=== PATIENT | female | born 1960 | race Caucasian/White ===

== ENCOUNTER 2020-11-11 09:08 | Outpatient (REF) | payer MEDICARE, MEDICAID, SELFPAY ==
[2020-11-11 11:49] LABS: Hematocrit 33.2 % (37-47); Hemoglobin 10.5 g/dl (12.0-16.0); Mean Corpuscular HGB Conc 31.6 g/dl (31.0-35.0); Mean Corpuscular Hemoglobin 29.5 pg (27.0-33.0); Mean Corpuscular Volume 93.3 fL (80-98); Mean Platelet Volume 10.1 fL (9.4-12.3); Platelet Count 426 X10*3/uL (160-400); Red Blood Count 3.56 X10*6/uL (4.20-5.50); Red Cell Distribution Width 13.7 % (11.0-16.0); White Blood Count 7.1 X10*3/uL (4.8-10.8)
[2020-11-11 12:02] LABS: Alanine Aminotransferase 19 U/L (0-31); Albumin Level 3.9 g/dL (3.5-5.0); Alkaline Phosphatase 99 U/L (39-117); Anion Gap 13 (12-20); Aspartate Amino Transferase 20 U/L (5-31); Bilirubin Total 0.8 mg/dL (0.0-1.0); Blood Urea Nitrogen 15 mg/dL (9-16); Calcium 8.7 mg/dL (8.4-10.2); Carbon Dioxide 27 mmol/L (22-29); Chloride 104 mmol/L (96-108); Cholesterol 132 mg/dL; Estimated Glomerular Filt Rate > 60; Glucose Fasting 109 mg/dL (60-99); HDL Cholesterol 44 mg/dL; Iron 50 mcg/dL (30-160); LDL Cholesterol Calculated 75 mg/dl; Percent Iron Saturation 19 % (15-50); Potassium 4.2 mmol/L (3.3-5.1); Sodium 140 mmol/L (135-145); Total Iron Binding Capacity 263 mcg/dL (228-428); Total Protein 6.9 g/dL (6.5-8.0); Triglycerides 66 mg/dL; Unsaturated Iron Binding 213 ug/dL
[2020-11-11 12:16] LABS: Estimated Average Glucose 126 mg/dL
[2020-11-11 12:24] LABS: TSH reflex Free T4 1.65 uIU/mL (0.32-4.0)
== END 2020-11-11 09:09 | disposition home or self-care (01) ==
LOC: HO.HMGCLDS 09:08
PROVIDERS: PCP Internal Medicine; Visit Provider Internal Medicine
DX: E11.9 Type 2 diabetes mellitus without complications (principal); I10 Essential (primary) hypertension; D50.9 Iron deficiency anemia, unspecified
CPT/HCPCS: 36415; 80053; 80061; 83036; 83540; 84443; 85027

== ENCOUNTER 2021-06-16 08:44 | Outpatient (REF) | payer MEDICARE, MEDICAID, SELFPAY ==
[2021-06-16 11:54] LABS: Hematocrit 30.6 % (37.0-47.0); Hemoglobin 9.4 g/dl (12.0-16.0); Mean Corpuscular HGB Conc 30.7 g/dl (31.0-35.0); Mean Corpuscular Hemoglobin 27.2 pg (27.0-33.0); Mean Corpuscular Volume 88.4 fL (80.0-98.0); Platelet Count 495 X10*3/uL (160-400); Red Blood Count 3.46 X10*6/uL (4.20-5.50); Red Cell Distribution Width 14.5 % (11.0-16.0); White Blood Count 7.2 X10*3/uL (4.8-10.8)
[2021-06-16 12:10] LABS: Estimated Average Glucose 131 mg/dL; Hemoglobin A1c % 6.2 %
[2021-06-16 12:51] LABS: Creatinine Urine 113.41 mg/dL; Microalbum/Creatinine Ratio Ur 4.4 ug/mg cr
[2021-06-16 13:09] LABS: Alanine Aminotransferase 17 U/L (0-31); Albumin Level 3.9 g/dL (3.5-5.0); Alkaline Phosphatase 115 U/L (39-117); Anion Gap 15 (12-20); Aspartate Amino Transferase 22 U/L (5-31); Bilirubin Total 0.7 mg/dL (0.0-1.0); Blood Urea Nitrogen 16 mg/dL (9-16); Calcium 9.2 mg/dL (8.4-10.2); Carbon Dioxide 26 mmol/L (22-29); Chloride 104 mmol/L (96-108); Cholesterol 134 mg/dL; Estimated Glomerular Filt Rate > 60; Glucose Fasting 113 mg/dL (60-99); HDL Cholesterol 41 mg/dL; LDL Cholesterol Calculated 75 mg/dl; Potassium 4.6 mmol/L (3.3-5.1); Sodium 140 mmol/L (135-145); Total Protein 7.2 g/dL (6.5-8.0); Triglycerides 93 mg/dL
[2021-06-16 13:43] LABS: Folate 13.1 ng/mL (> or = 4.0); Vitamin B12 417 pg/mL (200-900)
== END 2021-06-16 08:45 | disposition home or self-care (01) ==
LOC: HO.HMGCLDS 08:44
PROVIDERS: PCP Internal Medicine; Visit Provider Internal Medicine
DX: D50.9 Iron deficiency anemia, unspecified (principal); E11.9 Type 2 diabetes mellitus without complications; E78.5 Hyperlipidemia, unspecified; I10 Essential (primary) hypertension; I48.91 Unspecified atrial fibrillation
CPT/HCPCS: 36415; 80053; 80061; 82043; 82607; 82746; 83036; 85027

== ENCOUNTER 2021-07-07 09:48 | Outpatient (REF) | payer MEDICARE, MEDICAID, SELFPAY ==
--- NOTE | ~2021-07-07 | XR_ITS ---
EXAMINATION: XR KNEE, RIGHT CLINICAL INFORMATION: Pain in the right knee COMPARISON: None TECHNIQUE: Four views of the right knee. FINDINGS: There is no fracture or subluxation. Compartmental joint spaces are maintained. There are mild to moderate tricompartmental marginal osteophytes present. Chondrocalcinosis noted at the medial and lateral compartments. Enthesophyte formation of the patella. No joint effusion. XR/XR knee RT 4V IMPRESSION: Mild tricompartmental degenerative changes. Chondrocalcinosis.
== END 2021-07-07 09:49 | disposition home or self-care (01) ==
LOC: HO.HMGCX 09:48
PROVIDERS: PCP Internal Medicine; Visit Provider Nurse Practitioner Family
DX: M25.561 Pain in right knee (principal); M11.20 Other chondrocalcinosis, unspecified site
CPT/HCPCS: 73564

== ENCOUNTER 2021-10-18 08:08 | Outpatient (REF) | payer MEDICARE, MEDICAID, SELFPAY ==
[2021-10-18 11:50] LABS: Estimated Average Glucose 123 mg/dL; Hemoglobin A1c % 5.9 %
[2021-10-18 12:09] LABS: Alanine Aminotransferase 20 U/L (0-31); Alkaline Phosphatase 111 U/L (39-117); Anion Gap 13 (12-20); Aspartate Amino Transferase 21 U/L (5-31); Bilirubin Total 0.5 mg/dL (0.0-1.0); Blood Urea Nitrogen 20 mg/dL (9-16); Calcium 9.4 mg/dL (8.4-10.2); Carbon Dioxide 26 mmol/L (22-29); Chloride 105 mmol/L (96-108); Cholesterol 128 mg/dL; Estimated Glomerular Filt Rate 59; Glucose Fasting 119 mg/dL (60-99); HDL Cholesterol 45 mg/dL; LDL Cholesterol Calculated 72 mg/dl; Potassium 4.3 mmol/L (3.3-5.1); Sodium 140 mmol/L (135-145); Total Protein 7.3 g/dL (6.5-8.0); Triglycerides 58 mg/dL
== END 2021-10-18 08:09 | disposition home or self-care (01) ==
LOC: HO.HMGCLDS 08:08
PROVIDERS: Absent Provider Internal Medicine Cardiovascular Disease; PCP Internal Medicine; Visit Provider Internal Medicine
DX: I48.91 Unspecified atrial fibrillation (principal); I10 Essential (primary) hypertension; E11.9 Type 2 diabetes mellitus without complications; E78.5 Hyperlipidemia, unspecified
CPT/HCPCS: 36415; 80053; 80061; 83036

== ENCOUNTER 2021-11-04 13:23 | Outpatient (REF) | payer MEDICARE, MEDICAID, SELFPAY ==
--- NOTE | ~2021-11-04 | XR_ITS ---
EXAMINATION: CR X-RAY WRIST RIGHT CLINICAL INFORMATION: Right wrist sprain. COMPARISON: None TECHNIQUE: 4 views of the right wrist were obtained. FINDINGS: Mild first carpal metacarpal degenerative joint changes are seen. There is no acute fracture or dislocation. The carpal bones are normally aligned. The distal radius and ulna are intact. The soft tissues are unremarkable. XR/XR wrist RT w scaphoid IMPRESSION: Mild first carpal metacarpal degenerative joint changes without acute abnormality.
== END 2021-11-04 13:24 | disposition home or self-care (01) ==
LOC: HO.HMGCX 13:23
PROVIDERS: Visit Provider Internal Medicine
DX: S63.501D Unspecified sprain of right wrist, subsequent encounter (principal)
CPT/HCPCS: 73110

== ENCOUNTER → 2021-12-07 11:53 | Outpatient (RCR) | payer MEDICARE, SELFPAY ==
--- NOTE | 2020-07-08 10:38 | MHC.PT.DC ---
[facility] [place] Office [place] Office [place] Office [address] Asmita Salazar 140 [facility] [phone] F: [phone] F: [phone] F: [phone] F: [phone] Physical Therapy Discharge Report Diagnosis: Date of Surgery: Date of Evaluation: 04/07/20 Date of Discharge: Treatments to Date: 6 Cancellations to Date: 0 No Shows to Date: 0 Discharge Status: Patient Elected to Stop Physician Discontinued Tx Discharge Summary: Agustina had been an active and motivated participant in her therapy. Unfortunately she has suffered multiple serious bouts of Afib and is unable to continue her therapy at this time. Electronically signed by: Abilio Martinez PT. Please sign and return to therapist. Thank you for your referral.
== END | disposition home or self-care (01) ==
LOC: HO.PTCHIC 05-05 10:56
PROVIDERS: PCP Internal Medicine; Visit Provider Internal Medicine
DX: M25.551 Pain in right hip (principal)
CPT/HCPCS: 97110

== ENCOUNTER 2022-01-24 13:46 | Outpatient (REF) | payer MEDICARE, MEDICAID, SELFPAY ==
[2022-01-24 16:58] LABS: Appearance Urine CLEAR; Color Urine YELLOW; Glucose Urine UA NEG (NEG); Leukocyte Esterase Urine NEG (NEG); Nitrite Urine NEG (NEG); PH 5.5 (5.0-8.0); Urine Blood NEG (NEG); Urine Ketones NEG (NEG); Urine Protein NEG (NEG-TRACE)
== END 2022-01-24 13:47 | disposition home or self-care (01) ==
LOC: HO.HMGCLDS 13:46
PROVIDERS: Visit Provider Internal Medicine
DX: R30.0 Dysuria (principal)
CPT/HCPCS: 81003

== ENCOUNTER 2022-04-18 08:59 | Outpatient (REF) | payer MEDICARE, MEDICAID, SELFPAY ==
[2022-04-18 12:18] LABS: Estimated Average Glucose 128 mg/dL; Hemoglobin A1c % 6.1 %
[2022-04-18 12:26] LABS: Alanine Aminotransferase 21 U/L (0-31); Albumin Level 4.1 g/dL (3.5-5.0); Alkaline Phosphatase 118 U/L (39-117); Anion Gap 15 (12-20); Aspartate Amino Transferase 25 U/L (5-31); Bilirubin Total 0.6 mg/dL (0.0-1.0); Blood Urea Nitrogen 18 mg/dL (9-16); Calcium 9.2 mg/dL (8.4-10.2); Carbon Dioxide 27 mmol/L (22-29); Chloride 103 mmol/L (96-108); Cholesterol 133 mg/dL; Estimated Glomerular Filt Rate > 60; Glucose Fasting 107 mg/dL (60-99); HDL Cholesterol 45 mg/dL; LDL Cholesterol Calculated 73 mg/dl; Potassium 4.5 mmol/L (3.3-5.1); Sodium 140 mmol/L (135-145); Total Protein 7.4 g/dL (6.5-8.0); Triglycerides 75 mg/dL
[2022-04-18 12:52] LABS: Creatinine Urine 56.33 mg/dL; Microalbumin Urine < 5.0 mg/L
== END 2022-04-18 09:00 | disposition home or self-care (01) ==
LOC: HO.HMGCLDS 08:59
PROVIDERS: Absent Provider Internal Medicine Cardiovascular Disease; PCP Internal Medicine; Visit Provider Internal Medicine
DX: E78.5 Hyperlipidemia, unspecified (principal); I10 Essential (primary) hypertension; I48.91 Unspecified atrial fibrillation; E11.9 Type 2 diabetes mellitus without complications
CPT/HCPCS: 36415; 80053; 80061; 82043; 83036

== ENCOUNTER 2022-04-21 12:03 | Outpatient (REF) | payer MEDICARE, MEDICAID, SELFPAY ==
[2022-04-21 14:11] LABS: Iron 26 mcg/dL (30-160); Percent Iron Saturation 7 % (15-50); Total Iron Binding Capacity 389 mcg/dL (228-428); Unsaturated Iron Binding 363 ug/dL
[2022-04-21 14:39] LABS: Vitamin B12 506 pg/mL (200-900)
== END 2022-04-21 12:04 | disposition home or self-care (01) ==
LOC: HO.HMGCLDS 12:03
PROVIDERS: PCP Internal Medicine; Visit Provider Internal Medicine
DX: D64.9 Anemia, unspecified (principal)
CPT/HCPCS: 36415; 82607; 83540

== ENCOUNTER 2022-08-11 09:01 | Outpatient (REF) | payer MEDICARE, MEDICAID, SELFPAY ==
[2022-08-11 11:27] LABS: MANUAL DIFF FLAG NO
[2022-08-11 11:48] LABS: Basophils Percent Auto 0.5 % (0-2); Eosinophils Absolute Auto 0.1 X10*3/uL (0.0-0.4); Eosinophils Percent Auto 1.8 % (0-4); Hematocrit 31.7 % (37.0-47.0); Hemoglobin 9.7 g/dl (12.0-16.0); Imm Gran Abs Auto 0.01 X10*3/uL (0.00-0.03); Imm Gran Pct Auto 0.2 % (0.0-0.4); Lymphocytes Absolute Auto 1.9 X10*3/uL (1.2-4.9); Lymphocytes Percent Auto 35.5 % (20-40); Mean Corpuscular HGB Conc 30.6 g/dl (31.0-35.0); Mean Corpuscular Hemoglobin 27.3 pg (27.0-33.0); Mean Corpuscular Volume 89.3 fL (80.0-98.0); Mean Platelet Volume 10.1 fL (9.4-12.3); Monocytes Absolute Auto 0.6 X10*3/uL (0.1-1.2); Monocytes Percent Auto 11.5 % (2-11); Neutrophils Absolute Auto 2.8 x10*3/uL (2.0-8.3); Neutrophils Percent Auto 50.5 % (45-73); Platelet Count 436 X10*3/uL (160-400); Red Blood Count 3.55 X10*6/uL (4.20-5.50); Red Cell Distribution Width 14.9 % (11.0-16.0); White Blood Count 5.5 X10*3/uL (4.8-10.8)
[2022-08-11 12:15] LABS: Alanine Aminotransferase 22 U/L (0-31); Albumin Level 3.8 g/dL (3.5-5.0); Alkaline Phosphatase 113 U/L (39-117); Anion Gap 13 (12-20); Aspartate Amino Transferase 30 U/L (5-31); Bilirubin Total 0.6 mg/dL (0.0-1.0); Blood Urea Nitrogen 19 mg/dL (9-16); Calcium 9.1 mg/dL (8.4-10.2); Carbon Dioxide 26 mmol/L (22-29); Chloride 107 mmol/L (96-108); Estimated Glomerular Filt Rate > 60; Glucose Fasting 138 mg/dL (60-99); Iron 42 mcg/dL (30-160); Percent Iron Saturation 14 % (15-50); Potassium 4.3 mmol/L (3.3-5.1); Sodium 142 mmol/L (135-145); Total Iron Binding Capacity 310 mcg/dL (228-428); Total Protein 6.9 g/dL (6.5-8.0); Unsaturated Iron Binding 268 ug/dL
[2022-08-11 12:19] LABS: TSH reflex Free T4 1.48 uIU/mL (0.32-4.0)
[2022-08-11 12:22] LABS: Thyroid Stimulating Hormone 1.39 uIU/mL (0.32-4.0)
== END 2022-08-11 09:02 | disposition home or self-care (01) ==
LOC: HO.HMGCLDS 09:01
PROVIDERS: Absent Provider Neurological Surgery; PCP Internal Medicine; Visit Provider Internal Medicine
DX: Z01.818 Encounter for other preprocedural examination (principal); D64.9 Anemia, unspecified; E11.9 Type 2 diabetes mellitus without complications; E78.5 Hyperlipidemia, unspecified; I10 Essential (primary) hypertension; I48.91 Unspecified atrial fibrillation; Z98.890 Other specified postprocedural states
CPT/HCPCS: 36415; 80053; 83540; 84443; 85025

== ENCOUNTER 2022-11-03 07:38 | Outpatient (REF) | payer MEDICARE, MEDICAID, SELFPAY ==
[2022-11-03 11:30] LABS: MANUAL DIFF FLAG NO
[2022-11-03 11:53] LABS: Basophils Percent Auto 0.3 % (0-2); Eosinophils Absolute Auto 0.1 X10*3/uL (0.0-0.4); Eosinophils Percent Auto 2.1 % (0-4); Hematocrit 26.7 % (37.0-47.0); Imm Gran Abs Auto 0.02 X10*3/uL (0.00-0.03); Imm Gran Pct Auto 0.3 % (0.0-0.4); Lymphocytes Absolute Auto 2.1 X10*3/uL (1.2-4.9); Lymphocytes Percent Auto 33.9 % (20-40); Mean Corpuscular Hemoglobin 27.2 pg (27.0-33.0); Mean Corpuscular Volume 90.8 fL (80.0-98.0); Monocytes Absolute Auto 0.7 X10*3/uL (0.1-1.2); Monocytes Percent Auto 11.6 % (2-11); Neutrophils Absolute Auto 3.2 x10*3/uL (2.0-8.3); Neutrophils Percent Auto 51.8 % (45-73); Platelet Count 466 X10*3/uL (160-400); Red Blood Count 2.94 X10*6/uL (4.20-5.50); Red Cell Distribution Width 15.1 % (11.0-16.0); White Blood Count 6.1 X10*3/uL (4.8-10.8)
[2022-11-03 12:06] LABS: Alanine Aminotransferase 19 U/L (0-31); Albumin Level 3.7 g/dL (3.5-5.0); Alkaline Phosphatase 127 U/L (39-117); Anion Gap 10 (12-20); Aspartate Amino Transferase 29 U/L (5-31); Bilirubin Total 0.6 mg/dL (0.0-1.0); Blood Urea Nitrogen 21 mg/dL (9-16); Carbon Dioxide 27 mmol/L (22-29); Chloride 107 mmol/L (96-108); Cholesterol 119 mg/dL; Estimated Glomerular Filt Rate > 60; Glucose Fasting 127 mg/dL (60-99); HDL Cholesterol 36 mg/dL; Iron 21 mcg/dL (30-160); LDL Cholesterol Calculated 68 mg/dl; Percent Iron Saturation 7 % (15-50); Potassium 4.4 mmol/L (3.3-5.1); Sodium 140 mmol/L (135-145); Total Iron Binding Capacity 316 mcg/dL (228-428); Total Protein 6.8 g/dL (6.5-8.0); Triglycerides 76 mg/dL; Unsaturated Iron Binding 295 ug/dL
[2022-11-03 12:08] LABS: Estimated Average Glucose 137 mg/dL; Hemoglobin A1c % 6.4 %
[2022-11-03 12:33] LABS: Creatinine Urine 127.69 mg/dL; Microalbum/Creatinine Ratio Ur 6.2 ug/mg cr
== END 2022-11-03 07:39 | disposition home or self-care (01) ==
LOC: HO.HMGCLDS 07:38
PROVIDERS: PCP Internal Medicine; Visit Provider Internal Medicine
DX: E11.9 Type 2 diabetes mellitus without complications (principal); E78.5 Hyperlipidemia, unspecified; I10 Essential (primary) hypertension; I48.91 Unspecified atrial fibrillation; D64.9 Anemia, unspecified
CPT/HCPCS: 36415; 80053; 80061; 82043; 83036; 83540; 85025

== ENCOUNTER 2023-01-01 13:21 | Outpatient (REF) | payer MEDICARE, MEDICAID, SELFPAY ==
[2023-01-01 16:23] LABS: MANUAL DIFF FLAG NO
[2023-01-01 16:27] LABS: Basophils Percent Auto 0.4 % (0-2); Eosinophils Absolute Auto 0.1 X10*3/uL (0.0-0.4); Eosinophils Percent Auto 2.6 % (0-4); Hematocrit 24.4 % (37.0-47.0); Imm Gran Abs Auto 0.01 X10*3/uL (0.00-0.03); Imm Gran Pct Auto 0.2 % (0.0-0.4); Lymphocytes Absolute Auto 2.1 X10*3/uL (1.2-4.9); Lymphocytes Percent Auto 38.3 % (20-40); Mean Corpuscular HGB Conc 28.3 g/dl (31.0-35.0); Mean Corpuscular Hemoglobin 24.9 pg (27.0-33.0); Mean Corpuscular Volume 88.1 fL (80.0-98.0); Mean Platelet Volume 10.5 fL (9.4-12.3); Monocytes Absolute Auto 0.7 X10*3/uL (0.1-1.2); Monocytes Percent Auto 13.7 % (2-11); Neutrophils Absolute Auto 2.4 x10*3/uL (2.0-8.3); Neutrophils Percent Auto 44.8 % (45-73); Platelet Count 505 X10*3/uL (160-400); Red Blood Count 2.77 X10*6/uL (4.20-5.50); Red Cell Distribution Width 14.6 % (11.0-16.0); White Blood Count 5.4 X10*3/uL (4.8-10.8)
[2023-01-01 16:41] LABS: Hemoglobin 6.9 g/dl (12.0-16.0)
[2023-01-01 16:43] LABS: Iron 8 mcg/dL (30-160); Percent Iron Saturation 2 % (15-50); Total Iron Binding Capacity 323 mcg/dL (228-428); Unsaturated Iron Binding 315 ug/dL
== END 2023-01-01 13:22 | disposition home or self-care (01) ==
LOC: HO.HMGCLDS 13:21
PROVIDERS: PCP Internal Medicine; Visit Provider Internal Medicine
DX: D64.9 Anemia, unspecified (principal)
CPT/HCPCS: 36415; 83540; 85025

== ENCOUNTER 2023-01-09 10:06 | Outpatient (REF) | payer MEDICARE, MEDICAID, SELFPAY ==
[2023-01-09 11:18] LABS: MANUAL DIFF FLAG NO
[2023-01-09 11:29] LABS: Basophils Percent Auto 0.6 % (0-2); Eosinophils Absolute Auto 0.1 X10*3/uL (0.0-0.4); Eosinophils Percent Auto 1.8 % (0-4); Hematocrit 28.6 % (37.0-47.0); Hemoglobin 8.1 g/dl (12.0-16.0); Imm Gran Abs Auto 0.01 X10*3/uL (0.00-0.03); Imm Gran Pct Auto 0.2 % (0.0-0.4); Lymphocytes Absolute Auto 1.9 X10*3/uL (1.2-4.9); Lymphocytes Percent Auto 36.4 % (20-40); Mean Corpuscular HGB Conc 28.3 g/dl (31.0-35.0); Mean Corpuscular Hemoglobin 24.6 pg (27.0-33.0); Mean Corpuscular Volume 86.9 fL (80.0-98.0); Monocytes Absolute Auto 0.7 X10*3/uL (0.1-1.2); Monocytes Percent Auto 13.5 % (2-11); Neutrophils Absolute Auto 2.4 x10*3/uL (2.0-8.3); Neutrophils Percent Auto 47.5 % (45-73); Platelet Count 468 X10*3/uL (160-400); Red Blood Count 3.29 X10*6/uL (4.20-5.50); Red Cell Distribution Width 14.7 % (11.0-16.0); White Blood Count 5.1 X10*3/uL (4.8-10.8)
[2023-01-09 11:42] LABS: Iron 15 mcg/dL (30-160); Percent Iron Saturation 4 % (15-50); Total Iron Binding Capacity 336 mcg/dL (228-428); Unsaturated Iron Binding 321 ug/dL
== END 2023-01-09 10:07 | disposition home or self-care (01) ==
LOC: HO.HMGCLDS 10:06
PROVIDERS: PCP Internal Medicine; Visit Provider Internal Medicine
DX: D50.9 Iron deficiency anemia, unspecified (principal)
CPT/HCPCS: 36415; 83540; 85025

== ENCOUNTER 2023-02-06 08:46 | Outpatient (REF) | payer MEDICARE, MEDICAID, SELFPAY ==
[2023-02-06 11:12] LABS: MANUAL DIFF FLAG NO
[2023-02-06 11:32] LABS: Basophils Percent Auto 0.6 % (0-2); Eosinophils Absolute Auto 0.1 X10*3/uL (0.0-0.4); Eosinophils Percent Auto 2.1 % (0-4); Hematocrit 27.7 % (37.0-47.0); Hemoglobin 8.1 g/dl (12.0-16.0); Imm Gran Abs Auto 0.02 X10*3/uL (0.00-0.03); Imm Gran Pct Auto 0.4 % (0.0-0.4); Lymphocytes Absolute Auto 1.7 X10*3/uL (1.2-4.9); Lymphocytes Percent Auto 32.5 % (20-40); Mean Corpuscular HGB Conc 29.2 g/dl (31.0-35.0); Mean Corpuscular Hemoglobin 25.4 pg (27.0-33.0); Mean Corpuscular Volume 86.8 fL (80.0-98.0); Monocytes Absolute Auto 0.7 X10*3/uL (0.1-1.2); Monocytes Percent Auto 13.9 % (2-11); Neutrophils Absolute Auto 2.7 x10*3/uL (2.0-8.3); Neutrophils Percent Auto 50.5 % (45-73); Platelet Count 452 X10*3/uL (160-400); Red Blood Count 3.19 X10*6/uL (4.20-5.50); White Blood Count 5.3 X10*3/uL (4.8-10.8)
[2023-02-06 11:43] LABS: Estimated Average Glucose 111 mg/dL; Hemoglobin A1c % 5.5 %
[2023-02-06 11:50] LABS: Alanine Aminotransferase 27 U/L (0-31); Albumin Level 3.6 g/dL (3.5-5.0); Alkaline Phosphatase 130 U/L (39-117); Anion Gap 12 (12-20); Aspartate Amino Transferase 37 U/L (5-31); Bilirubin Total 0.5 mg/dL (0.0-1.0); Blood Urea Nitrogen 11 mg/dL (9-16); Calcium 9.3 mg/dL (8.4-10.2); Carbon Dioxide 24 mmol/L (22-29); Chloride 107 mmol/L (96-108); Cholesterol 117 mg/dL; Estimated Glomerular Filt Rate > 60; Glucose Fasting 110 mg/dL (60-99); HDL Cholesterol 39 mg/dL; LDL Cholesterol Calculated 68 mg/dl; Potassium 4.2 mmol/L (3.3-5.1); Sodium 139 mmol/L (135-145); Total Protein 7.3 g/dL (6.5-8.0); Triglycerides 52 mg/dL
[2023-02-06 12:14] LABS: Creatinine Urine 59.02 mg/dL; Microalbumin Urine < 5.0 mg/L
== END 2023-02-06 08:47 | disposition home or self-care (01) ==
LOC: HO.HMGCLDS 08:46
PROVIDERS: PCP Internal Medicine; Visit Provider Internal Medicine
DX: D50.9 Iron deficiency anemia, unspecified (principal); E11.9 Type 2 diabetes mellitus without complications; I10 Essential (primary) hypertension; I48.91 Unspecified atrial fibrillation
CPT/HCPCS: 36415; 80053; 80061; 82043; 83036; 85025

== ENCOUNTER → 2023-02-20 10:14 | Outpatient (BNV) | payer MEDICARE, MEDICAID, SELFPAY | PROVIDERS: PCP Internal Medicine; Visit Provider Internal Medicine Medical Oncology | DX: D64.9 Anemia, unspecified (principal) | CPT/HCPCS: 99204; 99213 ==

== ENCOUNTER 2023-02-22 10:38 | Outpatient (AMB) | payer MEDICARE, MEDICAID, SELFPAY ==
[2023-02-22 11:02] VITALS: BP 110/70; PULSE 72; O2SAT 100; BMI 44.2
--- NOTE | 2023-02-22 11:02 | A.OFFPC_ITS ---
Vital Signs 02/22/23 11:02 Height 5 ft 6 in Weight 274 lb BMI 44.2 BP 110/70 Blood Pressure Location Lt brachial Position Sitting Pulse 72 Pulse Source Pulse Oximeter Pulse Oximetry (%) 100 Oxygen Delivery Method Room Air Intake Visit Reasons: 4m follow up Intake Note: Pt is here today for 4 months follow up visit. Allergies ciprofloxacin [From Cipro] Allergy (Unknown, Verified 02/22/23 11:04) palpations/cp codeine Allergy (Unknown, Verified 02/22/23 11:04) chest pain sulfadiazine Allergy (Unknown, Verified 02/22/23 11:04) palpatations/CP dulaglutide [From Trulicity] Allergy (Verified 02/22/23 11:04) Diarrhea apixaban [From Eliquis] Adverse Reaction (Unknown, Verified 02/22/23 11:04) memory problem Medication List - Last Reconciled 02/22/23 by Dayna Prieto MD apixaban 5 mg PO BID atorvastatin 80 mg PO DAILY benazepril 20 mg PO DAILY blood sugar diagnostic (FreeStyle Lite Strips) Test blood sugar once a day blood-glucose meter (FreeStyle Lite Meter kit) As directed cholecalciferol (vitamin D3) 25 mcg PO DAILY diltiazem HCl ER 240 mg PO DAILY ferrous sulfate (Feosol) 325 mg PO DAILY flecainide 100 mg PO BID lancets (FreeStyle Lancets) test blood sugar once a day metformin ER 750 mg PO BID methocarbamol 500 mg PO DAILY omega 0-ywa-rgo-fish oil 1,200 (144-216) mg (Fish Oil) 1,200 caps PO DAILY pantoprazole 40 mg PO DAILY vitamins A,C,G-uztu-veagha 2,148 mcg-113 mg-45 mg-17.4mg (PreserVision AREDS) 2 tabs PO BID Tobacco use date assessed: 02/22/23 Dental Screening Dental Screen Date: 02/22/23 Did you have a dental visit in the last 12 months?: Yes Did you have a dental problem in the last 6 months where you did not have access to dental care?: No Was dental information given to patient?: Patient has dentist HPI 4m follow up HPI Details Pt presents for f/u DM 2, paroxysmal Afib, hyperlipisd stable on meds. Patient follows up with Hematology for chronic iron deficiency anemia persistent despite oral iron supplement and will have iron infusion. She follows up with Cardiology for paroxysmal AFib. [facility] Medical History (Updated 02/22/23 @ 11:42 by Dayna Prieto MD) Annual physical exam Anxiety Atrial fibrillation Degenerative lumbar spinal stenosis DM type 2 (diabetes mellitus, type 2) GERD (gastroesophageal reflux disease) HTN (hypertension) Hyperlipidemia Iron deficiency anemia Macular degeneration Obesity DAVIAN on CPAP Surgical History H/O colonoscopy H/O lumbosacral spine surgery No pertinent past surgical history Family History Unknown No problems noted. Mother No problems noted. Sister No problems noted. Brother Substance use disorder Social History Housing: Apartment Alcohol intake: current Alcohol intake frequency: does not drink Patient Tobacco Use Status: Never used Tobacco e-Cigarette/Vaping Use: Never Used service: No Current occupational status: unemployed and disabled Cognitive needs: No Hearing needs: Yes Vision needs: Yes Questionnaire Thrive Questionnaire Date Thrive assessed: 11/21/22 AUDIT C Alcohol Use Questionnaire (AUDIT-C) 1. How often do you have a drink containing alcohol?: Never 3. How often do you have six or more drinks on one occasion?: Never Total Score: 0 ROXANNA-7 AMB Questionnaire ROXANNA-7 Date ROXANNA - 7 assessed: 11/21/22 Source: Developed by Drs. Candido Santana, Marilia Malcolm, Alex Garcia and colleagues, with an educational garima from [employer]. Review of Systems Const All systems reviewed & are unremarkable except as noted in HPI and below Reports no additional complaints Eyes Reports no additional complaints ENT Reports no additional complaints Card Reports no additional complaints Resp Reports no additional complaints GI Reports no additional complaints Reports no additional complaints Physical exam (Primary Care) Vital Signs: Last Vital Signs Pulse 72 02/22/23 11:02 BP 110/70 02/22/23 11:02 Pulse Ox 100 02/22/23 11:02 Oxygen Delivery Method Room Air 02/22/23 11:02 BMI result Body Mass Index 44.2 Tobacco/Smoking Status: Tobacco use Status Tobacco use date assessed 02/22/23 02/22/23 11:07 Patient Tobacco Use Status Never used Tobacco 02/22/23 11:07 e-Cigarette/Vaping Use Never Used 02/22/23 11:07 Thrive Assessment: Date of Thrive Assessment Date Thrive assessed 11/21/22 02/22/23 11:07 HENMT Head: Yes normal to inspection Face and sinus: Yes normal facial exam Eyes General: appearance normal, both eyes and all related structures Resp Effort & Inspection: normal respiratory effort Auscultation: clear to auscultation bilaterally Cardio Rhythm: regular rhythm Heart sounds: S1 normal heart sound present and S2 normal heart sound present GI Palpation (GI): Soft to palpation Percussion: Yes normal to percussion Auscultation: normal bowel sounds Assessment and Plan Assessment & Plan (1) Normochromic normocytic anemia: Code(s): D64.9 - Anemia, unspecified Plan: Continue iron supplement and follow-up with Hematology (2) Hyperlipidemia: Code(s): E78.5 - Hyperlipidemia, unspecified Plan: Continue statin (3) Atrial fibrillation: Comment: s/p ablation 04/2020 x2, f/u Dr. Bell, on diltiazem and flecainide Code(s): I48.91 - Unspecified atrial fibrillation Plan: Follow-up with Cardiology (4) DM type 2 (diabetes mellitus, type 2): Comment: Intolerant to Trulicity, diarrhea Code(s): E11.9 - Type 2 diabetes mellitus without complications Plan: A1c is 5.5 continue metformin ADA diet increase physical activity discussed with the patient return in May with fasting labs before (5) HTN (hypertension): Code(s): I10 - Essential (primary) hypertension Plan: Continue current medications Orders: Orders Comprehensive [place]. Panel Fast 4 Months D64.9 - Anemia, unspecified, E11.9 - Type 2 diabetes mellitus without complications, E78.5 - Hyperlipidemia, unspe cified, I10 - Essential (primary) hypertension, I48.91 - Unspecified atrial fibrillation Hemoglobin A1c 4 Months D64.9 - Anemia, unspecified, E11.9 - Type 2 diabetes mellitus without complications, E78.5 - Hyperlipidemia, unspecified, I10 - Essential (primary) hypertension, I48.91 - Unspecified atrial fibrillation IRON PROFILE 4 Months D64.9 - Anemia, unspecified, E11.9 - Type 2 diabetes mellitus without complications, E78.5 - Hyperlipidemia, unspecified, I10 - Essential (primary) hypertension, I48.91 - Unspecified atrial fibrillation Microalbumin, Random (w Creat) 4 Months D64.9 - Anemia, unspecified, E11.9 - Type 2 diabetes mellitus without complications, E78.5 - Hyperlipidemia, unspecified, I10 - Essential (primary) hypertension, I48.91 - Unspecified atrial fibrillation Complete Blood Count Auto Diff 4 Months D64.9 - Anemia, unspecified, E11.9 - Type 2 diabetes mellitus without complications, E78.5 - Hyperlipidemia, unspecified, I10 - Essential (primary) hypertension, I48.91 - Unspecified atrial fibrillation Medications: Changed From blood sugar diagnostic (FreeStyle Lite Strips) Test blood sugar once a day 100 ea 3RF E11.9 - Type 2 diabetes mellitus without complications To blood sugar diagnostic (FreeStyle Lite Strips) Test blood sugar 4 x a day 400 ea 3RF E11.9 - Type 2 diabetes mellitus without complications Coding Level of Care Code Est Pt Level 4 (44389) Diagnoses Normochromic normocytic anemia D64.9 Hyperlipidemia E78.5 Atrial fibrillation I48.91 DM type 2 (diabetes mellitus, type 2) E11.9 HTN (hypertension) I10
== END 2023-02-22 11:34 | disposition home or self-care (01) ==
PROVIDERS: Visit Provider Internal Medicine
DX: I10 Essential (primary) hypertension (principal); I48.91 Unspecified atrial fibrillation; E11.65 Type 2 diabetes mellitus with hyperglycemia; D64.9 Anemia, unspecified; E78.5 Hyperlipidemia, unspecified
CPT/HCPCS: 99214

== ENCOUNTER 2023-03-07 12:22 | Outpatient (REF) | payer MEDICARE, MEDICAID, SELFPAY | END 2023-03-07 12:23 | disposition home or self-care (01) | LOC: HO.MDS 12:22 | PROVIDERS: Visit Provider Internal Medicine Medical Oncology | DX: D50.8 Other iron deficiency anemias (principal) | CPT/HCPCS: 96365; J1756 ==

== ENCOUNTER 2023-03-15 09:50 | Outpatient (REF) | payer MEDICARE, MEDICAID, SELFPAY | END 2023-03-15 09:51 | disposition home or self-care (01) | LOC: HO.MDS 09:50 | PROVIDERS: Visit Provider Internal Medicine Medical Oncology | DX: D50.8 Other iron deficiency anemias (principal) | CPT/HCPCS: 96365; J1756 ==

== ENCOUNTER 2023-03-19 10:58 | Outpatient (REF) | payer MEDICARE, MEDICAID, SELFPAY | END 2023-03-19 10:59 | disposition home or self-care (01) | LOC: HO.MDS 10:58 | PROVIDERS: Visit Provider Internal Medicine Medical Oncology | DX: D50.8 Other iron deficiency anemias (principal) | CPT/HCPCS: 96365; J1756 ==

== ENCOUNTER 2023-03-26 10:28 | Outpatient (REF) | payer MEDICARE, MEDICAID, SELFPAY ==
[2023-03-26 11:06] LABS: Basophils Percent Auto 0.4 % (0-2); Eosinophils Absolute Auto 0.1 X10*3/uL (0.0-0.4); Eosinophils Percent Auto 2.4 % (0-4); Hematocrit 27.8 % (37.0-47.0); Hemoglobin 8.3 g/dl (12.0-16.0); Imm Gran Abs Auto 0.01 X10*3/uL (0.00-0.03); Imm Gran Pct Auto 0.2 % (0.0-0.4); Lymphocytes Absolute Auto 1.5 X10*3/uL (1.2-4.9); Lymphocytes Percent Auto 32.5 % (20-40); MANUAL DIFF FLAG NO; Mean Corpuscular HGB Conc 29.9 g/dl (31.0-35.0); Mean Corpuscular Hemoglobin 26.9 pg (27.0-33.0); Mean Corpuscular Volume 90.3 fL (80.0-98.0); Mean Platelet Volume 9.6 fL (9.4-12.3); Monocytes Absolute Auto 0.5 X10*3/uL (0.1-1.2); Monocytes Percent Auto 10.1 % (2-11); Neutrophils Absolute Auto 2.5 x10*3/uL (2.0-8.3); Neutrophils Percent Auto 54.4 % (45-73); Platelet Count 375 X10*3/uL (160-400); Red Blood Count 3.08 X10*6/uL (4.20-5.50); Red Cell Distribution Width 17.6 % (11.0-16.0); White Blood Count 4.7 X10*3/uL (4.8-10.8)
== END 2023-03-26 10:29 | disposition home or self-care (01) ==
LOC: HO.MDS 10:28
PROVIDERS: Visit Provider Internal Medicine Medical Oncology
DX: D50.8 Other iron deficiency anemias (principal)
CPT/HCPCS: 36415; 85025; 96365; J1756

== ENCOUNTER 2023-04-05 10:24 | Outpatient (REF) | payer MEDICARE, MEDICAID, SELFPAY | END 2023-04-05 10:25 | disposition home or self-care (01) | LOC: HO.MDS 10:24 | PROVIDERS: Visit Provider Internal Medicine Medical Oncology | DX: D50.8 Other iron deficiency anemias (principal) | CPT/HCPCS: 96365; J1756 ==

== ENCOUNTER 2023-04-11 10:39 | Outpatient (REF) | payer MEDICARE, MEDICAID, SELFPAY | END 2023-04-11 10:40 | disposition home or self-care (01) | LOC: HO.MDS 10:39 | PROVIDERS: Visit Provider Internal Medicine Medical Oncology | DX: D50.8 Other iron deficiency anemias (principal) | CPT/HCPCS: 96365; J1756 ==

== ENCOUNTER 2023-04-18 10:49 | Outpatient (REF) | payer MEDICARE, MEDICAID, SELFPAY | END 2023-04-18 10:50 | disposition home or self-care (01) | LOC: HO.MDS 10:49 | PROVIDERS: Visit Provider Internal Medicine Medical Oncology | DX: D50.8 Other iron deficiency anemias (principal) | CPT/HCPCS: 96365; J1756 ==

== ENCOUNTER 2023-04-25 10:10 | Outpatient (REF) | payer MEDICARE, MEDICAID, SELFPAY ==
[2023-04-25 10:39] LABS: MANUAL DIFF FLAG NO
[2023-04-25 10:41] LABS: Basophils Percent Auto 0.4 % (0-2); Eosinophils Absolute Auto 0.1 X10*3/uL (0.0-0.4); Eosinophils Percent Auto 1.6 % (0-4); Hematocrit 25.2 % (37.0-47.0); Hemoglobin 7.7 g/dl (12.0-16.0); Imm Gran Abs Auto 0.01 X10*3/uL (0.00-0.03); Imm Gran Pct Auto 0.2 % (0.0-0.4); Lymphocytes Absolute Auto 1.5 X10*3/uL (1.2-4.9); Lymphocytes Percent Auto 30.3 % (20-40); Mean Corpuscular HGB Conc 30.6 g/dl (31.0-35.0); Mean Corpuscular Hemoglobin 28.1 pg (27.0-33.0); Mean Platelet Volume 8.7 fL (9.4-12.3); Monocytes Absolute Auto 0.6 X10*3/uL (0.1-1.2); Monocytes Percent Auto 12.6 % (2-11); Neutrophils Absolute Auto 2.8 x10*3/uL (2.0-8.3); Neutrophils Percent Auto 54.9 % (45-73); Platelet Count 326 X10*3/uL (160-400); Red Blood Count 2.74 X10*6/uL (4.20-5.50); Red Cell Distribution Width 17.2 % (11.0-16.0); White Blood Count 5.1 X10*3/uL (4.8-10.8)
--- NOTE | 2023-04-26 11:39 | MHC.HEMONCMA ---
Patient called back Dr. Gambino who called her. I gave message with phone number to provider.
== END 2023-04-25 10:11 | disposition home or self-care (01) ==
LOC: HO.MDS 10:10
PROVIDERS: Visit Provider Internal Medicine Medical Oncology
DX: D50.8 Other iron deficiency anemias (principal)
CPT/HCPCS: 36415; 85025; 96365; J1756

== ENCOUNTER 2023-05-15 08:59 | Outpatient (REF) | payer MEDICARE, MEDICAID, SELFPAY ==
[2023-05-15 11:29] LABS: MANUAL DIFF FLAG NO
[2023-05-15 11:50] LABS: Basophils Percent Auto 0.7 % (0-2); Eosinophils Absolute Auto 0.1 X10*3/uL (0.0-0.4); Eosinophils Percent Auto 3.1 % (0-4); Hematocrit 29.2 % (37.0-47.0); Hemoglobin 8.7 g/dl (12.0-16.0); Imm Gran Abs Auto 0.01 X10*3/uL (0.00-0.03); Imm Gran Pct Auto 0.2 % (0.0-0.4); Lymphocytes Absolute Auto 1.5 X10*3/uL (1.2-4.9); Lymphocytes Percent Auto 33.8 % (20-40); Mean Corpuscular HGB Conc 29.8 g/dl (31.0-35.0); Mean Corpuscular Hemoglobin 28.2 pg (27.0-33.0); Mean Corpuscular Volume 94.5 fL (80.0-98.0); Mean Platelet Volume 10.1 fL (9.4-12.3); Monocytes Absolute Auto 0.6 X10*3/uL (0.1-1.2); Monocytes Percent Auto 12.4 % (2-11); Neutrophils Absolute Auto 2.3 x10*3/uL (2.0-8.3); Neutrophils Percent Auto 49.8 % (45-73); Platelet Count 441 X10*3/uL (160-400); Red Blood Count 3.09 X10*6/uL (4.20-5.50); Red Cell Distribution Width 16.3 % (11.0-16.0); White Blood Count 4.5 X10*3/uL (4.8-10.8)
[2023-05-15 11:57] LABS: Estimated Average Glucose 100 mg/dL; Hemoglobin A1c % 5.1 % (<6.0)
[2023-05-15 12:17] LABS: Alanine Aminotransferase 23 U/L (0-31); Albumin Level 3.9 g/dL (3.5-5.0); Alkaline Phosphatase 134 U/L (39-117); Anion Gap 14 (12-20); Aspartate Amino Transferase 34 U/L (5-31); Bilirubin Total 0.4 mg/dL (0.0-1.0); Blood Urea Nitrogen 14 mg/dL (9-16); Carbon Dioxide 26 mmol/L (22-29); Chloride 105 mmol/L (96-108); Estimated Glomerular Filt Rate > 60; Glucose Fasting 106 mg/dL (60-99); Iron 30 mcg/dL (30-160); Percent Iron Saturation 11 % (15-50); Sodium 141 mmol/L (135-145); Total Iron Binding Capacity 270 mcg/dL (228-428); Total Protein 7.4 g/dL (6.5-8.0); Unsaturated Iron Binding 240 ug/dL
[2023-05-15 12:51] LABS: Creatinine Urine 95.33 mg/dL; Microalbumin Urine < 5.0 mg/L
== END 2023-05-15 09:00 | disposition home or self-care (01) ==
LOC: HO.HMGCLDS 08:59
PROVIDERS: PCP Internal Medicine; Visit Provider Internal Medicine
DX: D64.9 Anemia, unspecified (principal); E78.5 Hyperlipidemia, unspecified; I48.91 Unspecified atrial fibrillation; E11.9 Type 2 diabetes mellitus without complications; I10 Essential (primary) hypertension
CPT/HCPCS: 36415; 80053; 82043; 82570; 83036; 83540; 85025

== ENCOUNTER 2023-05-30 10:54 | Outpatient (AMB) | payer MEDICARE, MEDICAID, SELFPAY ==
--- NOTE | 2023-05-30 11:12 | MHC.PC.OV ---
Intake Visit Reasons: SWV [id number] Allergies ciprofloxacin [From Cipro] Allergy (Unknown, Verified 02/22/23 11:04) palpations/cp codeine Allergy (Unknown, Verified 02/22/23 11:04) chest pain sulfadiazine Allergy (Unknown, Verified 02/22/23 11:04) palpatations/CP dulaglutide [From Trulicity] Allergy (Verified 02/22/23 11:04) Diarrhea apixaban [From Eliquis] Adverse Reaction (Unknown, Verified 02/22/23 11:04) memory problem Tobacco use date assessed: 02/22/23 [facility] Medical History (Updated 04/10/23 @ 11:31 by [employer]) Annual physical exam Anxiety Degenerative lumbar spinal stenosis Obesity DAVIAN on CPAP Iron deficiency anemia Macular degeneration GERD (gastroesophageal reflux disease) Atrial fibrillation Hyperlipidemia HTN (hypertension) DM type 2 (diabetes mellitus, type 2) Surgical History H/O colonoscopy H/O lumbosacral spine surgery No pertinent past surgical history Family History Unknown No problems noted. Mother No problems noted. Sister No problems noted. Brother Substance use disorder Social History Housing: Apartment Alcohol intake: current Alcohol intake frequency: does not drink Patient Tobacco Use Status: Never used Tobacco e-Cigarette/Vaping Use: Never Used service: No Current occupational status: unemployed and disabled Cognitive needs: No Hearing needs: Yes Vision needs: Yes Questionnaire Thrive Questionnaire Date Thrive assessed: 11/21/22 I am a: Patient What is your living situation today?: I have a steady place to live Within the past 12 months, did the food you bought not last and you didn't have the money to get more?: Never true Within the past 12 months, did you worry whether your food would run out before you got money to buy more?: Never true Please select the resources that you would like help with: None AUDIT C Alcohol Use Questionnaire (AUDIT-C) 1. How often do you have a drink containing alcohol?: Never Total Score: 0 ROXANNA-7 AMB Questionnaire ROXANNA-7 Date ROXANNA - 7 assessed: 11/21/22 Feeling nervous, anxious, or on edge: 0 = Not at all Not being able to stop or control worryin = Not at all Worrying too much about different things: 0 = Not at all Trouble relaxin = Not at all Being so restless that it is hard to sit still: 0 = Not at all Becoming easily annoyed or irritable: 0 = Not at all Feeling afraid as if something awful might happen: 0 = Not at all Total ROXANNA-7 score (0-4 normal; 5-9 mild; 10-14 moderate; 15-21 severe): 0 Source: Developed by Drs. Candido Santana, Marilia Malcolm, Alex Garcia and colleagues, with an educational garima from [employer]. Physical exam (Primary Care) Tobacco/Smoking Status: Tobacco use Status Tobacco use date assessed 02/22/23 02/22/23 11:07 Patient Tobacco Use Status Never used Tobacco 02/22/23 11:07 e-Cigarette/Vaping Use Never Used 02/22/23 11:07 Thrive Assessment: Date of Thrive Assessment Date Thrive assessed 11/21/22 02/22/23 11:07 Coding
[2023-05-30 11:14] VITALS: BP 120/66; PULSE 67; O2SAT 100; BMI 44.1
--- NOTE | 2023-05-30 11:22 | A.OFFPC_ITS ---
Vital Signs 05/30/23 11:14 Height 5 ft 6 in Weight 273 lb BMI 44.1 BP 120/66 Blood Pressure Location Lt brachial Position Sitting Pulse 67 Pulse Source Pulse Oximeter Pulse Oximetry (%) 100 Oxygen Delivery Method Room Air Intake Visit Reasons: Annual pe Intake Note: Pt is here today for PE. Allergies ciprofloxacin [From Cipro] Allergy (Unknown, Verified 05/30/23 11:17) palpations/cp codeine Allergy (Unknown, Verified 05/30/23 11:17) chest pain sulfadiazine Allergy (Unknown, Verified 05/30/23 11:17) palpatations/CP dulaglutide [From Trulicity] Allergy (Verified 05/30/23 11:17) Diarrhea apixaban [From Eliquis] Adverse Reaction (Unknown, Verified 05/30/23 11:17) memory problem Medication List - Last Reconciled 05/30/23 by Dayna Prieto MD apixaban 5 mg PO BID atorvastatin 80 mg PO DAILY benazepril 20 mg PO DAILY blood sugar diagnostic (FreeStyle Lite Strips) Test blood sugar 4 x a day blood-glucose meter (FreeStyle Lite Meter kit) As directed cholecalciferol (vitamin D3) 25 mcg PO DAILY dapagliflozin propanediol (Farxiga) 5 mg PO DAILY diltiazem HCl ER 240 mg PO DAILY ferrous sulfate (Feosol) 325 mg PO DAILY flecainide 100 mg PO BID lancets (FreeStyle Lancets) test blood sugar once a day metformin ER 750 mg PO BID methocarbamol 500 mg PO DAILY omega 6-ulj-vxa-fish oil 1,200 (144-216) mg (Fish Oil) 1,200 caps PO DAILY pantoprazole 40 mg PO DAILY [vitamin b12 500 mcg daily] vitamins A,C,W-ovun-hjyxpz 2,148 mcg-113 mg-45 mg-17.4mg (PreserVision AREDS) 2 tabs PO BID Tobacco use date assessed: 05/30/23 HPI Annual pe HPI Details Patient presents for physical [facility] Medical History (Updated 05/30/23 @ 12:22 by Dayna Prieto MD) Annual physical exam Anxiety Degenerative lumbar spinal stenosis Obesity DAVIAN on CPAP Iron deficiency anemia Macular degeneration GERD (gastroesophageal reflux disease) Atrial fibrillation Hyperlipidemia HTN (hypertension) DM type 2 (diabetes mellitus, type 2) Surgical History (Updated 05/30/23 @ 12:13 by Dayna Prieto MD) H/O colonoscopy H/O lumbosacral spine surgery No pertinent past surgical history Family History Unknown No problems noted. Mother No problems noted. Sister No problems noted. Brother Substance use disorder Social History Housing: Apartment Alcohol intake: current Alcohol intake frequency: does not drink Patient Tobacco Use Status: Never used Tobacco e-Cigarette/Vaping Use: Never Used service: No Current occupational status: unemployed and disabled Cognitive needs: No Hearing needs: Yes Vision needs: Yes Questionnaire Thrive Questionnaire Date Thrive assessed: 11/21/22 I am a: Patient What is your living situation today?: I have a steady place to live Within the past 12 months, did the food you bought not last and you didn't have the money to get more?: Never true Within the past 12 months, did you worry whether your food would run out before you got money to buy more?: Never true Please select the resources that you would like help with: None AUDIT C Alcohol Use Questionnaire (AUDIT-C) 1. How often do you have a drink containing alcohol?: Never Total Score: 0 ROXANNA-7 AMB Questionnaire ROXANNA-7 Date ROXANNA - 7 assessed: 11/21/22 Feeling nervous, anxious, or on edge: 0 = Not at all Not being able to stop or control worryin = Not at all Worrying too much about different things: 0 = Not at all Trouble relaxin = Not at all Being so restless that it is hard to sit still: 0 = Not at all Becoming easily annoyed or irritable: 0 = Not at all Feeling afraid as if something awful might happen: 0 = Not at all Total ROXANNA-7 score (0-4 normal; 5-9 mild; 10-14 moderate; 15-21 severe): 0 Source: Developed by Drs. Candido Santana, Marilia Malcolm, Alex Garcia and colleagues, with an educational garima from [employer] Review of Systems Const All systems reviewed & are unremarkable except as noted in HPI and below Reports no additional complaints Eyes Reports no additional complaints ENT Reports no additional complaints Card Reports no additional complaints Resp Reports no additional complaints GI Reports no additional complaints Reports no additional complaints Physical exam (Primary Care) Vital Signs: Last Vital Signs Pulse 67 05/30/23 11:14 BP 120/66 05/30/23 11:14 Pulse Ox 100 05/30/23 11:14 Oxygen Delivery Method Room Air 05/30/23 11:14 BMI result Body Mass Index 44.1 Tobacco/Smoking Status: Tobacco use Status Tobacco use date assessed 05/30/23 05/30/23 11:23 Patient Tobacco Use Status Never used Tobacco 05/30/23 11:23 e-Cigarette/Vaping Use Never Used 05/30/23 11:23 Thrive Assessment: Date of Thrive Assessment Date Thrive assessed 11/21/22 05/30/23 11:23 Const General: no acute distress HENMT Head: Yes normal to inspection Ears: hearing grossly normal bilaterally Mouth: Normal oral and palatal mucosa present Throat: Yes posterior oropharynx normal Eyes General: appearance normal, both eyes and all related structures Neck Neck: Yes no lymphadenopathy and Yes supple Resp Effort & Inspection: normal respiratory effort Auscultation: clear to auscultation bilaterally Cardio Rhythm: regular rhythm Heart sounds: S1 normal heart sound present and S2 normal heart sound present GI Inspection: Yes normal to inspection Palpation (GI): Soft to palpation Percussion: Yes normal to percussion Auscultation: normal bowel sounds Extrem Other: Diabetic foot exam:skin is intact monofilament and vibration sensation intact bilaterally General: Yes no clubbing, cyanosis or edema Assessment and Plan Assessment & Plan (1) GERD (gastroesophageal reflux disease): Comment: EGD 05/21 angiodysplastic lesion, xd, gastritis Code(s): K21.9 - Gastro-esophageal reflux disease without esophagitis Plan: Continue PPI (2) H/O colonoscopy: Comment: polyps q 3 years, Dr. Camejo 05/21 4 polyps 2-4 mm, recheck 5 yrs Code(s): Z98.890 - Other specified postprocedural states (3) Atrial fibrillation: Comment: s/p ablation 04/2020 x2, f/u Dr. 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 She will continue to monitor blood glucose regularly including 2 hours after the largest meal. Adding short-acting insulin to cover for the largest meal discussed with the patient if the glucose remain elevated (6) Annual physical exam: Code(s): Z00.00 - Encounter for general adult medical examination without abnormal findings Plan: Well-balanced diet regular exercise weight loss discussed with the patient. 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 Panel Fast 3 Months D50.9 - Iron deficiency anemia, unspecified, D64.9 - Anemia, unspecified, E11.9 - Type 2 diabetes mellitus without complications, E78.5 - Hyperlipidemia, unspecified, I10 - Essential (primary) hypertension Hemoglobin A1c 3 Months D50.9 - Iron deficiency anemia, unspecified, D64.9 - Anemia, unspecified, E11.9 - Type 2 diabetes mellitus without complications, E78.5 - Hyperlipidemia, unspecified, I10 - Essential (primary) hypertension Complete Blood Count Auto Diff 3 Months D50.9 - Iron deficiency anemia, unspecified, D64.9 - Anemia, unspecified, E11.9 - Type 2 diabetes mellitus without complications, E78.5 - Hyperlipidemia, unspecified, I10 - Essential (primary) hypertension Lipid Panel 3 Months D50.9 - Iron deficiency anemia, unspecified, D64.9 - Anemia, unspecified, E11.9 - Type 2 diabetes mellitus without complications, E78.5 - Hyperlipidemia, unspecified, I10 - Essential (primary) hypertension Microalbumin, Random (w Creat) 3 Months D50.9 - Iron deficiency anemia, unspecified, D64.9 - Anemia, unspecified, E11.9 - Type 2 diabetes mellitus without complications, E78.5 - Hyperlipidemia, unspecified, I10 - Essential (primary) hypertension IRON PROFILE 3 Months D50.9 - Iron deficiency anemia, unspecified, D64.9 - Anemia, unspecified, E11.9 - Type 2 diabetes mellitus without complications, E78.5 - Hyperlipidemia, unspecified, I10 - Essential (primary) hypertension Medications: New dapagliflozin propanediol (Farxiga) 5 mg PO DAILY 90 tabs 1RF Coding Level of Care Code Est Pt Prev Care 40-64y(54686) Diagnoses GERD (gastroesophageal reflux disease) K21.9 H/O colonoscopy Z98.890 Atrial fibrillation I48.91 Hyperlipidemia E78.5 DM type 2 (diabetes mellitus, type 2) E11.9 Annual physical exam Z00.00 Iron deficiency anemia D50.9
== END 2023-05-30 12:19 | disposition home or self-care (01) ==
PROVIDERS: Visit Provider Internal Medicine
DX: Z00.00 Encounter for general adult medical examination without abnormal findings (principal); I48.91 Unspecified atrial fibrillation; E11.9 Type 2 diabetes mellitus without complications; K21.9 Gastro-esophageal reflux disease without esophagitis; Z98.890 Other specified postprocedural states; E78.5 Hyperlipidemia, unspecified; D50.9 Iron deficiency anemia, unspecified
CPT/HCPCS: 99396

== ENCOUNTER 2023-08-09 10:00 | Outpatient (RCR) | payer MEDICARE, MEDICAID, SELFPAY ==
--- NOTE | 2023-07-19 14:33 | MHC.PT.EP ---
[facility] [place] Office [place] Office [place] Office [address] Asmita Salazar [address] [phone] F: [phone] F: [phone] F: [phone] F: [phone] Physical Therapy Plan of Care Date of Evaluation: 07/19/23 Date of Surgery: Diagnosis: This is a 62 yo female presenting to skilled PT with a script for R shoulder pain. Assessment: This is a 62 yo female presenting to skilled PT with a script for R shoulder pain. Patient reports that she was putting up her tree when she tripped over a bag and fell onto her R shoulder (6 wks ago). She called [facility] who took x-rays (nothing broken). She waited a month and called her PCP as pain continued. She reports that her shoulder is getting a little better. Pain is now at the bicep muscle and anterior shoulder. Pain is gripping, sharp and achy. Originally she had some popping in her shoulder but this has resolved. Pain is at rest and with movement. She has to modify her ADLs, cooking and cleaning. Pain increases with lifting, reaching, writing and sleeping on the R side. Denies neck pain. She follows up with PCP Aug 30. Assessment reveals pain that ranges from up to a 6/10 at the worst. Patient demos decreased R shoulder and cervical ROM, strength of B shoulder's, TTP at GHJ joint line, UT and impaired posture with forward head and rounded shoulders. Based on functional limitations, impaired QOL and pain tolerance patient is a good candidate for skilled PT 2x/wk for 4wks. 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 Manual therapy to restore motion and function. Therapeutic exercise to improve strength and flexibility. Neuromuscular re-education for posture and balance. Therapeutic activities to return to functional activities of daily living. Electronically signed by: Anna Marie Shrestha PT Please sign and return to therapist. Thank you for your referral.
--- NOTE | 2023-08-16 14:18 | MHC.PT.DC ---
[facility] [place] Office [place] Office [place] Office [address] Asmita Salazar 140 [facility] [phone] F: [phone] F: [phone] F: [phone] F: [phone] Physical Therapy Discharge Report Diagnosis: This is a 62 yo female presenting to skilled PT with a script for R shoulder pain. Date of Surgery: Date of Evaluation: 07/19/23 Date of Discharge: 08/16/23 Treatments to Date: 5 Cancellations to Date: 1 No Shows to Date: 0 Discharge Status: Achieved Goals Improved Function Independent with HEP Discharge Summary: Patient with improved pain, ROM, strength and functional tolerance. She did not have any pain at her last session. She has a sufficient HEP to continue on her own and which she is I with. DC to HEP. Electronically signed by: Anna Marie Shrestha PT Please sign and return to therapist. Thank you for your referral.
== END 2023-08-16 14:19 | disposition home or self-care (01) ==
LOC: HO.PTCHIC 10:00
PROVIDERS: PCP Internal Medicine; Visit Provider Internal Medicine
DX: M25.511 Pain in right shoulder (principal)
CPT/HCPCS: 97110; 97140; 97162

== ENCOUNTER 2023-08-24 08:18 | Outpatient (REF) | payer MEDICARE, MEDICAID, SELFPAY ==
[2023-08-24 11:42] LABS: MANUAL DIFF FLAG NO
[2023-08-24 12:06] LABS: Basophils Percent Auto 0.6 % (0-2); Eosinophils Absolute Auto 0.1 X10*3/uL (0.0-0.4); Eosinophils Percent Auto 2.1 % (0-4); Hematocrit 34.7 % (37.0-47.0); Hemoglobin 10.9 g/dl (12.0-16.0); Imm Gran Abs Auto 0.01 X10*3/uL (0.00-0.03); Imm Gran Pct Auto 0.2 % (0.0-0.4); Lymphocytes Absolute Auto 1.6 X10*3/uL (1.2-4.9); Lymphocytes Percent Auto 29.8 % (20-40); Mean Corpuscular HGB Conc 31.4 g/dl (31.0-35.0); Mean Corpuscular Hemoglobin 27.9 pg (27.0-33.0); Mean Corpuscular Volume 88.7 fL (80.0-98.0); Mean Platelet Volume 10.3 fL (9.4-12.3); Monocytes Absolute Auto 0.7 X10*3/uL (0.1-1.2); Monocytes Percent Auto 12.4 % (2-11); Neutrophils Absolute Auto 2.9 x10*3/uL (2.0-8.3); Neutrophils Percent Auto 54.9 % (45-73); Platelet Count 431 X10*3/uL (160-400); Red Blood Count 3.91 X10*6/uL (4.20-5.50); Red Cell Distribution Width 15.8 % (11.0-16.0); White Blood Count 5.2 X10*3/uL (4.8-10.8)
[2023-08-24 12:13] LABS: Alanine Aminotransferase 22 U/L (0-31); Alkaline Phosphatase 140 U/L (39-117); Anion Gap 15 (12-20); Aspartate Amino Transferase 31 U/L (5-31); Bilirubin Total 0.6 mg/dL (0.0-1.0); Blood Urea Nitrogen 18 mg/dL (9-16); Calcium 9.5 mg/dL (8.4-10.2); Carbon Dioxide 25 mmol/L (22-29); Chloride 105 mmol/L (96-108); Cholesterol 133 mg/dL (<200); Estimated Glomerular Filt Rate 56; Glucose Fasting 122 mg/dL (60-99); HDL Cholesterol 44 mg/dL (>40); Iron 37 mcg/dL (30-160); LDL Cholesterol Calculated 75 mg/dL (<100); Percent Iron Saturation 12 % (15-50); Potassium 4.1 mmol/L (3.3-5.1); Sodium 141 mmol/L (135-145); Total Iron Binding Capacity 311 mcg/dL (228-428); Total Protein 8.1 g/dL (6.5-8.0); Triglycerides 70 mg/dL (<150); Unsaturated Iron Binding 274 ug/dL
[2023-08-24 12:17] LABS: Estimated Average Glucose 126 mg/dL
[2023-08-24 12:40] LABS: Microalbum/Creatinine Ratio Ur 4.7 ug/mg cr (<30)
== END 2023-08-24 08:19 | disposition home or self-care (01) ==
LOC: HO.HMGCLDS 08:18
PROVIDERS: PCP Internal Medicine; Visit Provider Internal Medicine
DX: D64.9 Anemia, unspecified (principal); E78.5 Hyperlipidemia, unspecified; D50.9 Iron deficiency anemia, unspecified; I10 Essential (primary) hypertension; E11.9 Type 2 diabetes mellitus without complications
CPT/HCPCS: 36415; 80053; 80061; 82043; 82570; 83036; 83540; 85025

== ENCOUNTER 2023-08-30 09:36 | Outpatient (AMB) | payer MEDICARE, MEDICAID, SELFPAY ==
[2023-08-30 09:56] VITALS: BP 118/64; PULSE 76; O2SAT 96; BMI 42.4
--- NOTE | 2023-08-30 09:56 | MHC.PC.OV ---
Vital Signs 08/30/23 09:56 Height 5 ft 6 in Weight 263 lb BMI 42.4 BP 118/64 Blood Pressure Location Lt brachial Position Sitting Pulse 76 Pulse Source Pulse Oximeter Pulse Oximetry (%) 96 Oxygen Delivery Method Room Air Intake Visit Reasons: 3 month follow up Intake Note: Pt is here today for 3 months follow up visit. Pt states that she has been feeling tired sore throat and L ear pain. Allergies ciprofloxacin [From Cipro] Allergy (Unknown, Verified 08/30/23 09:56) palpations/cp codeine Allergy (Unknown, Verified 08/30/23 09:56) chest pain sulfadiazine Allergy (Unknown, Verified 08/30/23 09:56) palpatations/CP dulaglutide [From Trulicity] Allergy (Verified 08/30/23 09:56) Diarrhea apixaban [From Eliquis] Adverse Reaction (Unknown, Verified 08/30/23 09:56) memory problem Medication List - Last Reconciled 08/30/23 by Dayna Prieto MD apixaban 5 mg PO BID atorvastatin 80 mg PO DAILY benazepril 20 mg PO DAILY blood sugar diagnostic (FreeStyle Lite Strips) Test blood sugar 4 x a day blood-glucose meter (FreeStyle Lite Meter kit) As directed cholecalciferol (vitamin D3) 25 mcg PO DAILY dapagliflozin propanediol (Farxiga) 5 mg PO DAILY diltiazem HCl ER 240 mg PO DAILY doxycycline hyclate 100 mg PO BID ferrous sulfate (Feosol) 325 mg PO DAILY flecainide 100 mg PO BID lancets (FreeStyle Lancets) test blood sugar once a day meloxicam 15 mg PO DAILY metformin ER 750 mg PO BID methocarbamol 500 mg PO DAILY omega 8-mas-wzr-fish oil 1,200 (144-216) mg (Fish Oil) 1,200 caps PO DAILY pantoprazole 40 mg PO DAILY [vitamin b12 500 mcg PO DAILY] vitamins A,C,J-tiye-keoqkn 2,148 mcg-113 mg-45 mg-17.4mg (PreserVision AREDS) 2 tabs PO BID Tobacco use date assessed: 08/30/23 Dental Screening Dental Screen Date: 08/30/23 Did you have a dental visit in the last 12 months?: Yes Did you have a dental problem in the last 6 months where you did not have access to dental care?: No Was dental information given to patient?: Patient has dentist HPI 3 month follow up HPI Details Patient presents for the follow-up of type 2 diabetes hypertension hyperlipidemia chronic iron deficiency anemia history of AFib controlled on diltiazem and flecainide and follow-up with Cardiology. Patient complains of sinus congestion , right maxillary sinus pain, postnasal drip sore throat general fatigue for 2 weeks. She denies cough fever chills [facility] Medical History (Updated 08/30/23 @ 11:01 by Dayna Prieto MD) Annual physical exam Anxiety Degenerative lumbar spinal stenosis Obesity DAVIAN on CPAP Iron deficiency anemia Macular degeneration GERD (gastroesophageal reflux disease) Atrial fibrillation Hyperlipidemia HTN (hypertension) DM type 2 (diabetes mellitus, type 2) Surgical History (Updated 05/30/23 @ 12:13 by Dayna Prieto MD) H/O colonoscopy H/O lumbosacral spine surgery No pertinent past surgical history Family History Unknown No problems noted. Mother No problems noted. Sister No problems noted. Brother Substance use disorder Social History Housing: Apartment Alcohol intake: current Alcohol intake frequency: does not drink Patient Tobacco Use Status: Never used Tobacco e-Cigarette/Vaping Use: Never Used service: No Current occupational status: unemployed and disabled Cognitive needs: No Hearing needs: Yes Vision needs: Yes Questionnaire Thrive Questionnaire Date Thrive assessed: 11/21/22 I am a: Patient What is your living situation today?: I have a steady place to live Within the past 12 months, did the food you bought not last and you didn't have the money to get more?: Never true Within the past 12 months, did you worry whether your food would run out before you got money to buy more?: Never true Please select the resources that you would like help with: None THRIVE Score: 0 AUDIT C Alcohol Use Questionnaire (AUDIT-C) 1. How often do you have a drink containing alcohol?: Never 3. How often do you have six or more drinks on one occasion?: Never Total Score: 0 ROXANNA-7 AMB Questionnaire ROXANNA-7 Date ROXANNA - 7 assessed: 11/21/22 Feeling nervous, anxious, or on edge: 1 = Several days Not being able to stop or control worryin = Several days Worrying too much about different things: 0 = Not at all Trouble relaxin = Not at all Being so restless that it is hard to sit still: 0 = Not at all Becoming easily annoyed or irritable: 0 = Not at all Feeling afraid as if something awful might happen: 0 = Not at all Total ROXANNA-7 score (0-4 normal; 5-9 mild; 10-14 moderate; 15-21 severe): 2 Source: Developed by Drs. Candido Santana, Marilia Malcolm, Alex Garcia and colleagues, with an educational garima from [employer]. Review of Systems Const All systems reviewed & are unremarkable except as noted in HPI and below Reports no additional complaints Eyes Reports no additional complaints ENT Reports no additional complaints Card Reports no additional complaints Resp Reports no additional complaints GI Reports no additional complaints Physical exam (Primary Care) Vital Signs: Last Vital Signs Pulse 76 08/30/23 09:56 BP 118/64 08/30/23 09:56 Pulse Ox 96 08/30/23 09:56 Oxygen Delivery Method Room Air 08/30/23 09:56 BMI result Body Mass Index 42.4 Tobacco/Smoking Status: Tobacco use Status Tobacco use date assessed 08/30/23 08/30/23 09:57 Patient Tobacco Use Status Never used Tobacco 08/30/23 09:57 e-Cigarette/Vaping Use Never Used 08/30/23 09:57 Thrive Assessment: Date of Thrive Assessment Date Thrive assessed 11/21/22 08/30/23 09:57 Const General: no acute distress HENMT Head: Yes normal to inspection Ears: TM's normal bilaterally Face and sinus: Yes sinus tenderness (Right maxillary) Throat: Yes posterior oropharynx abnormal (Erythema) Neck Neck: Yes no lymphadenopathy and Yes supple Resp Effort & Inspection: normal respiratory effort Auscultation: clear to auscultation bilaterally Cardio Rhythm: regular rhythm Heart sounds: S1 normal heart sound present and S2 normal heart sound present GI Inspection: Yes normal to inspection Palpation (GI): Soft to palpation Percussion: Yes normal to percussion Auscultation: normal bowel sounds Assessment and Plan Assessment & Plan (1) Atrial fibrillation: Comment: s/p ablation 04/2020 x2, f/u Dr. Bell, on diltiazem and flecainide Code(s): I48.91 - Unspecified atrial fibrillation Plan: Continue current medications and follow-up with Cardiology Dr. Gardner for possible Watchman procedure (2) HTN (hypertension): Code(s): I10 - Essential (primary) hypertension Plan: Continue current medications (3) DM type 2 (diabetes mellitus, type 2): Comment: Intolerant to Trulicity, diarrhea, diabetic retinopathy Code(s): E11.9 - Type 2 diabetes mellitus without complications Plan: A1c is 6.0, ADA diet regular physical activity weight loss discussed with the patient continue current medications and follow-up in 4 months with a fasting labs before (4) Hyperlipidemia: Code(s): E78.5 - Hyperlipidemia, unspecified Plan: Continue statin (5) Sinusitis: Code(s): J32.9 - Chronic sinusitis, unspecified Plan: Doxycycline for 7 days and supportive care Orders: Orders Comprehensive Early Branch. Panel Fast 4 Months E11.9 - Type 2 diabetes mellitus without complications, E78.5 - Hyperlipidemia, unspecified, I10 - Essential (primary) hypertension, I48.91 - Unspecified atrial fibrillation Microalbumin, Random (w Creat) 4 Months E11.9 - Type 2 diabetes mellitus without complications, E78.5 - Hyperlipidemia, unspecified, I10 - Essential (primary) hypertension, I48.91 - Unspecified atrial fibrillation IRON PROFILE 4 Months E11.9 - Type 2 diabetes mellitus without complications, E78.5 - Hyperlipidemia, unspecified, I10 - Essential (primary) hypertension, I48.91 - Unspecified atrial fibrillation Vitamin B12 and Folate 4 Months E11.9 - Type 2 diabetes mellitus without complications, E78.5 - Hyperlipidemia, unspecified, I10 - Essential (primary) hypertension, I48.91 - Unspecified atrial fibrillation Complete Blood Count Auto Diff 4 Months E11.9 - Type 2 diabetes mellitus without complications, E78.5 - Hyperlipidemia, unspecified, I10 - Essential (primary) hypertension, I48.91 - Unspecified atrial fibrillation Hemoglobin A1c 4 Months E11.9 - Type 2 diabetes mellitus without complications, E78.5 - Hyperlipidemia, unspecified, I10 - Essential (primary) hypertension, I48.91 - Unspecified atrial fibrillation Lipid Panel 4 Months E11.9 - Type 2 diabetes mellitus without complications, E78.5 - Hyperlipidemia, unspecified, I10 - Essential (primary) hypertension, I48.91 - Unspecified atrial fibrillation Medications: New doxycycline hyclate 100 mg PO BID 14 tabs 0RF Coding Level of Care Code Est Pt Level 4 (25733) Diagnoses Atrial fibrillation I48.91 HTN (hypertension) I10 DM type 2 (diabetes mellitus, type 2) E11.9 Hyperlipidemia E78.5 Sinusitis J32.9
== END 2023-08-30 11:02 | disposition home or self-care (01) ==
PROVIDERS: PCP Internal Medicine; Visit Provider Internal Medicine
DX: I48.91 Unspecified atrial fibrillation (principal); E11.69 Type 2 diabetes mellitus with other specified complication; I10 Essential (primary) hypertension; E78.5 Hyperlipidemia, unspecified; J32.9 Chronic sinusitis, unspecified
CPT/HCPCS: 99214

== ENCOUNTER 2023-10-19 12:42 | Outpatient (AMB) | payer MEDICARE, MEDICAID, SELFPAY ==
--- NOTE | 2023-10-19 12:43 | MHC.PC.OV ---
Vital Signs 10/19/23 12:44 Height 5 ft 6 in Weight 265 lb BMI 42.8 BP 118/66 Blood Pressure Location Rt brachial Position Sitting Pulse 70 Pulse Source Pulse Oximeter Pulse Oximetry (%) 99 Oxygen Delivery Method Room Air Intake Visit Reasons: Lump LT arm/RT ankle Intake Note: Pt is here today for a sick visit. Pt c/o lump on L arm under her skin after having IV put in many times. Pt also c/o R ankle strange sensation. Allergies ciprofloxacin [From Cipro] Allergy (Unknown, Verified 10/19/23 12:48) palpations/cp codeine Allergy (Unknown, Verified 10/19/23 12:48) chest pain sulfadiazine Allergy (Unknown, Verified 10/19/23 12:48) palpatations/CP dulaglutide [From Trulicity] Allergy (Verified 10/19/23 12:48) Diarrhea apixaban [From Eliquis] Adverse Reaction (Unknown, Verified 10/19/23 12:48) memory problem Tobacco use date assessed: 10/19/23 HPI Lump LT arm/RT ankle HPI Details Patient presents complaining of left cubital fossa swelling started after she had IV in emergency room a few days ago. The swelling has been getting smaller and less painful. she complains of the bruising on the right lower extremities since she had a Watchman procedure. The bruising has been improving. She has been taking Eliquis for anticoagulation for AFib. Hypertension hyperlipidemia and type 2 diabetes are controlled on current medications. [facility] Medical History (Updated 10/19/23 @ 14:08 by Dayna Prieto MD) Annual physical exam Anxiety Degenerative lumbar spinal stenosis Obesity DAVIAN on CPAP Iron deficiency anemia Macular degeneration GERD (gastroesophageal reflux disease) Atrial fibrillation Hyperlipidemia HTN (hypertension) DM type 2 (diabetes mellitus, type 2) Surgical History H/O colonoscopy H/O lumbosacral spine surgery No pertinent past surgical history Family History Unknown No problems noted. Mother No problems noted. Sister No problems noted. Brother Substance use disorder Social History Housing: Apartment Alcohol intake: current Alcohol intake frequency: does not drink Patient Tobacco Use Status: Never used Tobacco e-Cigarette/Vaping Use: Never Used service: No Current occupational status: unemployed and disabled Cognitive needs: No Hearing needs: Yes Vision needs: Yes Questionnaire PHQ-9 Over the last 2 weeks, how often have you been bothered by any of the following problems? 1. Little interest or pleasure in doing things: not at all 2. Feeling down, depressed, or hopeless: several days 3. Trouble falling or staying asleep, or sleeping too much: several days 4. Feeling tired or having little energy: several days 5. Poor appetite or overeating: not at all 6. Feeling bad about yourself - or that you are a failure or have let yourself or your family down: several days 7. Trouble concentrating on things, such as reading the newspaper or watching television: not at all 8. Moving or speaking so slowly that other people could have noticed. Or the opposite - being so fidgety or restless that you have been moving around a lot more than usual: not at all 9. Thoughts that you would be better off or of hurting yourself in some way: not at all Total score: 4 Depression Screening Interpretation: Negative Depression Screening Done: Yes Source: Developed by Drs. Candido Santana, Marilia Malcolm, Alex Garcia and colleagues, with an educational garima from [employer]. Thrive Questionnaire Date Thrive assessed: 10/19/23 I am a: Patient What is your living situation today?: I have a steady place to live Within the past 12 months, did the food you bought not last and you didn't have the money to get more?: Never true Within the past 12 months, did you worry whether your food would run out before you got money to buy more?: Never true Do you have trouble paying for medicines?: No Do you have trouble getting transportation to medical appointments?: No Do you have trouble paying your heating and electricity bill?: No Do you have trouble taking care of your child, family member or friend?: No Do you have trouble with day-to-day activities such as bathing, preparing meals, shopping, managing finances, etc.?: No Are you currently unemployed and looking for a job?: No Are you interested in more education?: No Please select the resources that you would like help with: None THRIVE Score: 0 ROXANNA-7 AMB Questionnaire ROXANNA-7 Date ROXANNA - 7 assessed: 10/19/23 Feeling nervous, anxious, or on edge: 0 = Not at all Not being able to stop or control worryin = Not at all Worrying too much about different things: 0 = Not at all Trouble relaxin = Not at all Being so restless that it is hard to sit still: 0 = Not at all Becoming easily annoyed or irritable: 0 = Not at all Feeling afraid as if something awful might happen: 0 = Not at all Total ROXANNA-7 score (0-4 normal; 5-9 mild; 10-14 moderate; 15-21 severe): 0 Source: Developed by Drs. Candido Santana, Marilia Malcolm, Alex Garcia and colleagues, with an educational garima from [employer]. Review of Systems Const All systems reviewed & are unremarkable except as noted in HPI and below Reports no additional complaints Eyes Reports no additional complaints ENT Reports no additional complaints Card Reports no additional complaints Resp Reports no additional complaints GI Reports no additional complaints Reports no additional complaints Physical exam (Primary Care) Vital Signs: Last Vital Signs Pulse 70 10/19/23 12:44 BP 118/66 10/19/23 12:44 Pulse Ox 99 10/19/23 12:44 Oxygen Delivery Method Room Air 10/19/23 12:44 BMI result Body Mass Index 42.8 Tobacco/Smoking Status: Tobacco use Status Tobacco use date assessed 10/19/23 10/19/23 12:50 Patient Tobacco Use Status Never used Tobacco 10/19/23 12:50 e-Cigarette/Vaping Use Never Used 10/19/23 12:50 PHQ-9: PHQ-9 Score PHQ-9: Total score 4 10/19/23 12:50 Depression Screening Interpretation: Negative Thrive Assessment: Date of Thrive Assessment Date Thrive assessed 10/19/23 10/19/23 12:50 Const General: no acute distress Neck Neck: Yes no lymphadenopathy and Yes supple Resp Effort & Inspection: normal respiratory effort Auscultation: clear to auscultation bilaterally Cardio Rhythm: regular rhythm Heart sounds: S1 normal heart sound present and S2 normal heart sound present Skin Other: Multiple superficial bruises on the right lower extremity, left cubital fossa IV site without erythema, tenderness or warmth Assessment and Plan Assessment & Plan (1) Atrial fibrillation: Comment: s/p ablation 04/2020 x2, f/u Dr. Bell, on diltiazem and flecainide, s/p Watchman procedure 10/20 Code(s): I48.91 - Unspecified atrial fibrillation Plan: Patient will stay on Eliquis for 3 more months and will follow-up with refrigeration installer. (2) HTN (hypertension): Code(s): I10 - Essential (primary) hypertension Plan: Continue current medications (3) DM type 2 (diabetes mellitus, type 2): Comment: Intolerant to Trulicity, diarrhea, diabetic retinopathy Code(s): E11.9 - Type 2 diabetes mellitus without complications Plan: Continue current medications (4) Superficial bruising of lower leg: Code(s): S80.10XA - Contusion of unspecified lower leg, initial encounter Plan: Patient reassured Coding Level of Care Code Est Pt Level 4 (72972) Diagnoses Atrial fibrillation I48.91 HTN (hypertension) I10 DM type 2 (diabetes mellitus, type 2) E11.9 Superficial bruising of lower leg S80.10XA
[2023-10-19 12:44] VITALS: BP 118/66; PULSE 70; O2SAT 99; BMI 42.8
== END 2023-10-19 13:56 | disposition home or self-care (01) ==
LOC: HO.HMGC 12:42
PROVIDERS: PCP Internal Medicine; Visit Provider Internal Medicine
DX: I48.91 Unspecified atrial fibrillation (principal); I10 Essential (primary) hypertension; E11.9 Type 2 diabetes mellitus without complications; S80.10XA Contusion of unspecified lower leg, initial encounter
CPT/HCPCS: 99214

== ENCOUNTER 2023-12-17 13:36 | Outpatient (AMB) | payer MEDICARE, MEDICAID, SELFPAY ==
--- NOTE | 2023-12-17 13:47 | MHC.PC.OV ---
Vital Signs 12/17/23 14:00 Height 5 ft 6 in Weight 264 lb BMI 42.6 BP 104/68 Blood Pressure Location Lt brachial Position Sitting Pulse 80 Pulse Source Pulse Oximeter Pulse Oximetry (%) 95 Oxygen Delivery Method Room Air Intake Visit Reasons: RT Knee issue Intake Note: Pt is here today for a sick visit. Pt c/o R knee pain. Pt states that Sunday when she was getting up she heared it pop. Allergies ciprofloxacin [From Cipro] Allergy (Unknown, Verified 12/17/23 14:04) palpations/cp codeine Allergy (Unknown, Verified 12/17/23 14:04) chest pain sulfadiazine Allergy (Unknown, Verified 12/17/23 14:04) palpatations/CP dulaglutide [From Trulicity] Allergy (Verified 12/17/23 14:04) Diarrhea apixaban [From Eliquis] Adverse Reaction (Unknown, Verified 12/17/23 14:04) memory problem Medication List - Last Reconciled 12/17/23 by Dayna Prieto MD amoxicillin 500 mg PO DAILY PRN apixaban 5 mg PO BID atorvastatin 80 mg PO DAILY blood sugar diagnostic (FreeStyle Lite Strips) Test blood sugar 4 x a day blood-glucose meter (FreeStyle Lite Meter kit) As directed cholecalciferol (vitamin D3) 25 mcg PO DAILY dapagliflozin propanediol (Farxiga) 5 mg PO DAILY diltiazem HCl ER 240 mg PO DAILY ferrous sulfate (Feosol) 325 mg PO DAILY flecainide 100 mg PO BID lancets (FreeStyle Lancets) test blood sugar once a day meloxicam 15 mg PO DAILY metformin ER 750 mg PO BID methocarbamol 500 mg PO DAILY omega 6-jeq-moc-fish oil 1,200 (144-216) mg (Fish Oil) 1,200 caps PO DAILY pantoprazole 40 mg PO DAILY [vitamin b12 500 mcg PO DAILY] vitamins A,C,Z-kkcy-rsynjj 2,148 mcg-113 mg-45 mg-17.4mg (PreserVision AREDS) 2 tabs PO BID Tobacco use date assessed: 12/17/23 Dental Screening Dental Screen Date: 08/30/23 HPI RT Knee issue HPI Details Pt developed acute R knee anterior pain after getting up suddenly 3 days ago. Pt is able to bear weight but the pain is worse when bending her right knee. She denies any joint swelling. [facility] Medical History Annual physical exam Anxiety Degenerative lumbar spinal stenosis Obesity DAVIAN on CPAP Iron deficiency anemia Macular degeneration GERD (gastroesophageal reflux disease) Atrial fibrillation Hyperlipidemia HTN (hypertension) DM type 2 (diabetes mellitus, type 2) Surgical History H/O colonoscopy H/O lumbosacral spine surgery No pertinent past surgical history Family History Unknown No problems noted. Mother No problems noted. Sister No problems noted. Brother Substance use disorder Social History Housing: Apartment Alcohol intake: current Alcohol intake frequency: does not drink Patient Tobacco Use Status: Never used Tobacco e-Cigarette/Vaping Use: Never Used service: No Current occupational status: unemployed and disabled Cognitive needs: No Hearing needs: Yes Vision needs: Yes Questionnaire Thrive Questionnaire Date Thrive assessed: 10/19/23 ROXANNA-7 AMB Questionnaire ROXANNA-7 Date ROXANNA - 7 assessed: 10/19/23 Source: Developed by DrsPritesh Santana, Marilia Malcolm, Alex Garcia and colleagues, with an educational garima from [employer]. Review of Systems Const All systems reviewed & are unremarkable except as noted in HPI and below Card Reports no additional complaints Resp Reports no additional complaints GI Reports no additional complaints Physical exam (Primary Care) Vital Signs: Last Vital Signs Pulse 80 12/17/23 14:00 BP 104/68 12/17/23 14:00 Pulse Ox 95 12/17/23 14:00 Oxygen Delivery Method Room Air 12/17/23 14:00 BMI result Body Mass Index 42.6 Tobacco/Smoking Status: Tobacco use Status Tobacco use date assessed 12/17/23 12/17/23 14:05 Patient Tobacco Use Status Never used Tobacco 12/17/23 13:48 e-Cigarette/Vaping Use Never Used 12/17/23 13:48 Thrive Assessment: Date of Thrive Assessment Date Thrive assessed 10/19/23 12/17/23 13:48 Const General: no acute distress HENMT Head: Yes normal to inspection Neck Neck: Yes supple Resp Effort & Inspection: normal respiratory effort Auscultation: clear to auscultation bilaterally Cardio Rhythm: regular rhythm Heart sounds: S1 normal heart sound present and S2 normal heart sound present Extrem Other: There is a slightly decreased range of motion right knee there is no soft tissue swelling erythema warmth there is a reproducible tenderness under patella Assessment and Plan Assessment & Plan (1) Knee pain, right: Code(s): M25.561 - Pain in right knee Plan: Check x-ray, supportive care discussed with the patient. PT was recommended by patient declined. she will start home exercise (2) DM type 2 (diabetes mellitus, type 2): Comment: Intolerant to Trulicity, diarrhea, diabetic retinopathy Code(s): E11.9 - Type 2 diabetes mellitus without complications Plan: Continue current medication. Check A1c today Orders: Orders XR knee RT 2V Today M25.561 - Pain in right knee Hemoglobin A1c Today E11.9 - Type 2 diabetes mellitus without complications Comprehensive Met. Panel Today E11.9 - Type 2 diabetes mellitus without complications Coding Level of Care Code Est Pt Level 3 (26156) Diagnoses Knee pain, right M25.561 DM type 2 (diabetes mellitus, type 2) E11.9
[2023-12-17 14:00] VITALS: BP 104/68; PULSE 80; O2SAT 95; BMI 42.6
== END 2023-12-17 15:12 | disposition home or self-care (01) ==
PROVIDERS: PCP Internal Medicine; Visit Provider Internal Medicine
DX: M25.561 Pain in right knee (principal); E11.9 Type 2 diabetes mellitus without complications
CPT/HCPCS: 99213

== ENCOUNTER 2023-12-18 11:18 | Outpatient (REF) | payer MEDICARE, MEDICAID, SELFPAY ==
--- NOTE | ~2023-12-18 | XR_ITS ---
EXAMINATION: XR KNEE, RIGHT CLINICAL INFORMATION: Right knee pain. COMPARISON: 07/07/2021. TECHNIQUE: AP and lateral views of the right knee. FINDINGS: Bones are diffusely demineralized. Moderate suprapatellar effusion. Atherosclerotic calcifications. Degenerative changes with small posterior osteophytes and narrowing in the patellofemoral compartment. Redemonstration of periosteal reaction along the posterior shaft of the proximal tibia on the lateral view. Chondrocalcinosis in the medial and lateral compartments with small marginal osteophytes. Small calcification lateral to the lateral femoral condyle probably present on the prior exam. XR/XR knee RT 2V IMPRESSION: 1. Moderate suprapatellar effusion. 2. Chondrocalcinosis. 3. Degenerative changes. 4. Redemonstration of periosteal reaction along the posterior shaft of the proximal tibia on the lateral view. 5. Bones are diffusely demineralized. Additional imaging with CT scan or MRI should be considered for better visualization as these modalities are much more sensitive for detection of fracture or other underlying pathology.
[2023-12-18 13:43] LABS: Estimated Average Glucose 120 mg/dL; Hemoglobin A1c % 5.8 % (<6.0)
[2023-12-18 13:52] LABS: Alanine Aminotransferase 19 U/L (0-31); Albumin Level 3.8 g/dL (3.5-5.0); Alkaline Phosphatase 122 U/L (39-117); Anion Gap 14 (12-20); Aspartate Amino Transferase 28 U/L (5-31); Bilirubin Total 0.6 mg/dL (0.0-1.0); Blood Urea Nitrogen 16 mg/dL (9-16); Calcium 9.4 mg/dL (8.4-10.2); Carbon Dioxide 24 mmol/L (22-29); Chloride 108 mmol/L (96-108); Estimated Glomerular Filt Rate > 60; Glucose Random 128 mg/dL (60-115); Sodium 142 mmol/L (135-145); Total Protein 7.3 g/dL (6.5-8.0)
== END 2023-12-18 11:19 | disposition home or self-care (01) ==
LOC: HO.HMGCX 11:18
PROVIDERS: PCP Internal Medicine; Visit Provider Internal Medicine
DX: E11.9 Type 2 diabetes mellitus without complications (principal); M25.561 Pain in right knee
CPT/HCPCS: 36415; 73560; 80053; 83036

== ENCOUNTER 2024-01-28 13:58 | Outpatient (REF) | payer MEDICARE, MEDICAID, SELFPAY ==
[2024-01-28 16:10] LABS: MANUAL DIFF FLAG NO
[2024-01-28 16:17] LABS: Basophils Percent Auto 0.3 % (0-2); Eosinophils Absolute Auto 0.1 X10*3/uL (0.0-0.4); Eosinophils Percent Auto 1.3 % (0-4); Hemoglobin 9.9 g/dl (12.0-16.0); Imm Gran Abs Auto 0.01 X10*3/uL (0.00-0.03); Imm Gran Pct Auto 0.2 % (0.0-0.4); Mean Corpuscular HGB Conc 30.9 g/dl (31.0-35.0); Mean Corpuscular Hemoglobin 27.7 pg (27.0-33.0); Mean Corpuscular Volume 89.6 fL (80.0-98.0); Mean Platelet Volume 9.6 fL (9.4-12.3); Monocytes Absolute Auto 0.8 X10*3/uL (0.1-1.2); Monocytes Percent Auto 11.9 % (2-11); Neutrophils Absolute Auto 3.4 x10*3/uL (2.0-8.3); Neutrophils Percent Auto 54.3 % (45-73); Platelet Count 401 X10*3/uL (160-400); Red Blood Count 3.57 X10*6/uL (4.20-5.50); Red Cell Distribution Width 15.6 % (11.0-16.0); White Blood Count 6.3 X10*3/uL (4.8-10.8)
== END 2024-01-28 13:59 | disposition home or self-care (01) ==
LOC: HO.HMGCLDS 13:58
PROVIDERS: PCP Internal Medicine; Visit Provider Internal Medicine Medical Oncology
DX: D50.9 Iron deficiency anemia, unspecified (principal)
CPT/HCPCS: 36415; 85025

== ENCOUNTER 2024-02-08 12:11 | Outpatient (AMB) | payer MEDICARE, MEDICAID, SELFPAY ==
--- NOTE | 2024-02-08 13:14 | A.OFFPC_ITS ---
Vital Signs 02/08/24 13:16 Height 5 ft 6 in Weight 262 lb BMI 42.3 BP 120/70 Blood Pressure Location Rt brachial Position Sitting Pulse 64 Pulse Source Pulse Oximeter Pulse Oximetry (%) 98 Oxygen Delivery Method Room Air Intake Visit Reasons: Hospital follow up Intake Note: Pt is here today for Hospital follow up visit. Allergies ciprofloxacin [From Cipro] Allergy (Unknown, Verified 02/08/24 13:17) palpations/cp codeine Allergy (Unknown, Verified 02/08/24 13:17) chest pain sulfadiazine Allergy (Unknown, Verified 02/08/24 13:17) palpatations/CP dulaglutide [From Trulicity] Allergy (Verified 02/08/24 13:17) Diarrhea apixaban [From Eliquis] Adverse Reaction (Unknown, Verified 02/08/24 13:17) memory problem Medication List - Last Reconciled 02/08/24 by Dayna Prieto MD amoxicillin 500 mg PO DAILY PRN apixaban 5 mg PO BID atorvastatin 80 mg PO DAILY blood sugar diagnostic (FreeStyle Lite Strips) Test blood sugar 4 x a day blood-glucose meter (FreeStyle Lite Meter kit) As directed cholecalciferol (vitamin D3) 25 mcg PO DAILY dapagliflozin propanediol (Farxiga) 5 mg PO DAILY diltiazem HCl ER 240 mg PO DAILY ferrous sulfate (Feosol) 325 mg PO DAILY flecainide 100 mg PO BID gabapentin 100 mg PO TID lancets (FreeStyle Lancets) test blood sugar once a day meloxicam 15 mg PO DAILY metformin ER 750 mg PO BID methocarbamol 500 mg PO DAILY omega 1-gbo-app-fish oil 1,200 (144-216) mg (Fish Oil) 1,200 caps PO DAILY pantoprazole 40 mg PO DAILY [vitamin b12 500 mcg PO DAILY] vitamins A,C,Q-iifo-yglexw 2,148 mcg-113 mg-45 mg-17.4mg (PreserVision AREDS) 2 tabs PO BID Tobacco use date assessed: 02/08/24 Dental Screening Dental Screen Date: 08/30/23 HPI Hospital follow up HPI Details Pt presents for f/u ER visit for worsening R knee pain. XR c/w mild DJD and patient had had cortisone inj. She started PT. 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 Hyperlipidemia type 2 diabetes hypertension are controlled on current medications. [facility] Medical History Annual physical exam Anxiety Degenerative lumbar spinal stenosis Obesity DAVIAN on CPAP Iron deficiency anemia Macular degeneration GERD (gastroesophageal reflux disease) Atrial fibrillation Hyperlipidemia HTN (hypertension) DM type 2 (diabetes mellitus, type 2) Surgical History H/O colonoscopy H/O lumbosacral spine surgery No pertinent past surgical history Family History Unknown No problems noted. Mother No problems noted. Sister No problems noted. Brother Substance use disorder Social History Housing: Apartment Alcohol intake: current Alcohol intake frequency: does not drink Patient Tobacco Use Status: Never used Tobacco e-Cigarette/Vaping Use: Never Used service: No Current occupational status: unemployed and disabled Cognitive needs: No Hearing needs: Yes Vision needs: Yes Questionnaire Thrive Questionnaire Date Thrive assessed: 10/19/23 ROXANNA-7 AMB Questionnaire ROXANNA-7 Date ROXANNA - 7 assessed: 10/19/23 Source: Developed by Drs. Candido Santana, Marilia Malcolm, Alex Garcia and colleagues, with an educational garima from [employer]. Review of Systems Const All systems reviewed & are unremarkable except as noted in HPI and below ENT Reports no additional complaints Card Reports no additional complaints Resp Reports no additional complaints GI Reports no additional complaints Physical exam (Primary Care) Vital Signs: Last Vital Signs Pulse 64 02/08/24 13:16 BP 120/70 02/08/24 13:16 Pulse Ox 98 02/08/24 13:16 Oxygen Delivery Method Room Air 02/08/24 13:16 BMI result Body Mass Index 42.3 Tobacco/Smoking Status: Tobacco use Status Tobacco use date assessed 02/08/24 02/08/24 13:18 Patient Tobacco Use Status Never used Tobacco 02/08/24 13:14 e-Cigarette/Vaping Use Never Used 02/08/24 13:14 Thrive Assessment: Date of Thrive Assessment Date Thrive assessed 10/19/23 02/08/24 13:14 Const General: no acute distress HENMT Head: Yes normal to inspection Face and sinus: Yes normal facial exam Neck Neck: Yes supple Resp Effort & Inspection: normal respiratory effort Auscultation: clear to auscultation bilaterally Cardio Rhythm: regular rhythm Heart sounds: S1 normal heart sound present and S2 normal heart sound present GI Inspection: Yes normal to inspection Palpation (GI): Soft to palpation Percussion: Yes normal to percussion Extrem Other: There is a slightly decreased range of motion right knee no soft tissue swelling erythema or warmth General: Yes no clubbing, cyanosis or edema Assessment and Plan Assessment & Plan (1) Knee pain, right: Code(s): M25.561 - Pain in right knee Plan: Continue physical therapy (2) Atrial fibrillation: Comment: s/p ablation 04/2020 x2, f/u Dr. 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 technician getting iron/blood infusion Code(s): D50.9 - Iron deficiency anemia, unspecified Plan: Follow-up with Hematology (4) HTN (hypertension): Code(s): I10 - Essential (primary) hypertension Plan: Continue iron supplement (5) DM type 2 (diabetes mellitus, type 2): Comment: Intolerant to Trulicity, diarrhea, diabetic retinopathy Code(s): E11.9 - Type 2 diabetes mellitus without complications Plan: ADA diet increase physical activity weight loss discussed with the patient continue current medication return in May with a fasting labs before Coding Level of Care Code Est Pt Level 4 (05930) Diagnoses Knee pain, right M25.561 Atrial fibrillation I48.91 Iron deficiency anemia D50.9 HTN (hypertension) I10 DM type 2 (diabetes mellitus, type 2) E11.9
[2024-02-08 13:16] VITALS: BP 120/70; PULSE 64; O2SAT 98; BMI 42.3
== END 2024-02-08 14:07 | disposition home or self-care (01) ==
PROVIDERS: PCP Internal Medicine; Visit Provider Internal Medicine
DX: M25.561 Pain in right knee (principal); I48.91 Unspecified atrial fibrillation; E11.9 Type 2 diabetes mellitus without complications; D50.9 Iron deficiency anemia, unspecified; I10 Essential (primary) hypertension
CPT/HCPCS: 99214

== ENCOUNTER 2024-04-01 13:00 | Outpatient (RCR) | payer MEDICARE, MEDICAID, SELFPAY ==
[2024-01-23 13:13] VITALS: BP 135/62; PULSE 65; O2SAT 98
--- NOTE | 2024-01-28 10:13 | MHC.PT.EP ---
[facility] [place] Office [place] Office [place] Office [address] Asmita Salazar [address] [phone] F: [phone] F: [phone] F: [phone] F: [phone] Physical Therapy Plan of Care Date of Evaluation: 01/23/24 Date of Surgery: Diagnosis: R knee pain Assessment: Pt is a 63yo female with subacute knee pain, who is below baseline for functional mobility as a result. Pt's major goals include ability to water her plants and be able to go to appointments with help. PT exam reveals multiple impairments including pain/edema, reduced stability of R knee, abnormal gait mechanics, and generalized core/hip weakness. Skilled PT indicated to address these impairments and improve her functional mobility to baseline, as well as fall prevention. Pt in agreement with POC and is motivated to participate. Frequency and Duration: The patient will be seen 2x/week, x 6 weeks Short Term Goals: 1. In 3 weeks, patient will be able to complete phase 1 HEP daily with > 75% compliance. 2. In 3 weeks, patient will improve HS strength 1/2 grade to improve gait mechanics and stability of R LE. 3. In 3 weeks, patient will be able to complete sit<>stand without UE support from elevated mat table. Alf Goals: 1. In 6 weeks, patient will be able to complete 1/4 squat without UE support. 2. In 6 weeks, patient will complete TUG in <20 seconds indicating reduced risk for falls. 3. In 6 weeks, patient will be able to ambulate on level surfaces 35 feet with SPC. Treatment Plan: Modalities to reduce pain, spasms and effusion. Manual therapy to restore motion and function. Therapeutic exercise to improve strength and flexibility. Neuromuscular re-education for posture and balance. Therapeutic activities to return to functional activities of daily living. Electronically signed by: Myrna Lam PT, DPT Please sign and return to therapist. Thank you for your referral.
--- NOTE | 2024-04-01 13:34 | MHC.PT.EP ---
[facility] [place] Office [place] Office [place] Office [address] Asmita Salazar [address] [phone] F: [phone] F: [phone] F: [phone] F: [phone] Physical Therapy Plan of Care Date of Evaluation: 01/23/24 Date of Surgery: Diagnosis: R knee pain Assessment: Pt is a 63yo female with subacute knee pain, who is below baseline for functional mobility as a result. Pt's major goals include ability to water her plants and be able to go to appointments with help. PT exam reveals multiple impairments including pain/edema, reduced stability of R knee, abnormal gait mechanics, and generalized core/hip weakness. Skilled PT indicated to address these impairments and improve her functional mobility to baseline, as well as fall prevention. Pt in agreement with POC and is motivated to participate. Frequency and Duration: The patient will be seen 2x/week, x 6 weeks Short Term Goals: 1. In 3 weeks, patient will be able to complete phase 1 HEP daily with > 75% compliance. 2. In 3 weeks, patient will improve HS strength 1/2 grade to improve gait mechanics and stability of R LE. 3. In 3 weeks, patient will be able to complete sit<>stand without UE support from elevated mat table. Residential Goals: 1. In 6 weeks, patient will be able to complete 1/4 squat without UE support. 2. In 6 weeks, patient will complete TUG in <20 seconds indicating reduced risk for falls. 3. In 6 weeks, patient will be able to ambulate on level surfaces 35 feet with SPC. Treatment Plan: Modalities to reduce pain, spasms and effusion. Manual therapy to restore motion and function. Therapeutic exercise to improve strength and flexibility. Neuromuscular re-education for posture and balance. Therapeutic activities to return to functional activities of daily living. Electronically signed by: Myrna Lam PT, DPT Please sign and return to therapist. Thank you for your referral.
== END 2024-04-01 13:49 | disposition home or self-care (01) ==
LOC: HO.PTCHIC 13:00
PROVIDERS: PCP Internal Medicine; Visit Provider Nurse Practitioner Family
DX: M25.561 Pain in right knee (principal)
CPT/HCPCS: 97110; 97116; 97140; 97162

== ENCOUNTER 2024-06-02 09:10 | Outpatient (REF) | payer MEDICARE, MEDICAID, SELFPAY ==
[2024-06-02 13:56] LABS: Estimated Average Glucose 126 mg/dL; Hemoglobin A1C 112.1471 umol/L; Total Hemoglobin (HGBA1C) 2672.4934 umol/L
[2024-06-02 14:14] LABS: Cholesterol 146 mg/dL (<200); HDL Cholesterol 48 mg/dL (>40); Iron 158 mcg/dL (30-160); LDL Cholesterol Calculated 81 mg/dL (<100); Percent Iron Saturation 45 % (15-50); Total Iron Binding Capacity 351 mcg/dL (228-428); Triglycerides 89 mg/dL (<150); Unsaturated Iron Binding 193 ug/dL
[2024-06-02 14:38] LABS: Folate 10.7 ng/mL (> or = 4.0); Vitamin B12 983 pg/mL (200-900)
[2024-06-02 15:37] LABS: Microalbumin Urine < 5.0 mg/L
== END 2024-06-02 09:11 | disposition home or self-care (01) ==
LOC: HO.HMGCLDS 09:10
PROVIDERS: PCP Internal Medicine; Visit Provider Internal Medicine
DX: I48.91 Unspecified atrial fibrillation (principal); I10 Essential (primary) hypertension; E11.9 Type 2 diabetes mellitus without complications; E78.5 Hyperlipidemia, unspecified
CPT/HCPCS: 36415; 80061; 82043; 82570; 82607; 82746; 83036; 83540

== ENCOUNTER 2024-06-17 11:03 | Outpatient (AMB) | payer MEDICARE, MEDICAID, SELFPAY ==
--- NOTE | 2024-06-17 11:32 | A.OFFPC_ITS ---
Vital Signs 06/17/24 11:33 Height 5 ft 6 in Weight 278 lb BMI 44.9 BP 116/66 Blood Pressure Location Rt brachial Position Sitting Pulse 71 Pulse Source Pulse Oximeter Pulse Oximetry (%) 97 Oxygen Delivery Method Room Air Intake Visit Reasons: Annual PE Intake Note: pt is here for annual exam Teller Head Required: No Accompanied by: Self / Same As Patient Allergies ciprofloxacin [From Cipro] Allergy (Unknown, Verified 06/17/24 12:27) palpations/cp codeine Allergy (Unknown, Verified 06/17/24 12:27) chest pain sulfadiazine Allergy (Unknown, Verified 06/17/24 12:27) palpatations/CP dulaglutide [From Trulicity] Allergy (Verified 06/17/24 12:27) Diarrhea apixaban [From Eliquis] Adverse Reaction (Unknown, Verified 06/17/24 12:27) memory problem Medication List - Last Reconciled 06/17/24 by Dayna Prieto MD amoxicillin 500 mg PO DAILY PRN atorvastatin 80 mg PO DAILY blood sugar diagnostic (FreeStyle Lite Strips) Test blood sugar 4 x a day blood-glucose meter (FreeStyle Lite Meter kit) As directed cholecalciferol (vitamin D3) 25 mcg PO DAILY dapagliflozin propanediol (Farxiga) 5 mg PO DAILY diltiazem HCl ER 240 mg PO DAILY ferrous sulfate (Feosol) 325 mg PO DAILY flecainide 100 mg PO BID gabapentin 100 mg PO TID lancets (FreeStyle Lancets) test blood sugar once a day meloxicam 15 mg PO DAILY metformin ER 750 mg PO BID methocarbamol 500 mg PO DAILY omega 5-lyn-djh-fish oil 1,200 (144-216) mg (Fish Oil) 1,200 caps PO DAILY Ozempic (semaglutide) 0.25 mg (0.368 mL) subcut QWEEK NS pantoprazole 40 mg PO DAILY [vitamin b12 500 mcg PO DAILY] vitamins A,C,Q-imhc-vtvynw 2,148 mcg-113 mg-45 mg-17.4mg (PreserVision AREDS) 2 tabs PO BID Tobacco use date assessed: 06/17/24 Dental Screening Dental Screen Date: 08/30/23 HPI Annual PE HPI Details Pt presents for PE. She has been decreasing caloric intake increasing physical activity trying to lose weight for 6 months PFSH Medical History Annual physical exam Anxiety Degenerative lumbar spinal stenosis Obesity DAVIAN on CPAP Iron deficiency anemia Macular degeneration GERD (gastroesophageal reflux disease) Atrial fibrillation Hyperlipidemia HTN (hypertension) DM type 2 (diabetes mellitus, type 2) Surgical History H/O colonoscopy H/O lumbosacral spine surgery No pertinent past surgical history Family History Unknown No problems noted. Mother No problems noted. Sister No problems noted. Brother Substance use disorder Social History Housing: Apartment Alcohol intake: current Alcohol intake frequency: does not drink Patient Tobacco Use Status: Never used Tobacco e-Cigarette/Vaping Use: Never Used service: No Current occupational status: unemployed and disabled Cognitive needs: No Hearing needs: Yes Vision needs: Yes Questionnaire PHQ-9 Over the last 2 weeks, how often have you been bothered by any of the following problems? 1. Little interest or pleasure in doing things: not at all 2. Feeling down, depressed, or hopeless: several days 3. Trouble falling or staying asleep, or sleeping too much: not at all 4. Feeling tired or having little energy: not at all 5. Poor appetite or overeating: not at all 6. Feeling bad about yourself - or that you are a failure or have let yourself or your family down: several days 7. Trouble concentrating on things, such as reading the newspaper or watching television: not at all 8. Moving or speaking so slowly that other people could have noticed. Or the opposite - being so fidgety or restless that you have been moving around a lot more than usual: not at all 9. Thoughts that you would be better off or of hurting yourself in some way: not at all Total score: 2 Depression Screening Interpretation: Negative Depression Screening Done: Yes 89786 - PHQ-9 Billing: Yes Source: Developed by Drs. Candido Santana, Marilia Malcolm, Alex Garcia and colleagues, with an educational garima from [employer]. Thrive Questionnaire Date Thrive assessed: 10/19/23 I am a: Patient What is your living situation today?: I have a steady place to live Within the past 12 months, did the food you bought not last and you didn't have the money to get more?: Never true Within the past 12 months, did you worry whether your food would run out before you got money to buy more?: Never true Do you have trouble paying for medicines?: No Do you have trouble getting transportation to medical appointments?: No Do you have trouble paying your heating and electricity bill?: No Do you have trouble taking care of your child, family member or friend?: No Do you have trouble with day-to-day activities such as bathing, preparing meals, shopping, managing finances, etc.?: Yes Are you currently unemployed and looking for a job?: No Are you interested in more education?: No Please select the resources that you would like help with: None Currently or been in a relationship where the following occur: Controlled Emotionally THRIVE Score: 1 AUDIT C Alcohol Use Questionnaire (AUDIT-C) 1. How often do you have a drink containing alcohol?: Never Total Score: 0 ROXANNA-7 AMB Questionnaire ROXANNA-7 Date ROXANNA - 7 assessed: 06/17/24 Feeling nervous, anxious, or on edge: 0 = Not at all Not being able to stop or control worryin = Not at all Worrying too much about different things: 0 = Not at all Trouble relaxin = Not at all Being so restless that it is hard to sit still: 0 = Not at all Becoming easily annoyed or irritable: 0 = Not at all Feeling afraid as if something awful might happen: 0 = Not at all Total ROXANNA-7 score (0-4 normal; 5-9 mild; 10-14 moderate; 15-21 severe): 0 Source: Developed by Drs. Candido Santana, Marilia Malcolm, Alex Garcia and colleagues, with an educational garima from [employer]. ROXANNA-7 Assessment Billing ROXANNA-7 Assessment Tool: ROXANNA-7 Assessment 76115 Review of Systems Const All systems reviewed & are unremarkable except as noted in HPI and below Eyes Reports no additional complaints ENT Reports no additional complaints Card Reports no additional complaints Resp Reports no additional complaints GI Reports no additional complaints Reports no additional complaints Musc Reports no additional complaints Physical exam (Primary Care) Vital Signs: Last Vital Signs Pulse 71 06/17/24 11:33 BP 116/66 06/17/24 11:33 Pulse Ox 97 06/17/24 11:33 Oxygen Delivery Method Room Air 06/17/24 11:33 BMI result Body Mass Index 44.9 Tobacco/Smoking Status: Tobacco use Status Tobacco use date assessed 06/17/24 06/17/24 12:29 Patient Tobacco Use Status Never used Tobacco 06/17/24 11:33 e-Cigarette/Vaping Use Never Used 06/17/24 11:33 PHQ-9: PHQ-9 Score PHQ-9: Total score 2 06/17/24 12:38 Depression Screening Interpretation: Negative Thrive Assessment: Date of Thrive Assessment Date Thrive assessed 10/19/23 06/17/24 11:33 Currently or been in a relationship where the following occur: Controlled Emotionally Const General: no acute distress HENMT Head: Yes normal to inspection Mouth: Normal oral and palatal mucosa present Throat: Yes posterior oropharynx normal Eyes General: appearance normal, both eyes and all related structures Neck Neck: Yes no lymphadenopathy and Yes supple Resp Effort & Inspection: normal respiratory effort Auscultation: clear to auscultation bilaterally Cardio Rhythm: regular rhythm Heart sounds: S1 normal heart sound present and S2 normal heart sound present GI Inspection: Yes normal to inspection Palpation (GI): Soft to palpation Percussion: Yes normal to percussion Auscultation: normal bowel sounds Coding Level of Care Code Est Pt Prev Care 40-64y(18633) Diagnoses H/O colonoscopy Z98.890 Anxiety F41.9 Hyperlipidemia E78.5 Iron deficiency anemia D50.9 Atrial fibrillation I48.91 HTN (hypertension) I10 DM type 2 (diabetes mellitus, type 2) E11.9 Additional Codes ROXANNA-7 Assessment Billing - ROXANNA-7 Assessment Tool: ROXANNA-7 Assessment 55224 ([id number]) PHQ-9 - 46839 - PHQ-9 Billing: Yes ([id number]) Assessment & Plan Assessment & Plan (1) H/O colonoscopy: Comment: polyps q 3 years, Dr. 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 Bell, on diltiazem and flecainide, s/p Watchman procedure 10/20 Code(s): I48.91 - Unspecified atrial fibrillation Category: Medical Plan: Follow-up with cardiology (6) HTN (hypertension): Code(s): I10 - Essential (primary) hypertension Category: Medical Plan: Continue current medications (7) DM type 2 (diabetes mellitus, type 2): Comment: Intolerant to Trulicity, diarrhea, diabetic retinopathy Code(s): E11.9 - Type 2 diabetes mellitus without complications Category: Medical Plan: A1c is 6.0, ADA diet increase exercise weight loss discussed with the patient. Ozempic 0.25 will be added to metformin follow-up in 3 months with a fasting labs before Orders: Orders Comprehensive [place]. Panel Fast 3 Months D50.9 - Iron deficiency anemia, unspecified, E11.9 - Type 2 diabetes mellitus without complications, E78.5 - Hyperlipidemia, unspecified, I10 - Essential (primary) hypertension, I48.91 - Unspecified atrial fibrillation Lipid Panel 3 Months D50.9 - Iron deficiency anemia, unspecified, E11.9 - Type 2 diabetes mellitus without complications, E78.5 - Hyperlipidemia, unspecified, I10 - Essential (primary) hypertension, I48.91 - Unspecified atrial fibrillation Microalbumin, Random (w Creat) 3 Months D50.9 - Iron deficiency anemia, unspecified, E11.9 - Type 2 diabetes mellitus without complications, E78.5 - Hyperlipidemia, unspecified, I10 - Essential (primary) hypertension, I48.91 - Unspecified atrial fibrillation Hemoglobin A1c 3 Months D50.9 - Iron deficiency anemia, unspecified, E11.9 - Type 2 diabetes mellitus without complications, E78.5 - Hyperlipidemia, unspecified, I10 - Essential (primary) hypertension, I48.91 - Unspecified atrial fibrillation Complete Blood Count Auto Diff 3 Months D50.9 - Iron deficiency anemia, unspecified, E11.9 - Type 2 diabetes mellitus without complications, E78.5 - Hyp erlipidemia, unspecified, I10 - Essential (primary) hypertension, I48.91 - Unspecified atrial fibrillation Medications: New Ozempic (semaglutide) 0.25 mg (0.368 mL) subcut QWEEK 3 mL 3RF NS
[2024-06-17 11:33] VITALS: BP 116/66; PULSE 71; O2SAT 97; BMI 44.9
== END 2024-06-17 12:51 | disposition home or self-care (01) ==
PROVIDERS: PCP Internal Medicine; Visit Provider Internal Medicine
DX: Z00.00 Encounter for general adult medical examination without abnormal findings (principal); I48.91 Unspecified atrial fibrillation; E11.69 Type 2 diabetes mellitus with other specified complication; E78.5 Hyperlipidemia, unspecified; Z98.890 Other specified postprocedural states; F41.9 Anxiety disorder, unspecified; D50.9 Iron deficiency anemia, unspecified; I10 Essential (primary) hypertension

== ENCOUNTER → 2024-06-17 11:03 | Outpatient (BNVA) | payer MEDICARE, MEDICAID, SELFPAY | PROVIDERS: PCP Internal Medicine; Visit Provider Internal Medicine | DX: Z00.00 Encounter for general adult medical examination without abnormal findings (principal); F41.9 Anxiety disorder, unspecified; E78.5 Hyperlipidemia, unspecified; D50.9 Iron deficiency anemia, unspecified; I48.91 Unspecified atrial fibrillation; I10 Essential (primary) hypertension; E11.9 Type 2 diabetes mellitus without complications; Z98.890 Other specified postprocedural states | CPT/HCPCS: 96127; 99396 ==

== ENCOUNTER 2024-09-19 08:35 | Outpatient (REF) | payer MEDICARE, MEDICAID, SELFPAY ==
--- OUTSIDE RECORDS SUMMARY | 2024-09-19 08:49 | XMS_ITS | Encounter Summary ---
Author Organization [facility] Address [address] [place] [address] Care Team Providers Care Optical Lab Technician Name Role Phone Bao Gann DO Primary Care Provider Encounter Details Date Type Department Care Team (Late st Contact Info) Description 12/23/2014 Scanned Document [facility] [address], [address] [place], [place] [id number] Jorje Campbell MD [address] [place] [address] Social History Tobacco Use Types Packs/Day Years Used Date Smoking Tobacco: Never Alcohol Use Standard Drinks/Week Comments Yes 0 (1 standard drink = 0.6 oz pur e alcohol) Comments Unknown Sex and Gender Information Value Date Recorded Sex Assigned at Not on file Legal Sex Female 9:11 AM EST Gender Identity Not on file Sexual Orientation Not on file documented as of this encounter Plan of Treatment Not on file documented as of this encounter Visit Diagnoses Not on filedocumented in this encounter Care Teams Optical Lab Technician Relationship Specialty Start Date End Date Bao Gann DO [address] [facility] [address] [place] [id number] PCP - General Internal Medicine 10/09/18 documented as of this encounter
--- OUTSIDE RECORDS SUMMARY | 2024-09-19 08:50 | XMS_ITS | Encounter Summary ---
Author Organization [facility] Address [address] [place] [address] Care Team Providers Care Health Benefits Specialist Name Role Phone Dayna Prieto MD Primary Care Provider [phone] Reason for Visit * Reason Comments Follow-up Encounter Details Date Type Department Care Team (Late st Contact Info) Description 09/02/2024 1:10 PM EST Office Visit [facility] - [address] [place] [address] Shira Frazier NP [address] [place] [address] Hypertension, unspecified type (Primary Dx) Social History Tobacco Use Types Packs/Day Years Used Date Smoking Tobacco: Never Smokeless Tobacco: Never Alcohol Use Standard Drinks/Week Comments No 0 (1 standard drink = 0.6 oz pur e alcohol) Comments Unknown Sex and Gender Information Value Date Recorded Sex Assigned at Not on file Legal Sex Female 1:03 AM EST Gender Identity Not on file Sexual Orientation Not on file documented as of this encounter Last Filed Vital Signs Vital Sign Reading Time Taken Comments Blood Pressure 170/80 09/02/2024 12:59 PM EST Pulse 67 09/02/2024 12:59 PM EST Temperature - - Respiratory Rate - - Oxygen Saturation 97% 09/02/2024 12:59 PM EST Inhaled Oxygen Concentration - - Weight 119 kg (261 lb 12.8 oz) 09/02/2024 12:59 PM EST Height 167.6 cm (5' 6 ) 09/02/2024 12:59 PM EST Body Mass Index 42.26 09/02/2024 12:59 PM EST documented in this encounter Progress Notes * Shira Garfield Karin, ESTIMATOR PROJECT MANAGER - 09/02/2024 1:10 PM EST [employer]IMARY [employer]: Husam Solis MD PCP: Dayna Prieto MD Agustina Patel is a 64 y.o. old female History of Present Illness #1 Stage 3B/D Persistent AF - 05/31/20 - Cryoablation of pulmonary veins and RF ablation of typical atrial flutter. Returning to the ER June 03 and rapidly conducted atrial fibrillation, underwent successful elective cardioversion. At 3 month fu - ILR without AF - pt reticent to discontinue antiarrhythmic, decreased Flecainide to50 mg bid. Flecainide discontinued 12/14/2020. Recurrence of AF 02/2021, resumed Flecainide at 100 mgbid as well as OAC. 2 days post Watchman - ER presentation AF, extra dose of Flecainide ineffective, successful cardioversion - no recurrence. GI bleed, TRAN November 2023, watchman is well-seated no REZA device leak nor thrombus. EF 60 to 65%, aorta dilated at 4.4 cm, no hemodynamically significant valvular disease, no change in aortic size as compared to 2022. Ultimately undergoing watchman implantation November 2023. Plavix until 6 month emil. Continue lifelong aspirin. ILR explanted #2 DAVIAN - complaint with CPAP - repeat studies and new device 2020 #3 Obesity #4 HTN #5 Type 2 DM #6 TAA #7 Diabetic retinopathy Continues to use her walker - discouraged long year with musculoskeletal issues. Scheduled for knee surgery (not replacement) in October of 2024 . Notes that since April perception of elevated HR, 70's and 80s - not reminiscent of AF - contributes to stress and chronic pain. Since last OV episode of Covid, several friends who have been ill. Tolerating Ozempic gassy stomach at times - but overall well tolerated. Has lost 50 pounds on home scale. Is hopeful that updated A1c will have been positively impacted. [id number] score 3 for diabetes, gender modifier and hypertension. NC interval stable at 216 ms. Results ACTIVE MEDICATIONS: Outpatient Medications Marked as Taking for the 09/02/24 encounter (Office Visit) with Shira Frazier NP Medication Sig Dispense Refill aspirin 81 mg EC tablet Take 1 Tablet by mouth daily. atorvastatin (LIPITOR) 80 mg tablet Take 1 tablet by mouth daily. blood sugar diagnostic (SemiLevTOUCH ULTRA TEST MISC) 1 Strip by In Vitro route as needed. cholecalciferol (VITAMIN D-3) 25 mcg (1,000 unit) tablet Take 1 tablet by mouth daily. cyanocobalamin, vitamin B-12, (VITAMIN B-12 ORAL) Take by mouth. dapagliflozin propanediol (Farxiga) 5 mg tablet Take 1 Tablet by mouth daily. dilTIAZem XR (DILT-XR) 240 mg 24 hr capsule TAKE 1 CAPSULE BY MOUTH DAILY 90 capsule 1 ferrous sulfate 325 mg (65 mg elemental iron) tablet Take 1 tablet by mouth daily. flecainide (TAMBOCOR) 100 mg tablet TAKE 1 TABLET BY MOUTH TWICE DAILY 60 tablet 6 loratadine (CLARITIN) 10 mg tablet Take 10 mg by mouth. metFORMIN XR (GLUCOPHAGE-XR) 750 mg 24 hr tablet Take 1 tablet by mouth 2 Times Daily. methocarbamoL (ROBAXIN) 500 mg tablet Take 1 Tablet by mouth 2 times daily as needed. mv-min/FA/vit K/lutein/zeaxant (PRESERVISION AREDS 2 PLUS MV ORAL) Take 1 Capsule by mouth daily. omega-3 acid ethyl esters (LOVAZA) 1 gram capsule Take 1 capsule by mouth daily. semaglutide (Ozempic) 0.25 mg or 0.5 mg(2 mg/1.5 mL) injection pen Inject 0.25 mg under the skin every 7 (seven) days. ALLERGIES: Allergies Allergen Reactions Ciprofloxacin-Hydrocortisone Reaction not listed Codeine Reaction not listed Dulaglutide Incontinence during sleep Sulfa (Sulfonamide Antibiotics) Other reaction(s): Not available Sulfadiazine Reaction not listed FAMILY HISTORY: Family History Problem Relation Name Age of Onset Other cancer Mother Kidney cancer Diabetes Mother Stroke Mother Lung cancer Brother Breast cancer Neg Hx Colon cancer Neg Hx SOCIAL HISTORY: Social History Tobacco Use Smoking status: Never Smokeless tobacco: Never Substance Use Topics Alcohol use: No PHYSICAL EXAM: Blood pressure (!) 170/80, pulse 67, height 1.676 m (66 ), weight 119 kg (261 lb 12.8 oz), SpO2 97%. Body mass index is 42.26 kg/m??. Physical Exam Encounter Date: 09/02/24 ECG 12 lead Result Value Ventricular Rate ECG 71 Atrial Rate 71 P-R Interval 216 QRS Duration 108 Q-T Interval 448 QTc 486 P Wave Rosston 72 R Rosston 22 T Rosston 50 ECG Interpretation Sinus rhythm with sinus arrhythmia with 1st degree A-V block Low voltage QRS Borderline ECG When compared with ECG of 17-DEC-2023 20:52, No significant change was found *Note: Due to a large number of results and/or encounters for the requested time period, some results have not been displayed. A complete set of results can be found in Results Review. TESTING: No results found for: NA , K , CL , CO2 , GLUCOSE , BUN , CREATININE , CALCIUM , PROT , ALBUMIN , BILITOT , AST , ALT , URICACID , PHOS , MG , ALKPHOS , CKTOTAL , EGFR , No results found for: WBC , HGB , HCT , MCV , PLT , No results found for: CHOL No results found for: HDL No results found for: LDLCALC No results found for: TRIG No results found for: CHOLHDL , No results found for: TSH , No results found for: DIGOXIN , Noresults found for: GLUCOSE , CALCIUM , NA , K , CO2 , CL , BUN , CREATININE , No results found for: CKTOTAL , CKMB , CKMBINDEX , TROPONINI , HSTROPI , and No results found for: CRP PAST MEDICAL HISTORY: Patient Active Problem List Diagnosis Date Noted Acute lateral meniscus tear of right knee 08/08/2024 Arthritis of right knee 08/08/2024 Spinal stenosis of lumbar region with neurogenic claudication 08/10/2022 Thoracic aortic aneurysm without rupture ([facility]) 09/05/2019 Allergic rhinitis 08/19/2019 Atrial fibrillation ([facility]) 08/19/2019 Colon polyps 08/19/2019 Diabetes mellitus type 2, uncomplicated ([facility]) 08/19/2019 GERD (gastroesophageal reflux disease) 08/19/2019 Hyperlipidemia 08/19/2019 Hypertension 08/19/2019 Iron deficiency anemia 08/19/2019 Macular degeneration 08/19/2019 DAVIAN (obstructive sleep apnea) 08/19/2019 Vitamin D deficiency 08/19/2019 Morbid obesity with BMI of 45.0-49.9, adult ([facility]) 08/19/2019 As per AHA guidelines and previously established plan of care by Dr. Husam Solis MD we discussedthe following today: ASSESSMENT/PLAN: Assessment & Plan TAA - Stable over last several studies, plan for updated echo November 2025 Stage 3B paroxysmal AF - history as described above. - s/p Watchman - continue life long ASA 81 mg - NO perception of recurrence on current medication regime - pleased with QOL from a cardiac perspective. - Commended with commitment to weight loss and compliance with CPAP Scheduled for knee surgery - no contraindication to planned procedure - it will be one year post Watchman in September - for surgery in October hold baby ASA if necessary from a surgical standpoint. Recommend that she continue Flecainide and Diltiazem uninterrupted. Understand small risk of recurrence of AF - would be medically managed by anesthesia. No need for additional pre-procedural testing. Problem List Items Addressed This Visit Hypertension - Primary Relevant Orders ECG 12 lead (Completed) Thank you for allowing us to participate in the care of this patient. Today's documentation was made using voice recognition software.This note may contain grammatical errors secondary to this software. Cosigned by Husam Solis MD at 09/03/2024 10:19 AM EST documented in this encounter Plan of Treatment Upcoming Encounters Date Type Department Care Team (Latest Contact Info) Description 11/17/2024 9:45 AM EDT Office Visit Obstetrics & Gynecology - [address] [phone] Kellen Cardenas CNM [address] [place] [address] 11/18/2024 10:00 AM EDT Hospital Encounter [facility] [address] [place] [phone] Emil Lara MD [address] [address] 11/18/2024 10:00 AM EDT - 11/18/2024 11:30 AM EDT Surgery [facility] Main OR [address] [place] [phone] Emil Lara MD 175 [facility] [address] [place] [address] RIGHT TOTAL KNEE ARTHROSCOPY [63651 (CPT??) +1 more] 12/03/2024 11:30 AM EDT Office Visit Orthopedic Surgery [facility] [address] [facility] [address] [place] [phone] Emil Lara MD 175 [facility] [address] [place] [address] 03/03/2025 12:40 PM EDT Office Visit [facility] [address] [facility] [address] [place] [phone] Shira Frazier NP 300 [facility] [address] [place] [phone] 07/28/2025 11:30 AM EST Office Visit Pulmonolgy [facility] 175 [facility] [address] [place] [phone] Brittany Malik MD 175 [facility] [address] [place] [address] Scheduled Procedures Name Priority Associated Diagnoses Date/Ti me ARTHROSCOPY KNEE Acute lateral meniscus tear of right knee, subsequent encounter Arthritis of right knee 11/18/2024 10:00 AM EDT documented as of this encounter Procedures Procedure Name Priority Date/Time Associated Diagnosis Comments ECG 12-LEAD Routine 09/02/2024 1:44 PM EST Hypertension, unspecified type documented in this encounter Results * ECG 12 lead (09/02/2024 1:44 PM EST) Ventricular Rate ECG 71 BPM GEMUSE Atrial Rate 71 BPM GEMUSE P-R Interval 216 ms GEMUSE QRS Duration 108 ms GEMUSE Q-T Interval 448 ms GEMUSE QTc 486 ms GEMUSE P Wave Rosston 72 degrees GEMUSE R Rosston 22 degrees GEMUSE T Rosston 50 degrees GEMUSE ECG Interpretation Sinus rhythm with sinus arrhythmia with 1st degree A-V block Low voltage QRS Borderline ECG When compared with ECG of 17-DEC-2023 20:52, No significant change was found Confirmed by Jaylin SOLIS JOHN ([id number]) on 09/16/2024 7:29:39 AM GEMUSE 09/02/2024 1:14 PM EST 09/16/2024 7:29 AM EST Shira Frazier NP ECG ORDERABLES Edited Resul t - Final GEMUSE documented in this encounter Visit Diagnoses Diagnosis Acute lateral meniscus tear of right knee Arthritis of right knee Hypertension, unspecified type- Primary Acute lateral meniscus tear of right knee, subsequent encounter Arthritis of right knee documented in this encounter Care Teams Health Benefits Specialist Relationship Specialty Start Date End Date Dayna Prieto MD [address] [place] [address] PCP - General Internal Medicine 07/14/19 documented as of this encounter
--- OUTSIDE RECORDS SUMMARY | 2024-09-19 08:50 | XMS_ITS | Data Portability ---
Author Organization [place] - [facility] Address [address] [place] [id number] Care Team Providers Care Unit Controller Name Role Phone MARY ARCEOANNA Primary Care Provider [phone] Assessment Encounter Date Assessment Date Assessment LastModified by Organization Details LastModified Time 02/21/2022 02/21/2022 Overview/History :PT IS A 61 YO FEMALE. 1 WEEK AGO [place] AND NOTED REDENESS TO THE FOOT. WENT TO THE PCP AND PLACED ON DOXY. THINKS THEY ARE GETTING BETTER. NO FEVER OR CHILLS. NO NAUSEA OR VOMITING. EATING AND DRINKING OKAY. MOVING BOWEL AND BLADDER. GLUCOSE UNDER CONTROL. NO PROBLEMS WITH DOXYCYCLINE. Exam: BENIGN OUTSIDE OF THE SKIN BILATERAL DORSAL FEET TWO SMALL OPEN AREAS OF THE SKIN, WELL HEALING, FULL ROM NV INTACT. NO SIGNS OF INFECTION. Vital Signs:VSS DDx considered, but not limited to: CELLULITIS, SECOND DEGREE BURN, WOUND CARE Work up/Results: NONE Plan/Discussion: CONTINUE CURRENT TX. KEEP CLEAN AND DRY. FOLLOW UP WITH PCP. RTC PRN. ALL QUESTIONS ANSWERED. Proper Personal Protective Equipment (PPE), including gloves, eye protection and masks were donned and doffed appropriately and all equipment cleaned using approved technique with germicidal disposable wipes prior to and after care of this patient according to [facility]'s infection prevention protocols. All the patient's medications were reviewed and updated in the patient record during today's visit. No changes were made to the patient's medication regimen today. [email or web address] Not available 02/21/2022 11:47:19 06/13/2023 06/13/2023 Time On Scene with Patient: 00:26:19 Brief Overview: 62 y/o female c/o pain in her right knee and shoulder after a fall at home on 06/08. she denies any cp, sob, weakness, numbness, edema. states she tripped, denies head injury or LOC. ROM is normal. she reports bruising on knee and intermittent sharp pains in her shoulder when lifting. Vital Signs: BP 120/64, HR 63, RR 20, T 98.1, O2 99% RA Exam: 62 y/o female well appearing alert NAD sitting on her bed. lungs: CTAB no wheezes rales or rhonchi. heart: RRR no murmur rubs or gallops. no peripheral edema. no calf tenderness or edema. ecchymosis noted right infrapatellar region, + tenderness patella. ROM is normal. right shoulder: normal appearance, ROM normal, tenderness on palpation AC joint. strength is normal and equal bilaterally. sensation to light touch is normal bilaterally. DDx considered, with rationale: Shoulder/ knee fracture: considered but no deformity on exam and rom is normal. DVT: considered but no unilateral edema, no tachycardia or calf tenderness. compartment syndrome: considered but no pain out of proportion, numbness, pallor. Results/ work up: Xray right knee and right shoulder pending. Proper Personal Protective Equipment (PPE), including gloves, eye protection and masks were donned and doffed appropriately and all equipment cleaned using approved technique with germicidal disposable wipes prior to and after care of this patient according to [facility]'s infection prevention protocols. [email or web address] Not available 06/13/2023 10:13:18 07/04/2023 07/04/2023 Time On Scene with Patient: 00:13:48 Brief Overview: 62 y/o female c/o right shoulder pain the past month, s/p fall at home and shoulder injury. xray was negative for fracture/ dislocation, but did show joint space narrowing. pain is worse at night or with lifting. pain is dull/ achy. no edema, erythema, ecchymosis, weakness, numbness. her rom is normal. she has been taking tylenol prn. she has not yet followed up with pcp as directed at last visit. Vital Signs: BP 122/64, HR 62, RR 18, T 96.9, O2 98% RA Exam: 62 y/o female well appearing, alert NAD sitting on her bed. lungs: CTAB no wheezes rales or rhonchi. heart: RRR no murmur rubs or gallops. no peripheral edema. shoulder: right, normal appearance, no edema. ROM is normal. strength is normal and equal bilaterally. + tenderness on palpation of the deltoid. skin: warm and dry no rashes or lesions. gait and stance is normal. DDx considered, with rationale: DVT: considered but no unilateral edema, no tachycardia. Shoulder fracture: considered but xray from 06/13 was negative for fracture/ dislocation. Rotator cuff tear: considered, but rom is normal, strength is normal. Results/ work up: n/a Proper Personal Protective Equipment (PPE), including gloves, eye protection and masks were donned and doffed appropriately and all equipment cleaned using approved technique with germicidal disposable wipes prior to and after care of this patient according to [facility]'s infection prevention protocols. [email or web address] Not available 07/04/2023 11:34:00 Plan of Treatment Reminders Order Date Submit Date Provider Last Modified By Organization Details Last Modified Time Details Appointments None recorded. Lab None recorded. Referral None recorded. Procedures None recorded. Surgeries None recorded. Imaging XR, knee, 3 view - right knee pain after fall [address] Corporate Office ([facility]), [address] [place] [address], [address], 3 02:59:39 XR, shoulder, 2 or more view - right shoulder pain after fall [address]22 [address]), [address] [place], [address], 3 02:59:34 Medication Orders None recorded. Patient TargetsNo targets recorded. Patient Instructions Encounter Date Encounter Id Patient Instructions Last Modified By Organization Details Last Modified Time 02/21/2022 [id number] Thank you for yo ur visit with [facility] today. We cannot always find the exact cause of your symptoms during your initial visit. Please follow up with your primary care provider or specialist within 12-24 hours within 24-48 hours within 2-3 days to be rechecked or seek medical attention if your symptoms do not go away or get worse. If you develop any new or worsening symptoms and need after hours care, please go to nearest ER and/or call 911. If you have additional concerns or develop a change in your condition between 8am-10pm, please call [facility] at [phone] to help navigate your care. [email or web address] Not available 02/21/2022 11:48:18 06/13/2023 [id number] Thank you for yo ur visit with [facility] today. We cannot always find the exact cause of your symptoms during your initial visit. Please follow up with your primary care provider or specialist within 12-24 hours within 24-48 hours within 2-3 days to be rechecked or seek medical attention if your symptoms do not go away or get worse. If you develop any new or worsening symptoms and need after hours care, please go to nearest ER and/or call 911. If you have additional concerns or develop a change in your condition between 8am-10pm, please call [facility] at [phone] to help navigate your care. [email or web address] Not available 06/13/2023 10:17:03 07/04/2023 [id number] Thank you for yo ur visit with [facility] today. We cannot always find the exact cause of your symptoms during your initial visit. Please follow up with your primary care provider or specialist within 12-24 hours within 24-48 hours within 2-3 days to be rechecked or seek medical attention if your symptoms do not go away or get worse. If you develop any new or worsening symptoms and need after hours care, please go to nearest ER and/or call 911. If you have additional concerns or develop a change in your condition between 8am-10pm, please call [facility] at [phone] to help navigate your care. Thank you for your visit with [facility] today. You do not appear to have a fracture or dislocation that requires immediate surgical intervention. However, small breaks or ligament tears may not be obvious on initial examination. Given this concern, we may have placed you in a temporary splint. If an xray is indicated, we will help direct you to the best option to obtain your imaging study. We have also given you follow up directions. Please follow up with your primary care physician or specialist as directed. If you develop any new or worsening symptoms and need after hours care, please go to nearest ER and/or call 911. If you have additional concerns or develop a change in your condition between 8am-10pm, please call [facility] at [phone] to help navigate your care. Not available 07/04/2023 11:36:21 Reason for Referral None Reported. Results Created Date Observation Date Name Description Value Unit Range Abnormal Flag Note LastModifiedBy Organization Detail LastModifiedTime 06/13/20 23 06/13/2023 knee exam 3V AP lat obliq ue KNEE EXAM 3V , RIGHT FINDIN GS: No acute fractu re or disloc ation. The osseou s struct ures appear intact . Modest joint space narrow ing. Soft tissue s are unrema rkable . CONCLU POLO: No acute osseou s findin gs. Recomm end a repeat multi- view imagin g in 1 week or sooner if clinic sylvia lynn ally if sympto ms contin ue to persis t or progre ss. ELECTR ONICAL LY SIGNED BY LOUIE BREWSTER M.D. 2022 12:50: 10 PM EST. [email or web address] [employer]avatar [facility] [address] [place] [address], [place], [address], 07/02/2023 19:49:12 06/13/20 23 06/13/2023 shoul roxy compl ete, min 2V SHOULD ER COMPLE TE MIN 2V, RIGHT FINDIN GS: No acute fractu re or disloc ation. The osseou s struct ures appear intact . Modest joint space narrow ing. Soft tissue s are unrema rkable . CONCLU POLO: No acute osseou s findin gs. Recomm end a repeat multi- view imagin g in 1 week or sooner if clinic sylvia ward if sympto ms contin ue to persis t or progre ss. ELECTR ONICAL LY SIGNED BY LOUIE BREWSTER M.D. 2022 12:50: 10 PM EST. KNEE EXAM 3V , RIGHT Result s: No acute fractu re or disloc ation. The osseou s struct ures appear intact . Modest joint space narrow ing. Soft tissue s are unrema rkable . Conclu polo: No acute osseou s findin gs. Recomm end a repeat multi- view imagin g in 1 week or sooner if clinic ally warran akash especi ally if sympto ms contin ue to persis t or progre ss. Electr onical ly signed by LOUIE BREWSTER M.D. 2022 12:50: 10 PM EST. SHOULD ER COMPLE TE MIN 2V, RIGHT Result s: No acute fractu re or disloc ation. The osseou s struct ures appear intact . Modest joint space narrow ing. Soft tissue s are unrema rkable . Conclu polo: No acute osseou s findin gs. Recomm end a repeat multi- view imagin g in 1 week or sooner if clinic ally warrrenetta akash especi ally if sympto ms contin ue to persis t or progre ss. Electr onical ly signed by LOUIE BREWSTER M.D. 2022 12:50: 10 PM EST. [email or web address] byyd [address] [facility] [address], [place], [address], 06/13/2023 13:15:10 Result Notes None recorded. Procedures Surgical History Date Name Laterality Status Provider Name and Address Organization Details Recorded Time Unlisted procedure spine completed VONDA Noriega [address], [place], [address], [place] [facility] 02/21/2022 11:36:24 Cholecystectomy completed VONDA Noriega [address] [place], [address], [place] [facility] 02/21/2022 11:36:32 tonsilectomy/adenoi ds completed VONDA Noriega [address], [place], [address], [place] [facility] 02/21/2022 11:36:41 Imaging Results Imaging Date Name Status LastModified by [facility] Details LastModified Time 06/13/2023 knee exam 3V AP lat oblique completed [email or web address] byyd [address] [facility], [place], [address], 07/02/2023 19:49:12 06/13/2023 shoulder complete, min 2V completed [email or web address] [employer] [facility] [address] [facility] [address], [place], [address], 06/13/2023 13:15:10 Procedure Notes None recorded. Medical Equipment None Reported. Allergies Allergen ID Allergen Name Allergen Category Reaction Reaction Severity Criticality Documentation Date Start Date Code Code System Note Provider Name and Address Organization Details Recorded Time 238131 Substance with sulfonami de structure and antibacte rial mechanism of action (substanc e) medicatio n Not available Not available Not available 02/21/2022 93036 8003 SNOMED VONDA Noriega [address], [place], [address], [place] [facility] 2 11:32:35 098288 codeine medicatio n Not available Not available Not available 02/21/2022 2670 RxNorm VONDA Noriega [address], [place], [address], [place] [facility] 2 11:32:52 [id number] Cipro medicatio n Not available Not available Not available 02/21/2022 75025 3 RxNorm VONDA Noriega [address] [place], [address], [place] [facility] 2 11:33:02 [id number] Trulicity medicatio n Not available Not available Not available 06/13/2023 41285 96 RxNorm VONDA Cotton [address] [place], [address], [place] [facility] 3 09:41:32 Medications Name Sig Start Date Stop Date Status Note LastModified by Organization Details LastModified Time methocarbam ol 500 mg tablet TAKE 1 TABLET BY MOUTH TWICE DAILY NEEDED FOR SPASM active Not Available Not Available No t Available atorvastati n 80 mg tablet TAKE 1 TABLET BY MOUTH DAILY active Not Available Not Available No t Available doxycycline hyclate 100 mg capsule TAKE 1 CAPSULE BY MOUTH TWICE DAILY FOR 10 DAYS 06/13 completed Not Available Not Available Not Available cefpodoxime 200 mg tablet TAKE 1 TABLET BY MOUTH TWICE DAILY 02/21 completed Not Available Not Available Not Available azithromyci n 250 mg tablet 02/21 completed Not Available Not Available Not Available FreeStyle Lancets 28 gauge USE DIRECTED EVERY DAY active Not Available Not Available No t Available amoxicillin 875 mg tablet 02/21 completed Not Available Not Available Not Available pantoprazol e 40 mg tablet,jaylen yed release TAKE 1 TABLET BY MOUTH DAILY active Not Available Not Available No t Available flecainide 100 mg tablet TAKE 1 TABLET BY MOUTH TWICE DAILY active Not Available Not Available No t Available benazepril 20 mg tablet TAKE 1 TABLET BY MOUTH DAILY active Not Available Not Available No t Available metformin ER 750 mg tablet,exte nded release 24 hr TAKE 1 TABLET BY MOUTH TWICE DAILY active Not Available Not Available No t Available nitrofurant oin monohydrate /macrocryst als 100 mg capsule 02/21 completed Not Available Not Available Not Available DILT-XR 240 mg capsule, extended release TAKE 1 CAPSULE BY MOUTH EVERY DAY active Not Available Not Available No t Available PreserVisio n AREDS 4,296 mcg-226 mg-90 mg capsule Take by oral route. active Not Available Not Available No t Available Fish Oil active Not Available Not Avai lable Not Available iron active Not Available Not Availa ble Not Available Vitamin D3 active Not Available Not Av ailable Not Available FreeStyle Lite Meter kit USE DIRECTED active Not Available Not Available No t Available FreeStyle Lite Strips TEST BLOOD SUGAR FOUR TIMES DAILY active Not Available Not Available No t Available GaviLyte-G 236 gram-22.74 gram-6.74 gram-5.86 gram oral solution active Not Available Not Available Not Available Eliquis 5 mg tablet TAKE 1 TABLET BY MOUTH TWICE DAILY active Not Available Not Available No t Available Farxiga 5 mg tablet TAKE 1 TABLET BY MOUTH DAILY active Not Available Not Available No t Available Trulicity 0.75 mg/0.5 mL subcutaneou s pen injector ADMINISTE R 0.75 MG UNDER THE SKIN EVERY WEEK 06/13 completed Not Available Not Available Not Available BinaxNOW COVID-19 Ag Self Test kit TEST DIRECTED TODAY 06/13 completed Not Available Not Available Not Available Vitals Date Recorded Oxygen saturation Oxygen saturation in Arterial blood by Pulse oximetry Body temperature Respiratory rate Heart rate Systolic blood pressure Diastolic blood pressure Provider Name and Address Organization Details Last Updated DateTime 3 99 % 99 % 98.1 [degF] 20 /min 63 /min 120 mm[Hg] 64 mm[Hg] Not Available [facility] 3 09:45:31 Date Recorded Respiratory rate Body temperature Oxygen saturation Oxygen saturation in Arterial blood by Pulse oximetry Heart rate Systolic blood pressure Diastolic blood pressure Provider Name and Address Organization Details Last Updated DateTime 3 18 /min 96.9 [degF] 98 % 98 % 62 /min 122 mm[Hg] 64 mm[Hg] Not Available [facility] 3 11:07:00 Date Recorded Respiratory rate Oxygen saturation Oxygen saturation in Arterial blood by Pulse oximetry Heart rate Body temperature Systolic blood pressure Diastolic blood pressure Provider Name and Address Organization Details Last Updated DateTime 2 16 /min 98 % 98 % 66 /min 98.7 [degF] 116 mm[Hg] 68 mm[Hg] Not Available [facility] 2 11:36:23 Social History Question Answer Notes LastModified by Organizat ion Details LastModified Time Tobacco Smoking Status Never Smoker VONDA Noriega [address], [place], [address], [place] [facility] 02/21/2022 11:36:02 Do You Have An Advance Directive? No Information not available 02/21/2022 What Is Your Level Of Alcohol Consumption? None [email or web address] Information not available 02/21/2022 What Is Your Code Status? Full Code Information not available 02/21/2022 Has The Patient Seen Their PCP In The Past 6 Months? Yes [email or web address] Information not available 07/04/2023 Do You Use Any Illicit Or Recreational Drugs? No [email or web address] Information not available 02/21/2022 Has Tobacco Cessation Counseling Been Provided? No Information not available 02/21/2022 Do You Or Have You Ever Used Any Other Forms Of Tobacco Or Nicotine? No [email or web address] Information not available 02/21/2022 Sex: Unknown Functional Status None recorded. Mental Status None recorded. Family History Relationship Description Onset Age of this Age Resolved Age Notes LastModified by Organization Details LastModified Time Mother Diabetes mellitus [email or web address] Not available 02/21 11:35:39 Medical History Condition Response Coronary Artery Disease N COPD N Depression N Hypothyroidism N A-fib Y Cancer N Stroke N High Cholesterol Y Rheumatoid Arthritis N Kidney Disease N Parkinson's Disease N Diabetes Y CHF N Dementia N Asthma N Pulmonary Embolism N Hypertension Y Osteoporosis N Gynecological HistoryNo gynecological history recorded. Obstetrics History GPAL:G 0 P 0 0 0 0 Past Encounters Encounter ID Performer Location Encounter Start Date Encounter Closed Date Diagnosis/Indication Diagnosis SNOMED-CT Code Diagnosis ICD10 Code Diagnosis Note [id number] VONDA Noriega [facility] [address] [place] [address] 02/21/2022 11:31:20 02/22/2022 11:37:21 Burn of foot 10607518 T25.229A [id number] VONDA Cotton [facility] [address] [place] [address] 06/13/2023 09:40:04 06/15/2023 02:59:34 Contusion of right knee [id number] S80.01XA Status of condition: {{Acute* E xacerbatio n/Acute on chronic Ch ronic Stab le Worseni ng/Progres polo Uncon trolled Cr itical: Warrants escalation to ED. Undete rmined: Unclear staging of condition. Needs further evaluation and management by PCP and/or Specialist }}. Testing/Re sults: xray right knee pending. Discussion :rest and elevate the leg.apply ice/ cool compress to affected area prn but not directly on the skin.tiffanie nue otc tylenol take as directed on the package for pain. Plan & Management :follow up with pcp in 3-5 days or sooner prn.go to the ER with worsening symptoms cp, sob, weakness, numbness, increased pain, edema, skin color or temp change. Pain of ri ght shoulder joint [id number] 6619853 M25.511 Status of condition: {{Acute* E xacerbatio n/Acute on chronic Ch ronic Stab le Worseni ng/Progres polo Uncon trolled Cr itical: Warrants escalation to ED. Undete rmined: Unclear staging of condition. Needs further evaluation and management by PCP and/or Specialist }}. Testing/Re sults: xray right shoulder is pending. Discussion :rest and no heavy lifting.xr ay pending.co ntinue otc tylenol take as directed on the package for pain.recom mend cool compress.o k to continue using icy/hot or bengay as directed on the package. Plan & Management :follow up with pcp in 3-5 days or sooner prn.go to the ER with worsening symptoms cp, sob, weakness, numbness, dizziness, edema, skin color or temp changes. Essential hypertension [id number] I10 Status of condition: {{Acute Ex acerbation /Acute on chronic Ch ronic* Sta ble Worsen ing/Progre ssion Unco ntrolled C ritical: Warrants escalation to ED. Undete rmined: Unclear staging of condition. Needs further evaluation and management by PCP and/or Specialist }}. Testing/Re sults: BP 120/64 on scene. Discussion : BP controlled on current regimen. she is asymptomat ic. Plan & Management :follow up with pcp as scheduled and cardiology tomorrow as scheduled. go to the ER with worsening symptoms cp, sob, weakness, dizziness, HAs, edema, weight gain, vision changes. [id number] VONDA Cotton [facility] [address] [place] [address] 07/04/2023 11:03:11 07/05/2023 14:30:08 Pain of right shoulder joint [id number] 3056843 M25.511 Status of condition: {{Acute* E xacerbatio n/Acute on chronic Ch ronic Stab le Worseni ng/Progres polo Uncon trolled Cr itical: Warrants escalation to ED. Undete rmined: Unclear staging of condition. Needs further evaluation and management by PCP and/or Specialist }}. Testing/Re sults: xray from 06/13 was negative for fracture/ dislocatio n but did show joint space narrowing. Discussion :rest and no heavy liftingcon tinue otc tylenol take as directed on the package for pain.recom mend cold compress/ or continue heating pad whichever feels better. Plan & Management :follow up with pcp in 3-5 days or sooner prn. recommend discussing with pcp possible referral to ortho for evaluation / possible MRI if they feel that is warranted. pt reports she also is followed by physiatry [facility] she might also call them for evaluation if she is unable to see her pcp.go to the ER with worsening symptoms cp, sob, weakness, numbness, dizziness, edema, skin color or temp changes. Health Concerns Section Related Observation LastModified by Organization Detai ls LastModified Time None Recorded Concern Status LastModified by Organization Details LastModified Time None Recorded Advance Directives Directive N: Payers Encounter Date Sequence Insurance Name Policy Number Policy Barrett Covered Member ID Barrett Member ID Guarantor Name 02/21/2022 1 [place] [employer] Agustina Amanda [id number] Agustina Amanda 02/21/2022 2 [place] Agustina Amanda [id number] Agustina Amanda 06/13/2023 1 [place] [employer] Agustina Amanda [id number] Agustina Amanda 06/13/2023 2 [place] Agustina Amanda [id number] Agustina Amanda 07/04/2023 1 [place] [employer] Agustina Amanda [id number] Agustina Amanda 07/04/2023 2 [place] Agustina Amanda [id number] Agustina Amanda Notes Date Note Type Note Provider Name and Address Organization Details Recorded Time 02/21/2022 text/html PT IS A 61 YO FEMALE. 1 W[place] AND NOTED REDENESS TO THE FOOT. WENT TO THE PCP AND PLACED ON DOXY. THINKS THEY ARE GETTING BETTER. NO FEVER OR CHILLS. NO NAUSEA OR VOMITING. EATING AND DRINKING OKAY. MOVING BOWEL AND BLADDER. GLUCOSE UNDER CONTROL. NO PROBLEMS WITH DOXYCYCLINE. VONDA Noriega, [place], [address], [place] [facility] 02/21/2022 11:48:35 06/13/2023 text/html 62 y/o female known to DH new to provider with hx of A fib, DM, HTN, hyperlipidemia, GERD. pt reports on 06/08 she fell in her apartment, she tripped on a bag she left in the mack while she was carrying out a box of [employer]. she landed on her right knee and braced herself with her right arm catching the side of the bed. she c/o pain and bruising in right knee. she also reports right shoulder pain. ROM is okay. she gets occasional sharp shooting pains in her right shoulder worse when lifting, and knee is tender to touch. no head injury or LOC. no cp, sob, weakness, dizziness, numbness, edema. she has been taking tylenol for pain and using a otc muscle rub on her shoulder. she is on eliquis so she cannot take NSAIDs. she reports hx of arthritis in her right shoulder. VONDA Cotton [address], [place], [address], [place] [facility] 06/13/2023 10:18:03 07/04/2023 text/html 62 y/o female known to and provider with hx of A fib, DM, HTN, hyperlipidemia, GERD. pt is being seen today for follow up from visit 1 month ago when she tripped at home and fell injuring her right shoulder. her xray from 06/03 showed no fracture or dislocation, joint space narrowing noted. she reports pain has improved some but tends to bother her still more at night, when lifting certain things. no edema, numbness, bruising, weakness. her rom is normal. she denies any cp, sob, fever. pt has not followed up with pcp since last visit as she states this is a busy time of year. pain is located in the anterior right shoulder. she has been using heating pad and taking tylenol prn. VONDA Cotton [address], [place], [address], [place] [facility] 07/04/2023 11:36:40 OBGyn Episode No OBEpisode recorded.
--- OUTSIDE RECORDS SUMMARY | 2024-09-19 08:50 | XMS_ITS | Encounter Summary ---
Author Organization [facility] Address [address] [place] [address] Care Team Providers Care Pathology Specialist Name Role Phone Bao Gann DO Primary Care Provider Encounter Details Date Type Department Care Team (Late st Contact Info) Description 11/08/2014 Scanned Document NE PM [facility] Cardiac Services [address] [facility] [address] [place] [address] External, Provider Social History Tobacco Use Types Packs/Day Years Used Date Smoking Tobacco: Never Assessed Comments Unknown Sex and Gender Information Value Date Recorded Sex Assigned at Not on file Legal Sex Female 9:11 AM EST Gender Identity Not on file Sexual Orientation Not on file documented as of this encounter Plan of Treatment Not on file documented as of this encounter Visit Diagnoses Not on filedocumented in this encounter Care Teams Pathology Specialist Relationship Specialty Start Date End Date Bao Gann DO [address] [facility] [address] [place] [phone] PCP - General Internal Medicine 10/09/18 documented as of this encounter
--- OUTSIDE RECORDS SUMMARY | 2024-09-19 08:50 | XMS_ITS | Encounter Summary ---
Author Organization [facility] Address [address] [place] [address] Care Team Providers Care Filling Hand Name Role Phone Bao Gann DO Primary Care Provider Encounter Details Date Type Department Care Team (Late st Contact Info) Description 11/09/2014 Scanned Document NE PM [facility] Cardiac Services 112 [facility] [address] [place] [address] External, Provider Social History Tobacco Use Types [...] on filedocumented in this encounter Care Teams Filling Hand Relationship Specialty Start Date End Date Bao Gann DO [address] [facility] [place] [address] [place] [phone] PCP - General Internal Medicine 10/09/18 documented as of this encounter
--- OUTSIDE RECORDS SUMMARY | 2024-09-19 08:50 | XMS_ITS | Encounter Summary ---
Author Organization [facility] Address [address] [place] [address] Care Team Providers Care Business Process Architect Name Role Phone Bao Gann DO Primary Care Provider Encounter Details Date Type Department Care Team (Late st Contact Info) Description 07/16/2014 Abstract [facility] 112 [facility] [address] [place] [phone] Provider, historical . Social History Tobacco Use Types Packs/Day Years Used Date Smoking Tobacco: Never Assessed Comments Unknown Sex and Gender Information Value Date Recorded Sex Assigned at Not on file Legal Sex Female 9:11 AM EST Gender Identity Not on file Sexual Orientation Not on file documented as of this encounter Last Filed Vital Signs Vital Sign Reading Time Taken Comments Blood Pressure 143/74 04/03/2014 11:43 AM EDT Pulse - - Temperature - - Respiratory Rate - - Oxygen Saturation - - Inhaled Oxygen Concentration - - Weight 126.1 kg (278 lb) 04/03/2014 11:43 AM EDT Height 176.5 cm (5' 9.5 ) 04/03/2014 11:43 AM ED T Body Mass Index 40.46 04/03/2014 11:43 AM EDT documented in this encounter Plan of Treatment Not on file documented as of this encounter Procedures Procedure Name Priority Date/Time Associated Diagnosis Comments COLONOSCOPY Routine 02/25/2014 documented in this encounter Results * HM COLONOSCOPY (02/25/2014) Colonoscopy Primed Conversion (Col) us Historical Provider HEALTH MAINTENANCE Final Res ult documented in this encounter Visit Diagnoses Not on filedocumented in this encounter Care Teams Business Process Architect Relationship Specialty Start Date End Date Bao Gann DO [address] [facility] [address] [place] [phone] PCP - General Internal Medicine 10/09/18 documented as of this encounter
--- OUTSIDE RECORDS SUMMARY | 2024-09-19 08:50 | XMS_ITS | Encounter Summary ---
Author Organization [facility] Address [address] [place] [address] Care Team Providers Care Utility Locate Technician Name Role Phone Bao Gann DO Primary Care Provider Encounter Details Date Type Department Care Team (Late st Contact Info) Description 05/08/2016 Scanned Document [facility] [address] [place], [place] [phone] Jorje Campbell MD [address] [place] [address] Social History Tobacco Use Types [...] on filedocumented in this encounter Care Teams Utility Locate Technician Relationship Specialty Start Date End Date Bao Gann DO [address] [facility] [address] [place] [phone] PCP - General Internal Medicine 10/09/18 documented as of this encounter
--- OUTSIDE RECORDS SUMMARY | 2024-09-19 08:50 | XMS_ITS | Encounter Summary ---
Author Organization [facility] Address [address] [place] [address] Care Team Providers Care Outside Sales Inspector Name Role Phone DerejeshandraartisBao Primary Care Provider Encounter Details Date Type Department Care Team (Late st Contact Info) Description 05/19/2016 Scanned Document [facility] Gastroenterology [facility] [address] [facility] [address] [place] [address] Provider, Historical . Social History Tobacco Use Types Packs/Day [...] Procedure Name Priority Date/Time Associated Diagnosis Comments GI SCAN Routine 02/25/2014 GI SCAN Routine 12/15/2013 documented in this encounter Results * GI Scan (02/25/2014) Historical Provider GI PROCEDURE ORDERABLES Beatriz l Result * GI Scan (12/15/2013) Historical Provider GI PROCEDURE ORDERABLES Beatriz l Result documented in this encounter Visit Diagnoses Not on filedocumented in this encounter Care Teams Outside Sales Inspector Relationship Specialty Start Date End Date Bao Gann DO [address] [facility] [address] [place] [phone] PCP - General Internal Medicine 10/09/18 documented as of this encounter
--- OUTSIDE RECORDS SUMMARY | 2024-09-19 08:50 | XMS_ITS | Encounter Summary ---
Author Organization [facility] [employer] [facility] Address [address] [place] [address] Care Team Providers Care Heavy Mobile Equipment Repairer Name Role Phone Bao Gann Primary Care Provider Encounter Details Date Type Department Care Team (Latest Contact Info) Description 04/06/2014 Transcribed Orders [facility] Draw Station [address] [facility] 2nd Floor [place], [place] [phone] Harman Burrows MD Unspecified essential hypertension (Primary Dx); Hyperchylomicronemia ; Anemia, unspecified; Acute thyroiditis; Type II or unspecified type diabetes mellitus without mention of complication, not stated as uncontrolled Social History Tobacco Use Types Packs/Day Years Used Date Smoking Tobacco: Never Assessed Comments Unknown Sex and Gender Information Value Date Recorded Sex Assigned at Not on file Legal Sex Female 9:11 AM EST Gender Identity Not on file Sexual Orientation Not on file documented as of this encounter Plan of Treatment Not on file documented as of this encounter Results * TSH (BH L YH) (04/06/2014 10:29 AM EDT) TSH 1.120 0.465 - 4.680 mIU/L [facility] Blood specimen (specimen) 04/06/2014 10:29 AM EDT us Harman Burrows MD LAB BLOOD ORDERABLES Final Resul t [facility] [address] [place] [address] * T4, free (04/06/2014 10:29 AM EDT) Free T4 1.08 0.70 - 2.19 ng/dL [facility] Blood specimen (specimen) 04/06/2014 10:29 AM EDT us Harman Burrows MD LAB BLOOD ORDERABLES Final Resul t Performing Organization Address [facility] Co de Phone Number [facility] [address] [place] [address] * (ABNORMAL) Hemoglobin A1c (04/06/2014 10:29 AM EDT) [facility] Hemoglobin A1c 7.0(H) 4.4 - 6.4 % [facility] Comment: Therapeutic Goal: ?Less Than 7% Re-Evaluation Therapy: ?? Greater Than 8% Blood specimen (specimen) 04/06/2014 10:29 AM EDT us Harman Burrows MD LAB BLOOD ORDERABLES Final Resul t Performing Organization Address [facility] de Phone Number [facility] [address] [place] [address] * Lipid panel (04/06/2014 10:29 AM EDT) [facility] Cholesterol 132 0 - 199 mg/dL [facility] Triglycerides 88 0 - 150 mg/dL [facility] HDL 46 >=41 mg/dL [facility] LDL Cholesterol 69 0 - 99 BRID [facility] CHD Risk 3 <=4 [facility] Blood specimen (specimen) 04/06/2014 10:29 AM EDT us Harman Burrows MD LAB BLOOD ORDERABLES Edited Resu lt - Final Performing Organization Address [facility] Co de Phone Number [facility] [address] [place] [address] * (ABNORMAL) Comprehensive metabolic panel (04/06/2014 10:29 AM EDT) Glucose 109(H) 70 - 100 mg/dL [facility] BUN 13 7 - 17 mg/dL [facility] Creatinine 0.75 0.52 - 1.04 mg/dL [facility] Sodium 143 137 - 145 mmol/L [facility] Potassium 4.4 3.5 - 5.1 mmol/L [facility] Chloride 106 98 - 107 mmol/L [facility] CO2 26 22 - 30 mmol/L [facility] Anion Gap 10 7 - 16 mmol/L [facility] Calcium 9.2 8.4 - 10.2 mg/dL [facility] Total Protein 7.2 6.3 - 8.2 g/dL [facility] Albumin 4.0 3.5 - 5.0 g/dL [facility] Globulin 3.2 2.0 - 3.5 g/dL [facility] A/G Ratio 1.2 1.1 - 2.2 [facility] Aspartate Aminotransferase (AST) 28 14 - 36 u/l [facility] Alkaline Phosphatase 73 38 - 126 u/l [facility] Total Bilirubin 0.9 0.2 - 1.3 mg/dL [facility] Alanine Aminotransferase (ALT) 32 9 - 52 u/l [facility] eGFR >60 [facility] Comment: Interpretation Stage 1 ?? 90 ml/min or greater ? Healthy kidneys or kidney damage with normal or high eGFR Stage 2 ?? 60-89 ml/min ? Kidney damage and mild decrease in eGFR Stage 3 ?? 30-59 ml/min ? Moderate decrease in eGFR Stage 4 ?? 15-29 ml/min ? Severe decrease in eGFR Stage 5 ?<15 ml/min ?Kidney failure The GFR is calculated to include the patient's race and gender as entered in Patient Demographics. Blood specimen (specimen) 04/06/2014 10:29 AM EDT us Harman Burrows MD LAB BLOOD ORDERABLES Edited Resu lt - Final [facility] [address] [place] [address] documented in this encounter Visit Diagnoses Diagnosis Unspecified essential hypertension- Primary Hyperchylomicronemia Anemia, unspecified Acute thyroiditis Type II or unspecified type diabetes mellitus without mention of complication, not stated as uncontrolled documented in this encounter Care Teams Heavy Mobile Equipment Repairer Relationship Specialty Start Date End Date Bao Gann DO [address] [facility] [address] [place] [phone] PCP - General Internal Medicine 10/09/18 documented as of this encounter
--- OUTSIDE RECORDS SUMMARY | 2024-09-19 08:50 | XMS_ITS | Encounter Summary ---
Author Organization [facility] Address [address] [place] [address] Care Team Providers Care Die Turner Name Role Phone DerejedilcialisaBao Primary Care Provider Encounter Details Date Type Department Care Team (Latest Contact Info) Description 02/22/2015 Transcribed Orders [facility] Draw Station [address] [facility] 2nd Floor [place], [place] [phone] Harman Burrows MD Unspecified essential hypertension (Primary Dx); Hyperchylomicronemia ; Avulsion of eye; Type I (juvenile type) diabetes mellitus without mention of complication, not [...] documented as of this encounter Results * (ABNORMAL) Hemoglobin A1c (02/22/2015 10:44 AM EDT) Hemoglobin A1c 7.0(H) 4.4 - 6.4 % [facility] Comment: Therapeutic Goal: ?Less Than 7% Re-Evaluation Therapy: ?? Greater Than 8% Blood specimen (specimen) 02/22/2015 10:44 AM EDT Harman Burrows MD LAB BLOOD ORDERABLES Final Resul t Performing Organization Address [facility]/ZIP Co de Phone Number [facility] [address] [place] [address] * Lipid panel (02/22/2015 10:44 AM EDT) Cholesterol 137 0 - 199 mg/dL [facility] Triglycerides 105 0 - 150 mg/dL [facility] HDL 45 >=41 mg/dL [facility] LDL Cholesterol 71 0 - 99 BRID [facility] CHD Risk 3 <=4 [facility] Blood specimen (specimen) 02/22/2015 10:44 AM EDT Harman Burrows MD LAB BLOOD ORDERABLES Edited Resu lt - Final Performing Organization Address [facility] Co de Phone Number LAB[facility]AT[facility] [address] [place] [address] * (ABNORMAL) Comprehensive metabolic panel (02/22/2015 10:44 AM EDT) Glucose 152(H) 70 - 100 mg/dL [facility] BUN 12 7 - 17 mg/dL [facility] Creatinine 0.69 0.52 - 1.04 mg/dL [facility] Sodium 140 137 - 145 mmol/L [facility] Potassium 4.0 3.5 - 5.1 mmol/L [facility] Chloride 104 98 - 107 mmol/L [facility] CO2 28 22 - 30 mmol/L [facility] Anion Gap 7 7 - 16 mmol/L [facility] Calcium 9.2 8.4 - 10.2 mg/dL [facility] Total Protein 6.7 6.3 - 8.2 g/dL [facility] Albumin 3.7 3.5 - 5.0 g/dL [facility] Globulin 3.0 2.0 - 3.5 g/dL [facility] A/G Ratio 1.2 1.1 - 2.2 [facility] Aspartate Aminotransferase (AST) 28 14 - 36 u/l [facility] Alkaline Phosphatase 74 38 - 126 u/l [facility] Total Bilirubin 0.9 0.2 - 1.3 mg/dL [facility] Alanine Aminotransferase (ALT) 31 9 - 52 u/l [facility] eGFR >60 [facility] Comment: Interpretation Stage 1 ?? 90 [...] entered in Patient Demographics. Blood specimen (specimen) 02/22/2015 10:44 AM EDT us Harman Burrows MD LAB BLOOD ORDERABLES Edited Resu lt - Final [facility] [address] [place], [place] [address] documented in this encounter Visit Diagnoses Diagnosis Unspecified essential hypertension- Primary Hyperchylomicronemia Avulsion of eye Type I (juvenile type) diabetes mellitus without mention of complication, not stated as uncontrolled documented in this encounter Care Teams Die Turner Relationship Specialty Start Date End Date Bao Gann DO [address] [facility] [address] [place] [phone] PCP - General Internal Medicine 10/09/18 documented as of this encounter
--- OUTSIDE RECORDS SUMMARY | 2024-09-19 08:50 | XMS_ITS | Encounter Summary ---
Author Organization [facility] Address [address] [place] [address] Care Team Providers Care Fondant Cooker Name Role Phone Bao Gann DO Primary Care Provider Encounter Details Date Type Department Care Team (Late st Contact Info) Description 06/09/2016 Scanned Document NE PM [facility] 112 [facility] [address] [place], [place] [address] Curt Miller MD 112 [facility] [address] [place] [address] Social History Tobacco Use Types Packs/Day Years [...] on filedocumented in this encounter Care Teams Fondant Cooker Relationship Specialty Start Date End Date Bao Gann DO [address] [place] [phone] PCP - General Internal Medicine 10/09/18 documented as of this encounter
--- OUTSIDE RECORDS SUMMARY | 2024-09-19 08:50 | XMS_ITS | Encounter Summary ---
Author Organization [facility] Address [address] [place] [address] Care Team Providers Care Ship'S Officer Name Role Phone Bao Gann DO Primary Care Provider Encounter Details Date Type Department Care Team (Late st Contact Info) Description 11/09/2014 Scanned Document [facility] Card[facility] 112 [facility] [address] [place] [address] Minesh Diaz MD 112 [facility] [address] [place] [address] Social History Tobacco Use Types [...] on filedocumented in this encounter Care Teams Ship'S Officer Relationship Specialty Start Date End Date Bao Gann DO [address] [facility] [address] [place] [phone] PCP - General Internal Medicine 10/09/18 documented as of this encounter
--- OUTSIDE RECORDS SUMMARY | 2024-09-19 08:50 | XMS_ITS | Encounter Summary ---
Author Organization [facility] Address [address] [place] [address] Care Team Providers Care Second Ride Fare Collector Name Role Phone Bao Gann DO Primary Care Provider Encounter Details Date Type Department Care Team (Late st Contact Info) Description 06/16/2015 Scanned Document [facility] [address] [place], [place] [address] Jorje Campbell MD [address] [place] [address] Social History Tobacco Use Types [...] on filedocumented in this encounter Care Teams Second Ride Fare Collector Relationship Specialty Start Date End Date Bao Gann DO [facility] [address] [place] [phone] PCP - General Internal Medicine 10/09/18 documented as of this encounter
--- OUTSIDE RECORDS SUMMARY | 2024-09-19 08:50 | XMS_ITS | Encounter Summary ---
Author Organization [facility] [employer] [facility] Address [address] [place] [address] Care Team Providers Care Customer Operations Associate Name Role Phone Bao Gann Primary Care Provider Encounter Details Date Type Department Care Team (Latest Contact Info) Description 10/20/2013 Transcribed Orders [facility] Draw Station [address] [facility] 2nd Floor [place] [phone] Harman Burrows MD Unspecified essential hypertension (Primary Dx); Hyperchylomicronemia ; Alcoholic liver damage, unspecified (HC Code); Acute thyroiditis Social History Tobacco Use Types Packs/Day Years [...] encounter Results * TSH (BH L YH) (10/20/2013 10:49 AM EDT) TSH 1.600 0.465 - 4.680 mIU/L [facility] Blood specimen (specimen) 10/20/2013 10:49 AM EDT us Harman Burrows MD LAB BLOOD ORDERABLES Final Resul t [facility] [address] [place] [address] * T4, free (10/20/2013 10:49 AM EDT) Free T4 1.11 0.70 - 2.19 ng/dL [facility] Blood specimen (specimen) 10/20/2013 10:49 AM EDT us Harman Burrows MD LAB BLOOD ORDERABLES Final Resul t Performing Organization Address [facility]/ZIP Co de Phone Number [facility] [address] [place] [address] * (ABNORMAL) Hemoglobin A1c (10/20/2013 10:49 AM EDT) Pathologist [facility] Hemoglobin A1c 6.6(H) 4.4 - 6.4 % [facility] Comment: Therapeutic Goal: ?Less Than 7% Re-Evaluation Therapy: ?? Greater Than 8% Blood specimen (specimen) 10/20/2013 10:49 AM EDT us Harman Burrows MD LAB BLOOD ORDERABLES Final Resul t Performing Organization Address [facility] Co de Phone Number [facility] [address] [place] [address] * Lipid panel (10/20/2013 10:49 AM EDT) Cholesterol 165 0 - 199 mg/dL [facility] Triglycerides 72 0 - 150 mg/dL [facility] HDL 59 >=41 mg/dL [facility] LDL Cholesterol 92 0 - 99 BRID [facility] CHD Risk 3 <=4 [facility] Blood specimen (specimen) 10/20/2013 10:49 AM EDT us Harman Burrows MD LAB BLOOD ORDERABLES Edited Resu lt - Final Performing Organization Address [facility]/ZIP Co de Phone Number [facility] [address] [place] [address] * (ABNORMAL) Comprehensive metabolic panel (10/20/2013 10:49 AM EDT) Glucose 118(H) 70 - 100 mg/dL [facility] BUN 20(H) 7 - 17 mg/dL [facility] Creatinine 0.79 0.52 - 1.04 mg/dL [facility] Sodium 140 137 - 145 mmol/L [facility] Potassium 4.6 3.5 - 5.1 mmol/L [facility] Chloride 103 98 - 107 mmol/L [facility] CO2 28 22 - 30 mmol/L [facility] Anion Gap 10 7 - 16 mmol/L [facility] Calcium 9.8 8.4 - 10.2 mg/dL [facility] Total Protein 7.3 6.3 - 8.2 g/dL [facility] Albumin 4.2 3.5 - 5.0 g/dL [facility] Globulin 3.1 2.0 - 3.5 g/dL [facility] A/G Ratio 1.3 1.1 - 2.2 ratio [facility] Aspartate Aminotransferase (AST) 36 14 - 36 u/l [facility] Alkaline Phosphatase 85 38 - 126 u/l [facility] Total Bilirubin 0.9 0.2 - 1.3 mg/dL [facility] Alanine Aminotransferase (ALT) 43 9 - 52 u/l [facility] eGFR >60 [facility] Comment: Interpretation Stage 1 ?? 90 ml/min or greater ? Healthy kidneys or kidney damage ?with normal or high eGFR Stage 2 ?? 60-89 ml/min ? Kidney damage and mild decrease ?in eGFR Stage 3 ?? 30-59 ml/min ? Moderate decrease in eGFR Stage 4 ?? 15-29 ml/min ? Severe decrease in eGFR Stage 5 ?<15 ml/min ?Kidney failure Blood specimen (specimen) 10/20/2013 10:49 AM EDT us Harman Burrows MD LAB BLOOD ORDERABLES Edited Resu lt - Final [facility] [address] [place] [address] documented in this encounter Visit Diagnoses Diagnosis Unspecified essential hypertension- Primary Hyperchylomicronemia Alcoholic liver damage, unspecified Acute thyroiditis documented in this encounter Care Teams Customer Operations Associate Relationship Specialty Start Date End Date Bao Gann DO [address] [place] [phone] PCP - General Internal Medicine 10/09/18 documented as of this encounter
--- OUTSIDE RECORDS SUMMARY | 2024-09-19 08:50 | XMS_ITS | Encounter Summary ---
Author Organization [facility] and [facility] Address [address] [place] [address] Care Team Providers Care Spring Forger Name Role Phone Bao Gann Primary Care Provider Encounter Details Date Type Department Care Team (Latest Contact Info) Description 10/12/2014 Transcribed Orders [facility] [address] [facility] 2nd Floor [place], [place] [id number] Harman Burrows MD Unspecified essential hypertension (Primary Dx); Hyperchylomicronemia ; Alcoholic liver damage, unspecified (HC Code); Type I (juvenile type) diabetes mellitus without mention of complication, not stated as uncontrolled; Urinary tract infection, site not specified Social History Tobacco Use Types Packs/Day Years [...] this encounter Results * (ABNORMAL) Hemoglobin A1c (10/12/2014 9:38 AM EDT) Hemoglobin A1c 6.7(H) 4.4 - 6.4 % [facility] Comment: Therapeutic Goal: ?Less Than 7% Re-Evaluation Therapy: ?? Greater Than 8% Blood specimen (specimen) 10/12/2014 9:38 AM EDT Harman Burrows MD LAB BLOOD ORDERABLES Final Resul t Performing Organization Address City/[facility]/ZIP Co de Phone Number [facility] [address] [place] [address] * Lipid panel (10/12/2014 9:38 AM EDT) Cholesterol 143 0 - 199 mg/dL [facility] Triglycerides 86 0 - 150 mg/dL [facility] HDL 60 >=41 mg/dL [facility] LDL Cholesterol 66 0 - 99 [facility] CHD Risk 2 <=4 [facility] Blood specimen (specimen) 10/12/2014 9:38 AM EDT Harman Burrows MD LAB BLOOD ORDERABLES Edited Resu lt - Final Performing Organization Address [facility] Co de Phone Number [facility] [address] [place] [address] * (ABNORMAL) Comprehensive metabolic panel (10/12/2014 9:38 AM EDT) Glucose 122(H) 70 - 100 mg/dL [facility] BUN 14 7 - 17 mg/dL [facility] Creatinine 0.80 0.52 - 1.04 mg/dL [facility] Sodium 140 137 - 145 mmol/L [facility] Potassium 4.2 3.5 - 5.1 mmol/L [facility] Chloride 102 98 - 107 mmol/L [facility] CO2 27 22 - 30 mmol/L [facility] Anion Gap 10 7 - 16 mmol/L [facility] Calcium 9.2 8.4 - 10.2 mg/dL [facility] Total Protein 6.9 6.3 - 8.2 g/dL [facility] Albumin 3.9 3.5 - 5.0 g/dL [facility] Globulin 3.0 2.0 - 3.5 g/dL [facility] A/G Ratio 1.3 1.1 - 2.2 ratio [facility] Aspartate Aminotransferase (AST) 31 14 - 36 u/l [facility] Alkaline Phosphatase 86 38 - 126 u/l [facility] Total Bilirubin 1.0 0.2 - 1.3 mg/dL [facility] Alanine Aminotransferase (ALT) 37 9 - 52 u/l [facility] eGFR >60 [facility] Comment: Interpretation Stage 1 ?? 90 [...] entered in Patient Demographics. Blood specimen (specimen) 10/12/2014 9:38 AM EDT us Harman Burrows MD LAB BLOOD ORDERABLES Edited Resu lt - Final [facility] [address] [place] [address] * (ABNORMAL) Urinalysis (BH GH L Q) (10/12/2014 9:30 AM EDT) Color, UA YELLOW YELLOW [facility] Specific [place], UA 1.002(L) 1.003 - 1.033 [facility] Leukocyte Esterase, UA NEGATIVE NEGATIVE [facility] Nitrite, UA NEGATIVE NEGATIVE [facility] pH, UA 6.5 5.0 - 8.0 [facility] Protein, UA NEGATIVE NEGATIVE mg/dL [facility] Glucose, UA NEGATIVE NEGATIVE mg/dL [facility] Ketones, UA NEGATIVE NEGATIVE mg/dL [facility] Urobilinogen, UA 0.2 0.2 - 2.0 EU/dL [facility] Bilirubin, UA NEGATIVE [facility] Comment:Positive urine bilir ubin results unable to be confirmed by I[employer] 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 Blood, UA NEGATIVE NEGATIVE [facility] Urine specimen (specimen) 10/12/2014 9:30 AM EDT Harman Burrows MD URINE ORDERABLES Final Result Performing Organization Address [facility]/ZIP Co de Phone Number [facility] [address] [place] [address] * Microalbumin, random urine (w/creatinine) (BH Q) (10/12/2014 9:30 AM EDT) Microalbumin, Urine <0.00 mg/dL [facility] Creatinine, Urine, Random 12.3 mg/dL [facility] Microalb Creat Ratio <0.0 0.0 - 29.9 mcg/mg [facility] Comment: The ADA recommends the following guidelines: Normal ??<30 mcg/mg Microalbuminuria 30 - 299 mcg/mg Clinical albuminuria > 300 mcg/mg At least two of three specimens collected within a 3-6 month period should be abnormal before considering a patient to be within a diagnostic category. Urine specimen (specimen) 10/12/2014 9:30 AM EDT Harman Burrows MD URINE ORDERABLES Edited Result - Final Performing Organization Address City/[facility]/ZIP Co de Phone Number [facility] [address] [place] [address] documented in this encounter Visit Diagnoses Diagnosis Unspecified essential hypertension- Primary Hyperchylomicronemia Alcoholic liver damage, unspecified Type I (juvenile type) diabetes mellitus without mention of complication, not stated as uncontrolled Urinary tract infection, site not specified documented in this encounter Care Teams Spring Forger Relationship Specialty Start Date End Date Bao Gann DO [address] [facility] [address] [place] [address] PCP - General Internal Medicine 10/09/18 documented as of this encounter
--- OUTSIDE RECORDS SUMMARY | 2024-09-19 08:50 | XMS_ITS | Encounter Summary ---
Author Organization [facility] Address [address] [place] [address] Care Team Providers Care Garde Manager Name Role Phone Bao Gann DO Primary Care Provider [phone] Encounter Details Date Type Department Care Team (Late st Contact Info) Description 11/10/2014 Scanned Document [place] PM [facility] Cardiac Services [address] [facility] [address] [place] [address] External, Provider Social History Tobacco Use Types [...] on filedocumented in this encounter Care Teams Garde Manager Relationship Specialty Start Date End Date Bao Gann DO [address] [facility] [address] [place] [phone] PCP - General Internal Medicine 10/09/18 documented as of this encounter
--- OUTSIDE RECORDS SUMMARY | 2024-09-19 08:50 | XMS_ITS | Encounter Summary ---
Author Organization [facility] Address [address] [place] [address] Care Team Providers Care Paper Final Inspector Name Role Phone Bao Gann DO Primary Care Provider [phone] Encounter Details Date Type Department Care Team (Late st Contact Info) Description 04/03/2014 Scanned Document [facility] Gastroenterology [facility] [address] [facility] [address] [place] [address] James Christina MD [address] [place] [address] Social History Tobacco Use Types Packs/Day Years [...] on filedocumented in this encounter Care Teams Paper Final Inspector Relationship Specialty Start Date End Date Bao Gann DO [address] [facility] [address] [place] [address] PCP - General Internal Medicine 10/09/18 documented as of this encounter
--- OUTSIDE RECORDS SUMMARY | 2024-09-19 08:50 | XMS_ITS | Encounter Summary ---
Author Organization [facility] Address [address] [place] [address] Care Team Providers Care Station Usher Name Role Phone Bao Gann DO Primary Care Provider Encounter Details Date Type Department Care Team (Late st Contact Info) Description 03/10/2015 Scanned Document [facility] Sleep [facility] [address], [address] [place], [place] [address] Jorje Campbell MD [address] [place] [address] Social History Tobacco Use Types [...] on filedocumented in this encounter Care Teams Station Usher Relationship Specialty Start Date End Date Bao Gann DO [address] [facility] [address] [place] [phone] PCP - General Internal Medicine 10/09/18 documented as of this encounter
--- OUTSIDE RECORDS SUMMARY | 2024-09-19 08:50 | XMS_ITS | Encounter Summary ---
Author Organization [facility] Address [address] [place] [address] Care Team Providers Care Superintendent Circus Name Role Phone Sanjuanita Bao BROWN Primary Care Provider Encounter Details Date Type Department Care Team (Late st Contact Info) Description 11/13/2014 Scanned Document [place] PM [facility] Cardiac Services [address] [place] [address] [address] [place] [address] External, Provider Social History Tobacco Use Types [...] Procedure Name Priority Date/Time Associated Diagnosis Comments LAB SCAN Routine 11/10/2014 CARDIAC EKG RESULT SCAN Routine 11/09/2014 CARDIAC ECHO RESULT SCAN Routine 11/09/2014 XRAY RESULT SCAN Routine 11/08/2014 documented in this encounter Results * Lab Scan (11/10/2014) Blood specimen (specimen) us Provider External LAB BLOOD ORDERABLES Final Res ult [facility] [place], [place], [facility] * Cardiac Echo Result Scan (11/09/2014) us Provider External CV CARDIAC REPORT (CVR) Final Result Performing Organization Address [facility] Co de Phone Number [facility] * Cardiac EKG Result Scan (11/09/2014) us Provider External CV CARDIAC REPORT (CVR) Final Result Performing Organization Address [facility] Co de Phone Number [facility] * Xray Result Scan (11/08/2014) us Provider External IMG SCAN REPORTS Final Result Performing Organization Address [facility] de Phone Number [facility] documented in this encounter Visit Diagnoses Not on filedocumented in this encounter Care Teams Superintendent Circus Relationship Specialty Start Date End Date Bao Gann DO [address] [facility] [address] [place] [address] PCP - General Internal Medicine 10/09/18 documented as of this encounter
--- OUTSIDE RECORDS SUMMARY | 2024-09-19 08:51 | XMS_ITS | Encounter Summary ---
Author Organization [facility] [employer] [facility] and [facility] Address [address] [place] [address] Care Team Providers Care Aircraft Mechanic Electrical And Radio Name Role Phone DerejedilcialisaBao Primary Care Provider Encounter Details Date Type Department Care Team (Latest Contact Info) Description 10/08/2015 Transcribed Orders [facility] Draw Station [address] [facility] 2nd Floor [place], [place] [phone] Harman Burrows MD Essential hypertension, malignant (Primary Dx); Hypotension, unspecified; Pure hypercholesterolemia ; Mixed hyperlipidemia; Type I (juvenile type) diabetes mellitus without [...] this encounter Results * (ABNORMAL) Hemoglobin A1c (10/08/2015 10:30 AM EST) Hemoglobin A1c 7.3(H) 4.4 - 6.4 % [facility] Comment: Therapeutic Goal: ?Less Than 7% Re-Evaluation Therapy: ?? Greater Than 8% Blood specimen (specimen) 10/08/2015 10:30 AM EST Harman Burrows MD LAB BLOOD ORDERABLES Final Resul t Performing Organization Address [facility]/ZIP Co de Phone Number [facility] [address] [place] [address] * Lipid panel (10/08/2015 10:30 AM EST) Cholesterol 166 0 - 199 mg/dL [facility] Triglycerides 88 0 - 150 mg/dL [facility] HDL 59 >=41 mg/dL [facility] LDL Cholesterol 90 0 - 99 BRID [facility] CHD Risk 3 <=4 [facility] Blood specimen (specimen) 10/08/2015 10:30 AM EST Harman Burrows MD LAB BLOOD ORDERABLES Edited Resu lt - Final Performing Organization Address [facility] Co de Phone Number [facility] [address] [place] [address] * (ABNORMAL) Comprehensive metabolic panel (10/08/2015 10:30 AM EST) Glucose 131(H) 70 - 100 mg/dL [facility] BUN 16 7 - 17 mg/dL [facility] Creatinine 0.70 0.52 - 1.04 mg/dL [facility] Sodium 141 137 - 145 mmol/L [facility] Potassium 4.2 3.5 - 5.1 mmol/L [facility] Chloride 102 98 - 107 mmol/L [facility] CO2 26 22 - 30 mmol/L [facility] Anion Gap 13 7 - 16 mmol/L [facility] Calcium 9.2 8.4 - 10.2 mg/dL [facility] Total Protein 7.2 6.3 - 8.2 g/dL [facility] Albumin 4.0 3.5 - 5.0 g/dL [facility] Globulin 3.1 2.0 - 3.5 g/dL [facility] A/G Ratio 1.3 1.1 - 2.2 ratio [facility] Aspartate Aminotransferase (AST) 43(H) 14 - 36 u/l [facility] Alkaline Phosphatase 91 38 - 126 u/l [facility] Total Bilirubin 1.1 0.2 - 1.3 mg/dL [facility] Alanine Aminotransferase (ALT) 29 9 - 52 u/l [facility] eGFR >60 [facility] Comment: Interpretation Stage 1 ?? [...] entered in Patient Demographics. Blood specimen (specimen) 10/08/2015 10:30 AM EST us Harman Burrows MD LAB BLOOD ORDERABLES Edited Resu lt - Final [facility] [address] [place] [address] documented in this encounter Visit Diagnoses Diagnosis Essential hypertension, malignant- Primary Hypotension, unspecified Pure hypercholesterolemia Mixed hyperlipidemia Type I (juvenile type) diabetes mellitus without mention of complication, not stated as uncontrolled documented in this encounter Care Teams Aircraft Mechanic Electrical And Radio Relationship Specialty Start Date End Date Bao Gann DO [address] [place] [address] [facility] [address] [place] [phone] PCP - General Internal Medicine 10/09/18 documented as of this encounter
--- OUTSIDE RECORDS SUMMARY | 2024-09-19 08:51 | XMS_ITS | Encounter Summary ---
Author Organization [facility] Address [address] [place] [address] Care Team Providers Care Dealer Relationship Manager Name Role Phone Bao Gann DO Primary Care Provider [phone] Encounter Details Date Type Department Care Team (Late st Contact Info) Description 08/05/2015 Scanned Document [facility] [address] [place], [place] [address] Jorje Campbell MD [address] [place] [address] Social History Tobacco Use Types [...] on filedocumented in this encounter Care Teams Dealer Relationship Manager Relationship Specialty Start Date End Date Bao Gann DO [address] [facility] [address] [place] [address] PCP - General Internal Medicine 10/09/18 documented as of this encounter
--- OUTSIDE RECORDS SUMMARY | 2024-09-19 08:51 | XMS_ITS | Encounter Summary ---
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); Type II or unspecified type diabetes mellitus without mention of complication, not stated as uncontrolled; Hypotension, unspecified; Aortic valve disorders; 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) Social History Tobacco Use Types Packs/Day Years [...] encounter Results * TSH (BH L YH) (06/07/2015 12:05 PM EST) TSH 1.610 0.465 - 4.680 mIU/L [facility] Blood specimen (specimen) 06/07/2015 12:05 PM EST Harman Burrows MD LAB BLOOD ORDERABLES Final Resul t Performing Organization Address [facility] Number [facility] [address] [place] [address] * T4, free (06/07/2015 12:05 PM EST) Free T4 1.14 0.70 - 2.19 ng/dL [facility] Blood specimen (specimen) 06/07/2015 12:05 PM EST Harman Burrows MD LAB BLOOD ORDERABLES Final Resul t Performing Organization Address [facility] [address] [place] [address] * Iron and TIBC (BH GH L YH) (06/07/2015 12:05 PM EST) Iron 81 37 - 170 mcg/dL [facility] TIBC 272 250 - 450 [facility] Iron Saturation 30 13 - 45 % [facility] Blood specimen (specimen) 06/07/2015 12:05 PM EST Result [facility] Harman Burrows MD LAB BLOOD ORDERABLES Edited Resu lt - Final Performing Organization Address [facility] [address] [place] [address] * (ABNORMAL) Hemoglobin A1c (06/07/2015 12:05 PM EST) Hemoglobin A1c 7.0(H) 4.4 - 6.4 % [facility] Comment: Therapeutic Goal: ?Less Than 7% Re-Evaluation Therapy: ?? Greater Than 8% Blood specimen (specimen) 06/07/2015 12:05 PM EST Harman Burrows MD LAB BLOOD ORDERABLES Final Resul t Performing Organization Address [facility] Number [facility] [address] [place] [address] * Lipid panel (06/07/2015 12:05 PM EST) Cholesterol 164 0 - 199 mg/dL [facility] Triglycerides 98 0 - 150 mg/dL [facility] HDL 48 >=41 mg/dL [facility] LDL Cholesterol 97 0 - 99 BRID [facility] CHD Risk 3 <=4 [facility] Blood specimen (specimen) 06/07/2015 12:05 PM EST us Harman Burrows MD LAB BLOOD ORDERABLES Edited Resu lt - Final [facility] [address] [place] [address] * (ABNORMAL) Comprehensive metabolic panel (06/07/2015 12:05 PM EST) Glucose 131(H) 70 - 100 mg/dL [facility] BUN 14 7 - 17 mg/dL [facility] Creatinine 0.69 0.52 - 1.04 mg/dL [facility] Sodium 141 137 - 145 mmol/L [facility] Potassium 4.5 3.5 - 5.1 mmol/L [facility] Chloride 105 98 - 107 mmol/L [facility] CO2 25 22 - 30 mmol/L [facility] Anion Gap 12 7 - 16 mmol/L [facility] Calcium 9.7 8.4 - 10.2 mg/dL [facility] Total Protein 7.7 6.3 - 8.2 g/dL [facility] Albumin 4.0 3.5 - 5.0 g/dL [facility] Globulin 3.6(H) 2.0 - 3.5 g/dL [facility] A/G Ratio 1.1 1.1 - 2.2 ratio [facility] Aspartate Aminotransferase (AST) 40(H) 14 - 36 u/l [facility] Alkaline Phosphatase 95 38 - 126 u/l [facility] Total Bilirubin 1.3 0.2 - 1.3 mg/dL [facility] Alanine Aminotransferase (ALT) 39 9 - 52 u/l [facility] eGFR >60 [facility] Comment: Interpretation Stage 1 [...] entered in Patient Demographics. 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
--- OUTSIDE RECORDS SUMMARY | 2024-09-19 08:51 | XMS_ITS | Clinical Summary ---
Author Organization [facility] Address [address] [place] [address] Care Team Providers Care Environmental Health And Safety Manager Name Role Phone Dayna Prieto MD Primary Care Provider [phone] Allergies Active Allergy Reactions Criticality Noted Date Comments Ciprofloxacin 09/19/2023 Codeine 09/19/2023 Sulfa Antibiotics 09/19/2023 Dulaglutide 09/19/2023 Medications Medication Sig Dispensed Refills Start Date End Date Status Multiple Vitamins-Minerals (PRESERVISION AREDS 2 PO) Take by mouth 2 (two) times a day. 0 Active metFORMIN (GLUCOPHAGE) tablet 500 mg Take 1.5 tablets (750 mg total) by mouth 2 (two) times a day with meals. 0 Active [place]-3 Fatty Acids (FISH OIL PO) Take by mouth daily. 0 Active ferrous sulfate 325 (65 FE) MG tablet Take 1 tablet (325 mg total) by mouth 2 (two) times a day. 0 Active flecainide (TAMBOCOR) 100 MG tablet Take 1 tablet (100 mg total) by mouth 2 (two) times a day. 0 Active VITAMIN D PO Take by mouth daily. 0 Active pantoprazole (PROTONIX) 40 MG tablet Take 1 tablet (40 mg total) by mouth every morning on an empty stomach. 0 Active dilTIAZem HCl ER 240 MG TB24 Take by mouth daily. 0 Active benazepril (LOTENSIN) 20 MG tablet Take 1 tablet (20 mg total) by mouth daily. 0 Active atorvastatin (LIPITOR) tablet 80 mg Take 1 tablet (80 mg total) by mouth daily. 0 Active apixaban (ELIQUIS) 5 MG TABS tablet Take 1 tablet (5 mg total) by mouth every 12 (twelve) hours. 0 Active Loratadine (CLARITIN PO) Take by mouth daily. 0 Active methocarbamol (ROBAXIN) 500 MG tablet Take 1 tablet (500 mg total) by mouth 2 (two) times a day as needed. 0 Active Ascorbic Acid (Vitamin C) 500 MG CAPS Take by mouth daily. 0 Active vitamin B-12 (CYANOCOBALAMIN) 500 MCG tablet Take 1 tablet (500 mcg total) by mouth daily. 0 Active dapagliflozin propanediol (Farxiga) 5 MG tablet Take by mouth daily. 0 Active aspirin EC 81 MG tablet Take 1 tablet (81 mg total) by mouth daily. 0 Active Active Problems Problem Noted Date Diagnosed Date A-fib 10/11/2023 Social History Tobacco Use Types Packs/Day Years Used Date Smoking Tobacco: Never Smokeless Tobacco: Never Tobacco Cessation:Counseling Given: Not Answered Alcohol Use Standard Drinks/Week Comments Not Currently 0 (1 standard drink = 0.6 oz pur e alcohol) Sex and Gender Information Value Date Recorded Sex Assigned at Female 10/05/2023 9:19 AM EST Gender Identity Not on file Sexual Orientation Not on file Job Start Date Occupation Industry Not on file Not on file Not on file Last Filed Vital Signs Vital Sign Reading Time Taken Comments Blood Pressure 112/48 10/12/2023 12:11 PM EDT Pulse 60 10/12/2023 12:11 PM EDT Temperature 36.6 ??C (97.9 ??F) 10/12/2023 1 2:11 PM EDT Respiratory Rate 18 10/12/2023 12:1 1 PM EDT Oxygen Saturation 98% 10/12/2023 12: 11 PM EDT Inhaled Oxygen Concentration - - Weight 118.9 kg (262 lb 3.2 oz) 10/11/2023 7:30 AM EDT Height 167.6 cm (5' 6 ) 10/11/2023 7:30 AM EDT Body Mass Index 42.32 10/11/2023 7:30 AM EDT Plan of Treatment Health Maintenance Due Date Last Done Comments Hepatitis C Screening 1962 Depression Screening 1974 BMI Counseling 1980 Preventative Health Evaluation 1980 DTap / Tdap / Td (1 - Tdap) 1981 Cervical Cancer Screening (Pap Smear) 1983 Colon Cancer Screening (Colonoscopy) 2007 Breast Cancer Screening (Mammogram) 2012 Shingrix-Zoster Vaccine (2 of 2) 09/02/2020 07/08/2020 RSV Adult > 60+ Yrs or (1 - Risk 60-74 years 1-dose series) 2022 COVID-19 Vaccine ( season) 2024 10/31/2021, 05/24/2021, 10/19/2020, Additional history exists Influenza Vaccine (#1) 2024 , 03/18/2020, 07/10/2019 Pneumococcal Vaccine Aged Out 07/10/2019 No long er eligible based on patient's age to complete this topic Hepatitis B Vaccines Aged Out No long er eligible based on patient's age to complete this topic RSV Ped < 20 months Aged Out No longe r eligible based on patient's age to complete this topic Medical Devices Implanted Type Area Curtain Supervisor Device Identifier Shelf Expiration Date Model / Serial / Lot Device Clsur Watchman Flx Fabiola 24mm Bsci-Prnt [id number] - [id number] Implanted:Qty: 1 on 10/11/2023 by Husam [place]is [place] [facility] [place] [facility] Right: Faina Augustine Temperature Management 04/23/2026 [id number] / [id number] / Advance Directives For more information, please contact: [phone] Latest Code Status on File Code Status Date Activated Date Inactivated Comments Full Code 10/11/2023 12:31 PM 10/12/2023 8:47 PM This code status was ascertained in the following way: discussion with patient . Care Teams Environmental Health And Safety Manager Relationship Specialty Start Date End Date Dayna Prieto MD [address] [place] [address] PCP - General Wood Stainer 10/05/23
--- OUTSIDE RECORDS SUMMARY | 2024-09-19 08:51 | XMS_ITS | Encounter Summary ---
Author Organization [facility] Address [address] [place] [address] Care Team Providers Care Aquarium Tank Attendant Name Role Phone Bao Gann DO Primary Care Provider Encounter Details Date Type Department Care Team (Late st Contact Info) Description 11/05/2015 Scanned Document [facility] [address] [place], [place] [address] Jorje Campbell MD [address] [place] [address] Social History Tobacco Use Types [...] on filedocumented in this encounter Care Teams Aquarium Tank Attendant Relationship Specialty Start Date End Date Bao Gann DO [address] [facility] [address] [place] [id number] PCP - General Internal Medicine 10/09/18 documented as of this encounter
--- OUTSIDE RECORDS SUMMARY | 2024-09-19 08:53 | XMS_ITS ---
Author Organization [facility] Address [address] [facility] [place] [address] Care Team Providers Care Manager Sterile Processing Name Role Phone Dayna Prieto MD Primary Care Provider UnavailMeron Mcdonald Unavailable [phone] Desmond Nava Unavailable [phone] Allergies Allergen (clinical drug ingredient) Drug/Non Drug Allergy documented on EMR Reaction Allergy Type Onset Date Status sulfamethoxazole / trimethoprim Bactrim Unknown Drug Allergy Active ciprofloxacin Cipro Unknown Drug Allergy Act katie Adhesive Unknown Allergy Active codeine Codeine Unknown Drug Allergy Active REASON FOR VISIT pcp-11/2023, At Risk Footcare, Skin problem Medications Medication SIG (Take, Route, Frequency, Duration) Notes Start Date End Date Status Iron 28 MG 1 tablet Orally Thre e times a Week for 30 day(s) 03/21/2024 Active Fish Oil 360 MG 1 capsule Orally Thr ee times a day for 30 day(s) 03/21/2024 Active metFORMIN HCl ER 750 MG Oral for 90 Days Active PreserVision AREDS 2 03/21/2024 Active Methocarbamol 500 MG Oral for 30 Days Active Atorvastatin Calcium 80 MG TAKE 1 TABLET BY MOUTH DAILY Oral for 90 Days Active Dilt-XR 240 MG TAKE 1 CAPSULE BY MO UTH DAILY Oral for 90 Days Active Pantoprazole Sodium 40 MG TAKE 1 TABLET BY MOUTH DAILY Oral for 90 Days Active Vitamin D3 2433168 UNIT/GM as directed 03/21/2024 Active Flecainide Acetate 100 MG Oral for 30 Days Active Vitamin C 03/21/2024 Active Gabapentin 100 MG Oral for 30 Days Active Plavix 03/21/2024 Active Farxiga 5 MG TAKE 1 TABLET BY FADI TH DAILY Oral for 90 Days Active Allergy 03/21/2024 Active Aspirin 81 MG CHEW AND SWALLOW ONE TABLET EVERY DAY Oral for 30 Days Active Social History Tobacco Use: Social History Observation Description Date Details (start date - stop date) Never Smoker NA - NA Tobacco Use/Smoking Question Answer Notes Are you a: nonsmoker Additional Findings: Tobacco Non-User Current no n-smoker Alcohol Screen Question Answer Notes Did you have a drink containing alcohol in the p ast year? No Points 0 Interpretation Negative Tobacco use other than smoking: Question Answer Notes Are you an other tobacco user? No Problems Problem Type SNOMED Code ICD Code Onset Dates Problem Status W/U Status Risk Notes Problem Polyneuropathy due to type 2 diabetes mellitus (824517928) Type 2 diabetes mellitus with diabetic polyneuropathy (E11.42) Active confirmed Vital Signs Height 5 ft 6 in in 04/28/2024 Weight 262 lbs 04/28/2024 BMI 42.28 kg/m2 04/28/2024 Blood pressure systolic 118 mm Hg 04/28/20 24 Blood pressure diastolic 59 mm Hg 024 Procedures Procedure Date Ordered Date Performed Result Body Sit e 31524-RUPZ SKIN LESIONS, 2 TO 4 04/28/2024 N/A [id number] DYSTROPHIC NAILS ANY # 04/28/2024 N/A Encounters Encounter Location Date Provider Diagnosis [facility] [address] [place] [address] 04/28/2024 Desmond Nava Type 2 diabetes mellitus with diabetic polyneuropathy E11.42 ; Ingrowing nail L60.0 and Skin disease L98.9 Assessments Encounter Date Diagnosis (ICD Code) Assessment Notes Treatment Notes Treatment Clinical Notes Section Notes 04/28/2024 Type 2 diabetes mellitus with diabetic polyneuropathy (ICD-10 - E11.42) 04/28/2024 Ingrowing nail (ICD-10 - L60.0) 04/28/2024 Skin disease (ICD-10 - L98.9) Plan Of Treatment Pending Test Test Name Order Date 76351-GKAU SKIN LESIONS, 2 TO 4 04/28/20 24 [id number] DYSTROPHIC NAILS ANY # Next Appt Details Follow Up: 1 Year, Reason: Provider Name:Meron fritz, 04/29/2025 11:00:00 AM, [address] [place], [address], Procedure Notes * Category Sub-Category Detail Notes Keratoma Treatment Parring or Cutting o f Benign Hyperkeratotic Lesion(s) (-56) 2-4 Lesions - The Benign hyperkeratotic lesions, as described above were pared, and/or cut utilizing a sterile 15 blade, tissue nippers, and/or dremel - 37258 Nail Reduction Nail Reduction (-27) Trimming o f dystrophic nails performed to reduce/remove overall nail length and girth, by manual and electrical means with use of a nail nipper and/or dremel, to more viable healthy nail plate or bed tissue, any number - G0127 Progress Notes * Agustina RUANODOB:1960 ( 63 yo F)Acc No.[id number]:04/28/2024 Progress Notes Patient:?AmandaBhumi dayna Provider:?Desmond Nava DPM :1960???Age:63 Y???Sex:Female D ate:04/28/2024 Address:[address] [place] [address], [facility] [address], [facility] Pcp:Dayna Prieto MD Subjective: * Chief Complaints: * ???Pcp-t Risk Footca reSkin problem * HPI: ???At Risk footcare:?Pt States Last PCP Visit:?Date?12/27/2023 ???Skin problems:?Nature:?tender, swelling.?Location:?Right, 1st.?Duration:?a few months.?Course:?improved.? * ROS:?General/Constitutional:?Nausea?denies.?Vomiting?denies.?Hunger Thirst?denies.?Loss appetite?denies.?Chills?denies.?Fatigue?denies.?Fever?denies.?Night Sweats?denies.?Unexplained weight loss?denies.?Unexplained weight gain?denies.?HEENTM:?Dentures?denies.?Dizziness?denies.?Glasses/contacts?admits.?Retinopathy?ad mits.?Blurred/double vision?denies.?TMJ?denies.?Discharge/drainage?denies.?Implants?denies.?Sore throat?denies.?Dental implants?denies.?Hard of hearing ?admits.?Difficulty chewing/swallowing/speaking?denies.?Nose bleeds?denies.?Sore mouth?denies.?Respiratory:?On Oxygen?denies.?Pneumonia/pleurisy?denies.?Bronchitis?denies.?Emphysema?denies.?C oughing?denies.?Cough blood?denies.?Shortness of breath?denies.?Wheezing?denies.?Cardiovascular:?Pacemaker?denies.?MVP?denies.?WPW?denies.?CHF?denies.?Heart attack?denies.?Septal defect?admits.?Rapid beat?admits.?Chest pain ?denies.?Atrial Fib.?admits.?Murmur/Palpitations?denies.?Gastrointestinal:?Hemorrhoids?denies.?Stomach/Abdominal pain?denies.?Dark blood stool?denies.?Irritable bowel ?denies.?Constipation?denies.?Diarrhea?denies.?Hematology:?Swelling?denies.?Clots?denies.?Varicose Veins?denies.?Bruising?denies.?Bleeding problem?denies.?Genitourinary:?Blood urine?denies.?Frequent/Painfu/urination/bladder control?denies.?Kidney stones?denies.?Infection (UTI)?denies.?Nephropathy?denies.?sex trans dis (STD)?denies.?Prostate?denies.?Musculoskeletal:?Hammertoes?denies.?Bunions?denies.?Back Pain?admits.?Muscle Cramps/ Resting?denies.?Muscle cramps / walking?admits.?Generalized aches and pains?admits.?Weakness?denies.?Integ.:?[place]?admits.?Scars?admits.?Corns/calluses?denies.?Ingrown nails?admits.?Painful nails?denies.?Open Sores?denies.?Rashes?denies.?Neurologic:?Difficulty sleeping?denies.?Brain disorder?denies.?Numbness?denies.?Balance trouble?denies.?Confusion?denies.?Fainting/blackouts?denies.?Tingling?denies.?Tr emors?denies.? * Medical History:? * Surgical History:?back surge ry Gall bladder removal spinal stenosis surgery watchmen * Hospitalization/Major Diagno stic Procedure:?[facility] 12/29/2023 * Family History:?Mother: dece ased, stroke, foot problems.?Father: .?Siblings: cancer.? Niece - Cancer. * Social History:?Tobacco Use:?Tobacco Use/Smoking?Are you a:?nonsmoker ?Additional Findings: Tobacco Non-User?Current non-smoker ?Tobacco use other than smoking?Are you an other tobacco user??No ???Drugs/Alcohol:?Drugs?Have you used drugs other than those for medical reasons in the past 12 months??No ?Alcohol Screen?Did you have a drink containing alcohol in the past year??No ?Points?0 ?Interpretation?Negative ???Miscellaneous:?Caffeine: yes, 1= cup after that decafe. ?no Children. ?Exercise: yes, Collecting stuff and helping others. ?Marital status: . ?Occupation: Retired. * Medications:?TakingAspirin 8 1 MG Tablet Chewable CHEW AND SWALLOW ONE TABLET EVERY DAY Oral Vitamin C Gabapentin 100 MG Capsule Oral Plavix Farxiga 5 MG Tablet TAKE 1 TABLET BY MOUTH DAILY Oral Allergy Atorvastatin Calcium 80 MG Tablet TAKE 1 TABLET BY MOUTH DAILY Oral Dilt-XR 240 MG Capsule Extended Release 24 Hour TAKE 1 CAPSULE BY MOUTH DAILY Oral Pantoprazole Sodium 40 MG Tablet Delayed Release TAKE 1 TABLET BY MOUTH DAILY Oral Vitamin D3 1956042 UNIT/GM Liquid as directed Flecainide Acetate 100 MG Tablet Oral Iron 28 MG Tablet 1 tablet Orally Three times a WeekFish Oil 360 MG Capsule 1 capsule Orally Three times a daymetFORMIN HCl ER 750 MG Tablet Extended Release 24 Hour Oral PreserVision AREDS 2 Methocarbamol 500 MG Tablet Oral Medication List reviewed and reconciled with the patientTaking Aspirin 81 MG Tablet Chewable CHEW AND SWALLOW ONE TABLET EVERY DAY Oral Taking Vitamin C Taking Gabapentin 100 MG Capsule Oral Taking Plavix Taking Farxiga 5 MG Tablet TAKE 1 TABLET BY MOUTH DAILY Oral Taking Allergy Taking Atorvastatin Calcium 80 MG Tablet TAKE 1 TABLET BY MOUTH DAILY Oral Taking Dilt-XR 240 MG Capsule Extended Release 24 Hour TAKE 1 CAPSULE BY MOUTH DAILY Oral Taking Pantoprazole Sodium 40 MG Tablet Delayed Release TAKE 1 TABLET BY MOUTH DAILY Oral Taking Vitamin D3 2609978 UNIT/GM Liquid as directed Taking Flecainide Acetate 100 MG Tablet Oral Taking Iron 28 MG Tablet 1 tablet Orally Three times a WeekTaking Fish Oil 360 MG Capsule 1 capsule Orally Three times a dayTaking metFORMIN HCl ER 750 MG Tablet Extended Release 24 Hour Oral Taking PreserVision AREDS 2 Taking Methocarbamol 500 MG Tablet Oral Medication List reviewed and reconciled with the patient * Allergies:?CiproBactrimCodei neAdhesiveyes[Allergies Verified] Objective: * Vitals:?Ht: 5 ft 6 in, Wt:26 2, BMI:42.28, Shoe size: 11.5, BP:118/59 mm Hg, BS: 159, Ht-cm: 167.64 cm, Wt-k.84 kg. * ???Past Orders: ???Lab:HEMOGLOBIN A1C (GLYCO HEMOGLOBIN) (Order Date - 12/29/2023) (Collection Date - 12/29/2023) ? Value Reference Range ?TOTAL HEMOGLOBIN (HGBA1C) 5.9 * Examination: ???Ophthalmology Referral: ?DIABETES EYE EXAM?Neurological: ?SENSORY:? Neurological exam demonstrates, reduced vibration sensation, at Forefoot, B/L, 5.07 monofilament test performed at plantar aspects of 5 varied sites per foot shows sensation, reduced, B/L.?Vascular: ?DP PULSES(B):? /4, B/L.?PT PULSES(B):? 08/02, B/L.?CAPILLARY FILL TIME:?3 secs. per digit. B/L.?TROPHIC CONDITION-TEXTURE/ELASTICITY/TURGOR/HAIR GROWTH(B):?normal, B/L.?TEMPERTURE GRADIENT(C):?normal, B/L.?PIGMENTATION:? normal, B/L.?EDEMA(C):? /, B/L, Foot, Ankle(s), Leg(s).?TELANGECTASIA:?absent, B/L.?Nails: ?NAILS are:?Elongated, overgrown, dystrophic, 1-5 B/L with mild ingrown lateral t5.?Dermatologic: ?SKIN FINDINGS:? Skin exam reveals Keratotic lesion(s) located at, Medial plantar, TA, T5, IPJ.?General Examination: ?GENERAL APPEARANCE:?pleasant, alert, well nourished, well developed, well hydrated, with good attention to hygene/body habitus, and in no acute distress.?ORIENTED:?person,place, and time.?FOOT EXAM:?Orthopedic: ?MUSCLE STRENGTH:?5/5 all groups in a symmetrical fashion , B/L.?FOOT MORPHOLOGY:? Pes Planus structure, RIGHT.? Assessment: * Assessment: 1.?Type 2 diabetes mellitus with diabetic polyneuropathy - E11.42?2.?Ingrowing nail - L60.0?3.?Skin disease - L98.9 (Primary)? Plan: * Treatment: * Procedures:?Keratoma Treatment:?Parring or Cutting of Benign Hyperkeratotic Lesion(s)?(-56) 2-4 Lesions - The Benign hyperkeratotic lesions, as described above were pared, and/or cut utilizing a sterile 15 blade, tissue nippers, and/or dremel - 61596.?Nail Reduction:?Nail Reduction?(-27) Trimming of dystrophic nails performed to reduce/remove overall nail length and girth, by manual and electrical means with use of a nail nipper and/or dremel, to more viable healthy nail plate or bed tissue, any number - G0127.? * Procedure Codes:?16729 TRIM SKIN LESIONS, 2 TO 4, Modifiers: XS G0127 TRIMMING DYSTROPHIC NAILS ANY #, Modifiers: XS * Preventive Medicine:? ??Counseling:?Discussion:?-03: Office or other outpatient visit for the evaluation and management of a new patient, which required a medically appropriate history and/or examination and LOW level of DECISION MAKING for: 1 STABLE ACUTE UNCOMPLICATED PROBLEM, 2 OR MORE MINOR PROBLEMS, OR 1 STABLE CHRONIC PROBLEM, THAT POSE(S) A LOW RISK FOR MORBIDITY/MORTALITY. The visit on the day of the encounter encompassed interpreting the data and educating the patient as to the nature of their condition, treatment options available according to their individual PMH, meds, allergies, and overall health/living conditions, as well as any potential risks or complications that may occur from a failure to adhere to, and participate in, the recommended course of therapy. The discussion included a complete verbal, and/or written explanation of the examination results, any x-rays taken, the proposed diagnosis, and outline of the treatment plan. A schedule for future care needs was also explained. The patient verbalized an understanding of the instructions at this time and agreed to be an active participant in their treatment. If the patient should think of any questions or concerns after the visit, I have encouraged the patient to call the office.?Shoe Gear Counseling:?The patient and I reviewed the types of shoes they should be wearing. My recommendation included obtaining a well-fitted shoe with a good supportive, non-foldable nor twistable sole, plenty of toe/room for the forefoot, and proper arch support. Based on todays examination, I recommended the patient look for new shoes, by having their feet professionally measured. We discussed that generally the best time of the day for a shoe fitting is the afternoon. Different shoes types and brands to best match the patients occupation and vocation were discussed. Specific brand selection will be up to the patient, their individual foot condition/deformities, and fit. The patient and I reviewed the standard new shoe break in period by wearing them for a few hours a day while checking for redness or sores as wear time is increased. The patient verbally confirmed to understanding the information discussed--referred for supportive running shoes for flatfoot support--list given to pt today.? * Follow Up:?1 Year * Images: * Sign off status: Completed true * Provider:?Desmond Nava DPM Date:? 024 Generated for Damion ortiz/Clarissa/Aniya on:?09/19/2024 08:52 AM EST History and Physical Notes * HPI (History of Present Illness) Category Sub-Category Detail Notes Category Not es Skin problems Nature: tender, swelling Location: Right, 1st Duration: a few months Course: improved At Risk footcare Pt States Last PCP Visit: Date: 4 Examination Category Sub-Category Detail Notes Category Not es Neurological SENSORY: Neurological exa m demonstrates, reduced vibration sensation, at Forefoot, B/L, 5.07 monofilament test performed at plantar aspects of 5 varied sites per foot shows sensation, reduced, B/L Dermatologic SKIN FINDINGS: Skin exam reveal s Keratotic lesion(s) located at, Medial plantar, TA, T5, IPJ Orthopedic FOOT MORPHOLOGY: Pes Planus structure, RI GHT MUSCLE STRENGTH: 5/5 all groups in a symmetrical fashion , B/L General Examination GENERAL APPEARANCE: pleasant , alert, well nourished, well developed, well hydrated, with good attention to hygene/body habitus, and in no acute distress FOOT EXAM: Lower Extremity Neurological Exa m performed:: Yes Visual exam of foot performed:: Yes Date: 04/28/2024 Sensory testing performed:: sensations d iminished Pedal pulse taking performed:: 2+ ORIENTED: person,place, and ti me Ophthalmology Referral DIABETES EYE EXAM Diabetic Reti nopathy Screening:: Yes 2023 Findings of Diabetic Eye Exam:: no retin opathy Vascular DP PULSES (B): 1/4, B/L PT PULSES (B): 1/4, B/L CAPILLARY FILL TIME: 3 secs. per digit. B/L TEMPERTURE GRADIENT (C): normal, B/L TROPHIC CONDITION-TEXTURE/EL ASTICITY/TURGOR/HAIR GROWTH (B): normal, B/L EDEMA (C): 1/4, B/L, Foot, Ankl e(s), Leg(s) TELANGECTASIA: absent, B/L PIGMENTATION: normal, B/L Nails NAILS are: Elongated, overg rown, dystrophic, 1-5 B/L with mild ingrown lateral t5
--- OUTSIDE RECORDS SUMMARY | 2024-09-19 08:53 | XMS_ITS | Encounter Summary ---
Author Organization [facility] Address [address] [place] [address] Care Team Providers Care Executive Administrative Asst Name Role Phone Bao Gann DO Primary Care Provider Encounter Details Date Type Department Care Team (Late st Contact Info) Description 10/08/2018 Scanned Document [facility] [address] [place], [place] [address] Jorje Campbell MD [address] [place] [address] Social History Tobacco Use Types [...] on filedocumented in this encounter Care Teams Executive Administrative Asst Relationship Specialty Start Date End Date Bao Gann DO [address] [place] [address] PCP - General Internal Medicine 10/09/18 documented as of this encounter
--- OUTSIDE RECORDS SUMMARY | 2024-09-19 08:53 | XMS_ITS | Clinical Summary ---
Author Organization [facility] Address [address] [place] [address] Care Team Providers Care Print Controller Name Role Phone Unavailable Primary Care Provider Unavailabl e Social History Tobacco Use Types Packs/Day Years Used Date Smoking Tobacco: Never Assessed Sex and Gender Information Value Date Recorded Sex Assigned at Not on file Gender Identity Not on file Sexual Orientation Not on file Last Filed Vital Signs Vital Sign Reading Time Taken Comments Blood Pressure 138/77 04/17/2019 11:00 AM EDT Pulse 65 04/17/2019 11:01 AM EDT Temperature 37.3 ??C (99.2 ??F) 12/28/2018 12:15 PM E DT Respiratory Rate - - Oxygen Saturation - - Inhaled Oxygen Concentration - - Weight 132 kg (291 lb 10.7 oz) 04/17/2019 11:00 AM EDT Height 169 cm (5' 6.54 ) 04/17/2019 10:59 AM EDT Body Mass Index 46.32 04/17/2019 10:59 AM EDT Plan of Treatment Health Maintenance Due Date Last Done Comments Hepatitis C Virus Screening 1960 HIV Screening 1975 DTaP/Tdap/Td Vaccines (1 - Tdap) 1981 Pneumococcal Vaccines 50+ (1 of 1 - PCV) 2012 Zoster (Shingles) Vaccine (1 of 2) 2012 COVID-19 Vaccine ( - 2023-2 5 season) 2024 RSV Vaccine 60 years and old er and Patients (1 - 1-dose 75+ series) 2037 Hepatitis B Vaccines Aged Out No long er eligible based on patient's age to complete this topic Pneumococcal Vaccine: Pediat gordy (0-5 Years) and At-Risk Patients (6 to 49 Years) Aged Out No longer eligible b ased on patient's age to complete this topic
--- OUTSIDE RECORDS SUMMARY | 2024-09-19 08:53 | XMS_ITS ---
Author Organization [facility] Address [address] [place] [address] Care Team Providers Care Nursing Consultant Name Role Phone Dayna Prieto MD Primary Care Provider Meron Peterson Unavailable [phone] Desmond Nava [phone] REASON FOR VISIT REGIONAL GUIDE [facility]WK Entered Encounters Encounter Location Date Provider Diagnosis [address] [address] 03/21/2024 Desmond Nava Plan Of Treatment Next Appt Details Provider Name:Meron fritz, 04/29/2025 11:00:00 AM, [address] [place], [address], Progress Notes * Agustina RUANODOB:1960 ( 63 yo F)Acc No.[id number]:03/21/2024 Patient:?Agustina Ruano :1960???Age:63 Y???Sex:Female Address:[address] [place] [address], [address], [place], [address] * true * Date:? Generated for Printi ng/Faxing/eTransmitting on:?09/19/2024 08:53 AM EST
--- OUTSIDE RECORDS SUMMARY | 2024-09-19 08:53 | XMS_ITS | Patient Health Record ---
[facility] Address [address] [facility] [place] [address] Care Team Providers Care Wire Frame Lamp Shade Maker Name Role Phone Dayna Prieto MD Primary Care Provider Unavaila Meron Vaz Unavailable [phone] Desmond Nava Unavailable [phone] Allergies Allergen (clinical drug ingredient) Drug/Non Drug Allergy documented on EMR Reaction Allergy Type Onset Date Status sulfamethoxazole / trimethoprim Bactrim Unknown Drug Allergy Active ciprofloxacin Cipro Unknown Drug Allergy Act katie Adhesive Unknown Allergy Active codeine Codeine Unknown Drug Allergy Active Results Component Value Reference Range Notes HEMOGLOBIN A1C (GLYCOHEMOGLO BIN) Reviewed date:04/28/2024 10:05:04 AM Interpretation: Performing Lab: Notes/Report: TOTAL HEMOGLOBIN (HGBA1C) 5.9 Reason For Referral No Information Medications Medication SIG (Take, Route, Frequency, Duration) Notes Start Date End Date Status Aspirin 81 MG CHEW AND SWALLOW ONE TABLET EVERY DAY Oral for 30 Days Active Iron 28 MG 1 tablet Orally Thre e times a Week for 30 day(s) 03/21/2024 Active Vitamin C 03/21/2024 Active Fish Oil 360 MG 1 capsule Orally Thr ee times a day for 30 day(s) 03/21/2024 Active Gabapentin 100 MG Oral for 30 Days Active metFORMIN HCl ER 750 MG Oral for 90 Days Active Plavix 03/21/2024 Active PreserVision AREDS 2 03/21/2024 Active Farxiga 5 MG TAKE 1 TABLET BY FADI TH DAILY Oral for 90 Days Active Methocarbamol 500 MG Oral for 30 Days Active Allergy 03/21/2024 Active Atorvastatin Calcium 80 MG TAKE 1 TABLET BY MOUTH DAILY Oral for 90 Days Active Dilt-XR 240 MG TAKE 1 CAPSULE BY MO [facility] DAILY Oral for 90 Days Active Pantoprazole Sodium 40 MG TAKE 1 TABLET BY MOUTH DAILY Oral for 90 Days Active Vitamin D3 9706363 UNIT/GM as directed 03/21/2024 Active Flecainide Acetate 100 MG Oral for 30 Days Active Social History [...] Polyneuropathy due to type 2 diabetes mellitus (826315674) Type 2 diabetes mellitus with diabetic polyneuropathy (E11.42) Active confirmed Vital Signs Blood pressure diastolic 59 mm Hg 04/28/2024 Height 5 ft 6 in in 04/28/2024 Blood pressure systolic 118 mm Hg 04/28/2024 Weight 262 lbs 04/28/2024 BMI 42.28 kg/m2 04/28/2024 Procedures Procedure Date Ordered Date Performed Result Body Sit e 05910-NUXN SKIN LESIONS, 2 TO 4 04/28/2024 N/A [id number] DYSTROPHIC NAILS ANY # 04/28/2024 N/A Encounters Encounter Location Date Provider Diagnosis [facility] [address] 04/28/2024 Desmond Nava Type 2 diabetes mellitus with diabetic polyneuropathy E11.42 ; Ingrowing nail L60.0 and Skin disease L98.[facility] [address] 03/21/2024 Desmond Nava Assessments Encounter Date Diagnosis (ICD Code) Assessment Notes Treatment Notes Treatment Clinical Notes Section Notes 04/28/2024 Type 2 diabetes mellitus with diabetic polyneuropathy (ICD-10 - E11.42) 04/28/2024 Ingrowing nail (ICD-10 - L60.0) 04/28/2024 Skin disease (ICD-10 - L98.9) Plan Of Treatment Pending Test Test Name Order Date [id number] SKIN LESIONS, 2 TO 4 04/28/20 24 [id number] DYSTROPHIC NAILS ANY # Next Appt Details Provider Name:Meron fritz, 04/29/2025 11:00:00 AM, [address] [place], [address], Insurance Providers Payer Name Payer Address Payer Phone Subscriber Number Group Number Insured Name Patient Relationship to Insured Coverage Start Date Coverage End Date Medicare [employer] [address] [place] [address] [id number] Agustina Patel Self - patient is the insured Medical (General) History Medical History History ICD Code Anxiety Arthritis Back,Hip,and Knee pain covid-19 Diabetic Gall bladder problems Headaches/Migraines Hypertension Macular degeneration Reflux ( GERD) sinusitis Measles Mumps Chicken pox A fib Tachycardia Surgical History Surgery Date(Month/Year) back surgery Gall bladder removal spinal stenosis surgery watchmen Hospitalization History Reason Date(Month/Year) [facility] knee 12/29/2023
--- OUTSIDE RECORDS SUMMARY | 2024-09-19 08:53 | XMS_ITS ---
Author Name [facility] Organization Unknown Results Test Name/Text Value Interpretation Date Range Source GLUCOSE BLDC GLUCOMTR [facility] 218mg/dL Above high normal [id number] 70 - 199 [facility] GLUCOSE BLDC GLUCOMTR [facility] 225mg/dL Above high normal [id number] 70 - 199 [facility] GLUCOSE BLDC GLUCOMTR [facility] 129mg/dL Normal [id number] 70 - 199 [facility] ABO+RH GP BLD Normal [id number] [facility] BLOOD BANK CMNT PATIENT-IMP Normal [id number] [facility] ABO+RH GP BLD Normal [id number] [facility] BLD GP AB SCN SERPL QL Normal [id number] [facility] BLOOD BANK NT PATIENT-IMP Normal [id number] [facility] GLUCOSE BLDC GLUCOMTR [facility] 114mg/dL Normal [id number] 70 - 199 [facility] History of Medication Use Medication Directions Dispensed Refills Start Date End Date Stat apixaban (ELIQUIS) tablet 5 mg 5 mg, Oral, Every 12 hours scheduled (2 times per day), First dose on Sun10/11/23 at 2100 10/12/2023 active Loratadine (CLARITIN PO) Take by mouth daily. active atorvastatin (LIPITOR) tablet 80 mg 80 mg, Oral, Daily, First dose on Sun10/12/23 at 0900Pregnancy Risk Factor Category: X 10/12/2023 active flecainide (TAMBOCOR) tablet 100 mg 100 mg, Oral, 2 times daily, First dose on Sun10/11/23 at 1800 10/11/2023 active pantoprazole (PROTONIX) 40 MG EC tablet 40 mg 40 mg, Oral, Every Morning on an empty stomach (Daily), First dose on Sun10/12/23 at 0600Please select an indication: GI Bleed 10/12/2023 active Problems Problem Status Onset Date Problem Type Date of Resoluti on Source A-fib active 2023-10-11 ProblemAct [facility] N
--- OUTSIDE RECORDS SUMMARY | 2024-09-19 08:53 | XMS_ITS | Clinical Summary ---
Author Organization 175 [facility] Address 175 [place] [address] Phone Care Team Providers Care Community Engagement Leader Name Role Phone Magdiel Arceo MD Primary Care Provider [phone] Allergies Active Allergy Reactions Criticality Noted Date Comments Ciprofloxacin-Hydrocortisone 020 Reaction not listed Codeine 08/08/2019 Reaction not listed Dulaglutide 04/03/2023 Incontinence during sleep Sulfa (Sulfonamide Antibiotics) 06/14/2023 Other reaction(s): Not available Sulfadiazine 08/08/2019 Reaction not listed Medications aspirin 81 mg EC tablet Take 1 Tablet by mouth daily. 4 Active atorvastatin (LIPITOR) 80 mg tablet Take 1 tablet by mouth daily. Active cholecalciferol (VITAMIN D-3) 25 mcg (1,000 unit) tablet Take 1 tablet by mouth daily. Active cyanocobalamin, vitamin B-12, (VITAMIN B-12 ORAL) Take by mouth. Active dapagliflozin propanediol (Farxiga) 5 mg tablet Take 1 Tablet by mouth daily. 3 Active ferrous sulfate 325 mg (65 mg elemental iron) tablet Take 1 tablet by mouth daily. Active blood sugar diagnostic (ONETOUCH ULTRA TEST MISC) 1 Strip by In Vitro route as needed. Active loratadine (CLARITIN) 10 mg tablet Take 10 mg by mouth. Active metFORMIN XR (GLUCOPHAGE-XR) 750 mg 24 hr tablet Take 1 tablet by mouth 2 Times Daily. Active methocarbamoL (ROBAXIN) 500 mg tablet Take 1 Tablet by mouth 2 times daily as needed. 3 Active omega-3 acid ethyl esters (LOVAZA) 1 gram capsule Take 1 capsule by mouth daily. Active mv-min/FA/vit K/lutein/zeaxan t (PRESERVISION AREDS 2 PLUS MV ORAL) Take 1 Capsule by mouth daily. Active semaglutide (Ozempic) 0.25 mg or 0.5 mg(2 mg/1.5 mL) injection pen Inject 0.25 mg under the skin every 7 (seven) days. Active flecainide (TAMBOCOR) 100 mg tablet TAKE 1 TABLET BY MOUTH TWICE DAILY 60 tablet 6 4 Active dilTIAZem XR (DILT-XR) 240 mg 24 hr capsule TAKE 1 CAPSULE BY MOUTH DAILY 90 capsule 1 5 Active dilTIAZem XR (DILACOR XR) 240 mg 24 hr capsule Take 1 Capsule by mouth daily. 4 025 Discontinued Active Problems Problem Noted Date Diagnosed Date Acute lateral meniscus tear of right knee 2024 Arthritis of right knee 08/08/2024 Spinal stenosis of lumbar re gion with neurogenic claudication 08/10/2022 Overview (06/02/2024): Last Assessment & Plan: Ms. Ruano is here for her second postop visit since an L3-4 decompression on 09/14/2022. She is doing quite well and is pleased with her progress. She now uses a cane only when out of the house though she still keeps the walker at her bedside for when first getting up. She had an area of right lower back pain that is also improving. She has no pain, numbness or tingling in her legs and denies weakness. On exam, her incision is well-healed, she has a very mild tenderness over the right facets at approximately L3-4 but states this is significantly better. There is no significant tenderness at the SI joints. Seated SLR is negative, strength 5/5, sensation to light touch intact, gait is steady. Ms. Ruano has no restrictions on her activity and I encouraged her to continue increasing her walking and other activities. She is welcome to follow-up with us in the future if there are new concerns. Thoracic aortic aneurysm without rupture 020 Overview (06/02/2024): Last Assessment & Plan: Enlarged thoracic aorta by echocardiogram. Repeat echocardiogram in September or October. I suggest that she get a CT angiogram after that if her aortic size is greater than 5.0 cm given I will then refer to a surgeon to be followed more closely. Continue excellent blood pressure control with benazepril and diltiazem. Allergic rhinitis 08/19/2019 Atrial fibrillation 08/19/2019 Overview (06/02/2024): First diagnosed in 2015 with increased burden agreed to anticoagulation and pulmonary vein isolation with creation of tricuspid isthmus line on 05/31/2020. Flecainide discontinued day of procedure, phoned June 03 with recurrence, 300 mg of Flecainide failed to convert - presenting to ED successfully cardioverted, resumed flecainide 100 mg bid. Continued CCB. Last Assessment & Plan: Paroxysmal atrial fibrillation status post radiofrequency ablation and currently on flecainide and diltiazem. Minimal A-fib burden. Implantable loop recorder in place with minimal battery longevity remaining. I suggest that she think about having that removed after she recovers from her back surgery. She is okay to continue to proceed with back surgery without additional work-up. I would have her take her flecainide and diltiazem the morning of the procedure with a small sip of water. She can hold her Eliquis for a few days prior to the procedure and restart when safe to do so from a surgical standpoint. She is maintaining sinus rhythm so should be at relatively low risk for CVA. Colon polyps 08/19/2019 Overview (06/02/2024): CN q 3 yrs (2019 overdue) Diabetes mellitus type 2, uncomplicated 08/19/19 20 GERD (gastroesophageal reflux disease) 0 Hyperlipidemia 08/19/2019 Hypertension 08/19/2019 Overview (06/02/2024): Last Assessment & Plan: Well managed at this visit - continue low sodium diet, exercise and weight loss. No changes to medication regime Iron deficiency anemia 08/19/2019 Macular degeneration 08/19/2019 DAVIAN (obstructive sleep apnea) 08/19/2019 Overview (06/02/2024): moderate AHI 16 [facility] Polysomnogram 6.25.2015; BMI 44; REM 13%; AHI 16, REM AHI 70, Central apneas 0; Obstructive apneas 46; Mixed apneas 0; hypopneas 38; average oxygen saturation 93% (lowest 72%); PLMI 2. Vitamin D deficiency 08/19/2019 Morbid obesity with BMI of 45.0-49.9, adult 07/31 Encounters Date Type Department Care Team Description 09/02/2024 1:10 PM EST Office Visit [facility] - [facility] [address] [facility] 154 [place] [phone] Shira Frazier NP Hypertension, unspecified type (Primary Dx) 08/08/2024 11:30 AM EST Consult Orthopedic Surgery - [place] [address] [phone] Emil Lara MD Acute lateral meniscus tear of right knee, subsequent encounter (Primary Dx); Arthritis of right knee 07/22/[address] [phone] Janet Hanson [place] DME request (Order for revision of pressure change sent to [facility]. Fax confirmation received.//) 07/18/2024 11:30 AM EST [facility] 200 [place] [phone] Brittany Malik MD DAVIAN on CPAP (Primary Dx) 07/01/2024 11:30 AM EST Office Visit Orthopedic Surgery [facility] [address] [phone] Peri Combs MD Tear of lateral meniscus of right knee, unspecified tear type, unspecified whether old or current tear, subsequent encounter (Primary Dx); Patellofemoral arthritis of right knee from Last 3 Months Immunizations Name Administration Dates Next Due Influenza trivalent, 0.5mL, preservative free (Fluarix; FluLaval; Fluzone) ages 6mo and older (Afluria) 3 years and older 03/22/2021,03/18/2020,07/10/2019 [place] SARS-CoV-2 COVID-19, mRNA, LNP-S, preservative free 10/31/2021,05/24/2021,10/19/2020,09/28 Pneumococcal polysaccharide 23 valent (Pneumovax 23) 2yo and older 07/10/2019 Zoster recombinant (Shingrix ) 19yo and older 07/08/2020 Surgical History Surgery Date Site/Laterality Comments BACK SURGERY 1992 PROCEDURE: HISTORICAL BACK SURGERY; COMMENT: L4-5 decompression, Dr. Davis TONSILLECTOMY PROCEDURE: HISTORICAL TONSILLECTOMY CHOLECYSTECTOMY PROCEDURE: HISTORICAL CHOLECYSTECTOMY OTHER SURGICAL HISTORY PROCEDURE: [facility] HYSTEROSCOPY ENDOMETRIAL ABLATION OTHER SURGICAL HISTORY PROCEDURE: [facility] ANES CARDIAC ELECTROPHYSIOL STDY W/RF ABLATION OTHER SURGICAL HISTORY 09/14/2022 PROCEDURE: VA GARNER FACETECTOMY & FORAMOTOMY 1 VRT SGM LUMBAR; COMMENT: L3-4 decompression, Dr. Pendleton COLONOSCOPY PROCEDURE: HISTORICAL COLONOSCOPY Medical History Medical History Date Comments Hyperlipidemia 08/19/2019 DX:Hyperlipidemi a Vitamin D deficiency 08/19/2019 DX:Vitamin D deficiency GERD (gastroesophageal reflux disease) 0 DX:GERD (gastroesophageal reflux disease) Hypertension 08/19/2019 DX:Hypertension Colon polyps 08/19/2019 DX:Colon polyps; COMMENT: CN q 3 yrs (2019 overdue) DAVIAN on CPAP 08/19/2019 DX:DAVIAN on CPAP Iron deficiency anemia 08/19/2019 DX:Iron d eficiency anemia Allergic rhinitis 08/19/2019 DX:Allergic rh initis Diabetes mellitus type 2, uncomplicated (CMS/HCC) 08/19/2019 DX:Diabetes mellitus type 2, uncomplicated (HCC) Macular degeneration 08/19/2019 DX:Macular degeneration Morbid obesity with BMI of 4 5.0-49.9, adult (CMS/HCC) 08/19/2019 DX:Morbid obesity with BMI o f 45.0-49.9, adult (HCC) Atrial fibrillation (CMS/HCC) 08/19/2019 DX :Atrial fibrillation (HCC); COMMENT: 2016, 1 episode, refuses anticoagulation, has implanted loop monitor since 2016 Anemia DX:Anemia Family History Medical History Relation Name Comments Lung cancer Brother Diabetes Mother Other cancer Mother Kidney cancer Stroke Mother Breast cancer Neg Hx Colon cancer Neg Hx Relation Name Status Comments Brother Mother Social History Tobacco Use Types Packs/Day Years Used Date Smoking Tobacco: Never Smokeless Tobacco: Never Tobacco Cessation:Counseling Given: Not Answered Alcohol Use Standard Drinks/Week Comments No 0 (1 standard drink = 0.6 oz pur e alcohol) Comments Unknown Sex and Gender Information Value Date Recorded Sex Assigned at Not on file Legal Sex Female 1:03 AM EST Gender Identity Not on file Sexual Orientation Not on file Obstetrics History Last Filed Vital Signs Vital Sign Reading Time Taken Comments Blood Pressure 170/80 09/02/2024 12:59 PM EST Pulse 67 09/02/2024 12:59 PM EST Temperature 36.8 ??C (98.2 ??F) 07/18/2024 11:[address] Respiratory Rate 20 07/18/2024 11:07 AM EST Oxygen Saturation 97% 09/02/2024 12:59 PM EST Inhaled Oxygen Concentration - - Weight 119 kg (261 lb 12.8 oz) 09/02/2024 12:59 PM EST Height 167.6 cm (5' 6 ) 09/02/2024 12:59 PM EST Body Mass Index 42.26 09/02/2024 12:59 PM EST Plan of Treatment Upcoming Encounters Date Type Department Care Team (Latest Contact Info) Description 11/17/2024 9:45 AM EDT Office Visit Obstetrics & Gynecology - [address] [phone] Kellen Cardenas CNM 175 [place] [phone] 11/18/2024 10:00 AM EDT Hospital Encounter [facility] Main OR [address] [place] [phone] Emil Lara MD [address] [address] 11/18/2024 10:00 AM EDT - 11/18/2024 11:30 AM EDT Surgery [facility] Main OR [address] [place] [phone] Emil Lara MD 175 [facility] 160 [place] [address] RIGHT TOTAL KNEE ARTHROSCOPY [30311 (CPT??) +1 more] 12/03/2024 11:30 AM EDT Office Visit Orthopedic Surgery - [place] 160 175 [facility] 160 [place] [phone] Emil Lara MD 175 [facility] 160 [place] [address] 03/03/2025 12:40 PM EDT Office Visit [facility] - [facility] 154 300 [facility] 154 [place] [phone] Shira Frazier NP 300 [facility] 154 [place] [phone] 07/28/2025 11:30 AM EST Office Visit Pulmonolgy - [place] 175 [facility] 200 [place] [phone] Brittany Malik MD 175 [facility] 200 [place] [address] Scheduled Procedures Name Priority Associated Diagnoses Date/Ti me ARTHROSCOPY KNEE Acute lateral meniscus tear of right knee, subsequent encounter Arthritis of right knee 11/18/2024 10:00 AM EDT Health Maintenance Due Date Last Done Comments Diabetes: Annual Foot Exam 1972 Diabetes: Annual Retina Eye Exam 1972 DTaP,Tdap,and Td Vaccines (1 - Tdap) 1981 Pneumococcal Vaccine: 50+ Years (2 of 2 - PCV) 07/10/2020 07/10/2019 Pneumococcal Vaccine: Pediatrics (0 to 5 Years) and At-Risk Patients (6 to 64 Years) (2 of 2 - PCV) 07/10/2020 07/10/2019 Zoster Vaccines (2 of 2) 09/02/2020 07/08/2020 Cholesterol Screening (Lipid Panel) 07/08/2022 12/01/2016 Depression Screening 07/08/2022 HIV Screening 07/08/2022 Hepatitis C Screening 07/08/2022 Medicare Annual Wellness Visit 07/08/2022 Social Influencers of Health Screening 07/08/2022 Diabetes: Annual Urine Albumin-Creatinine Ratio (uACR) 07/15/2022 07/25/2019 Diabetes: Blood Sugar Control Test (HGBA1C) 07/15/2022 12/01/2016 Diabetes: Annual GFR (Glomerular Filtration Rate) 11/25/2024 11/26/2023, 11/26/2023 Hypertension/CHF/CAD Annual BMP Blood Test 11/25/2024 11/26/2023, 11/26/2023 Cervical Cancer Screening: HPV 06/09/2025 06/09/2020 Breast Cancer Screening 01/21/2026 01/22/20 24, 12/08/2022, 08/04/2021, Additional history exists Colorectal Cancer Screening: Colonoscopy 05/23/2028 05/23/2023 RSV Immunization Patients 60+ Years Old Completed 06/15/2023 COVID-19 Vaccine Completed 05/19/2024, 01/2023, 05/25/2022, Additional history exists Influenza Vaccine Completed 05/19/2024, , 04/27/2022, Additional history exists HIB Vaccines Aged Out No longer eligi ble based on patient's age to complete this topic HPV Vaccines Aged Out No longer eligi ble based on patient's age to complete this topic Hepatitis A Vaccines Aged Out No long er eligible based on patient's age to complete this topic Hepatitis B Vaccines Aged Out No long er eligible based on patient's age to complete this topic IPV Vaccines Aged Out No longer eligi ble based on patient's age to complete this topic MMR Vaccines Aged Out No longer eligi ble based on patient's age to complete this topic Meningococcal ACWY Vaccine Aged Out N o longer eligible based on patient's age to complete this topic Meningococcal B Vacine Aged Out No lo nger eligible based on patient's age to complete this topic RSV Immunization Patients Under 20 months Aged Out No longer eligible based on patient's age to complete this topic Varicella Vaccines Aged Out No longer eligible based on patient's age to complete this topic Medical Devices Implanted Type Area Business Resiliency Manager Device Identifier Shelf Expiration Date Model / Serial / Lot Device Clsadam Watchannabella Flx Fabiola 24mm Bsci-Prnt [id number] - [id number] Implanted:Qty: 1 on 10/11/2023 by Husam Solis MD Right: [employer] JONO 04/23/2026 [id number] / [id number] / Procedures Procedure Name Priority Date/Time Associated Diagnosis Comments ECG 12-LEAD Routine 09/02/2024 1:44 PM EST Hypertension, unspecified type XR KNEE 3 VIEWS RIGHT Routine 08/08/2024 11:33 AM EST Pain RAFI SCREENING DIGITAL Routine 01/22/2024 10:47 AM EDT Encounter for screening mammogram for malignant neoplasm of breast ANNUAL BMP BLOOD TEST Routine 11/26/2023 COLONOSCOPY Routine 05/23/2023 HPV Routine 06/09/2020 URINE ALBUMIN CREATININE RATIO Routine 07/25/2019 from Last 3 Months or Most Recently Relevant to Health Maintenance Results * ECG 12 lead (09/02/2024 1:44 PM EST) Ventricular Rate ECG 71 BPM GEMUSE Atrial Rate 71 BPM GEMUSE P-R Interval 216 ms GEMUSE QRS Duration 108 ms GEMUSE Q-T Interval 448 ms GEMUSE QTc 486 ms GEMUSE P Wave [place] 72 degrees GEMUSE R [place] 22 degrees GEMUSE T [place] 50 degrees GEMUSE ECG Interpretation Sinus rhythm with sinus arrhythmia with 1st degree A-V block Low voltage QRS Borderline ECG When compared with ECG of 17-DEC-2023 20:52, No significant change was found Confirmed by Jaylin SOLIS JOHN ([id number]) on 09/16/2024 7:29:39 AM GEMUSE 09/02/2024 1:14 PM EST 09/16/2024 7:29 AM EST us Shira Frazier NP ECG ORDERABLES Edited Resul t - Final GEMUSE * XR Knee 3 Views Right (08/08/2024 11:33 AM EST) Anatomical Region Laterality Modality Lower Extremities, Knee Right Computed Radiography Narrative 08/08/2024 11:58 AM EST Bilateral PA weightbearing views of the knees taken August 08, 2024. ?? Lateral view of the right knee. ??[place] view of the right knee. ??It is of early tricompartmental arthrosis. ??No significant deformity. ??Overall good preservation of articular cartilage. ??Chondrocalcinosis us Emil Lara MD IMG XR PROCEDURES Final Result * RAFI SCREENING DIGITAL (01/22/2024 10:47 AM EDT) Anatomical Region Laterality Modality Mammography 01/22/2024 9:53 AM EDT Narrative 01/22/2024 10:[address] [facility] Diagnostic Imaging Department [address] [place] [address] Patient: ??AGUSTINA RUANO ?/Age/Sex: 1960 - 63 - F Unit#: ??[id number] ? Location/Status: ??SPDIMAM/REG CLI ? Mnemonic/Ordering Site: ??DIGSC/SPMAM Ordering Physician: ??MAGDIEL ARCEO MD Rafi Screening Digital - 01/22/24 - 1018 Report Status:Signed HISTORY: The patient is a 63-year-old female presenting for routine screening mammography. FINDINGS: ??Full-field digital mammography of the breasts bilaterally consisting of tomosynthesis in MLO and CC projection is performed in the [employer]se 2000-D unit. ??Computer aided detection utilizing the Cargoh.comD system was utilized. The breasts are seen to be largely fatty-replaced (the breasts are almost entirely fatty, category A density as calculated with Vannevar Technologypara software), without significant change as it to prior studies most recently 12/08/2022 and most remotely 08/02/2016. ??Multiple bilateral punctate calcifications, most if not all of which are dermal, are again seen. ??There is no suspicious cluster of microcalcifications, mass, or area of architectural distortion. There is no skin thickening or nipple retraction. IMPRESSION: No mammographic evidence of malignancy. A negative mammogram in the presence of a clinically suspicious palpable abnormality does not preclude the possibility of malignancy or alter the indications for biopsy. BIRADS Code Class 2: ??Benign Finding PQRI CPT II 3342F Code 68693, 93705 PQRI 225 CPT II 7025F Dictating Physician: ??ZOË CAIN MD Electronically Signed by: ??ZOË CAIN MD Dic Date/Time: ??01/22/24 1042 Sign date/Time: ??01/22/24 1047 Procedure Note Zoë Cain MD - 05/14/2024 [facility] Diagnostic Imaging Department [address] [place] [id number] Patient: AGUSTINA RUANO /Age/Sex: 1960 - 63 - F Unit#: [id number] Location/Status: [facility]/REG CLI Mnemonic/Ordering Site: [facility] Ordering Physician: MAGDIEL ARCEO MD Rafi Screening Digital - 01/22/24 - 1018 Report Status:Signed HISTORY: The patient is a 63-year-old female presenting for routinescreening mammography. FINDINGS: Full-field digital mammography of the breasts bilaterallyconsisting of tomosynthesis in MLO and CC projection is performed in the [employer] 2000-D unit. Computer aided detection utilizing the iCAD system wasutilized. The breasts are seen to be largely fatty-replaced (the breasts arealmost entirely fatty, category A density as calculated with iReveal Volparasoftware), without significant change as it to prior studies most recently 3and most remotely 08/02/2016. Multiple bilateral punctate calcifications, mostif not all of which are dermal, are again seen. There is no suspicious clusterof microcalcifications, mass, or area of architectural distortion. There isno skin thickening or nipple retraction. IMPRESSION: No mammographic evidence of malignancy. A negative mammogram in the presence of a clinically suspicious palpable abnormality does not preclude the possibility of malignancy or alter the indications for biopsy. BIRADS Code Class 2: Benign Finding PQRI CPT II 3342F Code 21003, 95696 PQRI 225 CPT II 7025F Dictating Physician: ZOË CAIN MD Electronically Signed by: ZOË CAIN MD Dic Date/Time: 01/22/24 1042 Sign date/Time: 01/22/24 1047 us Magdiel Arceo MD IMG BI PROCEDURES Final Result * Annual BMP Blood Test (11/26/2023) Annual BMP Blood Test Abstracted Historical Provider HEALTH MAINTENANCE Final Result * Colonoscopy (05/23/2023) Health system Colonoscopy No interpretation , Abstracted Anatomical Region Laterality Modality Other [facility] Provider HEALTH MAINTENANCE Final Result * Cervical Cancer Screening: HPV (06/09/2020) Health system Cervical Cancer Screening: HPV Negative, Abstracted [facility] Provider HEALTH MAINTENANCE Final Result * Urine Albumin Creatinine Ratio (07/25/2019) Pathologist [facility] Urine Albumin Creatinine Ratio Abstracted [facility] Provider HEALTH MAINTENANCE Final Result from Last 3 Months or Most Recently Relevant to Health Maintenance Insurance DR SHI [address] [place] [id number] MEDICARE MEDICAID - [place] Advance Directives Documents on File Type Date Recorded Patient Sports Medicine [place] Expl anation Health Care Decision (hx) 05/23/2020 AD WATTS DIRECTIVE Health Care Decision (hx) 05/23/2020 AD WATTS DIRECTIVE Health Care Decision (hx) 05/23/2020 AD WATTS DIRECTIVE Health Care Decision (hx) 05/23/2020 AD WATTS DIRECTIVE Health Care Decision (hx) 05/23/2020 AD WATTS DIRECTIVE Health Care Decision (hx) 05/23/2020 AD WATTS DIRECTIVE Health Care Decision (hx) 05/23/2020 AD WATTS DIRECTIVE Health Care Decision (hx) 05/23/2020 AD WATTS DIRECTIVE Health Care Decision (hx) 05/23/2020 AD WATTS DIRECTIVE Health Care Decision (hx) 09/26/2019 AD WATTS DIRECTIVE Health Care Decision (hx) 09/26/2019 AD WATTS DIRECTIVE Health Care Decision (hx) 09/26/2019 AD WATTS DIRECTIVE Health Care Decision (hx) 09/26/2019 AD WATTS DIRECTIVE Health Care Decision (hx) 09/26/2019 AD WATTS DIRECTIVE Care Teams Community Engagement Leader Relationship Specialty Start Date End Date Magdiel Arceo MD [address] [place] [phone] PCP - General Internal Medicine 07/14/19
--- OUTSIDE RECORDS SUMMARY | 2024-09-19 08:54 | XMS_ITS | Clinical Summary ---
Author Organization [facility] Address [address] [place] [address] Care Team Providers Care Furniture Restorer Name Role Phone Bao Gann DO Primary Care Provider Allergies Active Allergy Reactions Criticality Noted Date Comments Ciprofloxacin 11/16/2014 Chest pain Codeine 11/16/2014 Sulfa (Sulfonamide Antibiotics) 10/29 Chest pain Medications baclofen, bulk, 100 % Powd Active sumatriptan (IMITREX) 100 MG tablet Active atorvastatin (LIPITOR) 40 MG tablet Take 80 mg by mouth daily. Active FREESTYLE LITE STRIPS Strp 0 05/24/2015 Active fluticasone (FLONASE) 50 mcg/actuation nasal spray 0 04/19/2015 Active pantoprazole (PROTONIX) 40 MG tablet Take 40 mg by mouth daily. 0 05/23/2015 Active loratadine (CLARITIN) 10 mg tablet Take 10 mg by mouth daily. Active pseudoephedrine- dextromethorphan -guaifenesin (ROBITUSSIN-PE) 30-10-100 mg/5 mL solution Take 10 mLs by mouth 4 (four) times daily as needed for Cough. Active ferrous sulfate 324 mg (65 mg iron) TbEC Take 324 mg by mouth 3 (three) times daily with meals. Active metFORMIN (GLUCOPHAGE-XR) 750 MG 24 hr tablet Take 750 mg by mouth daily with dinner. Active aspirin 81 MG EC tablet Take 81 mg by mouth daily. Active fish oil-omega-3 fatty acids 1,000 mg capsule Take 1,200 mg by mouth daily.. Active triamterene-hydr oCHLOROthiazide (DYAZIDE) 37.5-25 mg per capsule 0 10/27/2018 Active benazepril (LOTENSIN) 10 MG tablet Take 1 tablet (10 mg total) by mouth daily 90 tablet 2 11/19/2018 Active Active Problems Problem Noted Date Diagnosed Date Pre-operative cardiovascular examination 015 Sleep apnea 01/19/2015 Snoring 11/25/2014 History of colonic polyps 11/24/2014 Overview (04/30/2017): This Dx was updated with the IMO Load 04/29/2017 DANIEL (iron deficiency anemia) 11/24/2014 Diverticulosis of colon without diverticulitis 0 11/24/2014 Gastritis, chronic 11/24/2014 Atrial fibrillation (HC Code) (HC CODE) 11/17/19 Atrial flutter (HC Code) (HC CODE) 11/16/2014 HTN (hypertension) 11/16/2014 Morbid obesity 11/16/2014 Hyperlipidemia 11/16/2014 Family History Medical History Relation Name Comments Lung cancer Brother 2 Kidney cancer Mother Relation Name Status Comments Brother 1 Brother 2 Father Mother Alive Sister Alive Social History Tobacco Use Types Packs/Day Years Used Date Smoking Tobacco: Never Smokeless Tobacco: Never Alcohol Use Standard Drinks/Week Comments Yes 0 (1 standard drink = 0.6 oz pur e alcohol) Comments No Sex and Gender Information Value Date Recorded Sex Assigned at Not on file Legal Sex Female 9:11 AM EST Gender Identity Not on file Sexual Orientation Not on file Last Filed Vital Signs Vital Sign Reading Time Taken Comments Blood Pressure 128/64 11/01/2018 8:53 AM EDT Pulse 61 11/01/2018 8:53 AM EDT Temperature - - Respiratory Rate 16 10/19/2017 10:30 AM EDT Oxygen Saturation 98% 10/09/2018 11:15 AM EDT Inhaled Oxygen Concentration - - Weight 132.5 kg (292 lb) 11/01/2018 8:53 AM EDT Height 167.6 cm (5' 6 ) 11/01/2018 8:53 AM EDT Body Mass Index 47.13 11/01/2018 8:53 AM EDT Plan of Treatment Health Maintenance Due Date Last Done Comments HIV screening 1975 Hepatitis C screening 1980 Tetanus adult (Td q 10,TDAP once) 1982 Cervical cancer screening 1983 Breast cancer screening 2002 Shingles vaccine (Shingrix) (1 of 2 - Shingrix (RZV) 2 Dose Standard Series) 2012 Diabetes screening 12/02/2019 12/01/2016, 0 12/01/2016, 06/27/2016, Additional history exists Lipid disorder screening 12/01/2021 017, 06/27/2016, 01/14/2016, Additional history exists Colon cancer screening, Colonoscopy 02/26/2024 02/25/2014 Influenza vaccine 02/28/2024 Covid-19 vaccine series ( - 2023- season) 2024 RSV Discussion (1 - 1-dose 75+ series) 2037 Meningococcal Vaccine Aged Out No renée dylon eligible based on patient's age to complete this topic Pneumococcal Vaccine (2 - 49 years) Aged Out No longer eligible based on patient's age to complete this topic Procedures Procedure Name Priority Date/Time Associated Diagnosis Comments HEMOGLOBIN A1C Routine 12/01/2016 10:23 AM EDT Essential hypertension, malignant Hypotension, unspecified Aortic valve disorders Pure hypercholesterolemia Diabetes mellitus (HC Code) Other abnormal glucose Nonspecific elevation of levels of transaminase or lactic acid dehydrogenase (LDH) Mixed hyperlipidemia Other and unspecified hyperlipidemia LIPID PANEL Routine 12/01/2016 10:23 AM EDT Essential hypertension, malignant Hypotension, unspecified Aortic valve disorders Pure hypercholesterolemia Diabetes mellitus (HC Code) Other abnormal glucose Nonspecific elevation of levels of transaminase or lactic acid dehydrogenase (LDH) Mixed hyperlipidemia Other and unspecified hyperlipidemia HM COLONOSCOPY Routine 02/25/2014 from Last 3 Months or Most Recently Relevant to Health Maintenance Results * (ABNORMAL) Hemoglobin A1c (12/01/2016 10:23 AM EDT) Hemoglobin A1c 6.9(H) 4.4 - 6.4 % 12/01/2016 1:17 PM EDT [facility] Blood specimen (specimen) Venipuncture / Unknown 12/01/2016 10:23 AM EDT 12/01/2016 10:23 AM EDT Harman Burrows MD LAB BLOOD ORDERABLES Final Resul t Performing Organization Address [facility]/ZIP Co de Phone Number [facility] [address] [place] [address] * Lipid panel (12/01/2016 10:23 AM EDT) Cholesterol 148 0 - 199 mg/dL 12/01/2016 12:29 PM EDT [facility] HDL 54 >=41 mg/dL 12/01/2016 12:29 PM EDT [facility] Triglycerides 66 0 - 150 mg/dL 12/01/2016 12:29 PM T [facility] Chol/HDL Ratio 2.7 12/01/2016 12:29 PM EDT [facility] LDL Calculated 81 0 - 100 mg/dL 12/01/2016 12:29 PM EDT [facility] Blood specimen (specimen) Venipuncture / Unknown 12/01/2016 10:23 AM EDT 12/01/2016 10:23 AM EDT Harman Burrows MD LAB BLOOD ORDERABLES Final Resul t Performing Organization Address [facility] Co de Phone Number [facility] [address] [place] [address] * COLONOSCOPY (02/25/2014) Colonoscopy Primed Conversion (Col) Historical Provider HEALTH MAINTENANCE Final Res ult from Last 3 Months or Most Recently Relevant to Health Maintenance Insurance MEDICARE MEDIC[place] Care Teams Furniture Restorer Relationship Specialty Start Date End Date Bao Gann DO [address] [facility] [address] [place] [address] PCP - General Internal Medicine 10/09/18
[2024-09-19 10:00] LABS: MANUAL DIFF FLAG NO
[2024-09-19 10:01] LABS: Basophils Percent Auto 0.4 % (0-2); Eosinophils Absolute Auto 0.1 X10*3/uL (0.0-0.4); Eosinophils Percent Auto 1.5 % (0-4); Hematocrit 35.4 % (37.0-47.0); Hemoglobin 11.3 g/dl (12.0-16.0); Imm Gran Abs Auto 0.02 X10*3/uL (0.00-0.03); Imm Gran Pct Auto 0.4 % (0.0-0.4); Lymphocytes Absolute Auto 1.2 X10*3/uL (1.2-4.9); Lymphocytes Percent Auto 21.6 % (20-40); Mean Corpuscular HGB Conc 31.9 g/dl (31.0-35.0); Mean Corpuscular Hemoglobin 28.5 pg (27.0-33.0); Mean Corpuscular Volume 89.2 fL (80.0-98.0); Mean Platelet Volume 10.1 fL (9.4-12.3); Monocytes Absolute Auto 0.6 X10*3/uL (0.1-1.2); Monocytes Percent Auto 11.8 % (2-11); Neutrophils Absolute Auto 3.5 x10*3/uL (2.0-8.3); Neutrophils Percent Auto 64.3 % (45-73); Platelet Count 312 X10*3/uL (160-400); Red Blood Count 3.97 X10*6/uL (4.20-5.50); Red Cell Distribution Width 15.9 % (11.0-16.0); White Blood Count 5.4 X10*3/uL (4.8-10.8)
[2024-09-19 10:09] LABS: Estimated Average Glucose 114 mg/dL; Hemoglobin A1C 112.9797 umol/L; Hemoglobin A1c % 5.6 % (<6.0); Total Hemoglobin (HGBA1C) 3029.1274 umol/L
[2024-09-19 10:17] LABS: Alanine Aminotransferase 32 U/L (0-31); Albumin Level 3.9 g/dL (3.5-5.0); Alkaline Phosphatase 183 U/L (39-117); Anion Gap 14 (12-20); Aspartate Amino Transferase 59 U/L (5-31); Bilirubin Total 0.7 mg/dL (0.0-1.0); Blood Urea Nitrogen 12 mg/dL (9-16); Calcium 9.5 mg/dL (8.4-10.2); Carbon Dioxide 25 mmol/L (22-29); Chloride 106 mmol/L (96-108); Cholesterol 120 mg/dL (<200); Estimated Glomerular Filt Rate > 60; Glucose Fasting 109 mg/dL (60-99); HDL Cholesterol 38 mg/dL (>40); LDL Cholesterol Calculated 65 mg/dL (<100); Potassium 3.7 mmol/L (3.3-5.1); Sodium 141 mmol/L (135-145); Total Protein 8.3 g/dL (6.5-8.0); Triglycerides 86 mg/dL (<150)
[2024-09-19 11:22] LABS: Creatinine Urine 135.49 mg/dL; Microalbum/Creatinine Ratio Ur 5.1 ug/mg cr (<30)
== END 2024-09-19 08:36 | disposition home or self-care (01) ==
LOC: HO.HMGCLDS 08:35
PROVIDERS: PCP Internal Medicine; Visit Provider Internal Medicine
DX: I10 Essential (primary) hypertension (principal); E11.9 Type 2 diabetes mellitus without complications; I48.91 Unspecified atrial fibrillation; E78.5 Hyperlipidemia, unspecified; D50.9 Iron deficiency anemia, unspecified
CPT/HCPCS: 36415; 80053; 80061; 82043; 82570; 83036; 85025

== ENCOUNTER 2024-10-07 11:49 | Outpatient (REF) | payer MEDICARE, MEDICAID, SELFPAY ==
--- NOTE | ~2024-10-07 | US_ITS ---
EXAMINATION: US ABDOMEN LIMITED HISTORY: R79.89 - Other specified abnormal findings of blood chemistry TECHNIQUE: Real-time grayscale ultrasound imaging of the right upper quadrant was performed and images were reviewed. COMPARISON: There are no prior studies for comparison. FINDINGS: Liver: The right lobe of the liver measures 16.2 cm in size. The left lobe of the liver measures 13.3 cm in size. The liver demonstrates coarsened echotexture and nodular contour, suggestive of cirrhosis. No focal mass or intrahepatic biliary ductal dilatation is identified. There is normal hepatopedal flow in the portal vein. Gallbladder and biliary tree: The gallbladder is surgically absent. The common bile duct is normal in caliber measuring 5 mm. Right Kidney: The right kidney measures 12.3 cm in length. The right kidney is unremarkable, without evidence of masses, hydronephrosis, or calculi. Pancreas: The pancreatic head, neck, and body are unremarkable. The pancreatic tail is obscured by bowel gas. Abdominal aorta and inferior vena cava: The visualized portions of the abdominal aorta and inferior vena cava are normal in caliber. There is no free fluid in the right upper quadrant. US/US abdomen limited IMPRESSION: Hepatomegaly and findings suggestive of cirrhosis. Electronically signed by: Candido Cabrera MD 10/07/2024 12:33 PM EDT
--- OUTSIDE RECORDS SUMMARY | 2024-10-07 14:36 | XMS_ITS | Encounter Summary ---
Author Organization [facility] Address [address] [place] [address] Care Team Providers Care Surgical Training Specialist Name Role Phone Bao Gann DO Primary Care Provider Encounter Details Date Type Department Care Team (Late st Contact Info) Description 06/09/2016 Scanned Document NE [facility] [address] [facility] [address] [place], [place] [address] Curt Miller MD [address] [facility] [address] [place] [address] Social History Tobacco Use Types [...] on filedocumented in this encounter Care Teams Surgical Training Specialist Relationship Specialty Start Date End Date Bao aGnn DO [address] [place] [address] PCP - General Internal Medicine 10/09/18 documented as of this encounter
--- OUTSIDE RECORDS SUMMARY | 2024-10-07 14:36 | XMS_ITS | Encounter Summary ---
Author Organization [facility] Address [address] [place] [address] Care Team Providers Care Leader Assembler Name Role Phone Bao Gann DO Primary Care Provider Encounter Details Date Type Department Care Team (Late st Contact Info) Description 11/05/2015 Scanned Document [facility] [address] [place], [place] [address] Jorje Campbell MD [address] [place] [address] Social History Tobacco Use Types [...] on filedocumented in this encounter Care Teams Leader Assembler Relationship Specialty Start Date End Date Bao Gann DO [address] [facility] [address] [place] [address] PCP - General Internal Medicine 10/09/18 documented as of this encounter
--- OUTSIDE RECORDS SUMMARY | 2024-10-07 14:36 | XMS_ITS | Data Portability ---
Author Organization [place] [facility] Address [address] [place] [address] Care Team Providers Care Oil Operator Name Role Phone MAGDIEL ARCEO Primary Care Provider [phone] Assessment Encounter Date Assessment Date Assessment LastModified [...] after care of this patient according to [facility]'s infection prevention protocols. All the patient's medications were reviewed and updated in the patient record during today's visit. No changes were made to the patient's medication regimen today. [email or web address] Not available 02/21/2022 11:47:19 06/13/2023 06/13/2023 Time [...] after care of this patient according to [facility] protocols. [email or web address] Not available 06/13/2023 10:13:18 07/04/2023 07/04/2023 Time [...] after care of this patient according to [facility]'s infection prevention protocols. Not available 07/04/2023 11:34:00 Plan of Treatment Reminders Order Date Submit Date Provider Last Modified By Organization Details Last Modified Time Details Appointments None recorded. Lab None recorded. Referral None recorded. Procedures None recorded. Surgeries None recorded. Imaging XR, knee, 3 view - right knee pain after fall [address] Corporate Office ([facility] [address] [place] [address], [address], 3 02:59:39 XR, shoulder, 2 or more view - right shoulder pain after fall 2022 [address] [address] [place], [address], 3 02:59:34 Medication Orders None recorded. Patient TargetsNo targets recorded. Patient Instructions Encounter Date Encounter Id Patient Instructions Last Modified By Organization Details Last Modified Time 02/21/2022 [id number] Thank you for yo ur visit with [facility] today. We cannot always find the exact [...] condition between 8am-10pm, please call [facility] at [phone] to help navigate your care. [email or web address] Not available 02/21/2022 11:48:18 06/13/2023 [id number] Thank you for yo ur visit with [...] condition between 8am-10pm, please call [facility] at [phone] to help navigate your care. [email or web address] Not available 06/13/2023 10:17:03 07/04/2023 [id number] Thank you for yo ur visit with [facility] today. We cannot always find the exact [...] condition between 8am-10pm, please call [facility] at [phone] to help navigate your care. Thank you [...] condition between 8am-10pm, please call [facility] at [phone] to help navigate your care. [email or web address] Not available 07/04/2023 11:36:21 Reason for Referral [...] BREWSTER M.D. 2022 12:50: 10 PM EST. [email or web address] [employer] [facility] [address] [place] [address] 4, [place], [address], 07/02/2023 19:49:12 06/13/20 23 06/13/2023 shoul roxy [...] BREWSTER M.D. 2022 12:50: 10 PM EST. [email or web address] [employer] [address] [facility] [address], [place], [address], 06/13/2023 13:15:10 Result Notes None recorded. Procedures Surgical History Date Name Laterality Status Provider Name and Address Organization Details Recorded Time Unlisted procedure spine completed VONDA Noriega [address], [place], [address], [place] [facility] 02/21/2022 11:36:24 Cholecystectomy completed VONDA Noriega [address] [place], [address], [place] [facility] 02/21/2022 11:36:32 tonsilectomy/adenoi ds completed VONDA Noriega [address], [place], [address], [place] [facility] 02/21/2022 11:36:41 Imaging Results Imaging Date Name Status LastModified by Organiz [facility] Details LastModified Time 06/13/2023 knee exam 3V AP lat oblique completed [email or web address] [facility] [address] [employer] [facility] [address], [place], [address], 07/02/2023 19:49:12 06/13/2023 shoulder complete, min 2V completed [email or web address] [employer] [facility] [address] [facility] [address], [place], [address], 06/13/2023 13:15:10 Procedure Notes None recorded. Medical Equipment None Reported. Allergies Allergen ID Allergen Name Allergen Category Reaction Reaction Severity Criticality Documentation Date Start Date Code Code System Note Provider Name and Address Organization Details Recorded Time 359518 Substance with sulfonami de structure and antibacte rial mechanism of action (substanc e) medicatio n Not available Not available Not available 02/21/2022 79066 8003 SNOMED VONDA Noriega [address], [place], [address], [place] [facility] 2 11:32:35 118024 codeine medicatio n Not available Not available Not available 02/21/2022 2670 RxNorm VONDA Noriega [address], [place], [address], [place] [facility] 2 11:32:52 404242 Cipro medicatio n Not available Not available Not available 02/21/2022 94282 3 RxNorm VONDA Noriega [address] [place], [address], [place] [facility] 2 11:33:02 417337 Trulicity medicatio n Not available Not available Not available 06/13/2023 13134 96 RxNorm VONDA Cotton [address] [place], [address], [place] [facility] [...] /min 120 mm[Hg] 64 mm[Hg] Not Available [facility] 3 09:45:31 Date Recorded Respiratory rate Body temperature Oxygen saturation Oxygen saturation in Arterial blood by Pulse oximetry Heart rate Systolic blood pressure Diastolic blood pressure Provider Name and Address Organization Details Last Updated DateTime 3 18 /min 96.9 [degF] 98 % 98 % 62 /min 122 mm[Hg] 64 mm[Hg] Not Available [facility] 3 11:07:00 Date Recorded Respiratory rate Oxygen saturation Oxygen saturation in Arterial blood by Pulse oximetry Heart rate Body temperature Systolic blood pressure Diastolic blood pressure Provider Name and Address Organization Details Last Updated DateTime 2 16 /min 98 % 98 % 66 /min 98.7 [degF] 116 mm[Hg] 68 mm[Hg] Not Available [facility] 2 11:36:23 Social History Question Answer Notes LastModified by Organizat ion Details LastModified Time Tobacco Smoking Status Never Smoker VONDA Noriega [address], [place], [address], [place] [facility] 02/21/2022 11:36:02 Do You Have An Advance Directive? No [email or web address] Information not available 02/21/2022 What Is Your Level Of Alcohol Consumption? None [email or web address] Information not available 02/21/2022 What Is Your Code Status? Full Code [email or web address] Information not available 02/21/2022 Has The Patient Seen Their PCP In The Past 6 Months? Yes [email or web address] Information not available 07/04/2023 Do You Use Any Illicit Or Recreational Drugs? No [email or web address] Information not available 02/21/2022 Has Tobacco Cessation Counseling Been Provided? No [email or web address] Information not available 02/21/2022 Do You Or Have You Ever Used Any Other Forms Of Tobacco Or Nicotine? No [email or web address] Information not available 02/21/2022 Sex: Unknown Functional Status None recorded. Mental Status None recorded. Family History Relationship Description Onset Age of this Age Resolved Age Notes LastModified by Organization Details LastModified Time Mother Diabetes mellitus [email or web address] Not available 02/21 11:35:39 Medical History Condition Response Diabetes Y Coronary Artery Disease N CHF N Parkinson's Disease N Cancer N Dementia N Stroke N Hypothyroidism N Depression N COPD N Asthma N High Cholesterol Y Rheumatoid Arthritis N Pulmonary Embolism N Hypertension Y A-fib Y Osteoporosis N Kidney Disease N Gynecological HistoryNo gynecological history recorded. Obstetrics History GPAL:G 0 P 0 0 0 0 Past Encounters Encounter ID Performer Location Encounter Start Date Encounter Closed Date Diagnosis/Indication Diagnosis SNOMED-CT Code Diagnosis ICD10 Code Diagnosis Note [id number] VONDA Noriega [facility] [address] [facility] [place] [address] 02/21/2022 11:31:20 02/22/2022 11:37:21 Burn of foot 75903374 T25.229A [id number] VONDA Cotton [facility] [address] [facility] [place] [address] 06/13/2023 09:40:04 06/15/2023 02:59:34 Contusion of right knee 6417822515 4102879 S80.01XA Status of condition: {{Acute* E xacerbatio [...] change. Pain of ri ght shoulder joint 9165392009 4660211 M25.511 Status of condition: {{Acute* E xacerbatio [...] skin color or temp changes. Essential hypertension 04440659 I10 Status of condition: {{Acute Ex acerbation [...] dizziness, HAs, edema, weight gain, vision changes. [id number] VONDA Cotton [facility] [address] [place] [address] 07/04/2023 11:03:11 07/05/2023 14:30:08 Pain of right shoulder joint 9448200690 1870303 M25.511 Status of condition: {{Acute* E xacerbatio [...] [place] [employer] Agustina Amanda [id number] Agustina Amanda 02/21/2022 2 [place] Agustina Amanda [id number] Agustina Amanda 06/13/2023 1 [place] Agustina Amanda [id number] Agustina Amanda 06/13/2023 2 [place] Agustina Amanda [id number] Agustina Amanda 07/04/2023 1 [place] Agustina Amanda [id number] Agustina Amanda 07/04/2023 2 [place] Agustina Amanda [id number] Agustina Amanda Notes Date Note Type Note [...] CONTROL. NO PROBLEMS WITH DOXYCYCLINE. VONDA Noriega, [place], [address], [place] [facility] 02/21/2022 11:48:35 06/13/2023 text/html 62 y/o female known to DH new to provider with hx of A fib, DM, HTN, hyperlipidemia, GERD. pt reports on 06/08 she fell in her apartment, she tripped on a bag she left in the mack while she was carrying out a box of [employer]). she landed on her right knee and [...] right shoulder. VONDA Cotton [address], [place], [address], [place] [facility] 06/13/2023 10:18:03 07/04/2023 text/html 62 y/o female [...] tylenol prn. VONDA Cotton [address], [place], [address], [place] [facility] 07/04/2023 11:36:40 OBGyn Episode No OBEpisode recorded.
--- OUTSIDE RECORDS SUMMARY | 2024-10-07 14:36 | XMS_ITS | Encounter Summary ---
Author Organization [facility] [employer] [facility] Address [address] [place] [address] Care Team Providers Care Carpentry Specialist Name Role Phone Bao Gann Primary Care Provider Encounter Details Date Type Department Care Team (Latest Contact Info) Description 10/20/2013 Transcribed Orders [facility] [address] [facility] 2[address] Floor [place] [id number] Harman Burrows MD Unspecified essential hypertension (Primary [...] EDT) TSH 1.600 0.465 - 4.680 mIU/L [facility] Blood specimen (specimen) 10/20/2013 10:49 AM EDT us Harman Burrows MD LAB BLOOD ORDERABLES Final Resul t [facility] [address] [place] [address] * T4, free (10/20/2013 10:49 AM EDT) Free T4 1.11 0.70 - 2.19 ng/dL [facility] Blood specimen (specimen) 10/20/2013 10:49 AM EDT us Harman Burrows MD LAB BLOOD ORDERABLES Final Resul t Performing Organization Address [facility]/ZIP Co de Phone Number [facility] [address] [place] [address] * (ABNORMAL) Hemoglobin A1c (10/20/2013 10:49 AM EDT) Pathologist [facility] Hemoglobin A1c 6.6(H) 4.4 - 6.4 % [facility] Comment: Therapeutic Goal: ?Less Than 7% Re-Evaluation Therapy: ?? Greater Than 8% Blood specimen (specimen) 10/20/2013 10:49 AM EDT us Harman Burrows MD LAB BLOOD ORDERABLES Final Resul t Performing Organization Address [facility] Co de Phone Number [facility] [address] [place] [address] * Lipid panel (10/20/2013 10:49 AM EDT) Cholesterol 165 0 - 199 mg/dL [facility] Triglycerides 72 0 - 150 mg/dL [facility] HDL 59 >=41 mg/dL [facility] LDL Cholesterol 92 0 - 99 BRID [facility] CHD Risk 3 <=4 [facility] Blood specimen (specimen) 10/20/2013 10:49 AM EDT us Harman Burrows MD LAB BLOOD ORDERABLES Edited Resu lt - Final Performing Organization Address [facility]/ZIP Co de Phone Number [facility] [address] [place] [address] * (ABNORMAL) Comprehensive metabolic panel (10/20/2013 10:49 AM EDT) Glucose 118(H) 70 - 100 mg/dL [facility] BUN 20(H) 7 - 17 mg/dL [facility] Creatinine 0.79 0.52 - 1.04 mg/dL [facility] Sodium 140 137 - 145 mmol/L [facility] Potassium 4.6 3.5 - 5.1 mmol/L [facility] Chloride 103 98 - 107 mmol/L [facility] CO2 28 22 - 30 mmol/L [facility] Anion Gap 10 7 - 16 mmol/L [facility] Calcium 9.8 8.4 - 10.2 mg/dL [facility] Total Protein 7.3 6.3 - 8.2 g/dL [facility] Albumin 4.2 3.5 - 5.0 g/dL [facility] Globulin 3.1 2.0 - 3.5 g/dL [facility] A/G Ratio 1.3 1.1 - 2.2 ratio [facility] Aspartate Aminotransferase (AST) 36 14 - 36 u/l [facility] Alkaline Phosphatase 85 38 - 126 u/l [facility] Total Bilirubin 0.9 0.2 - 1.3 mg/dL [facility] Alanine Aminotransferase (ALT) 43 9 - 52 u/l [facility] eGFR >60 [facility] Comment: Interpretation Stage 1 ?? 90 [...] BLOOD ORDERABLES Edited Resu lt - Final [facility] [address] [place] [address] documented in this encounter Visit Diagnoses Diagnosis Unspecified essential hypertension- Primary Hyperchylomicronemia Alcoholic liver damage, unspecified Acute thyroiditis documented in this encounter Care Teams Carpentry Specialist Relationship Specialty Start Date End Date Bao Gann DO [address] [facility] [address] [place] [address] PCP - General Internal Medicine 10/09/18 documented as of this encounter
--- OUTSIDE RECORDS SUMMARY | 2024-10-07 14:36 | XMS_ITS | Encounter Summary ---
Author Organization [facility] and [facility] Address [address] [place] [address] Care Team Providers Care Grain Scooper Name Role Phone DerejedilcialisaBao Primary Care Provider Encounter Details Date Type Department Care Team (Latest Contact Info) Description 02/22/2015 Transcribed Orders [facility] [address] [facility] 2[address] Floor [place], [place] [id number] Harman Burrows MD Unspecified essential hypertension (Primary [...] Hemoglobin A1c 7.0(H) 4.4 - 6.4 % [facility] Comment: Therapeutic Goal: ?Less Than 7% Re-Evaluation Therapy: ?? Greater Than 8% Blood specimen (specimen) 02/22/2015 10:44 AM EDT Harman Burrows MD LAB BLOOD ORDERABLES Final Resul t Performing Organization Address City/[facility]/ZIP Co de Phone Number [facility] [address] [place] [address] * Lipid panel (02/22/2015 10:44 AM EDT) Cholesterol 137 0 - 199 mg/dL [facility] Triglycerides 105 0 - 150 mg/dL [facility] HDL 45 >=41 mg/dL [facility] LDL Cholesterol 71 0 - 99 BRID [facility] CHD Risk 3 <=4 [facility] Blood specimen (specimen) 02/22/2015 10:44 AM EDT Harman Burrows MD LAB BLOOD ORDERABLES Edited Resu lt - Final Performing Organization Address [facility] Co de Phone Number [facility] [address] [place] [address] * (ABNORMAL) Comprehensive metabolic panel (02/22/2015 10:44 AM EDT) Glucose 152(H) 70 - 100 mg/dL [facility] BUN 12 7 - 17 mg/dL [facility] Creatinine 0.69 0.52 - 1.04 mg/dL [facility] Sodium 140 137 - 145 mmol/L [facility] Potassium 4.0 3.5 - 5.1 mmol/L [facility] Chloride 104 98 - 107 mmol/L [facility] CO2 28 22 - 30 mmol/L [facility] Anion Gap 7 7 - 16 mmol/L [facility] Calcium 9.2 8.4 - 10.2 mg/dL [facility] Total Protein 6.7 6.3 - 8.2 g/dL [facility] Albumin 3.7 3.5 - 5.0 g/dL [facility] Globulin 3.0 2.0 - 3.5 g/dL [facility] A/G Ratio 1.2 1.1 - 2.2 [facility] Aspartate Aminotransferase (AST) 28 14 - 36 u/l [facility] Alkaline Phosphatase 74 38 - 126 u/l [facility] Total Bilirubin 0.9 0.2 - 1.3 mg/dL [facility] Alanine Aminotransferase (ALT) 31 9 - 52 u/l [facility] [...] lt - Final [facility] [address] [place], [place] [address] documented in this encounter Visit Diagnoses Diagnosis Unspecified essential hypertension- Primary Hyperchylomicronemia Avulsion of eye Type I (juvenile type) diabetes mellitus without mention of complication, not stated as uncontrolled documented in this encounter Care Teams Grain Scooper Relationship Specialty Start Date End Date Bao Gann DO [address] [facility] [address] [place] [phone] PCP - General Internal Medicine 10/09/18 documented as of this encounter
--- OUTSIDE RECORDS SUMMARY | 2024-10-07 14:36 | XMS_ITS | Encounter Summary ---
Author Organization [facility] Address [address] [place] [address] Care Team Providers Care Lastex Thread Winder Name Role Phone Bao Gann DO Primary Care Provider Encounter Details Date Type Department Care Team (Late st Contact Info) Description 07/16/2014 Abstract [facility] [address] [place], [place] [id number] Provider, historical . Social History Tobacco Use [...] on filedocumented in this encounter Care Teams Lastex Thread Winder Relationship Specialty Start Date End Date Bao Gann DO [address] [facility] [address] [place] [phone] PCP - General Internal Medicine 10/09/18 documented as of this encounter
--- OUTSIDE RECORDS SUMMARY | 2024-10-07 14:36 | XMS_ITS | Encounter Summary ---
Author Organization [facility] Address [address] [place] [address] Care Team Providers Care Safety Professional Name Role Phone Bao Gann DO Primary Care Provider Encounter Details Date Type Department Care Team (Late st Contact Info) Description 12/23/2014 Scanned Document [facility] [address], [address] [place], [place] [address] Jorje Campbell MD [address] [place] [address] Social History Tobacco Use Types [...] on filedocumented in this encounter Care Teams Safety Professional Relationship Specialty Start Date End Date Bao Gann DO [address] [facility] [address] [place] [address] PCP - General Internal Medicine 10/09/18 documented as of this encounter
--- OUTSIDE RECORDS SUMMARY | 2024-10-07 14:36 | XMS_ITS | Encounter Summary ---
Author Organization [facility] [employer] and [facility] Address [address] [place] [address] Care Team Providers Care Surgical Resident Name Role Phone Bao Gann Primary Care Provider [phone] Encounter Details Date Type Department Care Team (Latest Contact Info) Description 10/12/2014 Transcribed Orders [facility] Draw Station [address] [facility] 2nd Floor [place], [place] [phone] Harman Burrows MD Unspecified essential hypertension (Primary [...] Hemoglobin A1c 6.7(H) 4.4 - 6.4 % [facility] Comment: Therapeutic Goal: ?Less Than 7% Re-Evaluation Therapy: ?? Greater Than 8% Blood specimen (specimen) 10/12/2014 9:38 AM EDT Harman Burrows MD LAB BLOOD ORDERABLES Final Resul t Performing Organization Address City/[facility]/ZIP Co de Phone Number [facility] [address] [place] [address] * Lipid panel (10/12/2014 9:38 AM EDT) Cholesterol 143 0 - 199 mg/dL [facility] Triglycerides 86 0 - 150 mg/dL [facility] HDL 60 >=41 mg/dL [facility] LDL Cholesterol 66 0 - 99 BRID [facility] CHD Risk 2 <=4 [facility] Blood specimen (specimen) 10/12/2014 9:38 AM EDT Harman Burrows MD LAB BLOOD ORDERABLES Edited Resu lt - Final Performing Organization Address [facility] Co de Phone Number [facility] [address] [place] [address] * (ABNORMAL) Comprehensive metabolic panel (10/12/2014 9:38 AM EDT) Glucose 122(H) 70 - 100 mg/dL [facility] BUN 14 7 - 17 mg/dL [facility] Creatinine 0.80 0.52 - 1.04 mg/dL [facility] Sodium 140 137 - 145 mmol/L [facility] Potassium 4.2 3.5 - 5.1 mmol/L [facility] Chloride 102 98 - 107 mmol/L [facility] CO2 27 22 - 30 mmol/L [facility] Anion Gap 10 7 - 16 mmol/L [facility] Calcium 9.2 8.4 - 10.2 mg/dL [facility] Total Protein 6.9 6.3 - 8.2 g/dL [facility] Albumin 3.9 3.5 - 5.0 g/dL [facility] Globulin 3.0 2.0 - 3.5 g/dL [facility] A/G Ratio 1.3 1.1 - 2.2 ratio [facility] Aspartate Aminotransferase (AST) 31 14 - 36 u/l [facility] Alkaline Phosphatase 86 38 - 126 u/l [facility] Total Bilirubin 1.0 0.2 - 1.3 mg/dL [facility] Alanine Aminotransferase (ALT) 37 9 - 52 u/l [facility] eGFR >60 [facility] Comment: Interpretation Stage 1 ?? [...] BLOOD ORDERABLES Edited Resu lt - Final [facility] [address] [place] [address] * (ABNORMAL) Urinalysis (BH GH L Q) (10/12/2014 9:30 AM EDT) Color, UA YELLOW YELLOW [facility] Specific Glen, UA 1.002(L) 1.003 - 1.033 [facility] Leukocyte Esterase, UA NEGATIVE NEGATIVE [facility] Nitrite, UA NEGATIVE NEGATIVE [facility] pH, UA 6.5 5.0 - 8.0 [facility] Protein, UA NEGATIVE NEGATIVE mg/dL [facility] Glucose, UA NEGATIVE NEGATIVE mg/dL [facility] Ketones, UA NEGATIVE NEGATIVE mg/dL [facility] Urobilinogen, UA 0.2 0.2 - 2.0 EU/dL [facility] Bilirubin, UA NEGATIVE [facility] Comment:Positive urine bilir ubin results unable to be confirmed by Ict[employer] due to machine stacker backorder. Blood, UA NEGATIVE NEGATIVE [facility] Urine specimen (specimen) 10/12/2014 9:30 AM EDT Harman Burrows MD URINE ORDERABLES Final Result Performing Organization Address [facility]/ZIP Co de Phone Number [facility] [address] [place] [address] * Microalbumin, random urine (w/creatinine) (BH Q) (10/12/2014 9:30 AM EDT) Microalbumin, Urine <0.00 mg/dL [facility] Creatinine, Urine, Random 12.3 mg/dL [facility] Microalb Creat Ratio <0.0 0.0 - 29.9 mcg/mg [facility] Comment: The ADA recommends the [...] Edited Result - Final Performing Organization Address City/[facility]/ZIP Co de Phone Number [facility] [address] [place] [address] documented in this encounter Visit Diagnoses Diagnosis 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 [address] [place] [address] PCP - General Internal Medicine 10/09/18 documented as of this encounter
--- OUTSIDE RECORDS SUMMARY | 2024-10-07 14:36 | XMS_ITS | Encounter Summary ---
Author Organization [facility] Address [address] [place] [address] Care Team Providers Care Budget Clerk Name Role Phone Bao Gann DO Primary Care Provider Encounter Details Date Type Department Care Team (Late st Contact Info) Description 11/08/2014 Scanned Document NE PM [facility] Services [address] [facility] [address] [place] [address] External, Provider Social History Tobacco Use Types [...] on filedocumented in this encounter Care Teams Budget Clerk Relationship Specialty Start Date End Date Bao Gann DO [address] [facility] [address] [place] [phone] PCP - General Internal Medicine 10/09/18 documented as of this encounter
--- OUTSIDE RECORDS SUMMARY | 2024-10-07 14:36 | XMS_ITS | Encounter Summary ---
Author Organization [facility] Address [address] [place] [address] Care Team Providers Care Cloth Printer Name Role Phone Bao Gann DO Primary Care Provider Encounter Details Date Type Department Care Team (Late st Contact Info) Description 10/08/2018 Scanned Document [facility] [address] [place], [place] [address] Jorje Campbell MD [address] [place] [address] Social History Tobacco Use Types [...] on filedocumented in this encounter Care Teams Cloth Printer Relationship Specialty Start Date End Date Bao Gann DO [address] [facility] [address] [place] [phone] PCP - General Internal Medicine 10/09/18 documented as of this encounter
--- OUTSIDE RECORDS SUMMARY | 2024-10-07 14:36 | XMS_ITS | Encounter Summary ---
Author Organization [facility] Address [address] [place] [address] Care Team Providers Care Shipping Packer Name Role Phone Bao Gann DO Primary Care Provider Encounter Details Date Type Department Care Team (Late st Contact Info) Description 11/10/2014 Scanned Document NE PM [facility] [address] [facility] [address] [place] [address] External, Provider Social History Tobacco Use Types [...] on filedocumented in this encounter Care Teams Shipping Packer Relationship Specialty Start Date End Date Bao Gann DO [address] [facility] [address] [place] [phone] PCP - General Internal Medicine 10/09/18 documented as of this encounter
--- OUTSIDE RECORDS SUMMARY | 2024-10-07 14:36 | XMS_ITS | Encounter Summary ---
Author Organization [facility] [employer] and [facility] Address [address] [place] [address] Care Team Providers Care Bowling Ball Patcher Name Role Phone Bao Gann Primary Care Provider [phone] Encounter Details Date Type Department Care Team (Latest Contact Info) Description 06/07/2015 Transcribed Orders [facility] Draw Station [address] [facility] 2nd Floor [place], [place] [phone] Harman Burrows MD Pure hypercholesterolemia (Primary Dx); [...] EST) TSH 1.610 0.465 - 4.680 mIU/L [facility] Blood specimen (specimen) 06/07/2015 12:05 PM EST Harman Burrows MD LAB BLOOD ORDERABLES Final Resul t Performing Organization Address [facility] Number [facility] [address] [place] [address] * T4, free (06/07/2015 12:05 PM EST) Free T4 1.14 0.70 - 2.19 ng/dL [facility] Blood specimen (specimen) 06/07/2015 12:05 PM EST Harman Burrows MD LAB BLOOD ORDERABLES Final Resul t Performing Organization Address [facility] [address] [place] [address] * Iron and TIBC (BH GH L YH) (06/07/2015 12:05 PM EST) Iron 81 37 - 170 mcg/dL [facility] TIBC 272 250 - 450 [facility] Iron Saturation 30 13 - 45 % [facility] Blood specimen (specimen) 06/07/2015 12:05 PM EST Result [facility] Harman Burrows MD LAB BLOOD ORDERABLES Edited Resu lt - Final Performing Organization Address [facility] [address] [place] [address] * (ABNORMAL) Hemoglobin A1c (06/07/2015 12:05 PM EST) Hemoglobin A1c 7.0(H) 4.4 - 6.4 % [facility] Comment: Therapeutic Goal: ?Less Than 7% Re-Evaluation Therapy: ?? Greater Than 8% Blood specimen (specimen) 06/07/2015 12:05 PM EST Harman Burrows MD LAB BLOOD ORDERABLES Final Resul t Performing Organization Address [facility] Number [facility] [address] [place] [address] * Lipid panel (06/07/2015 12:05 PM EST) Cholesterol 164 0 - 199 mg/dL [facility] Triglycerides 98 0 - 150 mg/dL [facility] HDL 48 >=41 mg/dL [facility] LDL Cholesterol 97 0 - 99 [facility] CHD Risk 3 <=4 [facility] Blood specimen (specimen) 06/07/2015 12:05 PM EST us Harman Burrows MD LAB BLOOD ORDERABLES Edited Resu lt - Final [facility] [address] [place] [address] * (ABNORMAL) Comprehensive metabolic panel (06/07/2015 12:05 PM EST) Glucose 131(H) 70 - 100 mg/dL [facility] BUN 14 7 - 17 mg/dL [facility] Creatinine 0.69 0.52 - 1.04 mg/dL [facility] Sodium 141 137 - 145 mmol/L [facility] Potassium 4.5 3.5 - 5.1 mmol/L [facility] Chloride 105 98 - 107 mmol/L [facility] CO2 25 22 - 30 mmol/L [facility] Anion Gap 12 7 - 16 mmol/L [facility] Calcium 9.7 8.4 - 10.2 mg/dL [facility] Total Protein 7.7 6.3 - 8.2 g/dL [facility] Albumin 4.0 3.5 - 5.0 g/dL [facility] Globulin 3.6(H) 2.0 - 3.5 g/dL [facility] A/G Ratio 1.1 1.1 - 2.2 ratio [facility] Aspartate Aminotransferase (AST) 40(H) 14 - 36 u/l [facility] Alkaline Phosphatase 95 38 - 126 u/l [facility] Total Bilirubin 1.3 0.2 - 1.3 mg/dL [facility] Alanine Aminotransferase (ALT) 39 9 - 52 u/l [facility] [...] - Final [facility] [address] [place] [address] documented in this encounter Visit Diagnoses Diagnosis [...] (pouch) documented in this encounter Care Teams Bowling Ball Patcher Relationship Specialty Start Date End Date Bao Gann DO [address] [facility] [address] [place] [phone] PCP - General Internal Medicine 10/09/18 documented as of this encounter
--- OUTSIDE RECORDS SUMMARY | 2024-10-07 14:36 | XMS_ITS | Encounter Summary ---
Author Organization [facility] Address [address] [place] [address] Care Team Providers Care Geospatial Applications Developer Name Role Phone SanjuanitaBao Primary Care Provider Encounter Details Date Type Department Care Team (Late st Contact Info) Description 11/13/2014 Scanned Document NE PM [facility] Cardiac Services [address] [place] [address] [address] [place] [address] External, Provider Social History Tobacco Use Types [...] External LAB BLOOD ORDERABLES Final Res ult [facility] [place], [place], [facility] * Cardiac Echo Result Scan (11/09/2014) us Provider External CV CARDIAC REPORT (CVR) Final Result Performing Organization Address [facility] Co de Phone Number [facility] * Cardiac EKG Result Scan (11/09/2014) us Provider External CV CARDIAC REPORT (CVR) Final Result Performing Organization Address [facility] Co de Phone Number [facility] * Xray Result Scan (11/08/2014) us Provider External IMG SCAN REPORTS Final Result Performing Organization Address [facility] de Phone Number [facility] documented in this encounter Visit Diagnoses Not on filedocumented in this encounter Care Teams Geospatial Applications Developer Relationship Specialty Start Date End Date Bao Gann DO [address] [place] [facility] [address] [place] [address] PCP - General Internal Medicine 10/09/18 documented as of this encounter
--- OUTSIDE RECORDS SUMMARY | 2024-10-07 14:36 | XMS_ITS | Encounter Summary ---
Author Organization [facility] and [facility] Address [address] [place] [address] Care Team Providers Care Looseleaf Binder Coverer Name Role Phone Bao Gann Primary Care Provider Encounter Details Date Type Department Care Team (Latest Contact Info) Description 04/06/2014 Transcribed Orders [facility] Draw Station [address] [facility] 2nd Floor [place], [place] [id number] Harman Burrows MD Unspecified essential hypertension (Primary [...] EDT) TSH 1.120 0.465 - 4.680 mIU/L [facility] Blood specimen (specimen) 04/06/2014 10:29 AM EDT us Harman Burrows MD LAB BLOOD ORDERABLES Final Resul t [facility] [address] [place] [address] * T4, free (04/06/2014 10:29 AM EDT) Free T4 1.08 0.70 - 2.19 ng/dL [facility] Blood specimen (specimen) 04/06/2014 10:29 AM EDT us Harman Burrows MD LAB BLOOD ORDERABLES Final Resul t Performing Organization Address [facility] Co de Phone Number [facility] [address] [place] [address] * (ABNORMAL) Hemoglobin A1c (04/06/2014 10:29 AM EDT) [facility] Hemoglobin A1c 7.0(H) 4.4 - 6.4 % [facility] Comment: Therapeutic Goal: ?Less Than 7% Re-Evaluation Therapy: ?? Greater Than 8% Blood specimen (specimen) 04/06/2014 10:29 AM EDT us Harman Burrows MD LAB BLOOD ORDERABLES Final Resul t Performing Organization Address [facility] de Phone Number [facility] [address] [place] [address] * Lipid panel (04/06/2014 10:29 AM EDT) [facility] Cholesterol 132 0 - 199 mg/dL [facility] Triglycerides 88 0 - 150 mg/dL [facility] HDL 46 >=41 mg/dL [facility] LDL Cholesterol 69 0 - 99 [facility] CHD Risk 3 <=4 [facility] Blood specimen (specimen) 04/06/2014 10:29 AM EDT us Harman Burrows MD LAB BLOOD ORDERABLES Edited Resu lt - Final Performing Organization Address [facility] Co de Phone Number [facility] [address] [place] [address] * (ABNORMAL) Comprehensive metabolic panel (04/06/2014 10:29 AM EDT) Glucose 109(H) 70 - 100 mg/dL [facility] BUN 13 7 - 17 mg/dL [facility] Creatinine 0.75 0.52 - 1.04 mg/dL [facility] Sodium 143 137 - 145 mmol/L [facility] Potassium 4.4 3.5 - 5.1 mmol/L [facility] Chloride 106 98 - 107 mmol/L [facility] CO2 26 22 - 30 mmol/L [facility] Anion Gap 10 7 - 16 mmol/L [facility] Calcium 9.2 8.4 - 10.2 mg/dL [facility] Total Protein 7.2 6.3 - 8.2 g/dL [facility] Albumin 4.0 3.5 - 5.0 g/dL [facility] Globulin 3.2 2.0 - 3.5 g/dL [facility] A/G Ratio 1.2 1.1 - 2.2 [facility] Aspartate Aminotransferase (AST) 28 14 - 36 u/l [facility] Alkaline Phosphatase 73 38 - 126 u/l [facility] Total Bilirubin 0.9 0.2 - 1.3 mg/dL [facility] Alanine Aminotransferase (ALT) 32 9 - 52 u/l [facility] eGFR >60 [facility] Comment: Interpretation Stage 1 ?? [...] BLOOD ORDERABLES Edited Resu lt - Final [facility] [address] [place] [address] documented in this encounter Visit Diagnoses Diagnosis Unspecified essential hypertension- Primary Hyperchylomicronemia Anemia, unspecified Acute thyroiditis Type II or unspecified type diabetes mellitus without mention of complication, not stated as uncontrolled documented in this encounter Care Teams Looseleaf Binder Coverer Relationship Specialty Start Date End Date Bao Gann DO [address] [facility] [address] [place] [address] PCP - General Internal Medicine 10/09/18 documented as of this encounter
--- OUTSIDE RECORDS SUMMARY | 2024-10-07 14:36 | XMS_ITS | Encounter Summary ---
Author Organization [facility] Address [address] [place] [address] Care Team Providers Care Home Service Director Name Role Phone Bao Gann DO Primary Care Provider [phone] Encounter Details Date Type Department Care Team (Late st Contact Info) Description 06/16/2015 Scanned Document [facility] [address] [place], [place] [address] Jorje Campbell MD [address] [place] [address] Social History Tobacco Use Types [...] on filedocumented in this encounter Care Teams Home Service Director Relationship Specialty Start Date End Date Bao Gann DO [address] [facility] [address] [place] [phone] PCP - General Internal Medicine 10/09/18 documented as of this encounter
--- OUTSIDE RECORDS SUMMARY | 2024-10-07 14:36 | XMS_ITS ---
Author Organization [facility] Address [address] [facility] [place] [address] Care Team Providers Care Ski Patrol Officer Name Role Phone Dayna Prieto MD Primary Care Provider UnavailMeron Mcdonald Unavailable [phone] Desmond Nava Unavailable [phone] Allergies Allergen (clinical drug ingredient) Drug/Non Drug [...] Oral for 90 Days Active Vitamin D3 9054860 UNIT/GM as directed 03/21/2024 Active Flecainide Acetate [...] Polyneuropathy due to type 2 diabetes mellitus (397540264) Type 2 diabetes mellitus with diabetic polyneuropathy (E11.42) Active confirmed Vital Signs Height 5 ft 6 in in 04/28/2024 Weight 262 lbs 04/28/2024 BMI 42.28 kg/m2 04/28/2024 Blood pressure systolic 118 mm Hg 04/28/20 24 Blood pressure diastolic 59 mm Hg 024 Procedures Procedure Date Ordered Date Performed Result Body Sit e 92886-UFUJ SKIN LESIONS, 2 TO 4 04/28/2024 N/A F2258-SZLETNAB DYSTROPHIC NAILS ANY # 04/28/2024 N/A Encounters Encounter Location Date Provider Diagnosis [facility] [place] [address] [place] [address] 04/28/2024 Desmond Nava Type 2 diabetes mellitus [...] Treatment Pending Test Test Name Order Date 79213-HHEF SKIN LESIONS, 2 TO 4 04/28/20 24 F8658-IBTFHWMH DYSTROPHIC NAILS ANY # Next Appt Details Follow Up: 1 Year, Reason: Provider Name:Meron fritz, 04/29/2025 11:00:00 AM, [address] [place], [address], Procedure Notes * Category Sub-Category Detail Notes Keratoma Treatment Parring or Cutting o f Benign Hyperkeratotic Lesion(s) (-56) 2-4 Lesions - The Benign hyperkeratotic lesions, as described above were pared, and/or cut utilizing a sterile 15 blade, tissue nippers, and/or dremel - 81992 Nail Reduction Nail Reduction (-27) Trimming o f dystrophic nails performed to reduce/remove overall nail length and girth, by manual and electrical means with use of a nail nipper and/or dremel, to more viable healthy nail plate or bed tissue, any number - G0127 Progress Notes * Agustina RUANODOB:1960 ( 63 yo F)Acc No.[id number]:04/28/2024 Progress Notes Patient:?AmandaBuhmi dayna Provider:?Desmond Nava DPM :1960???Age:63 Y???Sex:Female D ate:04/28/2024 Address:[address] [place] [address], 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 Neurological exam demonstrates, reduced vibration sensation, at Forefoot, B/L, 5.07 monofilament test performed at plantar aspects of 5 varied sites per foot shows sensation, reduced, B/L.?Vascular: ?DP PULSES(B):? 08/02, B/L.?PT PULSES(B):? 08/02, B/L.?CAPILLARY FILL TIME:?3 secs. per digit. B/L.?TROPHIC CONDITION-TEXTURE/ELASTICITY/TURGOR/HAIR GROWTH(B):?normal, B/L.?TEMPERTURE GRADIENT(C):?normal, B/L.?PIGMENTATION:? normal, B/L.?EDEMA(C):? 08/02, B/L, Foot, Ankle(s), Leg(s).?TELANGECTASIA:?absent, B/L.?Nails: ?NAILS are:?Elongated, overgrown, dystrophic, 1-5 B/L with mild ingrown lateral t5.?Dermatologic: ?SKIN FINDINGS:? Skin exam reveals Keratotic lesion(s) located at, Medial plantar, TA, T5, IPJ.?General Examination: ?GENERAL APPEARANCE:?pleasant, alert, well nourished, well developed, well hydrated, with good attention to hygene/body habitus, and in no acute distress.?ORIENTED:?person,place, and time.?FOOT EXAM:?Lower Extremity Neurological Exam performed:?Yes ?Visual exam of foot performed:?Yes ?Date?04/28/2024 ?Sensory testing performed:?sensations diminished ?Pedal pulse taking performed:?2+?Orthopedic: ?MUSCLE STRENGTH:?5/5 all groups in a symmetrical [...] 15 blade, tissue nippers, and/or dremel - 60859.?Nail Reduction:?Nail Reduction?(-27) Trimming of dystrophic nails performed to reduce/remove overall nail length and girth, by manual and electrical means with use of a nail nipper and/or dremel, to more viable healthy nail plate or bed tissue, any number - G0127.? * Procedure Codes:?13704 TRIM SKIN LESIONS, 2 TO 4, Modifiers: [...] DPM Date:? 024 Generated for Damion ortiz/Clarissa/Aniya on:?10/07/2024 02:36 PM EDT History and Physical Notes * HPI (History [...]
--- OUTSIDE RECORDS SUMMARY | 2024-10-07 14:36 | XMS_ITS | Encounter Summary ---
Author Organization [facility] Address [address] [place] [address] Care Team Providers Care Firewall Security Engineer Name Role Phone Bao Gann DO Primary Care Provider Encounter Details Date Type Department Care Team (Late st Contact Info) Description 03/10/2015 Scanned Document [facility] [address], [address] [place], [place] [address] Jorje Campbell MD [address] [place] [address] Social History Tobacco Use Types [...] on filedocumented in this encounter Care Teams Firewall Security Engineer Relationship Specialty Start Date End Date Bao Gann DO [address] [facility] [address] [place] [phone] PCP - General Internal Medicine 10/09/18 documented as of this encounter
--- OUTSIDE RECORDS SUMMARY | 2024-10-07 14:36 | XMS_ITS | Clinical Summary ---
Author Organization [address] [facility] Address [address] [place] [address] Phone Care Team Providers Care Pipe Assembly Worker Name Role Phone Magdiel Arceo MD Primary Care Provider [phone] Allergies Active Allergy Reactions Criticality Noted Date Comments Ciprofloxacin-Hydrocortisone 020 Reaction not listed Codeine 08/08/2019 Reaction not listed Dulaglutide 04/03/2023 Incontinence during sleep Sulfa (Sulfonamide Antibiotics) 06/14/2023 Other reaction(s): Not available Sulfadiazine 08/08/2019 Reaction not listed Medications aspirin 81 mg EC tablet Take 1 Tablet by mouth daily. 01/02/2024 Active atorvastatin (LIPITOR) 80 mg tablet Take 1 tablet by mouth daily. Active cholecalciferol (VITAMIN D-3) 25 mcg (1,000 unit) tablet Take 1 tablet by mouth daily. Active cyanocobalamin, vitamin B-12, (VITAMIN B-12 ORAL) Take by mouth. Active dapagliflozin propanediol (Farxiga) 5 mg tablet Take 1 Tablet by mouth daily. 05/31/2023 Active ferrous sulfate 325 mg (65 mg [...] by mouth 2 times daily as needed. 06/12/2023 Active omega-3 acid ethyl esters (LOVAZA) 1 gram capsule Take 1 capsule by mouth daily. Active mv-min/FA/vit K/lutein/zeaxant (PRESERVISION AREDS 2 PLUS MV ORAL) Take 1 Capsule by mouth daily. Active semaglutide (Ozempic) 0.25 mg or 0.5 mg(2 mg/1.5 mL) injection pen Inject 0.25 mg under the skin every 7 (seven) days. Active flecainide (TAMBOCOR) 100 mg tablet TAKE 1 TABLET BY MOUTH TWICE DAILY 60 tablet 6 07/04/2024 Active dilTIAZem XR (DILT-XR) 240 mg 24 hr capsule TAKE 1 CAPSULE BY MOUTH DAILY 90 capsule 1 08/22/2024 Active Active Problems Problem Noted Date Diagnosed Date Acute lateral meniscus tear of right knee 2024 Arthritis of right knee 08/08/2024 Spinal stenosis of lumbar re gion with neurogenic claudication 08/10/2022 Overview (06/02/2024): Last Assessment & Plan: Ms. Patel is here for her second postop visit [...] light touch intact, gait is steady. Ms. Patel has no restrictions on her activity and [...] apnea) 08/19/2019 Overview (06/02/2024): moderate AHI 16 [facility] Polysomnogram 6.25.2015; BMI 44; REM 13%; AHI 16, REM AHI 70, Central apneas 0; Obstructive apneas 46; Mixed apneas 0; hypopneas 38; average oxygen saturation 93% (lowest 72%); PLMI 2. Vitamin D deficiency 08/19/2019 Morbid obesity with BMI of 45.0-49.9, adult 07/31 Encounters Date Type Department Care Team Description 09/02/2024 1:10 PM EST Office Visit [facility] [address] [facility] [address] [place] [phone] Shira Frazier NP Hypertension, unspecified type (Primary Dx) 08/08/2024 11:30 AM EST Consult Orthopedic Surgery - [place] [address] [facility] [address] [place] [phone] Emil Lara MD Acute lateral meniscus tear of right knee, subsequent encounter (Primary Dx); Arthritis of right knee 07/[facility]20[facility] [address] [place] [phone] Janet Hanson [place] DME request (Order for revision of pressure change sent to [facility]. Fax confirmation received.//) 07/18/2024 11:30 AM EST [facility] [address] [place] [phone] Brittany Malik MD DAIVAN on CPAP (Primary Dx) from Last 3 Months Immunizations Name Administration Dates Next Due Influenza trivalent, 0.5mL, preservative free (Fluarix; FluLaval; Fluzone) ages 6mo and older (Afluria) 3 years and older 03/22/2021,03/18/2020,07/10/2019 FusionAds SARS-CoV-2 COVID-19, mRNA, LNP-S, preservative free 10/31/2021,05/24/2021,10/19/2020,09/28 Pneumococcal polysaccharide 23 valent (Pneumovax 23) 2yo and older 07/10/2019 Zoster recombinant (Shingrix ) 19yo and older 07/08/2020 Surgical History Surgery Date Site/Laterality Comments BACK SURGERY 1992 PROCEDURE: HISTORICAL BACK SURGERY; COMMENT: L4-5 decompression, Dr. Davis TONSILLECTOMY PROCEDURE: HISTORICAL TONSILLECTOMY CHOLECYSTECTOMY PROCEDURE: HISTORICAL CHOLECYSTECTOMY OTHER SURGICAL HISTORY PROCEDURE: [place] HYSTEROSCOPY ENDOMETRIAL ABLATION OTHER SURGICAL HISTORY PROCEDURE: [place] ANES CARDIAC ELECTROPHYSIOL STDY W/RF ABLATION OTHER SURGICAL HISTORY 09/14/2022 PROCEDURE: [place] GARNER FACETECTOMY & FORAMOTOMY 1 VRT SGM LUMBAR; COMMENT: L3-[address] P[address] COLONOSCOPY PROCEDURE: HISTORICAL COLONOSCOPY Medical History [...] (CMS/HCC) 08/19/2019 DX:Diabetes mellitus type 2, uncomplicated ([facility]) Macular degeneration 08/19/2019 DX:Macular degeneration Morbid obesity [...] EDT Office Visit Obstetrics & Gynecology - [address] [phone] Kellen Cardenas CNM [address] [place] [phone] 11/18/2024 10:00 AM EDT Hospital Encounter [facility] [place] [address] [place] [phone] Emil Lara MD [address] [address] 11/18/2024 10:00 AM EDT - 11/18/2024 11:[address] [facility] OR [address] [place] [phone] Emil Lara MD [address] [address] RIGHT TOTAL KNEE ARTHROSCOPY [18963 (CPT??) +1 more] 12/03/2024 9:00 AM EDT Office Visit Orthopedic Surgery [facility] [address] [phone] Emil Lara MD 175 [facility] [address] [place] [address] 03/03/2025 12:40 PM EDT Office Visit [facility] [address] [facility] [address] [place] [phone] Shira Frazier NP 300 [facility] [address] [place] [phone] 07/28/2025 11:30 AM EST Office Visit Pulmonolgy - [place] 175 [facility] [address] [place] [phone] Brittany Malik MD 175 [facility] [address] [place] [address] Scheduled Procedures Name Priority Associated Diagnoses Date/Ti [...] this topic Medical Devices Implanted Type Area Interior Block Wirer Device Identifier Shelf Expiration Date Model / Serial / Lot Device Clsur Watchman Flx Fabiola 24mm Bsci-Prnt [id number] - [id number] Implanted:Qty: 1 on 10/11/2023 by Husam Solis MD Right: [employer] 04/23/2026 [id number] / [id number] / Procedures Procedure Name Priority Date/Time Associated Diagnosis Comments ECG 12-LEAD Routine 09/02/2024 1:44 PM EST Hypertension, unspecified type XR KNEE 3 VIEWS RIGHT Routine 08/08/2024 11:33 AM EST Pain [facility] SCREENING DIGITAL Routine 01/22/2024 10:47 AM EDT [...] GEMUSE QTc 486 ms GEMUSE P Wave [place] 72 degrees GEMUSE R [place] 22 degrees GEMUSE T [place] 50 degrees GEMUSE ECG Interpretation Sinus rhythm [...] ?? Lateral view of the right knee. ??[place] view of the right knee. ??It is of early tricompartmental arthrosis. ??No significant deformity. ??Overall good preservation of articular cartilage. ??Chondrocalcinosis us Emil Lara MD IMG XR PROCEDURES Final Result * [facility] SCREENING DIGITAL (01/22/2024 10:47 AM EDT) Anatomical Region Laterality Modality Mammography 01/22/2024 9:53 AM EDT Narrative 01/22/2024 10:47 AM EDT [facility] Diagnostic Imaging Department [address] [place], [place] [phone] Patient: ??BINDU,AGUSTINA M ?/Age/Sex: 1960 - 63 - F Unit#: ??[id number] ? Location/Status: ??SPDIMAM/REG CLI ? Mnemonic/Ordering Site: ??DIGSC/SPMAM Ordering Physician: ??MAGDIEL ARCEO MD [facility] Screening Digital - 01/22/24 - 1018 Report Status:Signed HISTORY: The patient is a 63-year-old female presenting for routine screening mammography. FINDINGS: ??Full-field digital mammography of the breasts bilaterally consisting of tomosynthesis in MLO and CC projection is performed in the GE Senographe 2000-D unit. ??Computer aided detection utilizing the iCAD system was utilized. The breasts are seen to be largely fatty-replaced (the breasts are almost entirely fatty, category A density as calculated with [employer] software), without significant change as it to [...] ??Benign Finding PQRI CPT II 3342F Code 23139, 34756 PQRI 225 CPT II 7025F Dictating Physician: ??ZOË CAIN MD Electronically Signed by: ??ZOË CAIN MD Dic Date/Time: ??01/22/24 1042 Sign date/Time: ??01/22/24 1047 Procedure Note Zoë Cain MD - 05/14/2024 [facility] Diagnostic Imaging Department [address] [place] [address] Patient: BINDUAGUSTINA Day Steven AtkinsB./Age/Sex: 1960 - 63 - F Unit#: [id number] Location/Status: [facility] CLI Mnemonic/Ordering Site: [facility] Ordering Physician: MAGDIEL ARCEO MD [facility] Screening Digital - 01/22/24 - 1018 Report Status:Signed HISTORY: The patient is a 63-year-old female presenting for routinescreening mammography. FINDINGS: Full-field digital mammography of the breasts bilaterallyconsisting of tomosynthesis in MLO and CC projection is performed in the [employer] 2000-D unit. Computer aided detection utilizing the [...] Benign Finding PQRI CPT II 3342F Code 97484, 52518 PQRI 225 CPT II 7025F Dictating Physician: ZOË CAIN MD Electronically Signed by: ZOË CAIN MD Dic Date/Time: 01/22/24 1042 Sign date/Time: 01/22/24 1047 Magdiel Arceo MD IMG BI PROCEDURES Final Result * Annual BMP Blood Test (11/26/2023) Pathologist [facility] Annual BMP Blood Test Abstracted [facility] Provider HEALTH MAINTENANCE Final Result * Colonoscopy (05/23/2023) [facility] Colonoscopy No interpretation , Abstracted Anatomical Region Laterality Modality Other [facility] Provider HEALTH MAINTENANCE Final Result * Cervical Cancer Screening: HPV (06/09/2020) 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
--- OUTSIDE RECORDS SUMMARY | 2024-10-07 14:36 | XMS_ITS | Clinical Summary ---
Author Organization [facility] Address [address] [place] [address] Care Team Providers Care Staff Nuclear Medicine Technologist Name Role Phone Dayna Prieto MD Primary Care Provider [phone] Allergies Active Allergy Reactions Criticality Noted Date [...] times a day with meals. 0 Active [place]-3 Fatty Acids (FISH OIL PO) Take by [...] this topic Medical Devices Implanted Type Area Microbiology Supervisor Device Identifier Shelf Expiration Date Model / Serial / Lot Device Clsur Watchman Flx Fabiola 24mm Bsci-Prnt [id number] - [id number] Implanted:Qty: 1 on 10/11/2023 by Husam Solis MD at [facility] Right: [employer] 04/23/2026 [id number] / [id number] / Advance Directives For more information, please contact: [phone] Latest Code Status on File Code Status Date Activated Date Inactivated Comments Full Code 10/11/2023 12:31 PM 10/12/2023 8:47 PM This code status was ascertained in the following way: discussion with patient . Care Teams Staff Nuclear Medicine Technologist Relationship Specialty Start Date End Date Dayna Prieto MD [address] [place] [address] PCP - General Hat Forming Machine Operator 10/05/23
--- OUTSIDE RECORDS SUMMARY | 2024-10-07 14:36 | XMS_ITS | Patient Health Record ---
[facility] Address [address] [facility] [place] [address] Care Team Providers Care Metal Box Maker Name Role Phone Dayna Prieto MD Primary Care Provider Unavaila Meron Vaz Unavailable [phone] Desmond Nava Unavailable [phone] Allergies Allergen (clinical drug ingredient) Drug/Non Drug [...] 240 MG TAKE 1 CAPSULE BY [facility] DAILY Oral for 90 Days Active Pantoprazole Sodium 40 MG TAKE 1 TABLET BY MOUTH DAILY Oral for 90 Days Active Vitamin D3 0267691 UNIT/GM as directed 03/21/2024 Active Flecainide Acetate [...] Polyneuropathy due to type 2 diabetes mellitus (464370614) Type 2 diabetes mellitus with diabetic polyneuropathy (E11.42) Active confirmed Vital Signs Blood pressure diastolic 59 mm Hg 04/28/2024 Height 5 ft 6 in in 04/28/2024 Blood pressure systolic 118 mm Hg 04/28/2024 Weight 262 lbs 04/28/2024 BMI 42.28 kg/m2 04/28/2024 Procedures Procedure Date Ordered Date Performed Result Body Sit e 05560-[id number] SKIN LESIONS, 2 TO 4 04/28/2024 N/A [id number] DYSTROPHIC NAILS ANY # 04/28/2024 N/A Encounters Encounter Location Date Provider Diagnosis [facility] [address] 04/28/2024 Desmond Nava Type 2 diabetes mellitus with diabetic polyneuropathy E11.42 ; Ingrowing nail L60.0 and Skin disease L98.[facility] [address] 03/21/2024 Desmond Nava Assessments Encounter Date Diagnosis (ICD Code) Assessment Notes Treatment Notes Treatment Clinical Notes Section Notes 04/28/2024 Type 2 diabetes mellitus with diabetic polyneuropathy (ICD-10 - E11.42) 04/28/2024 Ingrowing nail (ICD-10 - L60.0) 04/28/2024 Skin disease (ICD-10 - L98.9) Plan Of Treatment Pending Test Test Name Order Date [id number] SKIN LESIONS, 2 TO 4 04/28/20 24 [id number] DYSTROPHIC NAILS ANY # Next Appt Details Provider Name:Meron fritz, 04/29/2025 11:00:00 AM, [address] [place], [address], Insurance Providers Payer Name Payer Address Payer Phone Subscriber Number Group Number Insured Name Patient Relationship to Insured Coverage Start Date Coverage End Date Medicare National Govt Svcs [employer] [address] [place] [address] [id number] Agustina Patel Self - patient is the insured Medical (General) History Medical History History ICD Code Anxiety Arthritis Back,Hip,and Knee pain covid-19 Diabetic Gall bladder problems Headaches/Migraines Hypertension Macular degeneration Reflux ( GERD) sinusitis Measles Mumps Chicken pox A fib Tachycardia Surgical History Surgery Date(Month/Year) back surgery Gall bladder removal spinal stenosis surgery watchmen Hospitalization History Reason Date(Month/Year) [facility] 12/29/2023
--- OUTSIDE RECORDS SUMMARY | 2024-10-07 14:36 | XMS_ITS | Encounter Summary ---
Author Organization [facility] Address [address] [place] [address] Phone Care Team Providers Care Lining Baster Name Role Phone Bao Gann DO Primary Care Provider Encounter Details Date Type Department Care Team (Late st Contact Info) Description 04/24/2014 Scanned Document [facility] [place] [address] [place] [address] External, Provider Social History Tobacco Use Types [...] Procedure Name Priority Date/Time Associated Diagnosis Comments CARDIAC ECHO RESULT SCAN Routine 04/14/2014 11:18 AM EDT documented in this encounter Visit Diagnoses Not on filedocumented in this encounter Care Teams Lining Baster Relationship Specialty Start Date End Date Bao Gann DO [facility] [facility] [address] [place] [address] PCP - General Internal Medicine 10/09/18 documented as of this encounter
--- OUTSIDE RECORDS SUMMARY | 2024-10-07 14:36 | XMS_ITS | Encounter Summary ---
Author Organization [facility] Address [address] [place] [address] Care Team Providers Care Harbor Police Lieutenant Name Role Phone DerejeshandraartisBao Primary Care Provider Encounter Details Date Type Department Care Team (Late st Contact Info) Description 05/19/2016 Scanned Document [facility] Gastroenterology [facility] [address] [facility] [address] [place] [address] Provider, Historical . Social History Tobacco Use [...] on filedocumented in this encounter Care Teams Harbor Police Lieutenant Relationship Specialty Start Date End Date Bao Gann DO [address] [facility] [address] [place] [phone] PCP - General Internal Medicine 10/09/18 documented as of this encounter
--- OUTSIDE RECORDS SUMMARY | 2024-10-07 14:36 | XMS_ITS | Clinical Summary ---
Author Organization [facility] Address [address] [place] [address] Care Team Providers Care Information Receptionist Name Role Phone Unavailable Primary Care Provider [...]
--- OUTSIDE RECORDS SUMMARY | 2024-10-07 14:36 | XMS_ITS | Encounter Summary ---
Author Organization [facility] Address [address] [place] [address] Care Team Providers Care Longitudinal Float Operator Name Role Phone Bao Gann DO Primary Care Provider [phone] Encounter Details Date Type Department Care Team (Late st Contact Info) Description 11/09/2014 Scanned Document [facility] [address] [facility] [address] [place] [address] Minesh Diaz MD [address] [facility] [address] [place] [address] Social History Tobacco Use Types [...] on filedocumented in this encounter Care Teams Longitudinal Float Operator Relationship Specialty Start Date End Date Bao Gann DO [address] [facility] [address] [place] [address] PCP - General Internal Medicine 10/09/18 documented as of this encounter
--- OUTSIDE RECORDS SUMMARY | 2024-10-07 14:36 | XMS_ITS ---
Author Organization [facility] Address [address] [place] [address] Care Team Providers Care Physical Optics Teacher Name Role Phone Dayna Prieto MD Primary Care Provider Meron Peterson Unavailable [phone] Desmond Nava [phone] REASON FOR VISIT UX INFORMATION ARCHITECT PPWK Entered Encounters Encounter Location Date Provider Diagnosis [facility] [address] [place] [address] 03/21/2024 Desmond Nava Plan Of Treatment Next Appt Details Provider Name:Meron fritz, 04/29/2025 11:00:00 AM, [address] [place], [address], Progress Notes * Agustina RUANODOB:1960 ( 63 yo F)Acc No.[id number]:03/21/2024 Patient:?Agustina Ruano :1960???Age:63 Y???Sex:Female Address:[address] [place] [address], [address], [place], [address] * true * Date:? Generated for Printi ng/Faxing/eTransmitting on:?10/07/2024 02:36 PM EDT
--- OUTSIDE RECORDS SUMMARY | 2024-10-07 14:36 | XMS_ITS | Encounter Summary ---
Author Organization [facility] Address [address] [place] [address] Care Team Providers Care Candy Counter Clerk Name Role Phone Bao Gann DO Primary Care Provider Encounter Details Date Type Department Care Team (Late st Contact Info) Description 05/08/2016 Scanned Document [facility] [address] [place], [place] [address] Jorje Campbell MD [address] [place] [address] Social History Tobacco Use Types [...] on filedocumented in this encounter Care Teams Candy Counter Clerk Relationship Specialty Start Date End Date Bao Gann DO [address] [facility] [address] [place] [address] PCP - General Internal Medicine 10/09/18 documented as of this encounter
--- OUTSIDE RECORDS SUMMARY | 2024-10-07 14:36 | XMS_ITS | Encounter Summary ---
Author Organization [facility] [employer] and [facility] Address [address] [place] [address] Care Team Providers Care Crystal Inspector Name Role Phone DerejeshandraartisBao Primary Care Provider Encounter Details Date Type Department Care Team (Latest Contact Info) Description 01/14/2016 Transcribed Orders [facility] [facility] [address] [place], [place] [id number] Harman Burrows MD Hypotension, unspecified (Primary Dx); Aortic valve disorders; Essential hypertension, malignant; Pure hypercholesterolemia ; Mixed hyperlipidemia; Other and unspecified hyperlipidemia; Type II or unspecified type diabetes mellitus [...] this encounter Results * (ABNORMAL) Hemoglobin A1c (01/14/2016 10:57 AM EDT) Hemoglobin A1c 7.1(H) 4.4 - 6.4 % [facility] Comment: Therapeutic Goal: ?Less Than 7% Re-Evaluation Therapy: ?? Greater Than 8% Blood specimen (specimen) 01/14/2016 10:57 AM EDT Harman Burrows MD LAB BLOOD ORDERABLES Final Resul t Performing Organization Address [facility]/ZIP Co de Phone Number [facility] [address] [place] [address] * Lipid panel (01/14/2016 10:57 AM EDT) Cholesterol 147 0 - 199 mg/dL [facility] Triglycerides 75 0 - 150 mg/dL [facility] HDL 51 >=41 mg/dL [facility] LDL Cholesterol 81 0 - 99 [facility] CHD Risk 3 <=4 [facility] Blood specimen (specimen) 01/14/2016 10:57 AM EDT Harman Burrows MD LAB BLOOD ORDERABLES Edited Resu lt - Final Performing Organization Address [facility] Co de Phone Number [facility] [address] [place] [address] * (ABNORMAL) Comprehensive metabolic panel (01/14/2016 10:57 AM EDT) Glucose 137(H) 70 - 100 mg/dL [facility] BUN 19(H) 7 - 17 mg/dL [facility] Creatinine 0.75 0.52 - 1.04 mg/dL [facility] Sodium 143 137 - 145 mmol/L [facility] Potassium 4.3 3.5 - 5.1 mmol/L [facility] Chloride 102 98 - 107 mmol/L [facility] CO2 28 22 - 30 mmol/L [facility] Anion Gap 14 7 - 16 mmol/L [facility] Calcium 8.8 8.4 - 10.2 mg/dL [facility] Total Protein 7.3 6.3 - 8.2 g/dL [facility] Albumin 3.7 3.5 - 5.0 g/dL [facility] Globulin 3.6(H) 2.0 - 3.5 g/dL [facility] A/G Ratio 1.0(L) 1.1 - 2.2 [facility] Aspartate Aminotransferase (AST) 55(H) 14 - 36 u/l [facility] Alkaline Phosphatase 106 38 - 126 u/l [facility] Total Bilirubin 1.3 0.2 - 1.3 mg/dL [facility] Alanine Aminotransferase (ALT) 48 9 - 52 u/l [facility] eGFR >60 [facility] Comment: Interpretation Stage 1 ?? [...] entered in Patient Demographics. Blood specimen (specimen) 01/14/2016 10:57 AM EDT us Harman Burrows MD LAB BLOOD ORDERABLES Edited Resu lt - Final [facility] [address] [place] [address] documented in this encounter Visit Diagnoses Diagnosis Hypotension, unspecified- Primary Aortic valve disorders Essential hypertension, malignant Pure hypercholesterolemia Mixed hyperlipidemia Other and unspecified hyperlipidemia Type II or unspecified type diabetes mellitus without mention of complication, not stated as uncontrolled documented in this encounter Care Teams Crystal Inspector Relationship Specialty Start Date End Date Bao Gann DO [address] [facility] [address] [place] [phone] PCP - General Internal Medicine 10/09/18 documented as of this encounter
--- OUTSIDE RECORDS SUMMARY | 2024-10-07 14:36 | XMS_ITS | Encounter Summary ---
Author Organization [facility] [employer] and [facility] Address [address] [place] [address] Care Team Providers Care Plywood Matcher Name Role Phone DerejedilcialisaBao Primary Care Provider Encounter Details Date Type Department Care Team (Latest Contact Info) Description 10/08/2015 Transcribed Orders [facility] [address] [facility] [address] [place], [place] [phone] Harman Burrows MD Essential hypertension, malignant (Primary [...] Hemoglobin A1c 7.3(H) 4.4 - 6.4 % [facility] Comment: Therapeutic Goal: ?Less Than 7% Re-Evaluation Therapy: ?? Greater Than 8% Blood specimen (specimen) 10/08/2015 10:30 AM EST Harman Burrows MD LAB BLOOD ORDERABLES Final Resul t Performing Organization Address [facility]/ZIP Co de Phone Number [facility] [address] [place] [address] * Lipid panel (10/08/2015 10:30 AM EST) Cholesterol 166 0 - 199 mg/dL [facility] Triglycerides 88 0 - 150 mg/dL [facility] HDL 59 >=41 mg/dL [facility] LDL Cholesterol 90 0 - 99 [facility] CHD Risk 3 <=4 [facility] Blood specimen (specimen) 10/08/2015 10:30 AM EST Harman Burrows MD LAB BLOOD ORDERABLES Edited Resu lt - Final Performing Organization Address [facility] Co de Phone Number [facility] [address] [place] [address] * (ABNORMAL) Comprehensive metabolic panel (10/08/2015 10:30 AM EST) Glucose 131(H) 70 - 100 mg/dL [facility] BUN 16 7 - 17 mg/dL [facility] Creatinine 0.70 0.52 - 1.04 mg/dL [facility] Sodium 141 137 - 145 mmol/L [facility] Potassium 4.2 3.5 - 5.1 mmol/L [facility] Chloride 102 98 - 107 mmol/L [facility] CO2 26 22 - 30 mmol/L [facility] Anion Gap 13 7 - 16 mmol/L [facility] Calcium 9.2 8.4 - 10.2 mg/dL [facility] Total Protein 7.2 6.3 - 8.2 g/dL [facility] Albumin 4.0 3.5 - 5.0 g/dL [facility] Globulin 3.1 2.0 - 3.5 g/dL [facility] A/G Ratio 1.3 1.1 - 2.2 ratio [facility] Aspartate Aminotransferase (AST) 43(H) 14 - 36 u/l [facility] Alkaline Phosphatase 91 38 - 126 u/l [facility] Total Bilirubin 1.1 0.2 - 1.3 mg/dL [facility] Alanine Aminotransferase (ALT) 29 9 - 52 u/l [facility] eGFR >60 [facility] Comment: Interpretation Stage 1 ?? [...] BLOOD ORDERABLES Edited Resu lt - Final [facility] [address] [place] [address] documented in this encounter Visit Diagnoses Diagnosis Essential hypertension, malignant- Primary Hypotension, unspecified Pure hypercholesterolemia Mixed hyperlipidemia Type I (juvenile type) diabetes mellitus without mention of complication, not stated as uncontrolled documented in this encounter Care Teams Plywood Matcher Relationship Specialty Start Date End Date Bao Gann DO [address] [place] [facility] [address] [place] [address] PCP - General Internal Medicine 10/09/18 documented as of this encounter
--- OUTSIDE RECORDS SUMMARY | 2024-10-07 14:36 | XMS_ITS | Encounter Summary ---
Author Organization [facility] Address [address] [place] [address] Care Team Providers Care Operations Systems Specialist Name Role Phone Bao Gann DO Primary Care Provider Encounter Details Date Type Department Care Team (Late st Contact Info) Description 08/05/2015 Scanned Document [facility] [address] [place], [place] [address] Jorje Campbell MD [address] [place] [address] Social History Tobacco Use Types [...] on filedocumented in this encounter Care Teams Operations Systems Specialist Relationship Specialty Start Date End Date Bao Gann DO [address] [facility] [address] [place] [address] PCP - General Internal Medicine 10/09/18 documented as of this encounter
--- OUTSIDE RECORDS SUMMARY | 2024-10-07 14:36 | XMS_ITS | Encounter Summary ---
Author Organization [facility] Address [address] [place] [address] Care Team Providers Care Clinic Business Manager Name Role Phone Bao Gann DO Primary Care Provider Encounter Details Date Type Department Care Team (Late st Contact Info) Description 11/09/2014 Scanned Document [facility] [address] [facility] [address] [place] [address] External, Provider Social History Tobacco Use Types [...] on filedocumented in this encounter Care Teams Clinic Business Manager Relationship Specialty Start Date End Date Bao Gann DO [address] [facility] [address] [place] [address] PCP - General Internal Medicine 10/09/18 documented as of this encounter
--- OUTSIDE RECORDS SUMMARY | 2024-10-07 14:36 | XMS_ITS | Encounter Summary ---
Author Organization [facility] Address [address] [place] [address] Care Team Providers Care Director Of Hotel Name Role Phone Bao Gann DO Primary Care Provider Encounter Details Date Type Department Care Team (Late st Contact Info) Description 04/03/2014 Scanned Document [facility] Gastroenterology [facility] [address] [facility] [address] [place] [address] James Christina MD [address] [facility] [address] [place] [address] Social History Tobacco Use Types [...] on filedocumented in this encounter Care Teams Director Of Hotel Relationship Specialty Start Date End Date Bao Gann DO [address] [facility] [address] [place] [address] PCP - General Internal Medicine 10/09/18 documented as of this encounter
--- OUTSIDE RECORDS SUMMARY | 2024-10-07 14:37 | XMS_ITS | Clinical Summary ---
Author Organization [address] [facility] Address [address] [place] [address] Care Team Providers Care Master Police Detective Name Role Phone Bao Gann DO Primary [...] 02/25/2014 Influenza vaccine 02/28/2024 Covid-19 vaccine series (1 - 2023- season) 2024 Pneumococcal Vaccine (50+ years) (1 of 1 - PCV) 2027 RSV Discussion (1 - 1-dose 75+ series) [...] (LDH) Mixed hyperlipidemia Other and unspecified hyperlipidemia COLONOSCOPY Routine 02/25/2014 from Last 3 Months or Most Recently Relevant to Health Maintenance Results * (ABNORMAL) Hemoglobin A1c (12/01/2016 10:23 AM EDT) Hemoglobin A1c 6.9(H) 4.4 - 6.4 % 12/01/2016 1:17 PM EDT [facility] Blood specimen (specimen) Venipuncture / Unknown 12/01/2016 10:23 AM EDT 12/01/2016 10:23 AM EDT Harman Burrows MD LAB BLOOD ORDERABLES Final Resul t Performing Organization Address [facility] Co de Phone Number [facility] [address] [place] [address] * Lipid panel (12/01/2016 10:23 AM EDT) Cholesterol 148 0 - 199 mg/dL 12/01/2016 12:29 PM EDT [facility] HDL 54 >=41 mg/dL 12/01/2016 12:29 PM T [facility] Triglycerides 66 0 - 150 mg/dL 12/01/2016 12:29 PM T [facility] Chol/HDL Ratio 2.7 12/01/2016 12:29 PM T [facility] LDL Calculated 81 0 - 100 mg/dL 12/01/2016 12:29 PM T [facility] Blood specimen (specimen) Venipuncture / Unknown 12/01/2016 10:23 AM EDT 12/01/2016 10:23 AM EDT Harman Burrows MD LAB BLOOD ORDERABLES Final Resul t Performing Organization Address [facility] Co de Phone Number [facility] [address] [place] [address] * HM COLONOSCOPY (02/25/2014) Colonoscopy Primed Conversion (Col) Historical Provider HEALTH MAINTENANCE Final Res ult from Last 3 Months or Most Recently Relevant to Health Maintenance Insurance MEDICARE Member Subscriber Plan / Payer (Ef fective 1994-Present) Name:Agustina Patel Member ID:[id number] Relation to Subscriber:Self Name:Agustina Patel Subscriber ID:[id number] Payer ID:[id number] Group ID:Not on file Type:Not on file Address: [address] MEDICARE [place]ID [place] MED[place] Member Subscriber Plan / Payer (Ef fective 1994-Present) Name:Agustina Patel Member ID:[id number] Relation to Subscriber:Self Name:Agustina Ptael Subscriber ID:[id number] Payer ID:[id number] Group ID:Not on file Type:Not on file Address: [address] MEDICARE MED[place]ID [place] MEDICARE Care Teams Master Police Detective Relationship Specialty Start Date End Date Bao Gann DO [address] [facility] [address] [place] [address] PCP - General Internal Medicine 10/09/18
== END 2024-10-07 11:50 | disposition home or self-care (01) ==
LOC: HO.HMGCX 11:49
PROVIDERS: PCP Internal Medicine; Visit Provider Internal Medicine
DX: R79.89 Other specified abnormal findings of blood chemistry (principal)
CPT/HCPCS: 76705

== ENCOUNTER → 2024-10-07 11:53 | Outpatient (BNV) | payer MEDICARE, MEDICAID, SELFPAY | PROVIDERS: PCP Internal Medicine; Visit Provider Radiology Diagnostic Radiology | DX: R16.0 Hepatomegaly, not elsewhere classified (principal) | CPT/HCPCS: 76705 ==

== ENCOUNTER 2024-10-29 10:01 | Outpatient (AMB) | payer MEDICARE, MEDICAID, SELFPAY ==
[2024-10-29 10:11] VITALS: BP 124/76; PULSE 84; RESP 18; TEMP 36.9; O2SAT 97; BMI 39.9
--- NOTE | 2024-10-29 10:11 | MHC.PC.OV ---
Vital Signs 10/29/24 10:11 Height 5 ft 6 in Weight 247 lb BMI 39.9 BP 124/76 Blood Pressure Location Lt brachial Position Sitting Respiration 18 Pulse 84 Pulse Source Pulse Oximeter Temp 98.4 F Temp Source Oral Pulse Oximetry (%) 97 Oxygen Delivery Method Room Air Intake Visit Reasons: Pre op R knee surgery with Dr. Lara 11/11/24 Intake Note: Pt is here today for a pre op visit. Pt is having R knee surgery with Dr. Lraa on 11/18/24. Allergies ciprofloxacin [From Cipro] Allergy (Unknown, Verified 10/29/24 10:18) palpations/cp codeine Allergy (Unknown, Verified 10/29/24 10:18) chest pain sulfadiazine Allergy (Unknown, Verified 10/29/24 10:18) palpatations/CP dulaglutide [From Trulicity] Allergy (Verified 10/29/24 10:18) Diarrhea apixaban [From Eliquis] Adverse Reaction (Unknown, Verified 10/29/24 10:18) memory problem Medication List - Last Reconciled 10/29/24 by Dayna Prieto MD amoxicillin 500 mg PO DAILY PRN blood sugar diagnostic (FreeStyle Lite Strips) Test blood sugar 4 x a day blood-glucose meter (FreeStyle Lite Meter kit) As directed cholecalciferol (vitamin D3) 25 mcg PO DAILY dapagliflozin propanediol (Farxiga) 5 mg PO DAILY diltiazem HCl ER 240 mg PO DAILY ferrous sulfate (Feosol) 325 mg PO DAILY flecainide 100 mg PO BID gabapentin 100 mg PO TID lancets (FreeStyle Lancets) test blood sugar once a day meloxicam 15 mg PO DAILY metformin ER 750 mg PO BID methocarbamol 500 mg PO DAILY omega 8-rae-eks-fish oil 1,200 (144-216) mg (Fish Oil) 1,200 caps PO DAILY Ozempic (semaglutide) 0.5 mg (0.736 mL) subcut QWEEK NS pantoprazole 40 mg PO DAILY pravastatin 40 mg PO DAILY [vitamin b12 500 mcg PO DAILY] vitamins A,C,W-uswj-lxrrca 2,148 mcg-113 mg-45 mg-17.4mg (PreserVision AREDS) 2 tabs PO BID Tobacco use date assessed: 10/29/24 Dental Screening Dental Screen Date: 10/29/24 Did you have a dental visit in the last 12 months?: Yes Did you have a dental problem in the last 6 months where you did not have access to dental care?: No Was dental information given to patient?: Patient has dentist HPI Pre op R knee surgery with Dr. Lara 11/11/24 HPI Details Pt presents for preop for R knee surgery. DM 2, paroxysmal Afib rhythm controlled on flecainide , status post watchman's procedure, chronic iron deficiency anemia, followed by Hematology with periodic iron infusions, hyperlipid, liver cirrhosis due to steatohepatitis established with [facility], morbid obesity losing weight on Ozempic, 43 lbs since May. [facility] Medical History Annual physical exam Anxiety Degenerative lumbar spinal stenosis Obesity DAVIAN on CPAP Iron deficiency anemia Macular degeneration GERD (gastroesophageal reflux disease) Atrial fibrillation Hyperlipidemia HTN (hypertension) DM type 2 (diabetes mellitus, type 2) Surgical History H/O colonoscopy H/O lumbosacral spine surgery No pertinent past surgical history Family History Unknown No problems noted. Mother No problems noted. Sister No problems noted. Brother Substance use disorder Social History Housing: Apartment Alcohol intake: current Alcohol intake frequency: does not drink Patient Tobacco Use Status: Never used Tobacco e-Cigarette/Vaping Use: Never Used service: No Current occupational status: unemployed and disabled Cognitive needs: No Hearing needs: Yes Vision needs: Yes Questionnaire PHQ-9 Over the last 2 weeks, how often have you been bothered by any of the following problems? 1. Little interest or pleasure in doing things: several days 2. Feeling down, depressed, or hopeless: not at all 3. Trouble falling or staying asleep, or sleeping too much: not at all 4. Feeling tired or having little energy: several days 5. Poor appetite or overeating: not at all 6. Feeling bad about yourself - or that you are a failure or have let yourself or your family down: not at all 7. Trouble concentrating on things, such as reading the newspaper or watching television: not at all 8. Moving or speaking so slowly that other people could have noticed. Or the opposite - being so fidgety or restless that you have been moving around a lot more than usual: not at all 9. Thoughts that you would be better off or of hurting yourself in some way: not at all Total score: 2 Depression Screening Interpretation: Negative Depression Screening Done: Yes 96483 - PHQ-9 Billing: Yes Source: Developed by Drs. Candido Santana, Marilia Malcolm, Alex Garcia and colleagues, with an educational garima from [employer]. Thrive Questionnaire Date Thrive assessed: 09/16/24 I am a: Patient What is your living situation today?: I have a steady place to live Within the past 12 months, did the food you bought not last and you didn't have the money to get more?: Never true Within the past 12 months, did you worry whether your food would run out before you got money to buy more?: Never true Do you have trouble paying for medicines?: No Do you have trouble getting transportation to medical appointments?: No Do you have trouble paying your heating and electricity bill?: No Do you have trouble taking care of your child, family member or friend?: No Do you have trouble with day-to-day activities such as bathing, preparing meals, shopping, managing finances, etc.?: I choose not to answer this question Are you currently unemployed and looking for a job?: No Are you interested in more education?: No Please select the resources that you would like help with: None THRIVE Score: 0 AUDIT C Alcohol Use Questionnaire (AUDIT-C) 1. How often do you have a drink containing alcohol?: Never 3. How often do you have six or more drinks on one occasion?: Never Total Score: 0 ROXANNA-7 AMB Questionnaire ROXANNA-7 Date ROXANNA - 7 assessed: 10/29/24 Feeling nervous, anxious, or on edge: 0 = Not at all Not being able to stop or control worryin = Not at all Worrying too much about different things: 0 = Not at all Trouble relaxin = Not at all Being so restless that it is hard to sit still: 0 = Not at all Becoming easily annoyed or irritable: 0 = Not at all Feeling afraid as if something awful might happen: 0 = Not at all Total ROXANNA-7 score (0-4 normal; 5-9 mild; 10-14 moderate; 15-21 severe): 0 Source: Developed by Drs. Candido Santana, Marilia Malcolm, Alex Garcia and colleagues, with an educational garima from [employer]. ROXANNA-7 Assessment Billing ROXANNA-7 Assessment Tool: ROXANNA-7 Assessment 62005 Review of Systems Const All systems reviewed & are unremarkable except as noted in HPI and below Eyes Reports no additional complaints ENT Reports no additional complaints Card Reports no additional complaints Resp Reports no additional complaints GI Reports no additional complaints Reports no additional complaints Physical exam (Primary Care) Vital Signs: Last Vital Signs Temp 98.4 F 10/29/24 10:11 Pulse 84 10/29/24 10:11 Resp 18 10/29/24 10:11 BP 124/76 10/29/24 10:11 Pulse Ox 97 10/29/24 10:11 Oxygen Delivery Method Room Air 10/29/24 10:11 BMI result Body Mass Index 39.9 Tobacco/Smoking Status: Tobacco use Status Tobacco use date assessed 10/29/24 10/29/24 10:30 Patient Tobacco Use Status Never used Tobacco 10/29/24 10:11 e-Cigarette/Vaping Use Never Used 10/29/24 10:11 PHQ-9: PHQ-9 Score PHQ-9: Total score 2 10/29/24 10:47 Depression Screening Interpretation: Negative Thrive Assessment: Date of Thrive Assessment Date Thrive assessed 09/16/24 10/29/24 10:11 Const General: no acute distress HENMT Head: Yes normal to inspection Face and sinus: Yes normal facial exam Eyes General: appearance normal, both eyes and all related structures Neck Neck: Yes supple Resp Effort & Inspection: normal respiratory effort Auscultation: clear to auscultation bilaterally Cardio Rhythm: regular rhythm Heart sounds: S1 normal heart sound present and S2 normal heart sound present GI Inspection: Yes normal to inspection Palpation (GI): Soft to palpation Percussion: Yes normal to percussion Auscultation: normal bowel sounds Extrem Other: Diabetic foot exam skin is intact monofilament and vibration sensation intact bilaterally Immunizations pneumoc 20-yarelis conj-dip cr(PF) 0.5 mL IM syringe Performing Provider: Dayna Prieto MD Performing Location: [facility] Administered by: PORTILLO Rivera on 10/29/24 11:11 Dose Route Admin Location Dispensed Lot Number Expiration Date NDC Tower Switch Operator 0.5 mL IM Right Deltoid 0.5 mL [id number] 12/27/25 WYETH/PFIZER VIS Given Date VIS Provided VIS Publication Date 10/29/24 Single Vaccine 21 Eligibility Eligibility Date Funding Source Not [facility] Eligible 10/29/24 Private Coding Level of Care Code Est Pt Level 5 (68595) Complex EM visit Add On G2211 Diagnoses Liver cirrhosis K74.60 Iron deficiency anemia D50.9 Atrial fibrillation I48.91 HTN (hypertension) I10 DM type 2 (diabetes mellitus, type 2) E11.9 Knee osteoarthritis M17.9 Additional Codes ROXANNA-7 Assessment Billing - ROXANNA-7 Assessment Tool: ROXANNA-7 Assessment 16777 ([id number]) PHQ-9 - 04919 - PHQ-9 Billing: Yes ([id number]) Assessment & Plan Assessment & Plan (1) Liver cirrhosis: Comment: on US 08/2024, f/u with [facility], UGI and colonoscopy 2021 Code(s): K74.60 - Unspecified cirrhosis of liver Category: Medical Plan: Change atorvastatin to pravastatin, less liver toxicity (2) Iron deficiency anemia: Comment: INTOLERANT TO ORAL IRON SUPPLEMENT, follows up with circuit rider getting iron/blood infusion Code(s): D50.9 - Iron deficiency anemia, unspecified Category: Medical Plan: Follow-up with Hematology stable CBC (3) Atrial fibrillation: Comment: s/p ablation 04/2020 x2, f/u Dr. Bell, on diltiazem and flecainide, s/p Watchman procedure 10/20 Code(s): I48.91 - Unspecified atrial fibrillation Category: Medical Plan: Continue flecainide and diltiazem, follow-up with Cardiology, EKG showed sinus rhythm with first-degree AV block, incomplete left bundle-branch block, no acute ST-T changes (4) HTN (hypertension): Code(s): I10 - Essential (primary) hypertension Category: Medical Plan: Continue current medications (5) DM type 2 (diabetes mellitus, type 2): Comment: Intolerant to Trulicity, diarrhea, diabetic retinopathy Code(s): E11.9 - Type 2 diabetes mellitus without complications Category: Medical Plan: A1c is 5.6, decrease metformin to 750 mg once a day and increase Ozempic to 1 mg weekly. Follow-up in 3 months with a fasting labs before (6) Knee osteoarthritis: Code(s): M17.9 - Osteoarthritis of knee, unspecified Category: Medical Plan: Patient is medically cleared for knee surgery Orders: Orders AMB EKG-In Office Today E11.9 - Type 2 diabetes mellitus without complications, I10 - Essential (primary) hypertension, I48.91 - Unspecified atrial fibrillation Pneumococcal 20 Immunization Today Z23 - Encounter for immunization Lipid Panel 3 Months E11.9 - Type 2 diabetes mellitus without complications, E78.5 - Hyperlipidemia, unspecified, I48.91 - Unspecified atrial fibrillation Comprehensive [place]. Panel Fast 3 Months E11.9 - Type 2 diabetes mellitus without complications, E78.5 - Hyperlipidemia, unspecified, I48.91 - Unspecified atrial fibrillation Hemoglobin A1c 3 Months E11.9 - Type 2 diabetes mellitus without complications, E78.5 - Hyperlipidemia, unspecified, I48.91 - Unspecified atrial fibrillation Complete Blood Count Auto Diff 3 Months E11.9 - Type 2 diabetes mellitus without complications, E78.5 - Hyperlipidemia, unspecified, I48.91 - Unspecified atrial fibrillation Microalbumin, Random (w Creat) 3 Months E11.9 - Type 2 diabetes mellitus without complications, E78.5 - Hyperlipidemia, unspecified, I48.91 - Unspecified atrial fibrillation Medications: New pravastatin 40 mg PO DAILY 90 tabs 3RF Ozempic (semaglutide) 1 mg (0.75 mL) subcut QWEEK 9 mL 1RF NS Changed From metformin ER 750 mg PO BID 180 tabs 3RF To metformin ER 750 mg PO .qd 90 tabs 3RF Discontinued meloxicam Discontinued Reason: Doctor's Order 15 mg PO DAILY 10 tabs 0RF atorvastatin Discontinued Reason: Doctor's Order 80 mg PO DAILY 90 tabs 3RF Ozempic (semaglutide) Discontinued Reason: Doctor's Order 0.5 mg (0.736 mL) subcut QWEEK 3 mL 1RF NS
--- OUTSIDE RECORDS SUMMARY | 2024-10-29 11:33 | XMS_ITS | Encounter Summary ---
Author Organization [facility] Address [address] [place] [address] Care Team Providers Care Fire Control Technician Name Role Phone Bao Gann DO Primary Care Provider [phone] Encounter Details Date Type Department Care Team (Late st Contact Info) Description 05/08/2016 Scanned Document [facility] [address] [place], [place] [address] Jorje Campbell MD [address] [place] [address] Social History Tobacco Use Types [...] on filedocumented in this encounter Care Teams Fire Control Technician Relationship Specialty Start Date End Date Bao Gann DO [address] [place] [phone] PCP - General Internal Medicine 10/09/18 documented as of this encounter
--- OUTSIDE RECORDS SUMMARY | 2024-10-29 11:33 | XMS_ITS ---
[facility] Address [address] [facility] [place] [address] Care Team Providers Care Manager Production Name Role Phone Dayna Prieto MD Primary Care Provider UnavailMeron Mcdonald Unavailable [phone] Desmond Nava Unavailable [phone] Allergies Allergen (clinical drug ingredient) Drug/Non Drug [...] Oral for 90 Days Active Vitamin D3 8669294 UNIT/GM as directed 03/21/2024 Active Flecainide Acetate [...] Polyneuropathy due to type 2 diabetes mellitus ([id number]) Type 2 diabetes mellitus with diabetic polyneuropathy (E11.42) Active confirmed Vital Signs Height 5 ft 6 in in 04/28/2024 Weight 262 lbs 04/28/2024 BMI 42.28 kg/m2 04/28/2024 Blood pressure systolic 118 mm Hg 04/28/20 24 Blood pressure diastolic 59 mm Hg 024 Procedures Procedure Date Ordered Date Performed Result Body Sit e 09819-XTIQ SKIN LESIONS, 2 TO 4 04/28/2024 N/A [id number] DYSTROPHIC NAILS ANY # 04/28/2024 N/A Encounters Encounter Location Date Provider Diagnosis [facility] [address] [place] [address] 04/28/2024 Desmond Nava Type 2 diabetes mellitus [...] Treatment Pending Test Test Name Order Date 75497-AJUY SKIN LESIONS, 2 TO 4 04/28/20 24 [id number] DYSTROPHIC NAILS ANY # Next Appt Details Follow Up: 1 Year, Reason: Provider Name:Meron fritz, 04/29/2025 11:00:00 AM, [address] [place], [address], Procedure Notes * Category Sub-Category Detail Notes Keratoma Treatment Parring or Cutting o f Benign Hyperkeratotic Lesion(s) (-56) 2-4 Lesions - The Benign hyperkeratotic lesions, as described above were pared, and/or cut utilizing a sterile 15 blade, tissue nippers, and/or dremel - 61631 Nail Reduction Nail Reduction (-27) Trimming o f dystrophic nails performed to reduce/remove overall nail length and girth, by manual and electrical means with use of a nail nipper and/or dremel, to more viable healthy nail plate or bed tissue, any number - G0127 Progress Notes * Agustina RUANODOB:1960 ( 63 yo F)Acc No.[id number]:04/28/2024 Progress Notes Patient:?AmandaBhumi dayna Provider:?Desmond Nava DPM :1960???Age:63 Y???Sex:Female D ate:04/28/2024 Address:[address] [place] [address], [facility] [address], [facility] Pcp:Dayna Prieto MD Subjective: * Chief Complaints: [...] Cramps/ Resting?denies.?Muscle cramps / walking?admits.?Generalized aches and pains?admits.?Weakness?denies.?Integ.:?Mosquead?admits.?Scars?admits.?Corns/calluses?denies.?Ingrown nails?admits.?Painful nails?denies.?Open Sores?denies.?Rashes?denies.?Neurologic:?Difficulty sleeping?denies.?Brain disorder?denies.?Numbness?denies.?Balance trouble?denies.?Confusion?denies.?Fainting/blackouts?denies.?Tingling?denies.?Tr emors?denies.? * Medical History:? * Surgical History:?back surge ry Gall bladder removal spinal stenosis surgery watchmen * Hospitalization/Major Diagno stic Procedure:?[facility] knee 12/29/2023 * Family History:?Mother: dece ased, [...] TABLET BY MOUTH DAILY Oral Vitamin D3 0653726 UNIT/GM Liquid as directed Flecainide Acetate 100 [...] BY MOUTH DAILY Oral Taking Vitamin D3 9518208 UNIT/GM Liquid as directed Taking Flecainide Acetate [...] 15 blade, tissue nippers, and/or dremel - 46595.?Nail Reduction:?Nail Reduction?(-27) Trimming of dystrophic nails performed to reduce/remove overall nail length and girth, by manual and electrical means with use of a nail nipper and/or dremel, to more viable healthy nail plate or bed tissue, any number - G0127.? * Procedure Codes:?47331 TRIM SKIN LESIONS, 2 TO 4, Modifiers: [...] DPM Date:? 024 Generated for Damion ortiz/Clarissa/Aniya on:?10/29/2024 11:33 AM EDT History and Physical Notes * HPI [...]
--- OUTSIDE RECORDS SUMMARY | 2024-10-29 11:33 | XMS_ITS | Encounter Summary ---
Author Organization [facility] Address [address] [place] [address] Care Team Providers Care Detasseling Crew Supervisor Name Role Phone Bao Gann DO Primary Care Provider Encounter Details Date Type Department Care Team (Late st Contact Info) Description 11/05/2015 Scanned Document [facility] [address] [place], [place] [address] Jorje Campbell MD [address] [place] [address] Social History Tobacco Use Types [...] on filedocumented in this encounter Care Teams Detasseling Crew Supervisor Relationship Specialty Start Date End Date Bao Gann DO [address] [facility] [address] [place] [phone] PCP - General Internal Medicine 10/09/18 documented as of this encounter
--- OUTSIDE RECORDS SUMMARY | 2024-10-29 11:33 | XMS_ITS | Encounter Summary ---
Author Organization [facility] Address [address] [place] [address] Phone Care Team Providers Care Delivery Architect Name Role Phone Bao Gann DO Primary Care Provider [phone] Encounter Details Date Type Department Care Team (Late st Contact Info) Description 04/24/2014 Scanned Document [facility] [address] [place] [address] External, Provider Social History Tobacco Use Types [...] on filedocumented in this encounter Care Teams Delivery Architect Relationship Specialty Start Date End Date Bao Gann DO [address] [facility] [address] [place] [phone] PCP - General Internal Medicine 10/09/18 documented as of this encounter
--- OUTSIDE RECORDS SUMMARY | 2024-10-29 11:33 | XMS_ITS | Encounter Summary ---
Author Organization [facility] Address [address] [place] [address] Care Team Providers Care Sales Force Administrator Name Role Phone Bao Gann DO Primary Care Provider Encounter Details Date Type Department Care Team (Late st Contact Info) Description 06/16/2015 Scanned Document [facility] [address] [place], [place] [address] Jorje Campbell MD [address] [place] [address] Social History Tobacco Use Types [...] on filedocumented in this encounter Care Teams Sales Force Administrator Relationship Specialty Start Date End Date Bao Gann DO [address] [facility] [address] [place] [phone] PCP - General Internal Medicine 10/09/18 documented as of this encounter
--- OUTSIDE RECORDS SUMMARY | 2024-10-29 11:33 | XMS_ITS | Encounter Summary ---
Author Organization [facility] [employer] System and [facility] Address [address] [place] [address] Care Team Providers Care Chief Of Staff Name Role Phone Bao Gann Primary Care Provider [phone] Encounter Details Date Type Department Care Team (Latest Contact Info) Description 10/12/2014 Transcribed Orders [facility] Draw Station [address] [facility] 2nd Floor [place], [place] [id number] Harman Burrows MD Unspecified essential hypertension (Primary [...] Hemoglobin A1c 6.7(H) 4.4 - 6.4 % [facility] Comment: Therapeutic Goal: ?Less Than 7% Re-Evaluation Therapy: ?? Greater Than 8% Blood specimen (specimen) 10/12/2014 9:38 AM EDT Harman Burrows MD LAB BLOOD ORDERABLES Final Resul t Performing Organization Address City/[facility]/ZIP Co de Phone Number [facility] [address] [place] [address] * Lipid panel (10/12/2014 9:38 AM EDT) Cholesterol 143 0 - 199 mg/dL [facility] Triglycerides 86 0 - 150 mg/dL [facility] HDL 60 >=41 mg/dL [facility] LDL Cholesterol 66 0 - 99 BRID [facility] CHD Risk 2 <=4 [facility] Blood specimen (specimen) 10/12/2014 9:38 AM EDT Harman Burrows MD LAB BLOOD ORDERABLES Edited Resu lt - Final Performing Organization Address [facility] Co de Phone Number [facility] [address] [place] [address] * (ABNORMAL) Comprehensive metabolic panel (10/12/2014 9:38 AM EDT) Glucose 122(H) 70 - 100 mg/dL [facility] BUN 14 7 - 17 mg/dL [facility] Creatinine 0.80 0.52 - 1.04 mg/dL [facility] Sodium 140 137 - 145 mmol/L [facility] Potassium 4.2 3.5 - 5.1 mmol/L [facility] Chloride 102 98 - 107 mmol/L [facility] CO2 27 22 - 30 mmol/L [facility] Anion Gap 10 7 - 16 mmol/L [facility] Calcium 9.2 8.4 - 10.2 mg/dL [facility] Total Protein 6.9 6.3 - 8.2 g/dL [facility] Albumin 3.9 3.5 - 5.0 g/dL [facility] Globulin 3.0 2.0 - 3.5 g/dL [facility] A/G Ratio 1.3 1.1 - 2.2 ratio [facility] Aspartate Aminotransferase (AST) 31 14 - 36 u/l [facility] Alkaline Phosphatase 86 38 - 126 u/l [facility] Total Bilirubin 1.0 0.2 - 1.3 mg/dL [facility] Alanine Aminotransferase (ALT) 37 9 - 52 u/l [facility] eGFR >60 [facility] Comment: Interpretation Stage 1 ?? [...] BLOOD ORDERABLES Edited Resu lt - Final [facility] [address] [place] [address] * (ABNORMAL) Urinalysis (BH GH L Q) (10/12/2014 9:30 AM EDT) Color, UA YELLOW YELLOW [facility] Specific [place], UA 1.002(L) 1.003 - 1.033 [facility] Leukocyte Esterase, UA NEGATIVE NEGATIVE [facility] Nitrite, UA NEGATIVE NEGATIVE [facility] pH, UA 6.5 5.0 - 8.0 [facility] Protein, UA NEGATIVE NEGATIVE mg/dL [facility] Glucose, UA NEGATIVE NEGATIVE mg/dL [facility] Ketones, UA NEGATIVE NEGATIVE mg/dL [facility] Urobilinogen, UA 0.2 0.2 - 2.0 EU/dL [facility] Bilirubin, UA NEGATIVE [facility] Comment:Positive urine bilir ubin results unable to be confirmed by Ictotest due to adult live in caregiver backorder. Blood, UA NEGATIVE NEGATIVE [facility] Urine specimen (specimen) 10/12/2014 9:30 AM EDT Harman Burrows MD URINE ORDERABLES Final Result Performing Organization Address [facility]/ZIP Co de Phone Number [facility] [address] [place] [address] * Microalbumin, random urine (w/creatinine) (BH Q) (10/12/2014 9:30 AM EDT) Microalbumin, Urine <0.00 mg/dL [facility] Creatinine, Urine, Random 12.3 mg/dL [facility] Microalb Creat Ratio <0.0 0.0 - 29.9 mcg/mg [facility] Comment: The ADA recommends the [...] Edited Result - Final Performing Organization Address City/[facility]/ZIP Co de Phone Number [facility] [address] [place] [address] documented in this encounter Visit Diagnoses Diagnosis 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
--- OUTSIDE RECORDS SUMMARY | 2024-10-29 11:33 | XMS_ITS | Encounter Summary ---
Author Organization [facility] Address [address] [place] [address] Care Team Providers Care 3D Specialist Name Role Phone Bao Gann DO Primary Care Provider Encounter Details Date Type Department Care Team (Late st Contact Info) Description 07/16/2014 Abstract [facility] [address] [facility] [address] [place], [place] [id number] Provider, historical . Social History Tobacco Use [...] on filedocumented in this encounter Care Teams 3D Specialist Relationship Specialty Start Date End Date Bao Gann DO [address] [facility] [address] [place] [phone] PCP - General Internal Medicine 10/09/18 documented as of this encounter
--- OUTSIDE RECORDS SUMMARY | 2024-10-29 11:33 | XMS_ITS | Encounter Summary ---
Author Organization [facility] and [facility] Address [address] [place] [address] Care Team Providers Care Professional Services Manager Name Role Phone DerejedilcialisaBao Primary Care Provider Encounter Details Date Type Department Care Team (Latest Contact Info) Description 02/22/2015 Transcribed Orders [facility] Draw Station [address] [facility] 2nd Floor [place], [place] [id number] Harman Burrows MD Unspecified essential hypertension (Primary [...] Hemoglobin A1c 7.0(H) 4.4 - 6.4 % [facility] Comment: Therapeutic Goal: ?Less Than 7% Re-Evaluation Therapy: ?? Greater Than 8% Blood specimen (specimen) 02/22/2015 10:44 AM EDT Harman Burrows MD LAB BLOOD ORDERABLES Final Resul t Performing Organization Address City/[facility]/ZIP Co de Phone Number [facility] [address] [place] [address] * Lipid panel (02/22/2015 10:44 AM EDT) Cholesterol 137 0 - 199 mg/dL [facility] Triglycerides 105 0 - 150 mg/dL [facility] HDL 45 >=41 mg/dL [facility] LDL Cholesterol 71 0 - 99 BRID [facility] CHD Risk 3 <=4 [facility] Blood specimen (specimen) 02/22/2015 10:44 AM EDT Harman Burrows MD LAB BLOOD ORDERABLES Edited Resu lt - Final Performing Organization Address [facility] Co de Phone Number [facility] [address] [place] [address] * (ABNORMAL) Comprehensive metabolic panel (02/22/2015 10:44 AM EDT) Glucose 152(H) 70 - 100 mg/dL [facility] BUN 12 7 - 17 mg/dL [facility] Creatinine 0.69 0.52 - 1.04 mg/dL [facility] Sodium 140 137 - 145 mmol/L [facility] Potassium 4.0 3.5 - 5.1 mmol/L [facility] Chloride 104 98 - 107 mmol/L [facility] CO2 28 22 - 30 mmol/L [facility] Anion Gap 7 7 - 16 mmol/L [facility] Calcium 9.2 8.4 - 10.2 mg/dL [facility] Total Protein 6.7 6.3 - 8.2 g/dL [facility] Albumin 3.7 3.5 - 5.0 g/dL [facility] Globulin 3.0 2.0 - 3.5 g/dL [facility] A/G Ratio 1.2 1.1 - 2.2 [facility] Aspartate Aminotransferase (AST) 28 14 - 36 u/l [facility] Alkaline Phosphatase 74 38 - 126 u/l [facility] Total Bilirubin 0.9 0.2 - 1.3 mg/dL [facility] Alanine Aminotransferase (ALT) 31 9 - 52 u/l [facility] eGFR >60 [facility] Comment: Interpretation Stage 1 ?? 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
--- OUTSIDE RECORDS SUMMARY | 2024-10-29 11:33 | XMS_ITS | Encounter Summary ---
Author Organization [facility] Address [address] [place] [address] Care Team Providers Care Quill Collector Name Role Phone Bao Gann DO Primary Care Provider Encounter Details Date Type Department Care Team (Late st Contact Info) Description 11/09/2014 Scanned Document [facility] [address] [facility] [address] [place] [address] Minesh Diaz MD [address] [facility] [address] [place] [address] Social History Tobacco Use Types [...] on filedocumented in this encounter Care Teams Quill Collector Relationship Specialty Start Date End Date Bao Gann DO [address] [facility] [address] [place] [phone] PCP - General Internal Medicine 10/09/18 documented as of this encounter
--- OUTSIDE RECORDS SUMMARY | 2024-10-29 11:33 | XMS_ITS | Clinical Summary ---
Author Organization [facility] Address [address] [place] [address] Care Team Providers Care Promotions Manager Name Role Phone Dayna Prieto MD Primary Care Provider [phone] Allergies Active Allergy Reactions Criticality Noted Date [...] times a day with meals. 0 Active [place]-3 Fatty Acids (FISH OIL PO) Take by [...] Shingrix-Zoster Vaccine (2 of 2) 09/02/2020 07/08/2020 COVID-19 Vaccine ( season) 2024 10/31/2021, 05/24/2021, 10/19/2020, Additional history exists Influenza Vaccine (#1) 2024 , 03/18/2020, 07/10/2019 RSV Adult > 60+ Yrs or (1 - 1-dose 75+ series) 2037 Pneumococcal Vaccine Aged Out 07/10/2019 No long er eligible based on patient's age to complete this topic Hepatitis B Vaccines Aged Out No long er eligible based on patient's age to complete this topic RSV Ped < 20 months Aged Out No longe r eligible based on patient's age to complete this topic Medical Devices Implanted Type Area Level Vial Inspector And Tester Device Identifier Shelf Expiration Date Model / Serial / Lot Device Clsur Watchman Flx Fabiola 24mm Bsci-Prnt [id number] - [id number] Implanted:Qty: 1 on 10/11/2023 by Husam Solis MD at [facility] Right: [employer] 04/23/2026 [id number] / [id number] / Advance Directives For more information, please contact: [phone] Latest Code Status on File Code Status Date Activated Date Inactivated Comments Full Code 10/11/2023 12:31 PM 10/12/2023 8:47 PM This code status was ascertained in the following way: discussion with patient . Care Teams Promotions Manager Relationship Specialty Start Date End Date Dayna Prieto MD [address] [place] [address] PCP - General Hospice Bereavement Coordinator 10/05/23
--- OUTSIDE RECORDS SUMMARY | 2024-10-29 11:33 | XMS_ITS | Encounter Summary ---
Author Organization [facility] [employer] and [facility] Address [address] [place] [address] Care Team Providers Care Sld Educational Aide Name Role Phone EulaartisBao Primary Care Provider Encounter Details Date Type Department Care Team (Latest Contact Info) Description 04/06/2014 Transcribed Orders [facility] Draw Station [address] [facility] 2nd Floor [place], [place] [id number] Harman Burrows MD Unspecified essential hypertension (Primary [...] EDT) TSH 1.120 0.465 - 4.680 mIU/L [facility] Blood specimen (specimen) 04/06/2014 10:29 AM EDT us Harman Burrows MD LAB BLOOD ORDERABLES Final Resul t [facility] [address] [place] [address] * T4, free (04/06/2014 10:29 AM EDT) Free T4 1.08 0.70 - 2.19 ng/dL [facility] Blood specimen (specimen) 04/06/2014 10:29 AM EDT us Harman Burrows MD LAB BLOOD ORDERABLES Final Resul t Performing Organization Address [facility] Co de Phone Number [facility] [address] [place] [address] * (ABNORMAL) Hemoglobin A1c (04/06/2014 10:29 AM EDT) [facility] Hemoglobin A1c 7.0(H) 4.4 - 6.4 % [facility] Comment: Therapeutic Goal: ?Less Than 7% Re-Evaluation Therapy: ?? Greater Than 8% Blood specimen (specimen) 04/06/2014 10:29 AM EDT us Harman Burrows MD LAB BLOOD ORDERABLES Final Resul t Performing Organization Address [facility] de Phone Number [facility] [address] [place] [address] * Lipid panel (04/06/2014 10:29 AM EDT) [facility] Cholesterol 132 0 - 199 mg/dL [facility] Triglycerides 88 0 - 150 mg/dL [facility] HDL 46 >=41 mg/dL [facility] LDL Cholesterol 69 0 - 99 BRID [facility] CHD Risk 3 <=4 [facility] Blood specimen (specimen) 04/06/2014 10:29 AM EDT us Harman Burrows MD LAB BLOOD ORDERABLES Edited Resu lt - Final Performing Organization Address [facility] Co de Phone Number [facility] [address] [place] [address] * (ABNORMAL) Comprehensive metabolic panel (04/06/2014 10:29 AM EDT) Glucose 109(H) 70 - 100 mg/dL [facility] BUN 13 7 - 17 mg/dL [facility] Creatinine 0.75 0.52 - 1.04 mg/dL [facility] Sodium 143 137 - 145 mmol/L [facility] Potassium 4.4 3.5 - 5.1 mmol/L [facility] Chloride 106 98 - 107 mmol/L [facility] CO2 26 22 - 30 mmol/L [facility] Anion Gap 10 7 - 16 mmol/L [facility] Calcium 9.2 8.4 - 10.2 mg/dL [facility] Total Protein 7.2 6.3 - 8.2 g/dL [facility] Albumin 4.0 3.5 - 5.0 g/dL [facility] Globulin 3.2 2.0 - 3.5 g/dL [facility] A/G Ratio 1.2 1.1 - 2.2 [facility] Aspartate Aminotransferase (AST) 28 14 - 36 u/l [facility] Alkaline Phosphatase 73 38 - 126 u/l [facility] Total Bilirubin 0.9 0.2 - 1.3 mg/dL [facility] Alanine Aminotransferase (ALT) 32 9 - 52 u/l [facility] eGFR >60 [facility] Comment: Interpretation Stage 1 ?? 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
--- OUTSIDE RECORDS SUMMARY | 2024-10-29 11:33 | XMS_ITS | Encounter Summary ---
Author Organization [facility] Address [address] [place] [address] Care Team Providers Care Casting Machine Adjuster Name Role Phone Bao Gann DO Primary Care Provider Encounter Details Date Type Department Care Team (Late st Contact Info) Description 11/08/2014 Scanned Document [place] PM [facility] Cardiac Services [address] [facility] [address] [place] [address] External, Provider Social History Tobacco Use Types [...] on filedocumented in this encounter Care Teams Casting Machine Adjuster Relationship Specialty Start Date End Date Bao Gann DO [address] [facility] [address] [place] [phone] PCP - General Internal Medicine 10/09/18 documented as of this encounter
--- OUTSIDE RECORDS SUMMARY | 2024-10-29 11:33 | XMS_ITS | Encounter Summary ---
Author Organization [facility] Address [address] [place] [address] Care Team Providers Care Federal Air Marshal Name Role Phone DerejeshandraartisBao Primary Care Provider Encounter Details Date Type Department Care Team (Late st Contact Info) Description 05/19/2016 Scanned Document [facility] Gastroenterology [facility] [address] [facility] [address] [place] [address] Provider, Historical . Social History Tobacco Use [...] on filedocumented in this encounter Care Teams Federal Air Marshal Relationship Specialty Start Date End Date Bao Gann DO [address] [facility] [address] [place] [phone] PCP - General Internal Medicine 10/09/18 documented as of this encounter
--- OUTSIDE RECORDS SUMMARY | 2024-10-29 11:33 | XMS_ITS | Encounter Summary ---
Author Organization [facility] Address [address] [place] [address] Care Team Providers Care Coat Tailor Name Role Phone Bao Gann DO Primary Care Provider Encounter Details Date Type Department Care Team (Late st Contact Info) Description 04/03/2014 Scanned Document [facility] Gastroenterology [facility] [address] [facility] [address] [place] [address] James Christina MD [address] [facility] [address] [place] [address] Social History Tobacco Use Types [...] on filedocumented in this encounter Care Teams Coat Tailor Relationship Specialty Start Date End Date Bao Gann DO [address] [facility] [address] [place] [phone] PCP - General Internal Medicine 10/09/18 documented as of this encounter
--- OUTSIDE RECORDS SUMMARY | 2024-10-29 11:33 | XMS_ITS | Encounter Summary ---
Author Organization [facility] Address [address] [place] [address] Care Team Providers Care Financial Brokers Name Role Phone Bao Gann DO Primary Care Provider Encounter Details Date Type Department Care Team (Late st Contact Info) Description 03/10/2015 Scanned Document [facility] Sleep Center [address], [address] [place], [place] [address] Jorje Campbell MD [address] [place] [address] Social History Tobacco Use Types [...] on filedocumented in this encounter Care Teams Financial Brokers Relationship Specialty Start Date End Date Bao Gann DO [address] [facility] [address] [place] [phone] PCP - General Internal Medicine 10/09/18 documented as of this encounter
--- OUTSIDE RECORDS SUMMARY | 2024-10-29 11:33 | XMS_ITS | Clinical Summary ---
Author Organization 175 [facility] Address 175 [place] [address] Phone Care Team Providers Care Helmet Binder Name Role Phone Magdiel Arceo MD Primary Care Provider [phone] Allergies Active Allergy Reactions Criticality Noted Date [...] apnea) 08/19/2019 Overview (06/02/2024): moderate AHI 16 [facility] Polysomnogram 6.25.2015; BMI 44; REM 13%; AHI 16, REM AHI 70, Central apneas 0; Obstructive apneas 46; Mixed apneas 0; hypopneas 38; average oxygen saturation 93% (lowest 72%); PLMI 2. Vitamin D deficiency 08/19/2019 Morbid obesity with BMI of 45.0-49.9, adult 07/31 Encounters Date Type Department Care Team Description 10/16/2024 Telephone Orthopedic Surgery [facility] 250 175 [facility] 250 [place] [phone] Isaias Brabour MA Post-op PT Order 10/15/2024 Telephone [facility] [address] [place] [address] Kimberly Doyle, JAYLAN Watchman one year phone call 09/02/2024 1:10 PM EST Office Visit [facility] 154 300 [facility] 154 [place] [address] Shira Frazier NP Hypertension, unspecified type (Primary Dx) 08/08/2024 11:30 AM EST Consult Orthopedic Surgery [facility] 160 175 [facility] 160 [place] [phone] Emil Lara MD Acute lateral meniscus tear of right knee, subsequent encounter (Primary Dx); Arthritis of right knee from Last 3 Months Immunizations Name Administration Dates Next Due Influenza trivalent, 0.5mL, preservative free (Fluarix; FluLaval; Fluzone) ages 6mo and older (Afluria) 3 years and older 03/22/2021,03/18/2020,07/10/2019 Pfizer SARS-CoV-2 COVID-19, mRNA, LNP-S, preservative free 10/31/2021,05/24/2021,10/19/2020,09/28 Pneumococcal polysaccharide 23 valent (Pneumovax 23) 2yo and older 07/10/2019 Zoster recombinant (Shingrix ) 19yo and older 07/08/2020 Surgical History Surgery Date Site/Laterality Comments BACK SURGERY 1992 PROCEDURE: HISTORICAL BACK SURGERY; COMMENT: L4-5 decompression, Dr. Davis TONSILLECTOMY PROCEDURE: HISTORICAL TONSILLECTOMY CHOLECYSTECTOMY PROCEDURE: HISTORICAL CHOLECYSTECTOMY OTHER SURGICAL HISTORY PROCEDURE: WI HYSTEROSCOPY ENDOMETRIAL ABLATION OTHER SURGICAL HISTORY PROCEDURE: WI ANES CARDIAC ELECTROPHYSIOL STDY W/RF ABLATION OTHER SURGICAL HISTORY 09/14/2022 PROCEDURE: WI GARNER FACETECTOMY & FORAMOTOMY 1 VRT SGM [...] rh initis Diabetes mellitus type 2, uncomplicated 08/19/2019 DX:Diabetes mellitus type 2, uncomplicated (HCC) [...] Department Care Team (Latest Contact Info) Description 11/04/2024 1:40 PM EDT Office Visit Gastroenterology - [address] [phone] Yoan Stephen, VONDA [address] [address] 11/17/2024 9:45 AM EDT Office Visit Obstetrics & Gynecology - [address] [phone] Kellen Cardenas CNM 175 [place] [phone] 11/18/2024 10:00 AM EDT Hospital Encounter [facility] OR [address] [place] [phone] Emil Lara MD [address] [address] 11/18/2024 10:00 AM EDT - 11/18/2024 11:30 AM EDT Surgery [address] [phone] Emil Lara MD [address] [address] RIGHT TOTAL KNEE ARTHROSCOPY [25810 (CPT??) +1 more] 11/21/2024 10:00 AM EDT Evaluation [facility] 175 [facility] 350 [place] [phone] Vidhi Mulligan, PT 12/03/2024 9:00 AM EDT Office Visit Orthopedic Surgery - [place] 160 175 [facility] 160 [place] [phone] Emil Lara MD 175 [facility] 160 [place] [address] 03/03/2025 12:40 PM EDT Office Visit [facility] 154 300 [facility] 154 [place] [phone] Shira Frazier NP 300 [facility] 154 [place] [phone] 07/28/2025 11:30 AM EST Office Visit Pulmonolgy - [place] 175 [facility] 200 [place] [phone] Brittany Malik MD 175 [facility] 200 [place] [address] Scheduled Procedures Name Priority Associated Diagnoses Date/Ti [...] Cancer Screening: Colonoscopy 05/23/2028 05/23/2023 RSV Immunization Adult Patients Completed 06/15/2023 COVID-19 Vaccine Completed 05/19/2024, 01/2023, [...] this topic Medical Devices Implanted Type Area Social Service Technician Device Identifier Shelf Expiration Date Model / Serial / Lot Device Bharat Watchannabella Flx Fabiola 24mm Bsci-Prnt [id number] - [id number] Implanted:Qty: 1 on 10/11/2023 by Michelle Solis MD Right: Groin Evergram JONO 04/23/2026 [id number] / [id number] / Procedures Procedure Name Priority Date/Time Associated Diagnosis Comments ECG 12-LEAD Routine 09/02/2024 1:44 PM EST Hypertension, unspecified type XR KNEE 3 VIEWS RIGHT Routine 08/08/2024 11:33 AM EST Pain [facility] SCREENING DIGITAL Routine 01/22/2024 10:47 AM EDT [...] GEMUSE QTc 486 ms GEMUSE P Wave [place] 72 degrees GEMUSE R [place] 22 degrees GEMUSE T [place] 50 degrees GEMUSE ECG Interpretation Sinus rhythm with sinus arrhythmia with 1st degree A-V block Low voltage QRS Borderline ECG When compared with ECG of 17-DEC-2023 20:52, No significant change was found Confirmed by Jaylin SOLIS, MICHELLE ([id number]) on 09/16/2024 7:29:39 AM GEMUSE 09/02/2024 1:14 PM EST 09/16/2024 7:29 AM EST us Shira Frazier CALIBRATOR BAROMETERS ECG ORDERABLES Edited Resul t - Final GEMUSE * XR Knee 3 Views Right (08/08/2024 11:33 AM EST) Anatomical Region Laterality Modality Lower Extremities, Knee Right Computed Radiography Narrative 08/08/2024 11:58 AM EST Bilateral PA weightbearing views of the knees taken August 08, 2024. ?? Lateral view of the right knee. ??[place] view of the right knee. ??It is of early tricompartmental arthrosis. ??No significant deformity. ??Overall good preservation of articular cartilage. ??Chondrocalcinosis us Emil Lara MD IMG XR PROCEDURES Final Result * RAFI SCREENING DIGITAL (01/22/2024 10:47 AM EDT) Anatomical Region Laterality Modality Mammography 01/22/2024 9:53 AM EDT Narrative 01/22/2024 10:47 AM EDT [facility] Diagnostic Imaging Department [address] [place], [place] [id number] Patient: ??AGUSTINA RUANO ?/Age/Sex: 1960 - 63 - F Unit#: ??[id number] ? Location/Status: ??SPDIMAM/REG CLI ? Mnemonic/Ordering Site: ??DIGSC/SPMAM Ordering Physician: ??MAGDIEL ARCEO MD Rafi Screening Digital - 01/22/24 - 1018 Report Status:Signed HISTORY: The patient is a 63-year-old female presenting for routine screening mammography. FINDINGS: ??Full-field digital mammography of the breasts bilaterally consisting of tomosynthesis in MLO and CC projection is performed in the Magnetecse 2000-D unit. ??Computer aided detection utilizing the FibrenetixD system was utilized. The breasts are seen to be largely fatty-replaced (the breasts are almost entirely fatty, category A density as calculated with GameWithpara software), without significant change as it to [...] ??Benign Finding PQRI CPT II 3342F Code 93366, 23682 PQRI 225 CPT II 7025F Dictating Physician: ??ZOË CAIN MD Electronically Signed by: ??ZOË CAIN MD Dic Date/Time: ??01/22/24 1042 Sign date/Time: ??01/22/24 1047 Procedure Note Zoë Cain MD - 05/14/2024 [facility] Diagnostic Imaging Department [address] [place] [address] Patient: AGUSTINA RUANOO.B./Age/Sex: 1960 - 63 - F Unit#: [id number] Location/Status: SPDIMAM/REG CLI Mnemonic/Ordering Site: [facility] Ordering Physician: MAGDIEL ARCEO MD Rafi Screening Digital - 01/22/24 - 1018 Report Status:Signed HISTORY: The patient is a 63-year-old female presenting for routinescreening mammography. FINDINGS: Full-field digital mammography of the breasts bilaterallyconsisting of tomosynthesis in MLO and CC projection is performed in the Nine Star 2000-D unit. Computer aided detection utilizing the [...] Benign Finding PQRI CPT II 3342F Code 04839, 18258 PQRI 225 CPT II 7025F Dictating Physician: ZOË CAIN MD Electronically Signed by: ZOË CAIN MD Dic Date/Time: 01/22/24 1042 Sign date/Time: 01/22/24 1047 Magdiel Arceo MD IMG BI PROCEDURES Final Result * Annual BMP Blood Test (11/26/2023) Annual BMP Blood Test Abstracted Historical Provider HEALTH MAINTENANCE Final Result * Colonoscopy (05/23/2023) Colonoscopy No interpretation , Abstracted Anatomical Region Laterality Modality Other Historical Provider HEALTH MAINTENANCE Final Result * Cervical Cancer Screening: HPV (06/09/2020) Cervical Cancer Screening: HPV Negative, Abstracted Historical Provider HEALTH MAINTENANCE Final Result * Urine Albumin Creatinine Ratio (07/25/2019) Urine Albumin Creatinine Ratio Abstracted Historical Provider HEALTH MAINTENANCE Final Result from Last 3 Months or Most Recently Relevant to Health Maintenance Insurance DR SHI [address] [place] [phone] MEDICARE [place]ICAID - [place] Advance Directives Documents on File Type Date Recorded Patient Splicing Technician Expl anation Health Care Decision (hx) 05/23/2020 [...] (hx) 09/26/2019 AD WATTS DIRECTIVE Care Teams Helmet Binder Relationship Specialty Start Date End Date Magdiel Arceo MD [address] [place] [address] PCP - General Internal Medicine 07/14/19
--- OUTSIDE RECORDS SUMMARY | 2024-10-29 11:33 | XMS_ITS | Encounter Summary ---
Author Organization [facility] Address [address] [place] [address] Care Team Providers Care Multigraph Operator Name Role Phone Bao Gann DO Primary Care Provider Encounter Details Date Type Department Care Team (Late st Contact Info) Description 11/10/2014 Scanned Document NE PM [facility] Card[facility] Services 112 [facility] [address] [place] [address] External, Provider Social History Tobacco Use Types [...] on filedocumented in this encounter Care Teams Multigraph Operator Relationship Specialty Start Date End Date Bao Gann DO [address] [facility] 203 [place] [phone] PCP - General Internal Medicine 10/09/18 documented as of this encounter
--- OUTSIDE RECORDS SUMMARY | 2024-10-29 11:33 | XMS_ITS | Encounter Summary ---
Author Organization [facility] Address [address] [place] [address] Care Team Providers Care Industrial Aerial Installer Name Role Phone SanjuanitaBao Primary Care Provider Encounter Details Date Type Department Care Team (Late st Contact Info) Description 11/13/2014 Scanned Document NE PM [facility] Cardiac Services [address] [place] [address] [address] [place] [address] External, Provider Social History Tobacco Use Types [...] External LAB BLOOD ORDERABLES Final Res ult [facility] [place], [place], [facility] * Cardiac Echo Result Scan (11/09/2014) us Provider External CV CARDIAC REPORT (CVR) Final Result Performing Organization Address [facility] Co de Phone Number [facility] * Cardiac EKG Result Scan (11/09/2014) us Provider External CV CARDIAC REPORT (CVR) Final Result Performing Organization Address [facility] Co de Phone Number [facility] * Xray Result Scan (11/08/2014) us Provider External IMG SCAN REPORTS Final Result Performing Organization Address [facility] de Phone Number [facility] documented in this encounter Visit Diagnoses Not on filedocumented in this encounter Care Teams Industrial Aerial Installer Relationship Specialty Start Date End Date Bao Gann DO [address] [facility] 203 [place] [address] PCP - General Internal Medicine 10/09/18 documented as of this encounter
--- OUTSIDE RECORDS SUMMARY | 2024-10-29 11:33 | XMS_ITS | Encounter Summary ---
Author Organization [facility] Address [address] [place] [address] Care Team Providers Care Staff Interpreter Name Role Phone Bao Gann DO Primary Care Provider [phone] Encounter Details Date Type Department Care Team (Late st Contact Info) Description 12/23/[address] [facility] [address], [address] [place], [place] [address] Jorje Campbell MD [address] [place] [address] Social History Tobacco Use Types [...] on filedocumented in this encounter Care Teams Staff Interpreter Relationship Specialty Start Date End Date Bao Gann DO [address] [facility] 203 [place] [phone] PCP - General Internal Medicine 10/09/18 documented as of this encounter
--- OUTSIDE RECORDS SUMMARY | 2024-10-29 11:33 | XMS_ITS | Encounter Summary ---
Author Organization [facility] Address [address] [place] [address] Care Team Providers Care Software Administrator Name Role Phone Bao Gann DO Primary Care Provider [phone] Encounter Details Date Type Department Care Team (Late st Contact Info) Description 08/05/2015 Scanned Document [facility] [address] [place], [place] [address] Jorje Campbell MD [address]2 [place] [address] Social History Tobacco Use Types [...] on filedocumented in this encounter Care Teams Software Administrator Relationship Specialty Start Date End Date Bao Gann DO [address] [facility] 203 [place] [phone] PCP - General Internal Medicine 10/09/18 documented as of this encounter
--- OUTSIDE RECORDS SUMMARY | 2024-10-29 11:33 | XMS_ITS | Encounter Summary ---
Author Organization [facility] [employer] and [facility] Address [address] [place] [address] Care Team Providers Care Research Hydraulic Engineer Name Role Phone DerejeBao bocanegra Primary Care Provider Encounter Details Date Type Department Care Team (Latest Contact Info) Description 06/07/2015 Transcribed Orders [facility] 18[address] [facility] 2nd Floor [place], [place] [phone] Harman Burrows MD Pure hypercholesterolemia (Primary Dx); [...] EST) TSH 1.610 0.465 - 4.680 mIU/L [facility] Blood specimen (specimen) 06/07/2015 12:05 PM EST Harman Burrows MD LAB BLOOD ORDERABLES Final Resul t Performing Organization Address [facility] Number [facility] [address] [place] [address] * T4, free (06/07/2015 12:05 PM EST) Free T4 1.14 0.70 - 2.19 ng/dL [facility] Blood specimen (specimen) 06/07/2015 12:05 PM EST Harman Burrows MD LAB BLOOD ORDERABLES Final Resul t Performing Organization Address [facility] [address] [place] [address] * Iron and TIBC (BH GH L YH) (06/07/2015 12:05 PM EST) Iron 81 37 - 170 mcg/dL [facility] TIBC 272 250 - 450 [facility] Iron Saturation 30 13 - 45 % BRID [facility] Blood specimen (specimen) 06/07/2015 12:05 PM EST Result [facility] Harman Burrows MD LAB BLOOD ORDERABLES Edited Resu lt - Final Performing Organization Address [facility] [address] [place] [address] * (ABNORMAL) Hemoglobin A1c (06/07/2015 12:05 PM EST) Hemoglobin A1c 7.0(H) 4.4 - 6.4 % [facility] Comment: Therapeutic Goal: ?Less Than 7% Re-Evaluation Therapy: ?? Greater Than 8% Blood specimen (specimen) 06/07/2015 12:05 PM EST Harman Burrows MD LAB BLOOD ORDERABLES Final Resul t Performing Organization Address [facility] Number [facility] [address] [place] [address] * Lipid panel (06/07/2015 12:05 PM EST) Cholesterol 164 0 - 199 mg/dL [facility] Triglycerides 98 0 - 150 mg/dL [facility] HDL 48 >=41 mg/dL [facility] LDL Cholesterol 97 0 - 99 BRID [facility] CHD Risk 3 <=4 [facility] Blood specimen (specimen) 06/07/2015 12:05 PM EST us Harman Burrows MD LAB BLOOD ORDERABLES Edited Resu lt - Final [facility] [address] [place] [address] * (ABNORMAL) Comprehensive metabolic panel (06/07/2015 12:05 PM EST) Glucose 131(H) 70 - 100 mg/dL [facility] BUN 14 7 - 17 mg/dL [facility] Creatinine 0.69 0.52 - 1.04 mg/dL [facility] Sodium 141 137 - 145 mmol/L [facility] Potassium 4.5 3.5 - 5.1 mmol/L [facility] Chloride 105 98 - 107 mmol/L [facility] CO2 25 22 - 30 mmol/L [facility] Anion Gap 12 7 - 16 mmol/L [facility] Calcium 9.7 8.4 - 10.2 mg/dL [facility] Total Protein 7.7 6.3 - 8.2 g/dL [facility] Albumin 4.0 3.5 - 5.0 g/dL [facility] Globulin 3.6(H) 2.0 - 3.5 g/dL [facility] A/G Ratio 1.1 1.1 - 2.2 ratio [facility] Aspartate Aminotransferase (AST) 40(H) 14 - 36 u/l [facility] Alkaline Phosphatase 95 38 - 126 u/l [facility] Total Bilirubin 1.3 0.2 - 1.3 mg/dL [facility] Alanine Aminotransferase (ALT) 39 9 - 52 u/l [facility] eGFR >60 [facility] Comment: Interpretation Stage 1 ?? [...] BLOOD ORDERABLES Edited Resu lt - Final [facility] [address] [place] [address] documented in this encounter Visit Diagnoses Diagnosis [...] (pouch) documented in this encounter Care Teams Research Hydraulic Engineer Relationship Specialty Start Date End Date Bao Gann DO [address] [facility] 203 [place] [phone] PCP - General Internal Medicine 10/09/18 documented as of this encounter
--- OUTSIDE RECORDS SUMMARY | 2024-10-29 11:33 | XMS_ITS | Encounter Summary ---
Author Organization [facility] [employer] and [facility] Address [address] [place] [address] Care Team Providers Care Dredge Pipe Operator Name Role Phone DerejedilcialisaBao Primary Care Provider [phone] Encounter Details Date Type Department Care Team (Latest Contact Info) Description 10/08/2015 Transcribed Orders [facility] [address] [facility] 2nd Floor [place], [place] [phone] Harman Burrows MD Essential hypertension, malignant (Primary [...] Hemoglobin A1c 7.3(H) 4.4 - 6.4 % [facility] Comment: Therapeutic Goal: ?Less Than 7% Re-Evaluation Therapy: ?? Greater Than 8% Blood specimen (specimen) 10/08/2015 10:30 AM EST Harman Burrows MD LAB BLOOD ORDERABLES Final Resul t Performing Organization Address [facility]/ZIP Co de Phone Number [facility] [address] [place] [address] * Lipid panel (10/08/2015 10:30 AM EST) Cholesterol 166 0 - 199 mg/dL [facility] Triglycerides 88 0 - 150 mg/dL [facility] HDL 59 >=41 mg/dL [facility] LDL Cholesterol 90 0 - 99 BRID [facility] CHD Risk 3 <=4 [facility] Blood specimen (specimen) 10/08/2015 10:30 AM EST Harman Burrows MD LAB BLOOD ORDERABLES Edited Resu lt - Final Performing Organization Address [facility] Co de Phone Number [facility] [address] [place] [address] * (ABNORMAL) Comprehensive metabolic panel (10/08/2015 10:30 AM EST) Glucose 131(H) 70 - 100 mg/dL [facility] BUN 16 7 - 17 mg/dL [facility] Creatinine 0.70 0.52 - 1.04 mg/dL [facility] Sodium 141 137 - 145 mmol/L [facility] Potassium 4.2 3.5 - 5.1 mmol/L [facility] Chloride 102 98 - 107 mmol/L [facility] CO2 26 22 - 30 mmol/L [facility] Anion Gap 13 7 - 16 mmol/L [facility] Calcium 9.2 8.4 - 10.2 mg/dL [facility] Total Protein 7.2 6.3 - 8.2 g/dL [facility] Albumin 4.0 3.5 - 5.0 g/dL [facility] Globulin 3.1 2.0 - 3.5 g/dL [facility] A/G Ratio 1.3 1.1 - 2.2 ratio [facility] Aspartate Aminotransferase (AST) 43(H) 14 - 36 u/l [facility] Alkaline Phosphatase 91 38 - 126 u/l [facility] Total Bilirubin 1.1 0.2 - 1.3 mg/dL [facility] Alanine Aminotransferase (ALT) 29 9 - 52 u/l [facility] eGFR >60 [facility] Comment: Interpretation Stage 1 ?? [...] BLOOD ORDERABLES Edited Resu lt - Final [facility] [address] [place] [address] documented in this encounter Visit Diagnoses Diagnosis Essential hypertension, malignant- Primary Hypotension, unspecified Pure hypercholesterolemia Mixed hyperlipidemia Type I (juvenile type) diabetes mellitus without mention of complication, not stated as uncontrolled documented in this encounter Care Teams Dredge Pipe Operator Relationship Specialty Start Date End Date Bao Gann DO [address] [facility] [address] [place] [phone] PCP - General Internal Medicine 10/09/18 documented as of this encounter
--- OUTSIDE RECORDS SUMMARY | 2024-10-29 11:33 | XMS_ITS | Encounter Summary ---
Author Organization [facility] Address [address] [place] [address] Care Team Providers Care Machine Binding Folder Name Role Phone Bao Gann DO Primary Care Provider Encounter Details Date Type Department Care Team (Late st Contact Info) Description 11/09/2014 Scanned Document NE PM [facility] Cardiac Services [address] [facility] [address] [place] [address] External, Provider Social History Tobacco Use Types [...] on filedocumented in this encounter Care Teams Machine Binding Folder Relationship Specialty Start Date End Date Bao Gann DO 1825 [facility] 203 [place] [phone] PCP - General Internal Medicine 10/09/18 documented as of this encounter
--- OUTSIDE RECORDS SUMMARY | 2024-10-29 11:33 | XMS_ITS | Encounter Summary ---
Author Organization [facility] Address [address] [place] [address] Care Team Providers Care Billing Associate Name Role Phone Bao Gann DO Primary Care Provider Encounter Details Date Type Department Care Team (Late st Contact Info) Description 06/09/2016 Scanned Document NE PM [facility] 112 [facility] [address] [place], [place] [address] Curt Miller MD 112 [facility] [address] [place] [address] Social History Tobacco Use Types [...] on filedocumented in this encounter Care Teams Billing Associate Relationship Specialty Start Date End Date Bao Gann DO [address] [facility] [address] [place] [phone] PCP - General Internal Medicine 10/09/18 documented as of this encounter
--- OUTSIDE RECORDS SUMMARY | 2024-10-29 11:33 | XMS_ITS | Encounter Summary ---
Author Organization [facility] [employer] and [facility] Address [address] [place] [address] Care Team Providers Care Low Pressure Boiler Tender Name Role Phone Bao Gann Primary Care Provider [phone] Encounter Details Date Type Department Care Team (Latest Contact Info) Description 10/20/2013 Transcribed Orders [facility] Draw Station [address] [facility] 2nd Floor [place] [id number] Harman Burrows MD Unspecified essential hypertension (Primary [...] EDT) TSH 1.600 0.465 - 4.680 mIU/L [facility] Blood specimen (specimen) 10/20/2013 10:49 AM EDT us Harman Burrows MD LAB BLOOD ORDERABLES Final Resul t [facility] [address] [place] [address] * T4, free (10/20/2013 10:49 AM EDT) Free T4 1.11 0.70 - 2.19 ng/dL [facility] Blood specimen (specimen) 10/20/2013 10:49 AM EDT us Harman Burrows MD LAB BLOOD ORDERABLES Final Resul t Performing Organization Address [facility]/ZIP Co de Phone Number [facility] [address] [place] [address] * (ABNORMAL) Hemoglobin A1c (10/20/2013 10:49 AM EDT) Pathologist [facility] Hemoglobin A1c 6.6(H) 4.4 - 6.4 % [facility] Comment: Therapeutic Goal: ?Less Than 7% Re-Evaluation Therapy: ?? Greater Than 8% Blood specimen (specimen) 10/20/2013 10:49 AM EDT us Harman Burrows MD LAB BLOOD ORDERABLES Final Resul t Performing Organization Address [facility] Co de Phone Number [facility] [address] [place] [address] * Lipid panel (10/20/2013 10:49 AM EDT) Cholesterol 165 0 - 199 mg/dL [facility] Triglycerides 72 0 - 150 mg/dL [facility] HDL 59 >=41 mg/dL [facility] LDL Cholesterol 92 0 - 99 BRID [facility] CHD Risk 3 <=4 [facility] Blood specimen (specimen) 10/20/2013 10:49 AM EDT us Harman Burrows MD LAB BLOOD ORDERABLES Edited Resu lt - Final Performing Organization Address [facility]/ZIP Co de Phone Number [facility] [address] [place] [address] * (ABNORMAL) Comprehensive metabolic panel (10/20/2013 10:49 AM EDT) Glucose 118(H) 70 - 100 mg/dL [facility] BUN 20(H) 7 - 17 mg/dL [facility] Creatinine 0.79 0.52 - 1.04 mg/dL [facility] Sodium 140 137 - 145 mmol/L [facility] Potassium 4.6 3.5 - 5.1 mmol/L [facility] Chloride 103 98 - 107 mmol/L [facility] CO2 28 22 - 30 mmol/L [facility] Anion Gap 10 7 - 16 mmol/L [facility] Calcium 9.8 8.4 - 10.2 mg/dL [facility] Total Protein 7.3 6.3 - 8.2 g/dL [facility] Albumin 4.2 3.5 - 5.0 g/dL [facility] Globulin 3.1 2.0 - 3.5 g/dL [facility] A/G Ratio 1.3 1.1 - 2.2 ratio [facility] Aspartate Aminotransferase (AST) 36 14 - 36 u/l [facility] Alkaline Phosphatase 85 38 - 126 u/l [facility] Total Bilirubin 0.9 0.2 - 1.3 mg/dL [facility] Alanine Aminotransferase (ALT) 43 9 - 52 u/l [facility] Final [facility] [address] [place] [address] documented in this encounter Visit Diagnoses Diagnosis Unspecified essential hypertension- Primary Hyperchylomicronemia Alcoholic liver damage, unspecified Acute thyroiditis documented in this encounter Care Teams Low Pressure Boiler Tender Relationship Specialty Start Date End Date Bao Gann DO [address] [facility] [address] [place] [phone] PCP - General Internal Medicine 10/09/18 documented as of this encounter
--- OUTSIDE RECORDS SUMMARY | 2024-10-29 11:33 | XMS_ITS | Encounter Summary ---
Author Organization [facility] [employer] and [facility] Address [address] [place] [address] Care Team Providers Care Automotive Parts Counterperson Name Role Phone DerejeshandraartisBao Primary Care Provider [phone] Encounter Details Date Type Department Care Team (Latest Contact Info) Description 01/14/2016 Transcribed Orders [facility] Draw Station [address] [facility] 2nd Floor [place], [place] [id number] Harman Burrows MD Hypotension, unspecified (Primary Dx); [...] Hemoglobin A1c 7.1(H) 4.4 - 6.4 % [facility] Comment: Therapeutic Goal: ?Less Than 7% Re-Evaluation Therapy: ?? Greater Than 8% Blood specimen (specimen) 01/14/2016 10:57 AM EDT Harman Burrows MD LAB BLOOD ORDERABLES Final Resul t Performing Organization Address [facility]/ZIP Co de Phone Number [facility] [address] [place] [address] * Lipid panel (01/14/2016 10:57 AM EDT) Cholesterol 147 0 - 199 mg/dL [facility] Triglycerides 75 0 - 150 mg/dL [facility] HDL 51 >=41 mg/dL [facility] LDL Cholesterol 81 0 - 99 BRID [facility] CHD Risk 3 <=4 [facility] Blood specimen (specimen) 01/14/2016 10:57 AM EDT Harman Burrows MD LAB BLOOD ORDERABLES Edited Resu lt - Final Performing Organization Address [facility] Co de Phone Number [facility] [address] [place] [address] * (ABNORMAL) Comprehensive metabolic panel (01/14/2016 10:57 AM EDT) Glucose 137(H) 70 - 100 mg/dL [facility] BUN 19(H) 7 - 17 mg/dL [facility] Creatinine 0.75 0.52 - 1.04 mg/dL [facility] Sodium 143 137 - 145 mmol/L [facility] Potassium 4.3 3.5 - 5.1 mmol/L [facility] Chloride 102 98 - 107 mmol/L [facility] CO2 28 22 - 30 mmol/L [facility] Anion Gap 14 7 - 16 mmol/L [facility] Calcium 8.8 8.4 - 10.2 mg/dL [facility] Total Protein 7.3 6.3 - 8.2 g/dL [facility] Albumin 3.7 3.5 - 5.0 g/dL [facility] Globulin 3.6(H) 2.0 - 3.5 g/dL [facility] A/G Ratio 1.0(L) 1.1 - 2.2 [facility] Aspartate Aminotransferase (AST) 55(H) 14 - 36 u/l [facility] Alkaline Phosphatase 106 38 - 126 u/l [facility] Total Bilirubin 1.3 0.2 - 1.3 mg/dL [facility] Alanine Aminotransferase (ALT) 48 9 - 52 u/l [facility] eGFR >60 [facility] Comment: Interpretation Stage 1 ?? [...] BLOOD ORDERABLES Edited Resu lt - Final [facility] [address] [place] [address] documented in this encounter Visit Diagnoses Diagnosis Hypotension, unspecified- Primary Aortic valve disorders Essential hypertension, malignant Pure hypercholesterolemia Mixed hyperlipidemia Other and unspecified hyperlipidemia Type II or unspecified type diabetes mellitus without mention of complication, not stated as uncontrolled documented in this encounter Care Teams Automotive Parts Counterperson Relationship Specialty Start Date End Date Bao Gann DO [address] [facility] [address] [place] [phone] PCP - General Internal Medicine 10/09/18 documented as of this encounter
--- OUTSIDE RECORDS SUMMARY | 2024-10-29 11:34 | XMS_ITS ---
Author Organization [facility] Address [address] [place] [address] Care Team Providers Care Oracle Data Warehouse Developer Name Role Phone Dayna Prieto MD Primary Care Provider Meron Peterson Unavailable [phone] Desmond Nava [phone] REASON FOR VISIT MANTEL [facility] Entered Encounters Encounter Location Date Provider Diagnosis [address] [address] 03/21/2024 Desmond Nava Plan Of Treatment Next Appt Details Provider Name:Meron fritz, 04/29/2025 11:00:00 AM, [address] [place], [address], Progress Notes * Agustina RUANODOB:1960 ( 63 yo F)Acc No.[id number]:03/21/2024 Patient:?Agustina Ruano :1960???Age:63 Y???Sex:Female Address:[address] [place] [address], [address], [place], [address] * true * Date:? Generated for Printi ng/Faxing/eTransmitting on:?10/29/2024 11:33 AM EDT
--- OUTSIDE RECORDS SUMMARY | 2024-10-29 11:34 | XMS_ITS | Encounter Summary ---
Author Organization [facility] Address [address] [place] [address] Care Team Providers Care Compound Finisher Name Role Phone Bao Gann DO Primary Care Provider Encounter Details Date Type Department Care Team (Late st Contact Info) Description 10/08/2018 Scanned Document [facility] [address] [place], [place] [address] Jorje Campbell MD [address] [place] [address] Social History Tobacco Use Types [...] on filedocumented in this encounter Care Teams Compound Finisher Relationship Specialty Start Date End Date Bao Gann DO [address] [place] [phone] PCP - General Internal Medicine 10/09/18 documented as of this encounter
--- OUTSIDE RECORDS SUMMARY | 2024-10-29 11:34 | XMS_ITS | Clinical Summary ---
Author Organization [address] [facility] Address [address] [place] [address] Care Team Providers Care Oil Burner Repairer Name Role Phone Bao Gann DO Primary [...] (1 of 1 - PCV) 2027 RSV Immunization (1 - 1-dose 75+ series) 2037 Meningococcal [...] - 6.4 % 12/01/2016 1:17 PM EDT [facility] Blood specimen (specimen) Venipuncture / Unknown 12/01/2016 10:23 AM EDT 12/01/2016 10:23 AM EDT Harman Burrows MD LAB BLOOD ORDERABLES Final Resul t Performing Organization Address [facility] Co de Phone Number [facility] [address] [place] [address] * Lipid panel (12/01/2016 10:23 AM EDT) Cholesterol 148 0 - 199 mg/dL 12/01/2016 12:29 PM EDT [facility] HDL 54 >=41 mg/dL 12/01/2016 12:29 PM T [facility] Triglycerides 66 0 - 150 mg/dL 12/01/2016 12:29 PM T [facility] Chol/HDL Ratio 2.7 12/01/2016 12:29 PM T [facility] LDL Calculated 81 0 - 100 mg/dL 12/01/2016 12:29 PM T [facility] Blood specimen (specimen) Venipuncture / Unknown 12/01/2016 10:23 AM EDT 12/01/2016 10:23 AM EDT Harman Burrows MD LAB BLOOD ORDERABLES Final Resul t Performing Organization Address [facility] Co de Phone Number [facility] [address] [place] [address] * HM COLONOSCOPY (02/25/2014) Colonoscopy Primed Conversion (Col) Historical Provider HEALTH MAINTENANCE Final Res ult from Last 3 Months or Most Recently Relevant to Health Maintenance Insurance MEDICARE Member Subscriber Plan / Payer (Ef fective 1994-Present) Name:Agustina Patel Member ID:[id number] Relation to Subscriber:Self Name:Agustina Patel Subscriber ID:[id number] Payer ID:[id number] Group ID:Not on file Type:Not on file Address: [address] MEDICARE [place]ID [place] Member Subscriber Plan / Payer (Ef fective 1994-Present) Name:Agustina Patel Member ID:[id number] Relation to Subscriber:Self Name:Agustina Patel Subscriber ID:[id number] Payer ID:[id number] Group ID:Not on file Type:Not on file Address: [address] MEDICARE [place]ID [place] Care Teams Oil Burner Repairer Relationship Specialty Start Date End Date Bao Gann DO [address] [facility] [address] [address] [place] [address] PCP - General Internal Medicine 10/09/18
--- OUTSIDE RECORDS SUMMARY | 2024-10-29 11:34 | XMS_ITS | Patient Health Record ---
Author Organization [facility] Address [address] [facility] [place] [address] Care Team Providers Care Lead Manufacturing Engineer Name Role Phone Dayna Prieto MD Primary Care Provider Unavaila Meron Vaz Unavailable [phone] Desmond Nava Unavailable [phone] Allergies Allergen (clinical drug ingredient) Drug/Non Drug [...] 240 MG TAKE 1 CAPSULE BY MO [facility] DAILY Oral for 90 Days Active Pantoprazole Sodium 40 MG TAKE 1 TABLET BY MOUTH DAILY Oral for 90 Days Active Vitamin D3 1195495 UNIT/GM as directed 03/21/2024 Active Flecainide Acetate [...] Polyneuropathy due to type 2 diabetes mellitus ([id number]) Type 2 diabetes mellitus with diabetic polyneuropathy (E11.42) Active confirmed Vital Signs Blood pressure diastolic 59 mm Hg 04/28/2024 Height 5 ft 6 in in 04/28/2024 Blood pressure systolic 118 mm Hg 04/28/2024 Weight 262 lbs 04/28/2024 BMI 42.28 kg/m2 04/28/2024 Procedures Procedure Date Ordered Date Performed Result Body Sit e 68247-FNYJ SKIN LESIONS, 2 TO 4 04/28/2024 N/A [id number]-CTJPRWCI DYSTROPHIC NAILS ANY # 04/28/2024 N/A Encounters Encounter Location Date Provider Diagnosis [facility] [address] 04/28/2024 Desmond Nava Type 2 diabetes mellitus with diabetic polyneuropathy E11.42 ; Ingrowing nail L60.0 and [facility] L98.[facility] [address] 03/21/2024 Desmond Nava Assessments Encounter Date Diagnosis (ICD Code) Assessment Notes Treatment Notes Treatment Clinical Notes Section Notes 04/28/2024 Type 2 diabetes mellitus with diabetic polyneuropathy (ICD-10 - E11.42) 04/28/2024 Ingrowing nail (ICD-10 - L60.0) 04/28/2024 Skin disease (ICD-10 - L98.9) Plan Of Treatment Pending Test Test Name Order Date 46986-FCGJ SKIN LESIONS, 2 TO 4 04/28/20 24 H1120-HEBSMUIB DYSTROPHIC NAILS ANY # Next Appt Details Provider Name:Meron fritz, 04/29/2025 11:00:00 AM, [address] [place], [address], Insurance Providers Payer Name Payer Address Payer Phone Subscriber Number Group Number Insured Name Patient Relationship to Insured Coverage Start Date Coverage End Date Medicare National Govt Svcs Inc [address] [place] [address] [id number] Agustina Patel Self - patient is the insured Medical (General) History Medical History History ICD Code Anxiety Arthritis Back,Hip,and Knee pain covid-19 Diabetic Gall bladder problems Headaches/Migraines Hypertension Macular degeneration Reflux ( GERD) sinusitis Measles Mumps Chicken pox A fib Tachycardia Surgical History Surgery Date(Month/Year) back surgery Gall bladder removal spinal stenosis surgery watchmen Hospitalization History Reason Date(Month/Year) [facility] knee 12/29/2023
--- OUTSIDE RECORDS SUMMARY | 2024-10-29 11:34 | XMS_ITS | Clinical Summary ---
Author Organization [facility] Address [address] [place] [address] Care Team Providers Care Manager Cancer Name Role Phone Unavailable Primary Care Provider [...]
== END 2024-10-29 11:17 | disposition home or self-care (01) ==
LOC: HO.HMCC 10:02
PROVIDERS: PCP Internal Medicine; Visit Provider Internal Medicine
DX: K74.60 Unspecified cirrhosis of liver (principal); I48.91 Unspecified atrial fibrillation; E11.9 Type 2 diabetes mellitus without complications; D50.9 Iron deficiency anemia, unspecified; I10 Essential (primary) hypertension; M17.9 Osteoarthritis of knee, unspecified; Z23 Encounter for immunization

== ENCOUNTER → 2024-10-29 10:01 | Outpatient (BNVA) | payer MEDICARE, MEDICAID, SELFPAY | PROVIDERS: PCP Internal Medicine; Visit Provider Internal Medicine | DX: Z23 Encounter for immunization (principal); K74.60 Unspecified cirrhosis of liver; D50.9 Iron deficiency anemia, unspecified; I48.91 Unspecified atrial fibrillation; I10 Essential (primary) hypertension; E11.9 Type 2 diabetes mellitus without complications; M17.9 Osteoarthritis of knee, unspecified | CPT/HCPCS: 90471; 90677; 96127; 99212 ==

== ENCOUNTER 2024-11-27 11:55 | Outpatient (AMB) | payer MEDICARE, MEDICAID, SELFPAY ==
[2024-11-27 12:06] VITALS: BP 126/82; PULSE 76; O2SAT 98; BMI 39.9
--- NOTE | 2024-11-27 12:06 | MHC.PC.OV ---
Vital Signs 11/27/24 12:06 Height 5 ft 6 in Intake Visit Reasons: EP low sugar, low bp, dizzy, weak, nauseous Allergies ciprofloxacin [From Cipro] Allergy (Unknown, Verified 10/29/24 10:18) palpations/cp codeine Allergy (Unknown, Verified 10/29/24 10:18) chest pain sulfadiazine Allergy (Unknown, Verified 10/29/24 10:18) palpatations/CP dulaglutide [From Trulicity] Allergy (Verified 10/29/24 10:18) Diarrhea apixaban [From Eliquis] Adverse Reaction (Unknown, Verified 10/29/24 10:18) memory problem Tobacco use date assessed: 10/29/24 Dental Screening Dental Screen Date: 10/29/24 [facility] Medical History Annual physical exam Anxiety Degenerative lumbar spinal stenosis Obesity DAVIAN on CPAP Iron deficiency anemia Macular degeneration GERD (gastroesophageal reflux disease) Atrial fibrillation Hyperlipidemia HTN (hypertension) DM type 2 (diabetes mellitus, type 2) Surgical History H/O colonoscopy H/O lumbosacral spine surgery No pertinent past surgical history Family History Unknown No problems noted. Mother No problems noted. Sister No problems noted. Brother Substance use disorder Social History Housing: Apartment Alcohol intake: current Alcohol intake frequency: does not drink Patient Tobacco Use Status: Never used Tobacco e-Cigarette/Vaping Use: Never Used service: No Current occupational status: unemployed and disabled Cognitive needs: No Hearing needs: Yes Vision needs: Yes Questionnaire Thrive Questionnaire Date Thrive assessed: 09/16/24 ROXANNA-7 AMB Questionnaire ROXANNA-7 Date ROXANNA - 7 assessed: 10/29/24 Source: Developed by Drs. Candido Santana, Marilia Malcolm, Alex Garcia and colleagues, with an educational garima from [employer] Physical exam (Primary Care) Tobacco/Smoking Status: Tobacco use Status Tobacco use date assessed 10/29/24 10/29/24 10:30 Patient Tobacco Use Status Never used Tobacco 10/29/24 10:11 e-Cigarette/Vaping Use Never Used 10/29/24 10:11 Thrive Assessment: Date of Thrive Assessment Date Thrive assessed 09/16/24 10/29/24 10:11 Coding
--- NOTE | 2024-11-27 12:16 | AM.OFFWIN_ITS ---
Intake Vital Signs 11/27/24 12:06 Height 5 ft 6 in Weight 247 lb BMI 39.9 BP 126/82 Blood Pressure Location Rt brachial Position Sitting Pulse 76 Pulse Source Pulse Oximeter Pulse Oximetry (%) 98 Oxygen Delivery Method Room Air Intake Visit Reasons: EP low sugar, low bp, dizzy, weak, nauseous Patient Tobacco Use Status: Never used Tobacco Allergies ciprofloxacin [From Cipro] Allergy (Unknown, Verified 11/27/24 12:16) palpations/cp codeine Allergy (Unknown, Verified 11/27/24 12:16) chest pain sulfadiazine Allergy (Unknown, Verified 11/27/24 12:16) palpatations/CP dulaglutide [From Trulicity] Allergy (Verified 11/27/24 12:16) Diarrhea apixaban [From Eliquis] Adverse Reaction (Unknown, Verified 11/27/24 12:16) memory problem Do you need a note to return to daycare/school/sports/work: No HPI HPI Comments History of Present Illness Details History of Present Illness - The patient is a 64-year-old female pr esenting with low blood sugars to 70 and low blood pressure to 110/48. - The recent adjustment at 10/29 visit wit h PCP, A1c is 5.6, decreased metformin to 750 mg once a day and increase Ozempic to 1 mg weekly. - Reports of dizziness, nausea, and weak ness. - States low blood sugar occurrences in the morning only. Is aware how to treat, used pudding and a banana with increase to 80's. - The patient experienced the most prono unced low symptoms at a blood sugar level of 70 mg/dL. - A secondary health concern involves li beth function anomalies following high liver enzyme readings, suggesting autoimmune biliary involvement leading to Ursodiol therapy. - The patient?s medical history is addit ionally notable for a significant weight loss due to earlier concerns over surgery viability. Physical Exam General: Cooperative, healthy appearing, comfortable, no acute distress and well developed Orientation: Patient oriented x3 Limitations: No limitations Head: Normal to inspection Ears: Hearing grossly normal bilaterally Nose: Normal External nose present Face and sinus: Normal facial exam Eyes: Appearance normal, both eyes and all related structures Neck: Normal visual inspection and Yes full ROM Respiratory: Normal respiratory effort and able to speak in complete sentences. Skin: No rashes or lesions noted Neuro: Patient oriented x3 Extremities: Normal to inspection [facility] Medical History Annual physical exam Anxiety Degenerative lumbar spinal stenosis Obesity DAVIAN on CPAP Iron deficiency anemia Macular degeneration GERD (gastroesophageal reflux disease) Atrial fibrillation Hyperlipidemia HTN (hypertension) DM type 2 (diabetes mellitus, type 2) Surgical History H/O colonoscopy H/O lumbosacral spine surgery No pertinent past surgical history Family History Unknown No problems noted. Mother No problems noted. Sister No problems noted. Brother Substance use disorder Social History Housing: Apartment Alcohol intake: current Alcohol intake frequency: does not drink Patient Tobacco Use Status: Never used Tobacco e-Cigarette/Vaping Use: Never Used service: No Current occupational status: unemployed and disabled Cognitive needs: No Hearing needs: Yes Vision needs: Yes Review of Systems Const All systems reviewed & are unremarkable except as noted in HPI and below Physical Exam Vital Signs: Last Vital Signs Pulse 76 11/27/24 12:06 BP 126/82 11/27/24 12:06 Pulse Ox 98 11/27/24 12:06 Oxygen Delivery Method Room Air 11/27/24 12:06 BMI result Body Mass Index 39.9 Results AMB Random Glucose (hemocue) AMB Random Glucose (hemocue) 111 mg/dL Last Edit by ANANDA Willis on 11/27/24 12:23 Results Reviewed Results Reviewed: Laboratory Last Values Random Glu (Clinic) 111 mg/dL 11/27/24 12:23 Assessment & Plan Assessment & Plan (1) Low blood sugar in diabetes: Code(s): E11.649 - Type 2 diabetes mellitus with hypoglycemia without coma Plan: POC in office is 111. While 70 is clinically normal, she is probably intolerant due to running much higher typically though meters can be off by 10% which would dip her into th e60's. Also, the recent addition of Ursodiol may be lowering her bg's due to it's effect on GLP-1. The management strategy focuses on addressing hypoglycemia and related discomfort with recent diabetic medication changes, she may need further changes. I have messaged her PCP to decide what she prefers to do, dakota queen stopping Metformin, or similar. Continuation of Ursodiol is indicated for liver-related issues, further monitoring with planned ultrasound imaging. Education about handling hypoglycemia with immediate sugar intake, such as juice or fruit, is advised. Patient was informed and verbally consented to the use of an ambient scribe for clinic note documentation during this visit. Orders: Orders AMB Random Glucose (hemocue) Today Z13.9 - Encounter for screening, unspecified Coding Level of Care Code Est Pt Level 3 (30365) Diagnoses Low blood sugar in diabetes E11.649
--- NOTE | 2024-11-27 12:45 | AM.OFFVISNUR ---
Vital Signs 11/27/24 12:06 Height 5 ft 6 in Weight 247 lb BMI 39.9 BP 126/82 Blood Pressure Location Rt brachial Position Sitting Pulse 76 Pulse Source Pulse Oximeter Pulse Oximetry (%) 98 Oxygen Delivery Method Room Air Intake Visit Reasons: EP low sugar, low bp, dizzy, weak, nauseous Allergies ciprofloxacin [From Cipro] Allergy (Unknown, Verified 11/27/24 12:16) palpations/cp codeine Allergy (Unknown, Verified 11/27/24 12:16) chest pain sulfadiazine Allergy (Unknown, Verified 11/27/24 12:16) palpatations/CP dulaglutide [From Trulicity] Allergy (Verified 11/27/24 12:16) Diarrhea apixaban [From Eliquis] Adverse Reaction (Unknown, Verified 11/27/24 12:16) memory problem Nursing Note Pt came into the [place] [facility] with her friend. Pt amb (I) gait steady with walker to be triaged. Pt stated that she started taking medication Ursodiol 300mg recently and she started to Results AMB Random Glucose (hemocue) AMB Random Glucose (hemocue) 111 mg/dL Last Edit by ANANDA Willis on 11/27/24 12:23 Assessment & Plan Assessment & Plan (1) Low blood sugar in diabetes: Code(s): E11.649 - Type 2 diabetes mellitus with hypoglycemia without coma Category: Medical Orders: Orders AMB Random Glucose (hemocue) Today Z13.9 - Encounter for screening, unspecified Coding Diagnoses Low blood sugar in diabetes E11.649
--- NOTE | 2024-11-27 12:51 | AM.OFFVISNUR ---
Vital Signs 11/27/24 12:06 Height 5 ft 6 in Weight 247 lb BMI 39.9 BP 126/82 Blood Pressure Location Rt brachial Position Sitting Pulse 76 Pulse Source Pulse Oximeter Pulse Oximetry (%) 98 Oxygen Delivery Method Room Air Intake Visit Reasons: EP low sugar, low bp, dizzy, weak, nauseous Allergies ciprofloxacin [From Cipro] Allergy (Unknown, Verified 11/27/24 12:16) palpations/cp codeine Allergy (Unknown, Verified 11/27/24 12:16) chest pain sulfadiazine Allergy (Unknown, Verified 11/27/24 12:16) palpatations/CP dulaglutide [From Trulicity] Allergy (Verified 11/27/24 12:16) Diarrhea apixaban [From Eliquis] Adverse Reaction (Unknown, Verified 11/27/24 12:16) memory problem Nursing Note Pt came into the [place] ambulated (I) with a walker. Pt c/o of feeling funky after starting new medication Ursodiol. Pt stated she had right knee surgery last Sunday/Sunday at [facility]. 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 Pt stated that she woke up this am blood sugar was 85 then at 1100 blood sugar was 70, ate then rechecked 82. Pt stated blood pressure this am was 110/48-58. Hx of a-fib, enlarged aorta, tachycardia. Pt stated liver issues/dx after having Covid. Pt blood pressure taken was 139/83-85-98% on room air. Pt roomed 12. KRIS (Jamilah Barnes) and MARISOL (Michael) aware. Results AMB Random Glucose (hemocue) AMB Random Glucose (hemocue) 111 mg/dL Last Edit by ANANDA Willis on 11/27/24 12:23 Assessment & Plan Assessment & Plan (1) Low blood sugar in diabetes: Code(s): E11.649 - Type 2 diabetes mellitus with hypoglycemia without coma Category: Medical Orders: Orders AMB Random Glucose (hemocue) Today Z13.9 - Encounter for screening, unspecified Coding Diagnoses Low blood sugar in diabetes E11.649
== END 2024-11-27 13:14 | disposition home or self-care (01) ==
PROVIDERS: PCP Internal Medicine; Visit Provider Physician Assistant
DX: Z13.9 Encounter for screening, unspecified (principal); E11.649 Type 2 diabetes mellitus with hypoglycemia without coma

== ENCOUNTER → 2024-11-27 11:55 | Outpatient (BNVA) | payer MEDICARE, MEDICAID, SELFPAY | PROVIDERS: PCP Internal Medicine; Visit Provider Physician Assistant | DX: E11.649 Type 2 diabetes mellitus with hypoglycemia without coma (principal) | CPT/HCPCS: 82948; 99212 ==

== ENCOUNTER 2025-01-09 10:00 | Outpatient (RCR) | payer MEDICARE, MEDICAID, SELFPAY | END 2025-02-17 09:50 | disposition home or self-care (01) | LOC: HO.PTCHIC 10:00 | PROVIDERS: PCP Internal Medicine; Visit Provider Orthopaedic Surgery Orthopaedic Trauma | DX: S83.281D Other tear of lateral meniscus, current injury, right knee, subsequent encounter (principal); M17.11 Unilateral primary osteoarthritis, right knee | CPT/HCPCS: 82043; 82570; 97110; 97112; 97163; 97530 ==

== ENCOUNTER 2025-02-06 12:02 | Outpatient (AMB) | payer MEDICARE, MEDICAID, SELFPAY ==
[2025-02-06 12:11] VITALS: BP 122/64; PULSE 67; RESP 18; TEMP 36.9; O2SAT 97; BMI 40.7
--- NOTE | 2025-02-06 12:11 | MHC.PC.OV ---
Vital Signs 02/06/25 12:11 Height 5 ft 6 in Weight 252 lb BMI 40.7 BP 122/64 Blood Pressure Location Lt brachial Position Sitting Respiration 18 Pulse 67 Pulse Source Pulse Oximeter Temp 98.5 F Temp Source Oral Pulse Oximetry (%) 97 Oxygen Delivery Method Room Air Intake Visit Reasons: liver biopsy result(has report), medication issues Intake Note: Pt is here today for a follow up visit after liver biopsy. Allergies ciprofloxacin (From Cipro) Allergy (Unknown, Verified 02/06/25 12:13) palpations/cp codeine Allergy (Unknown, Verified 02/06/25 12:13) chest pain sulfadiazine Allergy (Unknown, Verified 02/06/25 12:13) palpatations/CP dulaglutide (From Trulicity) Allergy (Verified 02/06/25 12:13) Diarrhea apixaban (From Eliquis) Adverse Reaction (Unknown, Verified 02/06/25 12:13) memory problem Medication List - Last Reconciled 02/06/25 by Dayna Prieto MD aspirin 81 mg PO DAILY blood sugar diagnostic (FreeStyle Lite Strips) Test blood sugar 4 x a day blood-glucose meter (FreeStyle Lite Meter kit) As directed cholecalciferol (vitamin D3) 25 mcg PO DAILY dapagliflozin propanediol (Farxiga) 5 mg PO DAILY diltiazem HCl ER 240 mg PO DAILY ferrous sulfate (Feosol) 325 mg PO DAILY flecainide 100 mg PO BID gabapentin 100 mg PO TID lancets (FreeStyle Lancets) test blood sugar once a day methocarbamol 500 mg PO DAILY PRN omega 3-sxu-fiv-fish oil 1,200 (144-216) mg (Fish Oil) 1,200 caps PO DAILY Ozempic (semaglutide) 1 mg (0.75 mL) subcut QWEEK NS pantoprazole 40 mg PO DAILY pravastatin 40 mg PO DAILY ursodiol mg PO [vitamin b12 500 mcg PO DAILY] vitamins A,C,K-trzt-amroid 2,148 mcg-113 mg-45 mg-17.4mg (PreserVision AREDS) 2 tabs PO BID Tobacco use date assessed: 02/06/25 Dental Screening Dental Screen Date: 10/29/24 HPI liver biopsy result(has report), medication issues HPI Details Patient presents for the follow-up of liver biopsy consistent with steatohepatitis and liver cirrhosis negative for autoimmune primary biliary cholangitis. Patient was prescribed Nini by Dianne FERRARI but has not been tolerating causing the diarrhea. Patient is upset because there was no discussion about biopsy with the GI. Type 2 diabetes has been well-controlled. patient has been decreasing caloric intake monitoring her carbohydrates intake and losing weight. She has been taking Ozempic 1 mg for 3 months and tolerating it well. FORMERLY [facility], [facility] Medical History (Updated 02/06/25 @ 13:03 by Dayna Prieto MD) Liver cirrhosis Annual physical exam Anxiety Degenerative lumbar spinal stenosis Obesity DAVIAN on CPAP Iron deficiency anemia Macular degeneration GERD (gastroesophageal reflux disease) Atrial fibrillation Hyperlipidemia HTN (hypertension) DM type 2 (diabetes mellitus, type 2) Surgical History Hx of knee surgery H/O colonoscopy H/O lumbosacral spine surgery No pertinent past surgical history Family History Unknown No problems noted. Mother No problems noted. Sister No problems noted. Brother Substance use disorder Social History Housing: Apartment Alcohol intake: current Alcohol intake frequency: does not drink Patient Tobacco Use Status: Never used Tobacco e-Cigarette/Vaping Use: Never Used service: No Current occupational status: unemployed and disabled Cognitive needs: No Hearing needs: Yes Vision needs: Yes Questionnaire Thrive Questionnaire Date Thrive assessed: 09/16/24 ROXANNA-7 AMB Questionnaire ROXANNA-7 Date ROXANNA - 7 assessed: 10/29/24 Source: Developed by Drs. Candido Santana, Marilia Malcolm, Alex Garcia and colleagues, with an educational garima from [employer]. Review of Systems Const All systems reviewed & are unremarkable except as noted in HPI and below Eyes Reports no additional complaints ENT Reports no additional complaints Card Reports no additional complaints Resp Reports no additional complaints GI Reports no additional complaints Physical exam (Primary Care) Vital Signs: Last Vital Signs Temp 98.5 F 02/06/25 12:11 Pulse 67 02/06/25 12:11 Resp 18 02/06/25 12:11 BP 122/64 02/06/25 12:11 Pulse Ox 97 02/06/25 12:11 Oxygen Delivery Method Room Air 02/06/25 12:11 BMI result Body Mass Index 40.7 Tobacco/Smoking Status: Tobacco use Status Tobacco use date assessed 02/06/25 02/06/25 12:15 Patient Tobacco Use Status Never used Tobacco 02/06/25 12:12 e-Cigarette/Vaping Use Never Used 02/06/25 12:12 Thrive Assessment: Date of Thrive Assessment Date Thrive assessed 09/16/24 02/06/25 12:12 Const General: no acute distress HENMT Head: Yes normal to inspection Face and sinus: Yes normal facial exam Eyes General: appearance normal, both eyes and all related structures Neck Neck: Yes supple Resp Effort & Inspection: normal respiratory effort Auscultation: clear to auscultation bilaterally Cardio Rhythm: regular rhythm Heart sounds: S1 normal heart sound present and S2 normal heart sound present GI Inspection: Yes normal to inspection Palpation (GI): Soft to palpation Coding Level of Care Code Est Pt Level 4 (86351) Complex EM visit Add On G2211 Diagnoses DM type 2 (diabetes mellitus, type 2) E11.9 Hyperlipidemia E78.5 HTN (hypertension) I10 Liver cirrhosis K74.60 Assessment & Plan Assessment & Plan (1) DM type 2 (diabetes mellitus, type 2): Comment: Intolerant to Trulicity, diarrhea, diabetic retinopathy Code(s): E11.9 - Type 2 diabetes mellitus without complications Category: Medical Plan: Continue ADA diet, decreasing caloric intake increasing physical activity discussed with the patient. Ozempic will be increased to 2 mg weekly (2) Hyperlipidemia: Code(s): E78.5 - Hyperlipidemia, unspecified Category: Medical Plan: Continue statin (3) HTN (hypertension): Code(s): I10 - Essential (primary) hypertension Category: Medical Plan: Continue current medication (4) Liver cirrhosis: Comment: on US 08/2024, f/u with [facility], UGI and colonoscopy 2021, liver biopsy consistent with cirrhosis and steatohepatitis 01/2025 Code(s): K74.60 - Unspecified cirrhosis of liver Category: Medical Plan: Continue GLP 1 agonist and increase the dose to decrease inflammation in the liver from steatohepatitis. Patient will follow-up with the GI Orders: Referrals Nutrition/Dietitian Referral E11.9 - Type 2 diabetes mellitus without complications, K74.60 - Unspecified cirrhosis of liver Medications: New semaglutide (Ozempic) 2 mg (0.75 mL) subcut QWEEK 9 mL 1RF Discontinued Ozempic (semaglutide) Discontinued Reason: Doctor's Order 1 mg (0.75 mL) subcut QWEEK 9 mL 1RF NS
--- OUTSIDE RECORDS SUMMARY | 2025-02-06 12:23 | XMS_ITS | Encounter Summary ---
Author Organization [facility] Address [address] [place] [address] Care Team Providers Care Dry Wall Sprayer Name Role Phone Bao Gann DO Primary Care Provider [phone] Encounter Details Date Type Department Care Team (Late st Contact Info) Description 12/23/2014 Scanned Document [facility] [address], [address] [place], [place] [address] Jorje Campbell MD [address] [place] [address] Social History Tobacco Use Types [...] on filedocumented in this encounter Care Teams Dry Wall Sprayer Relationship Specialty Start Date End Date Bao Gann DO [address] [facility] [address] [place] [id number] PCP - General Internal Medicine 10/09/18 documented as of this encounter
--- OUTSIDE RECORDS SUMMARY | 2025-02-06 12:23 | XMS_ITS | Clinical Summary ---
Author Organization [facility] Address [address] [place] [address] Care Team Providers Care Equipment Detailer Name Role Phone Dayna Prieto MD Primary Care Provider [phone] Allergies Active Allergy Reactions Criticality Noted Date [...] times a day with meals. 0 Active Brunswick-3 Fatty Acids (FISH OIL PO) Take by [...] 60 10/12/2023 12:11 PM EDT Temperature 36.6 C (97.9 F) 10/12/2023 12:11 PM EDT Respiratory Rate 18 10/12/2023 12:1 [...] 10/19/2020, Additional history exists Influenza Vaccine (#1) 2025 , 03/18/2020, 07/10/2019 RSV Adult > 60+ [...] this topic Medical Devices Implanted Type Area [employer] Professor Device Identifier Shelf Expiration Date Model / Serial / Lot Device Clsur Watchman Flx Fabiola 24mm Bsci-Prnt [id number] - [id number] Implanted:Qty: 1 on 10/11/2023 by Husam Solis MD at [facility] Right: [employer] eOriginal 04/23/2026 [id number] / [id number] / Advance Directives For more information, please contact: [phone] Latest Code Status on File Code Status Date Activated Date Inactivated Comments Full Code 10/11/2023 12:31 PM 10/12/2023 8:47 PM This code status was ascertained in the following way: discussion with patient . Care Teams Equipment Detailer Relationship Specialty Start Date End Date Dayna Prieto MD [address] [facility] [place] [address] PCP - General Title Attorney 10/05/23
--- OUTSIDE RECORDS SUMMARY | 2025-02-06 12:24 | XMS_ITS | Clinical Summary ---
Author Organization [facility] Address [address] [place] [address] Care Team Providers Care Timber Rider Name Role Phone Unavailable Primary Care Provider Unavailabl e Social History Tobacco Use Types Packs/Day Years Used Date Smoking Tobacco: Never Assessed Comments Unknown Sex and Gender Information Value Date Recorded Sex Assigned at Not on file Legal Sex Female 8:03 AM EDT Gender Identity Not on file Sexual Orientation Not on file Last Filed Vital Signs Vital Sign Reading Time Taken Comments Blood Pressure 138/77 04/17/2019 11:00 AM EDT Pulse 65 04/17/2019 11:01 AM EDT Temperature 37.3 C (99.2 F) 12/28/2018 12:15 PM EDT Respiratory Rate - - Oxygen Saturation - [...]
--- OUTSIDE RECORDS SUMMARY | 2025-02-06 12:24 | XMS_ITS ---
Author Name [facility] Organization Unknown Results Test Name/Text Value Interpretation Date Range Source GLUCOSE BLDC GLUCOMTR [facility] 218.0 mg/dL Above high normal 10/12/2023 70 - 199 [facility] GLUCOSE BLDC GLUCOMTR [facility] 225.0 mg/dL Above high normal 10/11/2023 70 - 199 [facility] GLUCOSE BLDC GLUCOMTR [facility] 129.0 mg/dL Normal 10/11/2023 70 [facility]-IMP Testing performed at [facility], [address] [place] [address], Mikayla Azul MD Animal Shelter Worker, YAIR [id number] Normal 10/11/2023 [facility] BLD GP AB SCN SERPL QL NEGATIVE Normal 10/11/2023 [facility] ABO+RH GP BLD A NEGATIVE Normal 10/11/2023 [facility] GLUCOSE BLDC GLUCOMTR [facility] 114.0 mg/dL Normal 10/11/2023 70 - 199 [facility] ABO+RH GP BLD A NEGATIVE Normal 10/11/2023 [facility] BLOOD BANK CMNT PATIENT-IMP Testing performed at [facility], [address] [place] [address], Mikayla Azul MD Animal Shelter Worker, YAIR [id number] Normal 10/11/2023 [facility] History of Medication Use Medication Directions Dispensed Refills Start Date End Date Stat dilTIAZem XR (DILT-XR) 240 mg 24 hr capsule TAKE 1 CAPSULE BY MOUTH DAILY 08/22/2024 active flecainide (TAMBOCOR) 100 mg tablet TAKE 1 TABLET BY MOUTH TWICE DAILY 07/04/2024 active aspirin 81 mg EC tablet Take 1 Tablet by mouth daily. 01/02/2024 active apixaban (ELIQUIS) tablet 5 mg 5 mg, Oral, Every 12 hours scheduled (2 times per day), First dose on Sun10/11/23 at 2100 10/12/2023 active atorvastatin (LIPITOR) tablet 80 mg 80 mg, Oral, Daily, First dose on Sun10/12/23 at 0900Pregnancy Risk Factor Category: X 10/12/2023 active pantoprazole (PROTONIX) 40 MG EC tablet 40 mg 40 mg, Oral, Every Morning on an empty stomach (Daily), First dose on Sun10/12/23 at 0600Please select an indication: GI Bleed 10/12/2023 active flecainide (TAMBOCOR) tablet 100 mg 100 mg, Oral, 2 times daily, First dose on Sun10/11/23 at 1800 10/11/2023 active methocarbamoL (ROBAXIN) 500 mg tablet Take 1 Tablet by mouth 2 times daily as needed. 06/12/2023 active dapagliflozin propanediol (Farxiga) 5 mg tablet Take 1 Tablet by mouth daily. 05/31/2023 active atorvastatin (LIPITOR) 80 mg tablet Take 1 tablet by mouth daily. active cholecalciferol (VITAMIN D-3) 25 mcg (1,000 unit) tablet Take 1 tablet by mouth daily. active ferrous sulfate 325 mg (65 mg elemental iron) tablet Take 1 tablet by mouth daily. active Loratadine (CLARITIN PO) Take by mouth daily. active loratadine (CLARITIN) 10 mg tablet Take 10 mg by mouth. active metFORMIN XR (GLUCOPHAGE-XR) 750 mg 24 hr tablet Take 1 tablet by mouth 2 Times Daily. active mv-min/FA/vit K/lutein/zeaxant (PRESERVISION AREDS 2 PLUS MV ORAL) Take 1 Capsule by mouth daily. active omega-3 acid ethyl esters (LOVAZA) 1 gram capsule Take 1 capsule by mouth daily. active semaglutide (Ozempic) 0.25 mg or 0.5 mg(2 mg/1.5 mL) injection pen Inject 0.25 mg under the skin every 7 (seven) days. active Allergies Allergen Reaction Severity Comment Documented Date Source Status SULFA (SULFONAMIDE ANTIBIOTICS) Other reaction(s): Not available 06/14/2023 [facility] active DULAGLUTIDE Incontinence during sleep 04/03/2023 [facility] active SULFADIAZINE Reaction not listed 08/08/2019 [facility] active CIPROFLOXACIN [facility] CIPROFLOXACIN-HYDR OCORTISONE Reaction not listed [facility] CODEINE Reaction not listed [facility] SULFA ANTIBIOTICS [facility] Problems Problem Status Onset Date Problem Type Date of Resolution Source Morbid obesity with BMI of 45.0-49.9, adult active 2019-08-19 ProblemAct [facility] Atrial fibrillation active 2019-08-19 ProblemAct [facility] Hyperlipidemia active 2019-08-19 ProblemAct [facility] GERD (gastroesophageal reflux disease) active 2019-08-19 ProblemAct [facility] Macular degeneration active 2019-08-19 ProblemAct [facility] Arthritis of right knee active 2024-08-08 ProblemAct [facility] Diabetes mellitus type 2, uncomplicated active 2019-08-19 ProblemAct [facility] Acute lateral meniscus tear of right knee active 2024-08-08 ProblemAct [facility] Acute lateral meniscus tear of right knee, subsequent encounter active EncounterDiagnosisAct [facility] Iron deficiency anemia active 2019-08-19 ProblemAct [facility] Vitamin D deficiency active 2019-08-19 ProblemAct [facility] Hypertension active 2019-08-19 ProblemAct [facility] DAVIAN (obstructive sleep apnea) active 2019-08-19 ProblemAct [facility] Allergic rhinitis active 2019-08-19 ProblemAct [facility] Thoracic aortic aneurysm without rupture active 2019-09-05 ProblemAct [facility] Spinal stenosis of lumbar region with neurogenic claudication active 2022-08-10 ProblemAct [facility] Colon polyps active 2019-08-19 ProblemAct [facility] A-fib active 2023-10-11 ProblemAct [facility] Immunizations Vaccine Date Source Lot Number Status [employer] SARS-CoV-2 COVID-19, mRNA, LNP-S, preservative free 10/31/2021 [facility] [id number] completed Pfizer SARS-CoV-2 COVID-19, mRNA, LNP-S, preservative free 05/24/2021 [facility] [id number] completed Influenza trivalent, 0.5mL, preservative free (Fluarix; FluLaval; Fluzone) ages 6mo and older (Afluria) 3 years and older 03/22/2021 [facility] [id number] completed [employer] SARS-CoV-2 COVID-19, mRNA, LNP-S, preservative free 10/19/2020 [facility] [id number] completed [employer] SARS-CoV-2 COVID-19, mRNA, LNP-S, preservative free 09/28/2020 [facility] [id number] completed Zoster recombinant (Shingrix ) 19yo and older 07/08/2020 [facility] [id number] completed Influenza trivalent, 0.5mL, preservative free (Fluarix; FluLaval; Fluzone) ages 6mo and older (Afluria) 3 years and older 03/18/2020 [facility] [id number] completed Influenza trivalent, 0.5mL, preservative free (Fluarix; FluLaval; Fluzone) ages 6mo and older (Afluria) 3 years and older 07/10/2019 [facility] Pneumococcal polysaccharide 23 valent (Pneumovax 23) 2yo and older 07/10/2019 [id number] com pleted Encounters Encounter Type Encounter Reason Primary Diagnosis Location Date Inpatient Unspecified atrial fibrillation Unspecified atrial fibrillation [facility] [place] Care Team Organization Name Specialty Phone Email Start Date End Da te [facility]
--- OUTSIDE RECORDS SUMMARY | 2025-02-06 12:24 | XMS_ITS | Data Portability ---
Author Organization [place] [facility] Address [address] [place] [address] Care Team Providers Care Director Field Services Name Role Phone RADNIADorcasMAGDIEL Primary Care Provider Assessment Encounter Date Assessment Date Assessment LastModified [...] care of this patient according to [facility]'s infection prevention protocols. All the patient's medications were reviewed and updated in the patient record during today's visit. No changes were made to the patient's medication regimen today. [email or web address] Not available 02/21/2022 11:47:19 06/13/2023 06/13/2023 Time [...] care of this patient according to [facility]'s infection prevention protocols. [email or web address] Not available 06/13/2023 10:13:18 07/04/2023 07/04/2023 Time [...] after care of this patient according to [facility]'s infection prevention protocols. [email or web address] Not available 07/04/2023 11:34:00 Plan of Treatment Reminders Order Date Submit Date Provider Last Modified By Organization Details Last Modified Time Details Appointments None recorded. Lab None recorded. Referral None recorded. Procedures None recorded. Surgeries None recorded. Imaging XR, knee, 3 view - right knee pain after fall 2022 [address] ([facility]), [address] [place] [address], [address], 3 02:59:39 XR, shoulder, 2 or more view - right shoulder pain after fall 2022 [address] ([facility]), [address] [place], [address], 3 02:59:34 Medication Orders None recorded. Patient TargetsNo targets recorded. Patient Instructions Encounter Date Encounter Id Patient Instructions Last Modified By Organization Details Last Modified Time 02/21/2022 [id number] Thank you for yo ur visit with [facility] today. We cannot always find the exact cause of your symptoms during your initial visit. Please follow up with your primary care provider or specialist within 2-3 days to be rechecked or seek medical attention if your symptoms do not go away or get worse. If you develop any new or worsening symptoms and need after hours care, please go to nearest ER and/or call 911. If you have additional concerns or develop a change in your condition between 8am-10pm, please call [facility] at [phone] to help navigate your care. [email or web address] Not available 02/21/2022 11:48:18 06/13/2023 [id number] Thank you for yo ur visit with [facility] today. We cannot always find the exact cause of your symptoms during your initial visit. Please follow up with your primary care provider or specialist within 2-3 days to be rechecked or seek medical attention if your symptoms do not go away or get worse. If you develop any new or worsening symptoms and need after hours care, please go to nearest ER and/or call 911. If you have additional concerns or develop a change in your condition between 8am-10pm, please call [facility] at [phone] to help navigate your care. [email or web address] Not available 06/13/2023 10:17:03 07/04/2023 [id number] Thank you for yo ur visit with [facility] today. We cannot always find the exact cause of your symptoms during your initial visit. Please follow up with your primary care provider or specialist within 2-3 days to be rechecked or seek medical attention if your symptoms do not go away or get worse. If you develop any new or worsening symptoms and need after hours care, please go to nearest ER and/or call 911. If you have additional concerns or develop a change in your condition between 8am-10pm, please call [facility] at [phone] to help navigate your care. Thank you for your visit with [facility] today. You do not appear to have [...] in your condition between 8am-10pm, please call [facility] at [phone] to help navigate your care. Not available [...] BREWSTER M.D. 2022 12:50: 10 PM EST. [email or web address] [employer] [address], [place], [address], 07/02/2023 19:49:12 06/13/20 23 06/13/2023 shoul roxy [...] week or sooner if clinic sylvia lynn allbarb if sympto ms contin ue to persis [...] week or sooner if clinic ally warrrenetta bustos especi ally if sympto ms contin ue to persis t or progre ss. Electr onical ly signed by LOUIE BREWSTER M.D. 2022 12:50: 10 PM EST. [email or web address] [facility], [address], 06/13/2023 13:15:10 Result Notes None recorded. Procedures Surgical History Date Name Laterality Status Provider Name and Address Organization Details Recorded Time Unlisted procedure spine completed VONDA Noriega [address] [place], [address], [place] [facility] 02/21/2022 11:36:24 Cholecystectomy completed VONDA Noriega [address] [place], [address], [place] [facility] 02/21/2022 11:36:32 tonsilectomy/adenoi ds completed VONDA Noriega [address] [place], [address], [place] [facility] 02/21/2022 11:36:41 Imaging Results None recorded. Procedure Notes None recorded. Medical Equipment None Reported. Allergies Allergen ID Allergen Name Allergen Category Reaction Reaction Severity Criticality Documentation Date Start Date Code Code System Note Provider Name and Address Organization Details Recorded Time 147099 Substance with sulfonami de structure and antibacte rial mechanism of action (substanc e) medicatio n Not available Not available Not available 02/21/2022 95606 0540 SNOMED VONDA Noriega [address], [place], [address], [place] [facility] 2 11:32:35 166548 codeine medicatio n Not available Not available Not available 02/21/2022 2670 RxNorm VONDA Noriega [address], [place], [address], [place] [facility] 2 11:32:52 124676 Cipro medicatio n Not available Not available Not available 02/21/2022 44139 3 RxNorm VONDA Noriega [address], [place], [address], [place] [facility] 2 11:33:02 578307 Trulicity medicatio n Not available Not available Not available 06/13/2023 31278 96 RxNorm VONDA Cotton [address], [place], [address], [place] [facility] 3 [...] Not Available Not Available Vitals Date Recorded Respiratory rate Oxygen saturation Oxygen saturation in Arterial blood by Pulse oximetry Heart rate Body temperature Systolic And Diastolic Provider Name and Address Organization Details Last Updated DateTime 2 16 /min 98 % 98 % 66 /min 98.7 [degF] 116/68 mm[Hg] Not Available [facility] 2 11:36:23 Date Recorded Oxygen saturation Oxygen saturation in Arterial blood by Pulse oximetry Body temperature Respiratory rate Heart rate Systolic And Diastolic Provider Name and Address Organization Details Last Updated DateTime 3 99 % 99 % 98.1 [degF] 20 /min 63 /min 120/64 mm[Hg] Not Available [facility] 3 09:45:31 Date Recorded Respiratory rate Body temperature Oxygen saturation Oxygen saturation in Arterial blood by Pulse oximetry Heart rate Systolic And Diastolic Provider Name and Address Organization Details Last Updated DateTime 3 18 /min 96.9 [degF] 98 % 98 % 62 /min 122/64 mm[Hg] Not Available [facility] 3 11:07:00 Social History Question Answer Notes LastModified by [employer] Details LastModified Time Tobacco Smoking Status Never Smoker VONDA Noriega [address], [place], [address], [place] [facility] 02/21/2022 11:36:02 Do You Have An Advance Directive? No [email or web address] Information not available 02/21/2022 What Is Your Code Status? Full Code [email or web address] Information not available 02/21/2022 Has The Patient Seen Their PCP In The Past 6 Months? Yes [email or web address] Information not available 07/04/2023 Has Tobacco Cessation Counseling Been Provided? No [email or web address] Information not available 02/21/2022 Sex: Unknown Functional Status Question Answer Note LastModified by [employer] Details LastModified Time Do you use any illicit or recreational drugs? No [email or web address] Information not available 02/21/2022 Do you or have you ever used any other forms of tobacco or nicotine? No [email or web address] Information not available 02/21/2022 What is your level of alcohol consumption? None [email or web address] Information not available 02/21/2022 Mental Status None recorded. Family History Relationship Description Onset Age of this Age Resolved Age Notes LastModified by Organization Details LastModified Time Mother Diabetes mellitus [email or web address] Not available 02/21 11:35:39 Medical History Condition [...] SNOMED-CT Code Diagnosis ICD10 Code Diagnosis Note [id number] VONDA Noriega [facility] [address] [place] [address] 02/21/2022 11:31:20 02/22/2022 11:37:21 Burn of foot 51678322 T25.229A [id number] VONDA Cotton [facility] [address] [place] [address] 06/13/2023 09:40:04 06/15/2023 02:59:34 Contusion of right knee [id number] 6480001 S80.01XA Status of condition: Acute. Testing/Re sults: xray right knee pending. Discussion [...] change. Pain of ri ght shoulder joint [id number] 7620306 M25.511 Status of condition: Acute. Testing/Re sults: xray right shoulder is pending. [...] skin color or temp changes. Essential hypertension 23998646 I10 Status of condition: Chronic. Testing/Re sults: BP 120/64 on scene. Discussion : BP controlled on current regimen. she is asymptomat ic. Plan & Management :follow up with pcp as scheduled and cardiology tomorrow as scheduled. go to the ER with worsening symptoms cp, sob, weakness, dizziness, HAs, edema, weight gain, vision changes. [id number] VONDA Cotton [facility] [address] [place] [address] 07/04/2023 11:03:11 07/05/2023 14:30:08 Pain of right shoulder joint [id number] 3000411 M25.511 Status of condition: Acute. Testing/Re sults: xray from 06/13 was negative [...] None Recorded Advance Directives Directive N: Payers Insurance Date Sequence Insurance Name Policy Number Policy Barrett Covered Member ID Barrett Member ID Guarantor Name 07/04/2023 1 [place] [employer] Agustina Patel [id number] Agustina Patel 06/15/2020 1 [place] [employer] Agustinareta Patel [id number] Agustina Amanda 06/15/2020 1 *SELF PAY* Agustina Patel [id number] Agustina Patel 07/04/2023 2 [place] [facility] Agustina Patel [id number] Agustina Patel Notes Date Note Type Note Provider Name [...] UNDER CONTROL. NO PROBLEMS WITH DOXYCYCLINE. VONDA Noriega [address], [place], [address], [place] [facility] 02/21/2022 11:48:35 06/13/2023 text/html 62 y/o female known to DH new to provider with hx of A fib, DM, HTN, hyperlipidemia, GERD. pt reports on 06/08 she fell in her apartment, she tripped on a bag she left in the mack while she was carrying out a box of [employer] decorations. she landed on her right knee and [...] right shoulder. VONDA Cotton [address], [place], [address], [place] [facility] 06/13/2023 10:18:03 07/04/2023 text/html 62 y/o female [...] tylenol prn. VONDA Cotton [address], [place], [address], [place] [facility] 07/04/2023 11:36:40 OBGyn Episode No OBEpisode recorded.
--- OUTSIDE RECORDS SUMMARY | 2025-02-06 12:24 | XMS_ITS | Patient Health Record ---
Author Organization [facility] Address [address] [place] [address] Care Team Providers Care Residential Treatment Staff Name Role Phone Dayna Prieto MD Primary Care Provider UnavailMeron Mcdonald Unavailable [phone] Desmond Nava Unavailable [phone] Allergies Allergen (clinical drug ingredient) Drug/Non Drug Allergy documented on EMR Reaction Allergy Type Onset Date Status sulfamethoxazole / trimethoprim Bactrim Unknown Drug Allergy Active ciprofloxacin Cipro Unknown Drug Allergy Act katie Adhesive Unknown Allergy Active codeine Codeine Unknown Drug Allergy Active Reason For Referral No Information Medications Medication SIG (Take, Route, Frequency, Duration) Notes Start Date End Date Status Aspirin 81 MG CHEW AND SWALLOW ONE TABLET EVERY DAY Oral; Duration: 30 Days Active Iron 28 MG 1 tablet Orally Thre e times a Week; Duration: 30 day(s) 03/21/2024 Active Vitamin C 03/21/2024 Active Fish Oil 360 MG 1 capsule Orally Thr ee times a day; Duration: 30 day(s) 03/21/2024 Active Gabapentin 100 MG Oral; Duration: 30 Days Active metFORMIN HCl ER 750 MG Oral; Duration: 90 Days Active Plavix 03/21/2024 Active PreserVision AREDS 2 03/21/2024 Active Farxiga 5 MG TAKE 1 TABLET BY FADI DAILY Oral; Duration: 90 Days Active Methocarbamol 500 MG Oral; Duration: 30 Days Active Allergy 03/21/2024 Active Atorvastatin Calcium 80 MG TAKE 1 TABLET BY MOUTH DAILY Oral; Duration: 90 Days Active Dilt-XR 240 MG TAKE 1 CAPSULE BY MO H DAILY Oral; Duration: 90 Days Active Pantoprazole Sodium 40 MG TAKE 1 TABLET BY MOUTH DAILY Oral; Duration: 90 Days Active Vitamin D3 2253879 UNIT/GM as directed 03/21/2024 Active Flecainide Acetate 100 MG Oral; Duration: 30 Days Active Social History Tobacco Use: [...] Problem Status W/U Status Risk Notes Problem Type 2 diabetes mellitus with diabetic polyneuropathy (E11.42) Active confirmed Vital Signs Blood pressure diastolic 59 mm Hg 04/28/2024 Height 5 ft 6 in in 04/28/2024 Blood pressure systolic 118 mm Hg 04/28/2024 Weight 262 lbs 04/28/2024 BMI 42.28 kg/m2 04/28/2024 Procedures Procedure Date Ordered Date Performed Result Body Sit e 24080-WAJP SKIN LESIONS, 2 TO 4 04/28/2024 N/A S4636-[id number] DYSTROPHIC NAILS ANY # 04/28/2024 N/A Encounters Encounter Location Date Provider Diagnosis [facility] [address] [address] 04/28/2024 DesmondReece Type 2 diabetes mellitus with diabetic polyneuropathy E11.42 ; Ingrowing nail L60.0 and Skin disease L98.[address] [facility] [address] 03/21/2024 Desmond Nava Assessments Encounter Date Diagnosis (ICD Code) Assessment Notes Treatment Notes Treatment Clinical Notes Section Notes 04/28/2024 Type 2 diabetes mellitus with diabetic polyneuropathy (ICD-10 - E11.42) 04/28/2024 Ingrowing nail (ICD-10 - L60.0) 04/28/2024 Skin disease (ICD-10 - L98.9) Plan Of Treatment Pending Test Test Name Order Date 86508-LEEM SKIN LESIONS, 2 TO 4 04/28/20 24 L0274-INMSLMTM DYSTROPHIC NAILS ANY # Next Appt Details Provider Name:Meron fritz, 04/29/2025 11:00:00 AM, [address] [place], [address], Insurance Providers Payer Name Payer Address Payer Phone Subscriber Number Group Number Insured Name Patient Relationship to Insured Coverage Start Date Coverage End Date Medicare National [employer]t [employer] [address] [place] [address] [id number] Agustina Patel Self - patient is the insured Medical (General) History Medical History History ICD Code Anxiety Arthritis Back,Hip,and Knee pain covid-19 Diabetic Gall bladder problems Headaches/Migraines Hypertension Macular degeneration Reflux ( GERD) sinusitis Measles Mumps Chicken pox A fib Tachycardia Surgical History Surgery Date(Month/Year) back surgery Gall bladder removal spinal stenosis surgery watchmen Hospitalization History Reason Date(Month/[facility] 12/29/2023
== END 2025-02-06 12:52 | disposition home or self-care (01) ==
LOC: HO.HMCC 12:02
PROVIDERS: PCP Internal Medicine; Visit Provider Internal Medicine
DX: E11.9 Type 2 diabetes mellitus without complications (principal); E78.5 Hyperlipidemia, unspecified; I10 Essential (primary) hypertension; K74.60 Unspecified cirrhosis of liver

== ENCOUNTER → 2025-02-06 12:02 | Outpatient (BNVA) | payer MEDICARE, MEDICAID, SELFPAY | PROVIDERS: PCP Internal Medicine; Visit Provider Internal Medicine | DX: E11.9 Type 2 diabetes mellitus without complications (principal); E78.5 Hyperlipidemia, unspecified; I10 Essential (primary) hypertension; K74.60 Unspecified cirrhosis of liver | CPT/HCPCS: 99212 ==

== ENCOUNTER 2025-02-09 09:00 | Outpatient (REF) | payer MEDICARE, MEDICAID, SELFPAY ==
--- OUTSIDE RECORDS SUMMARY | 2025-02-09 09:16 | XMS_ITS | Encounter Summary ---
Author Organization [facility] Address [address] [place] [address] Care Team Providers Care Newspaper Photo Editor Name Role Phone Bao Gann DO Primary Care Provider Encounter Details Date Type Department Care Team (Late st Contact Info) Description 12/23/[address] [facility] [address], [address] [place], [place] [address] Jorje Campbell MD [address] [place] [address] Social History Tobacco Use Types [...] on filedocumented in this encounter Care Teams Newspaper Photo Editor Relationship Specialty Start Date End Date Bao Gann DO [address] [facility] [address] [place] [address] PCP - General Internal Medicine 10/09/18 documented as of this encounter
--- OUTSIDE RECORDS SUMMARY | 2025-02-09 09:16 | XMS_ITS | Clinical Summary ---
Author Organization [facility] Address [address] [place] [address] Care Team Providers Care Store Administrator Name Role Phone Dayna Prieto MD Primary Care Provider [phone] Allergies Active Allergy Reactions Criticality Noted Date [...] times a day with meals. 0 Active [place]-3 Fatty Acids (FISH OIL PO) Take by [...] this topic Medical Devices Implanted Type Area Maintenance Supervisor 2Nd Shift Device Identifier Shelf Expiration Date Model / Serial / Lot Device Clsur Watchman Flx Fabiola 24mm Bsci-Prnt [id number] - [id number] Implanted:Qty: 1 on 10/11/2023 by Husam Solis [place] [facility] Right: [employer] 04/23/2026 [id number] / [id number] / Advance Directives For more information, please contact: [phone] Latest Code Status on File Code Status Date Activated Date Inactivated Comments Full Code 10/11/2023 12:31 PM 10/12/2023 8:47 PM This code status was ascertained in the following way: discussion with patient . Care Teams Store Administrator Relationship Specialty Start Date End Date Dayna Prieto MD [address] [facility] [place] [address] PCP - General Food Service Manager 10/05/23
--- OUTSIDE RECORDS SUMMARY | 2025-02-09 09:17 | XMS_ITS | Data Portability ---
Author Organization [place] [facility] Address [address] [place] [address] Care Team Providers Care Infant Nanny Name Role Phone RADNIADorcasMAGDIEL Primary Care Provider [...] after care of this patient according to [facility]'s infection prevention protocols. All the patient's medications were reviewed and updated in the patient record during today's visit. No changes were made to the patient's medication regimen today. [email or web address] Not available 02/21/2022 11:47:19 06/13/2023 06/13/2023 Time [...] after care of this patient according to [facility]'s infection prevention protocols. [email or web address] Not available 06/13/2023 10:13:18 07/04/2023 07/04/2023 Time [...] after care of this patient according to [facility]'s infection prevention protocols. [email or web address] Not available 07/04/2023 11:34:00 Plan of Treatment Reminders Order Date Submit Date Provider Last Modified By Organization Details Last Modified Time Details Appointments None recorded. Lab None recorded. Referral None recorded. Procedures None recorded. Surgeries None recorded. Imaging XR, knee, 3 view - right knee pain after fall 2022 [address] [facility] [address] [place] [address], [address], 3 02:59:39 XR, shoulder, 2 or more view - right shoulder pain after fall 2022 [address] [address] [place], [address], 3 02:59:34 Medication Orders None recorded. Patient TargetsNo targets recorded. Patient Instructions Encounter Date Encounter Id Patient Instructions Last Modified By Organization Details Last Modified Time 02/21/2022 [id number] Thank you for yo ur visit with [facility] today. We cannot always find the [...] condition between 8am-10pm, please call [facility] at [phone] to help navigate your care. [email or web address] Not available 02/21/2022 11:48:18 06/13/2023 [id number] Thank you for yo ur visit with [...] condition between 8am-10pm, please call [facility] at [phone] to help navigate your care. [email or web address] Not available 06/13/2023 10:17:03 07/04/2023 [id number] Thank you for yo ur visit with [employer] [facility] today. We cannot always find the exact [...] condition between 8am-10pm, please call [facility] at [phone] to help navigate your care. Thank you for your visit with [employer] [facility] today. You do not appear to have [...] in your condition between 8am-10pm, please [facility] at [phone] to help navigate your care. [email or web address] Not available 07/04/2023 11:36:21 Reason for Referral [...] BREWSTER M.D. 2022 12:50: 10 PM EST. [email or web address] [employer] [address], [place], [address], 07/02/2023 19:49:12 06/13/20 23 06/13/2023 shoul roxy [...] BREWSTER M.D. 2022 12:50: 10 PM EST. [email or web address], [address], 06/13/2023 13:15:10 Result Notes None recorded. Procedures Surgical History Date Name Laterality Status Provider Name and Address Organization Details Recorded Time Unlisted procedure spine completed VONDA Noriega [address] [place], [address], [place] [facility] 02/21/2022 11:36:24 Cholecystectomy completed VONDA Noriega [address] [place], [address], [place] [facility] 02/21/2022 11:36:32 tonsilectomy/adenoi ds completed VONDA Noriega [address] [place], [address], [place] [facility] 02/21/2022 11:36:41 Imaging Results None recorded. Procedure Notes None recorded. Medical Equipment None Reported. Allergies Allergen ID Allergen Name Allergen Category Reaction Reaction Severity Criticality Documentation Date Start Date Code Code System Note Provider Name and Address Organization Details Recorded Time 530810 Substance with sulfonami de structure and antibacte rial mechanism of action (substanc e) medicatio n Not available Not available Not available 02/21/2022 63594 6449 SNOMED VONDA Noriega [address], [place], [address], [place] [facility] 2 11:32:35 453885 codeine medicatio n Not available Not available Not available 02/21/2022 2670 RxNorm VONDA Noriega [address], [place], [address], [place] [facility] 2 11:32:52 316371 Cipro medicatio n Not available Not available Not available 02/21/2022 21865 3 RxNorm VONDA Noriega [address], [place], [address], [place] [facility] 2 11:33:02 117965 Trulicity medicatio n Not available Not available Not available 06/13/2023 76060 96 RxNorm VODNA Cotton [address], [place], [address], [place] [facility] 3 [...] /min 98.7 [degF] 116/68 mm[Hg] Not Available [facility] 2 11:36:23 Date Recorded Oxygen saturation Oxygen saturation in Arterial blood by Pulse oximetry Body temperature Respiratory rate Heart rate Systolic And Diastolic Provider Name and Address Organization Details Last Updated DateTime 3 99 % 99 % 98.1 [degF] 20 /min 63 /min 120/64 mm[Hg] Not Available [facility] 3 09:45:31 Date Recorded Respiratory rate Body temperature Oxygen saturation Oxygen saturation in Arterial blood by Pulse oximetry Heart rate Systolic And Diastolic Provider Name and Address Organization Details Last Updated DateTime 3 18 /min 96.9 [degF] 98 % 98 % 62 /min 122/64 mm[Hg] Not Available [facility] 3 11:07:00 Social History Question Answer Notes LastModified by [employer] Details LastModified Time Tobacco Smoking Status Never Smoker VONDA Noriega [address], [place], [address], [place] [facility] 02/21/2022 11:36:02 Do You Have An Advance Directive? No Information not available 02/21/2022 What Is Your Code Status? Full Code [email or web address] Information not available 02/21/2022 Has The Patient Seen Their PCP In The Past 6 Months? Yes [email or web address] Information not available 07/04/2023 Has Tobacco Cessation Counseling Been Provided? No [email or web address] Information not available 02/21/2022 Sex: Unknown Functional Status Question Answer Note LastModified by [employer] Details LastModified Time Do you use any illicit or recreational drugs? No [email or web address] Information not available 02/21/2022 Do you or have you ever used any other forms of tobacco or nicotine? No [email or web address] Information not available 02/21/2022 What is your level of alcohol consumption? None [email or web address] Information not available 02/21/2022 Mental Status None recorded. Family History Relationship Description Onset Age of this Age Resolved Age Notes LastModified by Organization Details LastModified Time Mother Diabetes mellitus [email or web address] Not available 02/21 11:35:39 Medical History Condition [...] SNOMED-CT Code Diagnosis ICD10 Code Diagnosis Note [id number] VONDA Noriega [facility] [address] [place] [address] 02/21/2022 11:31:20 02/22/2022 11:37:21 Burn of foot 69880060 T25.229A [id number] VONDA Cotton [facility] [address] [place] [address] 06/13/2023 09:40:04 06/15/2023 02:59:34 Contusion of right knee [id number] 4935209 S80.01XA Status of condition: Acute. Testing/Re sults: [...] change. Pain of ri ght shoulder joint [id number] 3182335 M25.511 Status of condition: Acute. Testing/Re sults: [...] skin color or temp changes. Essential hypertension [id number] I10 Status of condition: Chronic. Testing/Re sults: BP 120/64 on scene. Discussion : BP controlled on current regimen. she is asymptomat ic. Plan & Management :follow up with pcp as scheduled and cardiology tomorrow as scheduled. go to the ER with worsening symptoms cp, sob, weakness, dizziness, HAs, edema, weight gain, vision changes. [id number] VONDA Cotton [facility] [address] [place] [address] 07/04/2023 11:03:11 07/05/2023 14:30:08 Pain of right shoulder joint [id number] 9115627 M25.511 Status of condition: Acute. Testing/Re sults: [...] [place] [employer] Agustina Patel [id number] Agustina Patel 06/15/2020 1 [place] [employer] Agustinareta Patel [id number] Agustina Amanda 06/15/2020 1 *SELF PAY* Agustina Patel [id number] Agustina Patel 07/04/2023 2 [place] [facility] Agustina Patel [id number] Agustina Patel Notes Date Note Type Note [...] WITH DOXYCYCLINE. VONDA Noriega [address], [place], [address], [place] [facility] 02/21/2022 11:48:35 06/13/2023 text/html 62 y/o female known to DH new to provider with hx of A fib, DM, HTN, hyperlipidemia, GERD. pt reports on 06/08 she fell in her apartment, she tripped on a bag she left in the mack while she was carrying out a box of [employer] decorations. she landed on her right knee [...] right shoulder. VONDA Cotton [address], [place], [address], [place] [facility] 06/13/2023 10:18:03 07/04/2023 text/html [...] tylenol prn. VONDA Cotton [address], [place], [address], [place] [facility] 07/04/2023 11:36:40 OBGyn Episode No OBEpisode recorded.
--- OUTSIDE RECORDS SUMMARY | 2025-02-09 09:17 | XMS_ITS | Clinical Summary ---
Author Organization [facility] Address [address] [place] [address] Care Team Providers Care Decorative Greens Cutter Name Role Phone Unavailable Primary Care Provider [...]
--- OUTSIDE RECORDS SUMMARY | 2025-02-09 09:18 | XMS_ITS | Patient Health Record ---
Author Organization [facility] Address [address] [place] [address] Care Team Providers Care Vegetable Inspector Name Role Phone Dayna Prieto MD Primary Care Provider UnavailMeron Mcdonald Unavailable [phone] Desmond Nava Unavailable [phone] Allergies Allergen (clinical drug ingredient) Drug/Non Drug [...] Oral; Duration: 90 Days Active Vitamin D3 3318608 UNIT/GM as directed 03/21/2024 Active Flecainide Acetate [...] Ordered Date Performed Result Body Sit e 25516-YEBM SKIN LESIONS, 2 TO 4 04/28/2024 N/A [id number] DYSTROPHIC NAILS ANY # 04/28/2024 N/A Encounters Encounter Location Date Provider Diagnosis [facility] [address] [address] 04/28/2024 DesmondReece Type 2 diabetes mellitus with diabetic polyneuropathy E11.42 ; Ingrowing nail L60.0 and Skin disease L98.[address] [facility] [address] 03/21/2024 Desmond Nava Assessments Encounter Date Diagnosis (ICD Code) Assessment Notes Treatment Notes Treatment Clinical Notes Section Notes 04/28/2024 Type 2 diabetes mellitus with diabetic polyneuropathy (ICD-10 - E11.42) 04/28/2024 Ingrowing nail (ICD-10 - L60.0) 04/28/2024 Skin disease (ICD-10 - L98.9) Plan Of Treatment Pending Test Test Name Order Date 11907-LCCU SKIN LESIONS, 2 TO 4 04/28/20 24 [id number] DYSTROPHIC NAILS ANY # Next Appt Details Provider Name:Meron fritz, 04/29/2025 11:00:00 AM, [address] [place], [address], Insurance Providers Payer Name Payer Address Payer Phone Subscriber Number Group Number Insured Name Patient Relationship to Insured Coverage Start Date Coverage End Date Medicare [employer] [address] [place] [address] [id number] Agustina Patel Self - patient is the insured Medical (General) History Medical History History ICD Code Anxiety Arthritis Back,Hip,and Knee pain covid-19 Diabetic Gall bladder problems Headaches/Migraines Hypertension Macular degeneration Reflux ( GERD) sinusitis Measles Mumps Chicken pox A fib Tachycardia Surgical History Surgery Date(Month/Year) back surgery Gall bladder removal spinal stenosis surgery watchmen Hospitalization History Reason Date(Month/Year) [facility] knee 12/29/2023
[2025-02-09 10:29] LABS: MANUAL DIFF FLAG NO
[2025-02-09 10:43] LABS: Hematocrit 38.5 % (37.0-47.0); Hemoglobin 12.3 g/dl (12.0-16.0); Imm Gran Abs Auto 0.01 X10*3/uL (0.00-0.03); Imm Gran Pct Auto 0.3 % (0.0-0.4); Lymphocytes Absolute Auto 1.1 X10*3/uL (1.2-4.9); Mean Corpuscular HGB Conc 31.9 g/dl (31.0-35.0); Mean Corpuscular Hemoglobin 30.1 pg (27.0-33.0); Mean Corpuscular Volume 94.1 fL (80.0-98.0); NRBC Abs Auto 0.000 X10*3/uL (0.0-0.012); NRBC Pct Auto 0.0 /100WBC (0.0-0.2); Platelet Count 191 X10*3/uL (160-400); Red Blood Count 4.09 X10*6/uL (4.20-5.50); White Blood Count 3.9 X10*3/uL (4.8-10.8)
[2025-02-09 10:59] LABS: Hemoglobin A1C 122.7076 umol/L; Total Hemoglobin (HGBA1C) 3327.0886 umol/L
[2025-02-09 11:02] LABS: Alanine Aminotransferase 12 U/L (0-31); Albumin Level 3.8 g/dL (3.5-5.0); Alkaline Phosphatase 96 U/L (39-117); Anion Gap 9 (12-20); Aspartate Amino Transferase 27 U/L (5-31); Blood Urea Nitrogen 11 mg/dL (9-16); Calcium 9.0 mg/dL (8.4-10.2); Carbon Dioxide 28 mmol/L (22-29); Chloride 109 mmol/L (96-108); Cholesterol 166 mg/dL (<200); Estimated Glomerular Filt Rate > 60; HDL Cholesterol 50 mg/dL (>40); Potassium 4.2 mmol/L (3.3-5.1); Sodium 142 mmol/L (135-145); Total Protein 7.1 g/dL (6.5-8.0); Triglycerides 73 mg/dL (<150)
== END 2025-02-09 09:01 | disposition home or self-care (01) ==
LOC: HO.HMGCLDS 09:00
PROVIDERS: PCP Internal Medicine; Visit Provider Internal Medicine
DX: E11.9 Type 2 diabetes mellitus without complications (principal); I48.91 Unspecified atrial fibrillation; E78.5 Hyperlipidemia, unspecified
CPT/HCPCS: 36415; 80053; 80061; 82043; 82570; 83036; 85025

== ENCOUNTER 2025-02-17 10:57 | Outpatient (AMB) | payer MEDICARE, MEDICAID, SELFPAY ==
[2025-02-17 11:32] VITALS: BP 120/66; PULSE 61; RESP 18; TEMP 36.7; O2SAT 98; BMI 40.7
--- NOTE | 2025-02-17 11:32 | A.OFFPC_ITS ---
Vital Signs 02/17/25 11:32 Height 5 ft 6 in Weight 252 lb BMI 40.7 BP 120/66 Blood Pressure Location Lt brachial Position Sitting Respiration 18 Pulse 61 Pulse Source Pulse Oximeter Temp 98.0 F Temp Source Oral Pulse Oximetry (%) 98 Oxygen Delivery Method Room Air Intake Visit Reasons: 4 months f/up Intake Note: Pt is here today for 4 months follow up visit on DM. Allergies ciprofloxacin (From Cipro) Allergy (Unknown, Verified 02/17/25 11:36) palpations/cp codeine Allergy (Unknown, Verified 02/17/25 11:36) chest pain sulfadiazine Allergy (Unknown, Verified 02/17/25 11:36) palpatations/CP dulaglutide (From Trulicity) Allergy (Verified 02/17/25 11:36) Diarrhea apixaban (From Eliquis) Adverse Reaction (Unknown, Verified 02/17/25 11:36) memory problem Medication List - Last Reconciled 02/17/25 by Dayna Prieto MD aspirin 81 mg PO DAILY blood sugar diagnostic (FreeStyle Lite Strips) Test blood sugar 4 x a day blood-glucose meter (FreeStyle Lite Meter kit) As directed cholecalciferol (vitamin D3) 25 mcg PO DAILY dapagliflozin propanediol (Farxiga) 5 mg PO DAILY diltiazem HCl ER 240 mg PO DAILY flecainide 100 mg PO BID gabapentin 100 mg PO TID lancets (FreeStyle Lancets) test blood sugar once a day methocarbamol 500 mg PO DAILY PRN omega 1-rmj-ovw-fish oil 1,200 (144-216) mg (Fish Oil) 1,200 caps PO DAILY pantoprazole 40 mg PO DAILY pravastatin 40 mg PO DAILY semaglutide (Ozempic) 0.5 mg subcut QWEEK semaglutide (Ozempic) 2 mg (0.75 mL) subcut QWEEK [vitamin b12 500 mcg PO DAILY] vitamins A,C,T-ccwe-ydssmd 2,148 mcg-113 mg-45 mg-17.4mg (PreserVision AREDS) 2 tabs PO BID Tobacco use date assessed: 02/17/25 Dental Screening Dental Screen Date: 10/29/24 HPI 4 months f/up HPI Details Patient presents for the follow-up of type 2 diabetes hypertension hyperlipidemia history of AFib stable on current medications. Patient has been tolerating 1 mg of Ozempic and will be increasing the dose to 2 mg next month. [facility] Medical History Liver cirrhosis Annual physical exam Anxiety Degenerative lumbar spinal stenosis Obesity DAVIAN on CPAP Iron deficiency anemia Macular degeneration GERD (gastroesophageal reflux disease) Atrial fibrillation Hyperlipidemia HTN (hypertension) DM type 2 (diabetes mellitus, type 2) Surgical History Hx of knee surgery H/O colonoscopy H/O lumbosacral spine surgery No pertinent past surgical history Family History Unknown No problems noted. Mother No problems noted. Sister No problems noted. Brother Substance use disorder Social History Housing: Apartment Alcohol intake: current Alcohol intake frequency: does not drink Patient Tobacco Use Status: Never used Tobacco e-Cigarette/Vaping Use: Never Used service: No Current occupational status: unemployed and disabled Cognitive needs: No Hearing needs: Yes Vision needs: Yes Questionnaire Thrive Questionnaire Date Thrive assessed: 09/16/24 I am a: Patient What is your living situation today?: I have a steady place to live Within the past 12 months, did the food you bought not last and you didn't have the money to get more?: Never true Within the past 12 months, did you worry whether your food would run out before you got money to buy more?: Never true Do you have trouble paying for medicines?: No Do you have trouble getting transportation to medical appointments?: No Do you have trouble paying your heating and electricity bill?: No Do you have trouble taking care of your child, family member or friend?: No Do you have trouble with day-to-day activities such as bathing, preparing meals, shopping, managing finances, etc.?: I choose not to answer this question Are you currently unemployed and looking for a job?: No Are you interested in more education?: No Please select the resources that you would like help with: None THRIVE Score: 0 ROXANNA-7 AMB Questionnaire ROXANNA-7 Date ROXANNA - 7 assessed: 04/02/25 Source: Developed by Drs. Candido Santana, Marilia Malcolm, Alex Garcia and colleagues, with an educational garima from [employer]. Review of Systems Const All systems reviewed & are unremarkable except as noted in HPI and below Eyes Reports no additional complaints ENT Reports no additional complaints Card Reports no additional complaints Resp Reports no additional complaints GI Reports no additional complaints Reports no additional complaints Physical exam (Primary Care) Vital Signs: Last Vital Signs Temp 98.0 F 02/17/25 11:32 Pulse 61 02/17/25 11:32 Resp 18 02/17/25 11:32 BP 120/66 02/17/25 11:32 Pulse Ox 98 02/17/25 11:32 Oxygen Delivery Method Room Air 02/17/25 11:32 BMI result Body Mass Index 40.7 Tobacco/Smoking Status: Tobacco use Status Tobacco use date assessed 02/17/25 02/17/25 11:39 Patient Tobacco Use Status Never used Tobacco 02/17/25 11:39 e-Cigarette/Vaping Use Never Used 02/17/25 11:39 Thrive Assessment: Date of Thrive Assessment Date Thrive assessed 09/16/24 02/17/25 11:39 Const General: no acute distress HENMT Face and sinus: Yes normal facial exam Neck Neck: Yes no lymphadenopathy and Yes supple Resp Effort & Inspection: normal respiratory effort Auscultation: clear to auscultation bilaterally Cardio Rhythm: regular rhythm Heart sounds: S1 normal heart sound present and S2 normal heart sound present GI Inspection: Yes normal to inspection Palpation (GI): Soft to palpation Percussion: Yes normal to percussion Auscultation: normal bowel sounds Coding Level of Care Code Est Pt Level 4 (19365) Diagnoses Hyperlipidemia E78.5 DM type 2 (diabetes mellitus, type 2) E11.9 HTN (hypertension) I10 Assessment & Plan Assessment & Plan (1) Hyperlipidemia: Code(s): E78.5 - Hyperlipidemia, unspecified Category: Medical Plan: Continue pravastatin low-cholesterol diet (2) DM type 2 (diabetes mellitus, type 2): Comment: Intolerant to Trulicity, diarrhea, diabetic retinopathy Code(s): E11.9 - Type 2 diabetes mellitus without complications Category: Medical Plan: A1c is 5.6, continue Farxiga and increase Ozempic to 2 mg weekly. Follow-up in 4 months with a fasting labs before (3) HTN (hypertension): Code(s): I10 - Essential (primary) hypertension Category: Medical Plan: Continue current medications Orders: Orders Comprehensive [place]. Panel Fast 4 Months E11.9 - Type 2 diabetes mellitus without complications, E78.5 - Hyperlipidemia, unspecified, I10 - Essential (primary) hypertension Microalbumin, Random (w Creat) 4 Months E11.9 - Type 2 diabetes mellitus without complications, E78.5 - Hyperlipidemia, unspecified, I10 - Essential (primary) hypertension Hemoglobin A1c 4 Months E11.9 - Type 2 diabetes mellitus without complications, E78.5 - Hyperlipidemia, unspecified, I10 - Essential (primary) hypertension Complete Blood Count Auto Diff 4 Months E11.9 - Type 2 diabetes mellitus without complications, E78.5 - Hyperlipidemia, unspecified, I10 - Essential (primary) hypertension Lipid Panel 4 Months E11.9 - Type 2 diabetes mellitus without complications, E78.5 - Hyperlipidemia, unspecified, I10 - Essential (primary) hypertension
--- OUTSIDE RECORDS SUMMARY | 2025-02-17 12:13 | XMS_ITS | Clinical Summary ---
Author Organization [facility] Address [address] [place] [address] Care Team Providers Care Microbiology Lab Analyst Name Role Phone Dayna Prieto MD Primary Care Provider [phone] Allergies Active Allergy Reactions Criticality Noted Date [...] times a day with meals. 0 Active [place]-3 Fatty Acids (FISH OIL PO) Take by [...] this topic Medical Devices Implanted Type Area Stave Log Cut Off Saw Operator Device Identifier Shelf Expiration Date Model / Serial / Lot Device Clsur Watchman Flx Fabiola 24mm Bsci-Prnt [id number] - [id number] Implanted:Qty: 1 on 10/11/2023 by Husam Solis MD at [facility] Right: [employer] 04/23/2026 [id number] / [id number] / Advance Directives For more information, please contact: [phone] Latest Code Status on File Code Status Date Activated Date Inactivated Comments Full Code 10/11/2023 12:31 PM 10/12/2023 8:47 PM This code status was ascertained in the following way: discussion with patient . Care Teams Microbiology Lab Analyst Relationship Specialty Start Date End Date Dayna Prieto MD [address] [facility] [place] [address] PCP - General Motor Assembler 10/05/23
--- OUTSIDE RECORDS SUMMARY | 2025-02-17 12:13 | XMS_ITS | Clinical Summary ---
Author Organization [facility] Address [address] [place] [address] Care Team Providers Care Pigment Pusher Name Role Phone Unavailable Primary Care Provider [...]
--- OUTSIDE RECORDS SUMMARY | 2025-02-17 12:13 | XMS_ITS | Encounter Summary ---
Author Organization [facility] Address [address] [place] [address] Care Team Providers Care Smelter Operator Name Role Phone Dayna Prieto MD Primary Care Provider [phone] Reason for Visit * Reason Onset Date Comments Provider Call Back 02/05/2025 Encounter Details Date Type Department Care Team (Late st Contact Info) Description 02/05/2025 Telephone Gastroenterology - [place] 175 [place] [address] [place] [address] Lori Rojas PA [address] [place] [address] Provider Call Back Social History Tobacco Use Types Packs/Day Years Used Date Smoking Tobacco: Never Smokeless Tobacco: Never Alcohol Use Standard Drinks/Week Comments No 0 (1 standard drink = 0.6 oz pur e alcohol) Housing Instability Answer Date Recorde d Are you worried that in the next 2 months you may not have stable housing? No 11/10/2024 Food Access & Nutrition Answer Date Rec orded Do you have access to a vari ety of food including fruits and vegetables? No 11/10/2024 Access to Healthcare Answer Date Record ed Within the last 3 months, ho w many times did you visit the emergency department for your medical care? 2 11/10/2024 Health Literacy Answer Date Recorded How often do you need to hav e someone help you when you read instructions, pamphlets, or other written material from your doctor or pharmacy? Never 11/10/2024 Caregiver: How often do you need to have someone help you when you read instructions, pamphlets, or other written material from your doctor or pharmacy? Not on file 11/10/2024 Financial Risk Answer Date Recorded How hard is it for you to pa y for the very basics like food, housing, medical care, and air conditioning / heating? Not very hard 11/10/2024 Transportation Answer Date Recorded Has the lack of transportati on kept you from meetings, work, or from getting things needed for daily living? No Has the lack of transportati on kept you from medical appointments or from getting medications? No 11/10/2024 Social Isolation Answer Date Recorded How often do you feel lonely or isolated from th ose around you? Never 11/10/2024 Food Risk Answer Date Recorded Within the past 12 months we worried whether our food would run out before we got money to buy more. Never true 11/10/2024 Within the past 12 months th e food we bought just didn't last and we didn't have money to get more. Never true 11/10/2024 Education Answer Date Recorded Do you think completing more education or training, like finishing a GED, going to college, or learning a trade, would be helpful for you? No 11/10/2024 Employment and Income Answer Date Recor ded During the last four weeks, have you been actively looking for work? No 11/10/2024 Living Situation Answer Date Recorded What is your living situation? 0 11/10/2024 Interpersonal Safety Answer Date Record ed Physical Abuse 11/18/2024 Verbal Abuse 11/18/2024 Comments No Sex and Gender Information Value Date Recorded Sex Assigned at Female 11/19/2024 11:15 AM EDT Legal Sex Female 1:03 AM EST Gender Identity Female 11/19/2024 11:15 AM EDT Sexual Orientation Straight 11/19/2024 11 :15 AM EDT documented as of this encounter Progress Notes * VONDA Soni - 02/08/2025 6:41 PM EDT I sent her message via [employer] and I also sent you another message that I spoke with pathologist and he said that she does have a liver cirrhosis but not autoimmune PBC, So no more Ursodilol. TY * Marli Taveras MA - 02/06/2025 12:13 PM EDT I spoke with patient advise her with what you said - please call pathologist to discuss patient would really like to know what is going on prior to her visit thanks * Breanna Otto - 02/06/2025 10:43 AM EDT Patient called back regarding these results and would like some clarification before her upcoming appt next month. * VONDA Soni - 02/05/2025 4:05 PM EDT So biopsy showed liver cirrhosis, however, I will have to call pathologist for more details becauseit looks like she does not have any autoimmune liver disease. But again when she is going to follow-up with me we can go over everything. TY * Marli Taveras MA - 02/05/2025 3:22 PM EDT Please review and advise thanks * Breanna Otto - 02/05/2025 3:01 PM EDT Patient called about her liver biopsy results, she said she saw them on the portal and would like to confirm with someone and discuss. Please contact and advise. documented in this encounter Plan of Treatment Upcoming Encounters Date Type Department Care Team (Late st Contact Info) Description 02/18/2025 1:30 PM EDT Appointment [facility] Bone Density [address] [place] [phone] 03/03/2025 12:40 PM EDT Office Visit [facility] 154 [address] [facility] [address] [place] [phone] Shira Frazier NP 300 [facility] 154 [place] [phone] 03/05/2025 2:00 PM EDT Office Visit Gastroenterology [facility] [address] [phone] Lori Rojas PA [address] [address] 05/20/2025 11:00 AM EDT Office Visit Orthopedic Surgery - [place] [address] [address] Cyndy Mensah PA [address] [address] 07/28/2025 11:30 AM EST Office Visit Pulmonolgy [facility] [address] [phone] Brittany Malik MD [address] [address] documented as of this encounter Visit Diagnoses Not on filedocumented in this encounter Additional Health Concerns Assessment Noted Time PHQ-9 Depression Total Score: 0 11/11/19 25 4:48 PM EDT documented as of this encounter Care Teams Smelter Operator Relationship Specialty Start Date End Date Dayna Prieto MD [address] [facility] [place] [phone] PCP - General Internal Medicine 07/14/19 documented as of this encounter
--- OUTSIDE RECORDS SUMMARY | 2025-02-17 12:13 | XMS_ITS | Encounter Summary ---
Author Organization [facility] Address [address] [place] [address] Care Team Providers Care Tax Services Intern Name Role Phone Bao Gann DO Primary Care Provider [phone] Encounter Details Date Type Department Care Team (Late st Contact Info) Description 12/23/2014 Scanned Document [facility] Sleep Center [address], [address] [place], [place] [address] Jorje Campbell MD [address] [place] [address] Social History Tobacco Use Types [...] on filedocumented in this encounter Care Teams Tax Services Intern Relationship Specialty Start Date End Date Bao Gann DO [facility] [facility] 203 [place] [phone] PCP - General Internal Medicine 10/09/18 documented as of this encounter
--- OUTSIDE RECORDS SUMMARY | 2025-02-17 12:13 | XMS_ITS | Patient Health Record ---
Author Organization [facility] Address [address] [facility] [place] [address] Care Team Providers Care Supervisor Wall Mirror Department Name Role Phone Dayna Prieto MD Primary Care Provider UnavailMeron Mcdonald Unavailable [phone] Desmond Nava Unavailable [phone] Allergies Allergen (clinical drug ingredient) Drug/Non Drug [...] Oral; Duration: 90 Days Active Vitamin D3 4861071 UNIT/GM as directed 03/21/2024 Active Flecainide Acetate [...] Polyneuropathy due to type 2 diabetes mellitus (670594131) Type 2 diabetes mellitus with diabetic polyneuropathy (E11.42) Active confirmed Vital Signs Blood pressure diastolic 59 mm Hg 04/28/2024 Height 5 ft 6 in in 04/28/2024 Blood pressure systolic 118 mm Hg 04/28/2024 Weight 262 lbs 04/28/2024 BMI 42.28 kg/m2 04/28/2024 Procedures Procedure Date Ordered Date Performed Result Body Sit e 94765-BJJV SKIN LESIONS, 2 TO 4 04/28/2024 N/A [id number] DYSTROPHIC NAILS ANY # 04/28/2024 N/A Encounters Encounter Location Date Provider Diagnosis [facility] [address] [address] 04/28/2024 DesmondReece Type 2 diabetes mellitus with diabetic polyneuropathy E11.42 ; Ingrowing nail L60.0 and Skin disease L98.[address] [facility] [address] 03/21/2024 Demsond Nava Assessments Encounter Date Diagnosis (ICD Code) Assessment Notes Treatment Notes Treatment Clinical Notes Section Notes 04/28/2024 Type 2 diabetes mellitus with diabetic polyneuropathy (ICD-10 - E11.42) 04/28/2024 Ingrowing nail (ICD-10 - L60.0) 04/28/2024 Skin disease (ICD-10 - L98.9) Plan Of Treatment Pending Test Test Name Order Date [id number] SKIN LESIONS, 2 TO 4 04/28/20 24 [id number] DYSTROPHIC NAILS ANY # Next Appt Details Provider Name:Meron fritz, 04/29/2025 11:00:00 AM, [address] [place], [address], Insurance Providers Payer Name Payer Address Payer Phone Subscriber Number Group Number Insured Name Patient Relationship to Insured Coverage Start Date Coverage End Date Medicare National [employer] [address] [place] [address] [id number] Agustina Patel Self - patient is the insured Medical (General) History Medical History History ICD Code Anxiety Arthritis Back,Hip,and Knee pain covid-19 Diabetic Gall bladder problems Headaches/Migraines Hypertension Macular degeneration Reflux ( GERD) sinusitis Measles Mumps Chicken pox A fib Tachycardia Surgical History Surgery Date(Month/Year) back surgery Gall bladder removal spinal stenosis surgery watchmen Hospitalization History Reason Date(Month/Year) [facility] knee 12/29/2023
== END 2025-02-17 12:05 | disposition home or self-care (01) ==
LOC: HO.HMCC 10:57
PROVIDERS: PCP Internal Medicine; Visit Provider Internal Medicine
DX: E78.5 Hyperlipidemia, unspecified (principal); E11.9 Type 2 diabetes mellitus without complications; I10 Essential (primary) hypertension; Z13.9 Encounter for screening, unspecified

== ENCOUNTER → 2025-02-17 10:57 | Outpatient (BNVA) | payer MEDICARE, MEDICAID, SELFPAY | PROVIDERS: PCP Internal Medicine; Visit Provider Internal Medicine | DX: E78.5 Hyperlipidemia, unspecified (principal); I10 Essential (primary) hypertension; E11.9 Type 2 diabetes mellitus without complications | CPT/HCPCS: 81003; 99212 ==

== ENCOUNTER 2025-04-06 12:53 | Outpatient (AMB) | payer MEDICARE, MEDICAID, SELFPAY ==
--- NOTE | 2025-04-06 13:23 | A.OFFVIS_ITS ---
VS Expanded 04/06/25 13:24 04/08/25 14:42 Height 5 ft 6.5 in 5 ft 6.5 in Weight 250 lb 0.067 oz 250 lb BMI 39.7 39.7 Intake Visit Reasons: T2DM, Unspecified cirrhosis of liver Allergies ciprofloxacin (From Cipro) Allergy (Unknown, Verified 02/17/25 11:36) palpations/cp codeine Allergy (Unknown, Verified 02/17/25 11:36) chest pain sulfadiazine Allergy (Unknown, Verified 02/17/25 11:36) palpatations/CP dulaglutide (From Trulicity) Allergy (Verified 02/17/25 11:36) Diarrhea apixaban (From Eliquis) Adverse Reaction (Unknown, Verified 02/17/25 11:36) memory problem Nutrition Presentation Details: Pt presents for T2DM with unspecified cirrhosis Pt reportts having lost 50 lbs since May from 302 lbs to 250 lbs physical activity: doing exercises from physical therapy after knee surgery food frequency fish: 0-1/m fruits: 2-3/d dairy : 3/d veg: daily starches > 30/d etoh/denies BS Monitoring Most Recent Diabetes Results: Microalb/Creat Ratio TNP 02/17/25 Cholesterol, (<200) 166 mg/dL 02/09/25 HDL Cholesterol, (>40) 50 mg/dL 02/09/25 Triglycerides, (<150) 73 mg/dL 02/09/25 Creatinine, (0.5-1.4) 0.87 mg/dL 02/09/25 BUN, (9-16) 11 mg/dL 02/09/25 Sodium, (135-145) 142 mmol/L 02/09/25 Potassium, (3.3-5.1) 4.2 mmol/L 02/09/25 Chloride, (96-108) 109 mmol/L H 02/09/25 Carbon Dioxide, (22-29) 28 mmol/L 02/09/25 Calcium, (8.4-10.2) 9.0 mg/dL 02/09/25 AST, (5-31) 27 U/L 02/09/25 ALT, (0-31) 12 U/L 02/09/25 Total Protein, (6.5-8.0) 7.1 g/dL 07/14/25 Albumin, (3.5-5.0) 3.8 g/dL 02/09/25 VAR-Xzwhxxi-Js.Jeor Equation Height: 5 ft 6.5 in Weight: 250 lb Resting Metabolic Rate: 1722.49 Calculated Activity Level: Sedentary Calories Needed to Maintain Weight: 2066.99 Diagnosis Nutrition problem #1: altered nutrition labs As related to (etiology) #1: diagnosis As evidenced by (sign/symptom) #1: knowledge deficit of diet PFSH Medical History Liver cirrhosis Annual physical exam Anxiety Degenerative lumbar spinal stenosis Obesity DAVIAN on CPAP Iron deficiency anemia Macular degeneration GERD (gastroesophageal reflux disease) Atrial fibrillation Hyperlipidemia HTN (hypertension) DM type 2 (diabetes mellitus, type 2) Surgical History Hx of knee surgery H/O colonoscopy H/O lumbosacral spine surgery No pertinent past surgical history Family History Unknown No problems noted. Mother No problems noted. Sister No problems noted. Brother Substance use disorder Social History Housing: Apartment Alcohol intake: current Alcohol intake frequency: does not drink Patient Tobacco Use Status: Never used Tobacco e-Cigarette/Vaping Use: Never Used service: No Current occupational status: unemployed and disabled Cognitive needs: No Hearing needs: Yes Vision needs: Yes Assessment & Plan Assessment & Plan (1) DM type 2 (diabetes mellitus, type 2): Comment: cirrhosis Code(s): E11.9 - Type 2 diabetes mellitus without complications Category: Medical Plan: Wt: 114 Kg ( 04/23 ) Est kcal needs as per MSJ: 2100 (40% carb, 30% protein/fat) Est fluid needs as per 25-30 ml/d: 3400 Est prot per day as per 1 g/kg bw: 120 Recommend fiber intake : 8-10 g per day and gradually increase to 25-28 g per day for women and 35-38 g for men or as tolerated Recommend sodium intake per day : less than 2300 mg Educated patient on: ( R = reviewed V = verbalizes understanding N/R = needs review N/A = not applicable * Food sources of carbohydrate, adequate serving sizes and its role in various health conditions: R v * Differences between complex carbohydrates a simple carbohydrates, role of fiber in diet: R * Lean protein sources of foods: R V * Differences between types of fats and role in diet (mono on saturated fat fatty acids, saturated fatty acids, trans fats): R V N/R * Food sources of sodium in salt and healthy modifications for heart health in kidney health: R V R/V * Vitamins and minerals: R V N/R * Healthy plate method concept: R * Physical activity: Benefits a precaution: R V * Patient Instructions: include fiber rich foods (soluble fiber) oats at least twice a week Include lean protein in each meal 4 oz servings Coding Level of Care Code Nutr Indiv Intake (88861) Diagnoses DM type 2 (diabetes mellitus, type 2) E11.9 Time Spent (min) 30
[2025-04-06 13:24] VITALS: BMI 39.7
--- OUTSIDE RECORDS SUMMARY | 2025-04-06 15:02 | XMS_ITS | Encounter Summary ---
Author Organization [facility] Address [address] [place] [address] Care Team Providers Care Seam Hammerer Name Role Phone Bao Gann DO Primary Care Provider Encounter Details Date Type Department Care Team (Late st Contact Info) Description 06/16/2015 Scanned Document [facility] [address] [place], [place] [address] Jorje Campbell MD [address] [place] [address] Social History Tobacco Use Types [...] on filedocumented in this encounter Care Teams Seam Hammerer Relationship Specialty Start Date End Date Bao Gann DO [address] [facility] [address] [place] [phone] PCP - General Internal Medicine 10/09/18 documented as of this encounter
--- OUTSIDE RECORDS SUMMARY | 2025-04-06 15:02 | XMS_ITS | Encounter Summary ---
Author Organization [facility] Address [address] [place] [address] Care Team Providers Care Mounter Automatic Name Role Phone Bao Gann DO Primary Care Provider [phone] Encounter Details Date Type Department Care Team (Late st Contact Info) Description 07/16/2014 Abstract [facility] [address] [facility] [address] [place], [place] [phone] Provider, Historical . Social History Tobacco Use [...] on filedocumented in this encounter Care Teams Mounter Automatic Relationship Specialty Start Date End Date Bao Gann DO 1824 [facility] [address] [place] [phone] PCP - General Internal Medicine 10/09/18 documented as of this encounter
--- OUTSIDE RECORDS SUMMARY | 2025-04-06 15:02 | XMS_ITS | Encounter Summary ---
Author Organization [facility] Address [address] [place] [address] Care Team Providers Care Cloud Engagement Partner Name Role Phone DerejedilcialisaBao Primary Care Provider Encounter Details Date Type Department Care Team (Latest Contact Info) Description 10/08/2015 Transcribed Orders Count Includes [facility] Draw Station 1825 Count Includes [facility] 2nd Floor [place], [place] [id number] Harman Burrows MD Essential hypertension, malignant (Primary [...] Hemoglobin A1c 7.3(H) 4.4 - 6.4 % LABORATORY Comment: Therapeutic Goal: Less Than 7% Re-Evaluation Therapy: Greater Than 8% Blood specimen (specimen) 10/08/2015 10:30 AM EST Harman Burrows MD LAB BLOOD ORDERABLES Final Resul t Performing Organization Address City/[facility]/ZIP Co de Phone Number LABORATORY [address] [place] [address] * Lipid panel (10/08/2015 10:30 AM EST) Cholesterol 166 0 - 199 mg/dL LABORATORY Triglycerides 88 0 - 150 mg/dL LABORATORY HDL 59 >=41 mg/dL [facility] LABORATORY LDL Cholesterol 90 0 - 99 [facility] LABORATORY CHD Risk 3 <=4 LABORATORY Blood specimen (specimen) 10/08/2015 10:30 AM EST Harman Burrows MD LAB BLOOD ORDERABLES Edited Resu lt - Final Performing Organization Address [facility] Co de Phone Number LABORATORY [address] [place] [address] * (ABNORMAL) Comprehensive metabolic panel (10/08/2015 10:30 AM EST) Glucose 131(H) 70 - 100 mg/dL LABORATORY BUN 16 7 - 17 mg/dL LABORATORY Creatinine 0.70 0.52 - 1.04 mg/dL LABORATORY Sodium 141 137 - 145 mmol/L LABORATORY Potassium 4.2 3.5 - 5.1 mmol/L LABORATORY Chloride 102 98 - 107 mmol/L LABORATORY CO2 26 22 - 30 mmol/L LABORATORY Anion Gap 13 7 - 16 mmol/L LABORATORY Calcium 9.2 8.4 - 10.2 mg/dL LABORATORY Total Protein 7.2 6.3 - 8.2 g/dL LABORATORY Albumin 4.0 3.5 - 5.0 g/dL LABORATORY Globulin 3.1 2.0 - 3.5 g/dL LABORATORY A/G Ratio 1.3 1.1 - 2.2 ratio LABORATORY Aspartate Aminotransferase (AST) 43(H) 14 - 36 u/l LABORATORY Alkaline Phosphatase 91 38 - 126 u/l LABORATORY Total Bilirubin 1.1 0.2 - 1.3 mg/dL LABORATORY Alanine Aminotransferase (ALT) 29 9 - 52 u/l LABORATORY eGFR >60 LABORATORY Comment: Interpretation Stage 1 90 ml/min or greater Healthy kidneys or kidney damage with normal or high eGFR Stage 2 60-89 ml/min Kidney damage and mild decrease in eGFR Stage 3 30-59 ml/min Moderate decrease in eGFR Stage 4 15-29 ml/min Severe decrease in eGFR Stage 5 <15 ml/min Kidney failure The GFR is calculated to include the patient's race and gender as entered in Patient Demographics. Blood specimen (specimen) 10/08/2015 10:30 AM EST us Harman Burrows MD LAB BLOOD ORDERABLES Edited Resu lt - Final LABORATORY [address] [place] [address] documented in this encounter Visit Diagnoses Diagnosis Essential hypertension, malignant- Primary Hypotension, unspecified Pure hypercholesterolemia Mixed hyperlipidemia Type I (juvenile type) diabetes mellitus without mention of complication, not stated as uncontrolled documented in this encounter Care Teams Cloud Engagement Partner Relationship Specialty Start Date End Date Boa Gann DO [address] [facility] [address] [place] [phone] PCP - General Internal Medicine 10/09/18 documented as of this encounter
--- OUTSIDE RECORDS SUMMARY | 2025-04-06 15:02 | XMS_ITS | Encounter Summary ---
Author Organization [facility] Address [address] [place] [address] Care Team Providers Care Insurance Office Manager Name Role Phone Bao Gann DO Primary Care Provider Encounter Details Date Type Department Care Team (Late st Contact Info) Description 06/09/2016 Scanned Document [facility] [address] [facility] [address] [place], [place] [address] Curt Miller MD [address] [facility] [address] [place] [address] Social History Tobacco Use Types [...] on filedocumented in this encounter Care Teams Insurance Office Manager Relationship Specialty Start Date End Date Bao Gann DO [address] [place] [phone] PCP - General Internal Medicine 10/09/18 documented as of this encounter
--- OUTSIDE RECORDS SUMMARY | 2025-04-06 15:02 | XMS_ITS | Encounter Summary ---
Author Organization [facility] Address [address] [place] [address] Care Team Providers Care Rd Scientist Name Role Phone Bao Gann DO Primary Care Provider Encounter Details Date Type Department Care Team (Late st Contact Info) Description 04/03/2014 Scanned Document [facility] Gastroenterology [facility] [address] [facility] [address] [place] [address] James Christina MD [address] [facility] [address] [place] [address] Social History Tobacco Use Types [...] on filedocumented in this encounter Care Teams Rd Scientist Relationship Specialty Start Date End Date Bao Gann DO 1825 [facility] 203 [place] [address] PCP - General Internal Medicine 10/09/18 documented as of this encounter
--- OUTSIDE RECORDS SUMMARY | 2025-04-06 15:02 | XMS_ITS | Encounter Summary ---
Author Organization [facility] Address [address] [place] [address] Care Team Providers Care Almond Blancher Operator Name Role Phone Bao Gann DO Primary Care Provider Encounter Details Date Type Department Care Team (Late st Contact Info) Description 05/19/2016 Scanned Document [facility] Gastroenterology [facility] [address] [facility] [address] [place] [address] Provider, Historical . Social History Tobacco Use [...] on filedocumented in this encounter Care Teams Almond Blancher Operator Relationship Specialty Start Date End Date Bao Gann DO [address] [facility] 203 [place] [phone] PCP - General Internal Medicine 10/09/18 documented as of this encounter
--- OUTSIDE RECORDS SUMMARY | 2025-04-06 15:02 | XMS_ITS | Encounter Summary ---
Author Organization [facility] Address [address] [place] [address] Care Team Providers Care Top And Seat Cover Fitter Name Role Phone Bao Gann DO Primary Care Provider [phone] Encounter Details Date Type Department Care Team (Late st Contact Info) Description 08/05/2015 Scanned Document [facility] [address] [place], [place] [address] Jorje Campbell MD [address] [place] [address] Social History Tobacco Use Types [...] on filedocumented in this encounter Care Teams Top And Seat Cover Fitter Relationship Specialty Start Date End Date Bao Gann DO [address] [place] [phone] PCP - General Internal Medicine 10/09/18 documented as of this encounter
--- OUTSIDE RECORDS SUMMARY | 2025-04-06 15:02 | XMS_ITS | Encounter Summary ---
Author Organization [facility] [employer] and [facility] Address [address] [place] [address] Care Team Providers Care Nailer Operator Name Role Phone DerejedilcialisaBao Primary Care Provider Encounter Details Date Type Department Care Team (Latest Contact Info) Description 01/14/2016 Transcribed Orders [facility] 2nd Floor [place], [place] [id number] Harman Burrows MD Hypotension, unspecified (Primary Dx); [...] Hemoglobin A1c 7.1(H) 4.4 - 6.4 % [facility] Comment: Therapeutic Goal: Less Than 7% Re-Evaluation Therapy: Greater Than 8% Blood specimen (specimen) 01/14/2016 10:57 AM EDT Harman Burrows MD LAB BLOOD ORDERABLES Final Resul t Performing Organization Address [facility] [address] [facility]/ZIP Co de Phone Number [facility] [address] [place] [address] * Lipid panel (01/14/2016 10:57 AM EDT) Cholesterol 147 0 - 199 mg/dL [facility] Triglycerides 75 0 - 150 mg/dL [facility] HDL 51 >=41 mg/dL [facility] LDL Cholesterol 81 0 - 99 [facility] CHD Risk 3 <=4 [facility] Blood specimen (specimen) 01/14/2016 10:57 AM EDT Harman Burrows MD LAB BLOOD ORDERABLES Edited Resu lt - Final Performing Organization Address [facility] [address]/[facility] Co de Phone Number [facility] [address] [place] [address] * (ABNORMAL) Comprehensive metabolic panel (01/14/2016 10:57 AM EDT) Glucose 137(H) 70 - 100 mg/dL [facility] BUN 19(H) 7 - 17 mg/dL [facility] Creatinine 0.75 0.52 - 1.04 mg/dL [facility] Sodium 143 137 - 145 mmol/L [facility] Potassium 4.3 3.5 - 5.1 mmol/L [facility] Chloride 102 98 - 107 mmol/L [facility] CO2 28 22 - 30 mmol/L [facility] Anion Gap 14 7 - 16 mmol/L [facility] Calcium 8.8 8.4 - 10.2 mg/dL [facility] Total Protein 7.3 6.3 - 8.2 g/dL [facility] Albumin 3.7 3.5 - 5.0 g/dL [facility] Globulin 3.6(H) 2.0 - 3.5 g/dL [facility] A/G Ratio 1.0(L) 1.1 - 2.2 [facility] Aspartate Aminotransferase (AST) 55(H) 14 - 36 u/l [facility] Alkaline Phosphatase 106 38 - 126 u/l [facility] Total Bilirubin 1.3 0.2 - 1.3 mg/dL [facility] Alanine Aminotransferase (ALT) 48 9 - 52 u/l [facility] eGFR >60 [facility] Comment: Interpretation Stage 1 90 ml/min [...] BLOOD ORDERABLES Edited Resu lt - Final [facility] [address] [place] [address] documented in this encounter Visit Diagnoses Diagnosis Hypotension, unspecified- Primary Aortic valve disorders Essential hypertension, malignant Pure hypercholesterolemia Mixed hyperlipidemia Other and unspecified hyperlipidemia Type II or unspecified type diabetes mellitus without mention of complication, not stated as uncontrolled documented in this encounter Care Teams Nailer Operator Relationship Specialty Start Date End Date Bao Gann DO [address] [facility] [address] [place] [phone] PCP - General Internal Medicine 10/09/18 documented as of this encounter
--- OUTSIDE RECORDS SUMMARY | 2025-04-06 15:02 | XMS_ITS | Encounter Summary ---
Author Organization [facility] Address [address] [place] [address] Care Team Providers Care Senior Maintenance Machinist Name Role Phone Bao Gann DO Primary Care Provider Encounter Details Date Type Department Care Team (Late st Contact Info) Description 11/09/2014 Scanned Document [place] PM [facility] Card[facility] Services [address] [facility] [address] [place] [address] External, Provider Social History Tobacco Use Types [...] on filedocumented in this encounter Care Teams Senior Maintenance Machinist Relationship Specialty Start Date End Date Bao Gann DO [address] [facility] [address] [place] [phone] PCP - General Internal Medicine 10/09/18 documented as of this encounter
--- OUTSIDE RECORDS SUMMARY | 2025-04-06 15:02 | XMS_ITS | Encounter Summary ---
Author Organization [facility] Address [address] [place] [address] Care Team Providers Care Delivery Room Clerk Name Role Phone Bao Gann DO Primary Care Provider [phone] Encounter Details Date Type Department Care Team (Late st Contact Info) Description 11/10/2014 Scanned Document [place] PM [facility] Cardiac Services [address] [facility] [address] [place] [address] External, Provider Social History Tobacco Use Types [...] filedocumented in this encounter Care Teams Delivery Room Clerk Relationship Specialty Start Date End Date Bao Gann DO 1825 [facility] [address] [place] [address] PCP - General Internal Medicine 10/09/18 documented as of this encounter
--- OUTSIDE RECORDS SUMMARY | 2025-04-06 15:02 | XMS_ITS | Encounter Summary ---
Author Organization [facility] Address [address] [place] [address] Care Team Providers Care Turpentine Distiller Name Role Phone Bao Gann DO Primary Care Provider Encounter Details Date Type Department Care Team (Late st Contact Info) Description 12/23/2014 Scanned Document [facility] [address], [address] [place], [place] [address] Jorje Campbell MD [address] [place] [address] Social History Tobacco Use Types [...] on filedocumented in this encounter Care Teams Turpentine Distiller Relationship Specialty Start Date End Date Bao Gann DO [address] [facility] [address] [place] [address] PCP - General Internal Medicine 10/09/18 documented as of this encounter
--- OUTSIDE RECORDS SUMMARY | 2025-04-06 15:02 | XMS_ITS | Encounter Summary ---
Author Organization [facility] [employer] and [facility] Address [address] [place] [address] Care Team Providers Care Gun Welder Name Role Phone Bao Gann Primary Care Provider Encounter Details Date Type Department Care Team (Latest Contact Info) Description 04/06/2014 Transcribed Orders [facility] Draw Station [facility] [facility] 2nd Floor [place], [place] [phone] Harman Burrows MD Unspecified essential hypertension (Primary [...] [facility] [address] [place] [address] * T4, free (04/06/2014 10:29 AM EDT) [facility] Free T4 1.08 0.70 - 2.19 ng/dL [facility] Blood specimen (specimen) 04/06/2014 10:29 AM EDT Harman Burrows MD LAB BLOOD ORDERABLES Final Resul t Performing Organization Address [facility]/ZIP Co de Phone Number [facility] [address] [place] [address] * (ABNORMAL) Hemoglobin A1c (04/06/2014 10:29 AM EDT) [facility] Hemoglobin A1c 7.0(H) 4.4 - 6.4 % [facility] Comment: Therapeutic Goal: Less Than 7% Re-Evaluation Therapy: Greater Than 8% Blood specimen (specimen) 04/06/2014 10:29 AM EDT Harman Burrows MD LAB BLOOD ORDERABLES Final Resul t Performing Organization Address [facility] Co de Phone Number [facility] [address] [place] [address] * Lipid panel (04/06/2014 10:29 AM EDT) [facility] Cholesterol 132 0 - 199 mg/dL [facility] Triglycerides 88 0 - 150 mg/dL [facility] HDL 46 >=41 mg/dL [facility] LDL Cholesterol 69 0 - 99 BRID [facility] CHD Risk 3 <=4 [facility] Blood specimen (specimen) 04/06/2014 10:29 AM EDT us Harman Burrows MD LAB BLOOD ORDERABLES Edited Resu lt - Final Performing Organization Address [facility] Co de Phone Number [facility] [address] [place] [address] * (ABNORMAL) Comprehensive metabolic panel (04/06/2014 10:29 [...] [facility] Comment: Interpretation Stage 1 90 [...] [facility] [address] [place] [address] documented in this encounter Visit Diagnoses Diagnosis 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
--- OUTSIDE RECORDS SUMMARY | 2025-04-06 15:02 | XMS_ITS | Encounter Summary ---
Author Organization [facility] Address [address] [place] [address] Care Team Providers Care Computer Analyst Supervisor Name Role Phone Bao Gann DO Primary Care Provider [phone] Encounter Details Date Type Department Care Team (Late st Contact Info) Description 11/08/2014 Scanned Document NE PM [facility] Cardiac Services [address] [facility] [address] [place] [address] External, Provider Social History Tobacco Use Types [...] on filedocumented in this encounter Care Teams Computer Analyst Supervisor Relationship Specialty Start Date End Date Bao Gann DO 1825 [facility] [address] [place] [address] PCP - General Internal Medicine 10/09/18 documented as of this encounter
--- OUTSIDE RECORDS SUMMARY | 2025-04-06 15:02 | XMS_ITS | Encounter Summary ---
Author Organization [facility] [employer] and [facility] Address [address] [place] [address] Care Team Providers Care Short Order Cook Name Role Phone Bao Gann Primary Care Provider Encounter Details Date Type Department Care Team (Latest Contact Info) Description 10/20/2013 Transcribed Orders [facility] Draw Station 1825 [facility] 2nd Floor [place] [id number] Harman Burrows MD Unspecified essential hypertension (Primary [...] EDT) TSH 1.600 0.465 - 4.680 mIU/L [facility] Blood specimen (specimen) 10/20/2013 10:49 AM EDT us Harman Burrows MD LAB BLOOD ORDERABLES Final Resul t [facility] [address] [place] [address] * T4, free (10/20/2013 10:49 AM EDT) Free T4 1.11 0.70 - 2.19 ng/dL [facility] Blood specimen (specimen) 10/20/2013 10:49 AM EDT Harman Burrows MD LAB BLOOD ORDERABLES Final Resul t Performing Organization Address [facility]/ZIP Co de Phone Number [facility] [address] [place] [address] * (ABNORMAL) Hemoglobin A1c (10/20/2013 10:49 AM EDT) Hemoglobin A1c 6.6(H) 4.4 - 6.4 % [facility] Comment: Therapeutic Goal: Less Than 7% Re-Evaluation Therapy: Greater Than 8% Blood specimen (specimen) 10/20/2013 10:49 AM EDT Harman Burrows MD LAB BLOOD ORDERABLES Final Resul t Performing Organization Address [facility] Co de Phone Number [facility] [address] [place] [address] * Lipid panel (10/20/2013 10:49 AM EDT) Cholesterol 165 0 - 199 mg/dL [facility] Triglycerides 72 0 - 150 mg/dL [facility] HDL 59 >=41 mg/dL [facility] LDL Cholesterol 92 0 - 99 [facility] CHD Risk 3 <=4 [facility] Blood specimen (specimen) 10/20/2013 10:49 AM EDT us Harman Burrows MD LAB BLOOD ORDERABLES Edited Resu lt - Final Performing Organization Address [facility] Co de Phone Number [facility] [address] [place] [address] * (ABNORMAL) Comprehensive metabolic panel (10/20/2013 10:49 AM EDT) Glucose 118(H) 70 - 100 mg/dL [facility] BUN 20(H) 7 - 17 mg/dL [facility] Creatinine 0.79 0.52 - 1.04 mg/dL [facility] Sodium 140 137 - 145 mmol/L [facility] Potassium 4.6 3.5 - 5.1 mmol/L [facility] Chloride 103 98 - 107 mmol/L [facility] CO2 28 22 - 30 mmol/L [facility] Anion Gap 10 7 - 16 mmol/L [facility] Calcium 9.8 8.4 - 10.2 mg/dL [facility] Total Protein 7.3 6.3 - 8.2 g/dL [facility] Albumin 4.2 3.5 - 5.0 g/dL [facility] Globulin 3.1 2.0 - 3.5 g/dL [facility] A/G Ratio 1.3 1.1 - 2.2 ratio [facility] Aspartate Aminotransferase (AST) 36 14 - 36 u/l [facility] Alkaline Phosphatase 85 38 - 126 u/l [facility] Total Bilirubin 0.9 0.2 - 1.3 mg/dL [facility] Alanine Aminotransferase (ALT) 43 9 - 52 u/l [facility] eGFR >60 [facility] Comment: Interpretation Stage 1 90 ml/min or greater Healthy kidneys or kidney damage with normal or high eGFR Stage 2 60-89 ml/min Kidney damage and mild decrease in eGFR Stage 3 30-59 ml/min Moderate decrease in eGFR Stage 4 15-29 ml/min Severe decrease in eGFR Stage 5 <15 ml/min Kidney failure Blood specimen (specimen) 10/20/2013 10:49 AM EDT us Harman Burrows MD LAB BLOOD ORDERABLES Edited Resu lt - Final [facility] [address] [place] [address] documented in this encounter Visit Diagnoses Diagnosis 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
--- OUTSIDE RECORDS SUMMARY | 2025-04-06 15:02 | XMS_ITS | Encounter Summary ---
Author Organization [facility] [employer] and [facility] Address [address] [place] [address] Care Team Providers Care History Faculty Member Name Role Phone Bao Gann Primary Care Provider Encounter Details Date Type Department Care Team (Latest Contact Info) Description 10/12/2014 Transcribed Orders [facility] Draw Station 18[address] [facility] 2nd Floor [place], [place] [phone] Harman Burrows MD Unspecified essential hypertension (Primary [...] Hemoglobin A1c 6.7(H) 4.4 - 6.4 % [facility] Comment: Therapeutic Goal: Less Than 7% Re-Evaluation Therapy: Greater Than 8% Blood specimen (specimen) 10/12/2014 9:38 AM EDT us Harman Burrows MD LAB BLOOD ORDERABLES Final Resul t [facility] [address] [place] [address] * Lipid panel (10/12/2014 9:38 AM EDT) Cholesterol 143 0 - 199 mg/dL [facility] Triglycerides 86 0 - 150 mg/dL [facility] HDL 60 >=41 mg/dL [facility] LDL Cholesterol 66 0 - 99 [facility] CHD Risk 2 <=4 [facility] Blood specimen (specimen) 10/12/2014 9:38 AM EDT Harman Burrows MD LAB BLOOD ORDERABLES Edited Resu lt - Final Performing Organization Address City/[facility]/ZIP Co de Phone Number [facility] [address] [place] [place] [address] * (ABNORMAL) Comprehensive metabolic panel (10/12/2014 9:38 AM EDT) Glucose 122(H) 70 - 100 mg/dL [facility] BUN 14 7 - 17 mg/dL [facility] Creatinine 0.80 0.52 - 1.04 mg/dL [facility] Sodium 140 137 - 145 mmol/L [facility] Potassium 4.2 3.5 - 5.1 mmol/L [facility] Chloride 102 98 - 107 mmol/L [facility] CO2 27 22 - 30 mmol/L [facility] Anion Gap 10 7 - 16 mmol/L [facility] Calcium 9.2 8.4 - 10.2 mg/dL [facility] Total Protein 6.9 6.3 - 8.2 g/dL [facility] Albumin 3.9 3.5 - 5.0 g/dL [facility] Globulin 3.0 2.0 - 3.5 g/dL [facility] A/G Ratio 1.3 1.1 - 2.2 ratio [facility] Aspartate Aminotransferase (AST) 31 14 - 36 u/l [facility] Alkaline Phosphatase 86 38 - 126 u/l [facility] Total Bilirubin 1.0 0.2 - 1.3 mg/dL [facility] Alanine Aminotransferase (ALT) 37 9 - 52 u/l [facility] eGFR >60 [facility] Comment: Interpretation Stage 1 90 [...] Resu lt - Final Performing Organization Address [facility]/ZIP Co de Phone Number [facility] [address] [place] [address] * (ABNORMAL) Urinalysis (BH GH L Q) (10/12/2014 9:30 AM EDT) Color, UA YELLOW YELLOW [facility] Specific [place], UA 1.002(L) 1.003 - 1.033 [facility] Leukocyte Esterase, UA NEGATIVE NEGATIVE [facility] Nitrite, UA NEGATIVE NEGATIVE [facility] pH, UA 6.5 5.0 - 8.0 [facility] Protein, UA NEGATIVE NEGATIVE mg/dL [facility] Glucose, UA NEGATIVE NEGATIVE mg/dL [facility] Ketones, UA NEGATIVE NEGATIVE mg/dL [facility] Urobilinogen, UA 0.2 0.2 - 2.0 EU/dL [facility] Bilirubin, UA NEGATIVE [facility] Comment:Positive urine bilir ubin results unable to be confirmed by [employer] due to farm planner backorder. Blood, UA NEGATIVE NEGATIVE [facility] Urine specimen (specimen) 10/12/2014 9:30 AM EDT us Harman Burrows MD URINE ORDERABLES Final Result Performing Organization Address [facility]/ZIP Co de Phone Number [facility] [address] [place] [place] [address] * Microalbumin, random urine (w/creatinine) (BH Q) (10/12/2014 9:30 AM EDT) Microalbumin, Urine <0.00 mg/dL [facility] Creatinine, Urine, Random 12.3 mg/dL [facility] Microalb Creat Ratio <0.0 0.0 - 29.9 mcg/mg [facility] Comment: The ADA recommends the following guidelines: Normal <30 mcg/mg Microalbuminuria 30 - 299 mcg/mg Clinical albuminuria > 300 mcg/mg At least two of three specimens collected within a 3-6 month period should be abnormal before considering a patient to be within a diagnostic category. Urine specimen (specimen) 10/12/2014 9:30 AM EDT us Harman Burrows MD URINE ORDERABLES Edited Result - Final 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
--- OUTSIDE RECORDS SUMMARY | 2025-04-06 15:02 | XMS_ITS | Encounter Summary ---
Author Organization [facility] Address [address] [place] [address] Phone Care Team Providers Care Construction Driller Name Role Phone Bao Gann DO Primary Care Provider [phone] Encounter Details Date Type Department Care Team (Late st Contact Info) Description 04/24/2014 Scanned Document [facility] [address] [place] [address] External, Provider Social History Tobacco Use Types [...] on filedocumented in this encounter Care Teams Construction Driller Relationship Specialty Start Date End Date Bao Gann DO [address] [facility] [address] [place] [phone] PCP - General Internal Medicine 10/09/18 documented as of this encounter
--- OUTSIDE RECORDS SUMMARY | 2025-04-06 15:02 | XMS_ITS | Encounter Summary ---
Author Organization [facility] Address [address] [place] [address] Care Team Providers Care Steel Plate Caulker Name Role Phone Bao Gann DO Primary Care Provider Encounter Details Date Type Department Care Team (Late st Contact Info) Description 11/09/2014 Scanned Document [facility] Cardiology [facility] [address] [facility] [address] [place] [address] Minesh Diaz MD 112 [facility] [address] [place] [address] Social History Tobacco Use Types [...] on filedocumented in this encounter Care Teams Steel Plate Caulker Relationship Specialty Start Date End Date Bao Gann DO [address] [facility] [address] [place] [phone] PCP - General Internal Medicine 10/09/18 documented as of this encounter
--- OUTSIDE RECORDS SUMMARY | 2025-04-06 15:02 | XMS_ITS | Encounter Summary ---
Author Organization [facility] Address [address] [place] [address] Care Team Providers Care Reconciler Name Role Phone DerejedilcialisaBao Primary Care Provider [phone] Encounter Details Date Type Department Care Team (Latest Contact Info) Description 02/22/2015 Transcribed Orders [facility] [facility] 2[facility] Floor [place], [place] [id number] Harman Burrows MD Unspecified essential hypertension (Primary [...] Therapy: Greater Than 8% Blood specimen (specimen) 02/22/2015 10:44 AM EDT Harman Burrows MD LAB BLOOD ORDERABLES Final Resul t Performing Organization Address City/[facility]/ZIP Co de Phone Number [facility] [address] [place] [address] * Lipid panel (02/22/2015 10:44 AM EDT) Cholesterol 137 0 - 199 mg/dL [facility] Triglycerides 105 0 - 150 mg/dL [facility] HDL 45 >=41 mg/dL [facility] LDL Cholesterol 71 0 - 99 [facility] CHD Risk 3 <=4 [facility] Blood specimen (specimen) 02/22/2015 10:44 AM EDT Harman Burrows MD LAB BLOOD ORDERABLES Edited Resu lt - Final Performing Organization Address [facility] Co de Phone Number [facility] [address] [place] [address] * (ABNORMAL) Comprehensive metabolic panel (02/22/2015 10:44 AM EDT) Glucose 152(H) 70 - 100 mg/dL [facility] BUN 12 7 - 17 mg/dL [facility] Creatinine 0.69 0.52 - 1.04 mg/dL [facility] Sodium 140 137 - 145 mmol/L [facility] Potassium 4.0 3.5 - 5.1 mmol/L [facility] Chloride 104 98 - 107 mmol/L [facility] CO2 28 22 - 30 mmol/L [facility] Anion Gap 7 7 - 16 mmol/L [facility] Calcium 9.2 8.4 - 10.2 mg/dL [facility] Total Protein 6.7 6.3 - 8.2 g/dL [facility] Albumin 3.7 3.5 - 5.0 g/dL [facility] Globulin 3.0 2.0 - 3.5 g/dL [facility] A/G Ratio 1.2 1.1 - 2.2 [facility] Aspartate Aminotransferase (AST) 28 14 - 36 u/l [facility] Alkaline Phosphatase 74 38 - 126 u/l [facility] Total Bilirubin 0.9 0.2 - 1.3 mg/dL [facility] Alanine Aminotransferase (ALT) 31 9 - 52 u/l [facility] [address] [place] [address] documented in this encounter Visit Diagnoses Diagnosis 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
--- OUTSIDE RECORDS SUMMARY | 2025-04-06 15:02 | XMS_ITS | Clinical Summary ---
Author Organization [facility] Address [address] [place] [address] Care Team Providers Care Concrete Vault Maker Name Role Phone Dayna Prieto MD Primary Care Provider [phone] Allergies Active Allergy Reactions Criticality Noted Date [...] times a day with meals. 0 Active [place]-3 Fatty Acids (FISH OIL PO) Take by [...] of 2) 09/02/2020 07/08/2020 COVID-19 Vaccine ( - season) 2025 10/31/2021, 05/24/2021, 10/19/2020, Additional history exists Influenza [...] this topic Medical Devices Implanted Type Area Personnel Coordinator Device Identifier Shelf Expiration Date Model / Serial / Lot Device Clsur Watchman Flx Fabiola 24mm Bsci-Prnt [id number] - [id number] Implanted:Qty: 1 on 10/11/2023 by Husam Solis MD at [facility] and [facility] Right: [employer] [facility] [employer] 04/23/2026 [id number] / [id number] / Advance Directives For more information, please contact: [phone] Latest Code Status on File Code Status Date Activated Date Inactivated Comments Full Code 10/11/2023 12:31 PM 10/12/2023 8:47 PM This code status was ascertained in the following way: discussion with patient . Care Teams Concrete Vault Maker Relationship Specialty Start Date End Date Dayna Prieto MD [address] [facility] [place] [address] PCP - General Imaging Administrator 10/05/23
--- OUTSIDE RECORDS SUMMARY | 2025-04-06 15:02 | XMS_ITS | Encounter Summary ---
Author Organization [facility] Address [address] [place] [address] Care Team Providers Care Sheep Farmer Name Role Phone Bao Gann DO Primary Care Provider Encounter Details Date Type Department Care Team (Late st Contact Info) Description 03/10/2015 Scanned Document [facility] [address], [address] [place], [place] [address] Jorje Campbell MD [address] [place] [address] Social History Tobacco Use [...] on filedocumented in this encounter Care Teams Sheep Farmer Relationship Specialty Start Date End Date Bao Gann DO [address] [facility] [address] [place] [phone] PCP - General Internal Medicine 10/09/18 documented as of this encounter
--- OUTSIDE RECORDS SUMMARY | 2025-04-06 15:02 | XMS_ITS | Encounter Summary ---
Author Organization [facility] Address [address] [place] [address] Care Team Providers Care Field Horticultural Specialty Grower Name Role Phone Bao Gann DO Primary Care Provider Encounter Details Date Type Department Care Team (Late st Contact Info) Description 11/05/2015 Scanned Document [facility] [address] [place], [place] [address] Jorje Campbell MD [address] [place] [address] Social History Tobacco Use Types [...] on filedocumented in this encounter Care Teams Field Horticultural Specialty Grower Relationship Specialty Start Date End Date Bao Gann DO [address] [facility] [address] [place] [phone] PCP - General Internal Medicine 10/09/18 documented as of this encounter
--- OUTSIDE RECORDS SUMMARY | 2025-04-06 15:02 | XMS_ITS | Encounter Summary ---
Author Organization [facility] Address [address] [place] [address] Care Team Providers Care Harness Racing Handicapper Name Role Phone Bao Gann DO Primary Care Provider Encounter Details Date Type Department Care Team (Late st Contact Info) Description 11/13/2014 Scanned Document NE PM [facility] [address] [place] [address] [address] [place] [address] External, Provider Social History Tobacco Use Types [...] External LAB BLOOD ORDERABLES Final Res ult [facility] [place], [place], [facility] * Cardiac Echo Result Scan (11/09/2014) us Provider External CV CARDIAC REPORT (CVR) Final Result Performing Organization Address [facility] Co de Phone Number [facility] * Cardiac EKG Result Scan (11/09/2014) us Provider External CV CARDIAC REPORT (CVR) Final Result Performing Organization Address [facility] Co de Phone Number [facility] * Xray Result Scan (11/08/2014) us Provider External IMG SCAN REPORTS Final Result Performing Organization Address [facility] de Phone Number [facility] documented in this encounter Visit Diagnoses Not on filedocumented in this encounter Care Teams Harness Racing Handicapper Relationship Specialty Start Date End Date Bao Gann DO [address] [facility] [address] [place] [address] PCP - General Internal Medicine 10/09/18 documented as of this encounter
--- OUTSIDE RECORDS SUMMARY | 2025-04-06 15:02 | XMS_ITS | Encounter Summary ---
Author Organization [facility] Address [address] [place] [address] Care Team Providers Care Dat Instructor Name Role Phone Bao Gann DO Primary Care Provider Encounter Details Date Type Department Care Team (Late st Contact Info) Description 05/08/2016 Scanned Document [facility] [address] [place], [place] [address] Jorje Campbell MD [address] [place] [address] Social History Tobacco Use Types [...] on filedocumented in this encounter Care Teams Dat Instructor Relationship Specialty Start Date End Date Bao Gann DO [address] [facility] [address] [place] [phone] PCP - General Internal Medicine 10/09/18 documented as of this encounter
--- OUTSIDE RECORDS SUMMARY | 2025-04-06 15:02 | XMS_ITS | Encounter Summary ---
Author Organization [facility] [employer] [facility] Address [address] [place] [address] Care Team Providers Care Washcloth Folder Name Role Phone Bao Gann Primary Care Provider Encounter Details Date Type Department Care Team (Latest Contact Info) Description 06/07/2015 Transcribed Orders [facility] Draw Station [address] [facility] 2nd Floor [place], [place] [phone] Harman Burrows MD Pure hypercholesterolemia (Primary Dx); [...] EST) TSH 1.610 0.465 - 4.680 mIU/L [facility] Blood specimen (specimen) 06/07/2015 12:05 PM EST Harman Burrows MD LAB BLOOD ORDERABLES Final Resul t Performing Organization Address [facility] Phone Number [facility] [address] [place] [address] * T4, free (06/07/2015 12:05 PM EST) Free T4 1.14 0.70 - 2.19 ng/dL [facility] Blood specimen (specimen) 06/07/2015 12:05 PM EST Harman Burrows MD LAB BLOOD ORDERABLES Final Resul t Performing Organization Address [facility] [address] [place] [address] * Iron and TIBC (BH GH L YH) (06/07/2015 12:05 PM EST) Iron 81 37 - 170 mcg/dL [facility] TIBC 272 250 - 450 [facility] Iron Saturation 30 13 - 45 % [facility] Blood specimen (specimen) 06/07/2015 12:05 PM EST Result [facility] Harman Burrows MD LAB BLOOD ORDERABLES Edited Resu lt - Final Performing Organization Address [facility] [address] [place] [address] * (ABNORMAL) Hemoglobin A1c (06/07/2015 12:05 PM EST) Hemoglobin A1c 7.0(H) 4.4 - 6.4 % [facility] Comment: Therapeutic Goal: Less Than 7% Re-Evaluation Therapy: Greater Than 8% Blood specimen (specimen) 06/07/2015 12:05 PM EST us Harman Burrows MD LAB BLOOD ORDERABLES Final Resul t Performing Organization Address [facility] Co de Phone Number [facility] [address] [place] [address] * Lipid panel (06/07/2015 12:05 PM EST) Cholesterol 164 0 - 199 mg/dL [facility] Triglycerides 98 0 - 150 mg/dL [facility] HDL 48 >=41 mg/dL [facility] LDL Cholesterol 97 0 - 99 [facility] CHD Risk 3 <=4 [facility] Blood specimen (specimen) 06/07/2015 12:05 PM EST us Harman Burrows MD LAB BLOOD ORDERABLES Edited Resu lt - Final [facility] [address] [place] [address] * (ABNORMAL) Comprehensive metabolic panel (06/07/2015 12:05 PM EST) Glucose 131(H) 70 - 100 mg/dL [facility] BUN 14 7 - 17 mg/dL [facility] Creatinine 0.69 0.52 - 1.04 mg/dL [facility] Sodium 141 137 - 145 mmol/L [facility] Potassium 4.5 3.5 - 5.1 mmol/L [facility] Chloride 105 98 - 107 mmol/L [facility] CO2 25 22 - 30 mmol/L [facility] Anion Gap 12 7 - 16 mmol/L [facility] Calcium 9.7 8.4 - 10.2 mg/dL [facility] Total Protein 7.7 6.3 - 8.2 g/dL [facility] Albumin 4.0 3.5 - 5.0 g/dL [facility] Globulin 3.6(H) 2.0 - 3.5 g/dL [facility] A/G Ratio 1.1 1.1 - 2.2 ratio [facility] Aspartate Aminotransferase (AST) 40(H) 14 - 36 u/l [facility] Alkaline Phosphatase 95 38 - 126 u/l [facility] Total Bilirubin 1.3 0.2 - 1.3 mg/dL [facility] Alanine Aminotransferase (ALT) 39 9 - 52 u/l [facility] eGFR >60 [facility] Comment: Interpretation Stage 1 90 [...] ORDERABLES Edited Resu lt - Final [facility] [address] [place] [address] documented in this encounter Visit Diagnoses Diagnosis [...] (pouch) documented in this encounter Care Teams Washcloth Folder Relationship Specialty Start Date End Date Bao Gann DO [address] [facility] [address] [place] [phone] PCP - General Internal Medicine 10/09/18 documented as of this encounter
--- OUTSIDE RECORDS SUMMARY | 2025-04-06 15:03 | XMS_ITS | Encounter Summary ---
Author Organization [facility] Address [address] [place] [address] Care Team Providers Care Priest Name Role Phone Bao Gann DO Primary Care Provider Encounter Details Date Type Department Care Team (Late st Contact Info) Description 10/08/2018 Scanned Document [facility] [address] [place], [place] [address] Jorje Cambpell MD [address] [place] [address] Social History Tobacco Use Types [...] on filedocumented in this encounter Care Teams Priest Relationship Specialty Start Date End Date Bao Gann DO [address] [facility] [address] [place] [phone] PCP - General Internal Medicine 10/09/18 documented as of this encounter
--- OUTSIDE RECORDS SUMMARY | 2025-04-06 15:03 | XMS_ITS | Patient Health Record ---
Author [facility] Address [address] [facility] [place] [address] Care Team Providers Care Accounts Receivable Coordinator Name Role Phone Dayna Prieto MD Primary Care Provider UnavailMeron Mcdonald Unavailable [phone] Desmond Nava Unavailable [phone] Allergies Allergen (clinical drug ingredient) Drug/Non Drug [...] Oral; Duration: 90 Days Active Vitamin D3 6315140 UNIT/GM as directed 03/21/2024 Active Flecainide Acetate [...] Polyneuropathy due to type 2 diabetes mellitus (059163722) Type 2 diabetes mellitus with diabetic polyneuropathy (E11.42) Active confirmed Vital Signs Blood pressure diastolic 59 mm Hg 04/28/2024 Height 5 ft 6 in in 04/28/2024 Blood pressure systolic 118 mm Hg 04/28/2024 Weight 262 lbs 04/28/2024 BMI 42.28 kg/m2 04/28/2024 Procedures Procedure Date Ordered Date Performed Result Body Sit e 99297-GHOU SKIN LESIONS, 2 TO 4 04/28/2024 N/A [id number] DYSTROPHIC NAILS ANY # 04/28/2024 N/A Encounters Encounter Location Date Provider Diagnosis [facility] [place] [address] [place] [address] 04/28/2024 Desmond Nava Type 2 diabetes mellitus [...] Treatment Pending Test Test Name Order Date [id number]-[id number] SKIN LESIONS, 2 TO 4 04/28/20 24 [id number] DYSTROPHIC NAILS ANY # Next Appt Details Provider Name:Meron fritz, 04/29/2025 11:00:00 AM, [address] [place], [address], Provider Name:Meron Hou lam, 05/04/2025 01:30:00 PM, [address] [facility] [place], [address], Insurance Providers Payer Name Payer Address Payer Phone Subscriber Number Group Number Insured Name Patient Relationship to Insured Coverage Start Date Coverage End Date Medicare National [employer] [address] [place] [address] [id number] Agustina Patel Self - patient is the insured Medical (General) History Medical History History ICD Code Anxiety Arthritis Back,Hip,and Knee pain covid-19 Diabetic Gall bladder problems Headaches/Migraines Hypertension Macular degeneration Reflux ( GERD) sinusitis Measles Mumps Chicken pox A fib Tachycardia Surgical History Surgery Date(Month/Year) back surgery Gall bladder removal spinal stenosis surgery watchmen Hospitalization History Reason Date(Month/Year) [facility] knee 12/29/2023
--- OUTSIDE RECORDS SUMMARY | 2025-04-06 15:03 | XMS_ITS | Clinical Summary ---
Author Organization [facility] Address [address] [place] [address] Phone Care Team Providers Care Foreign Language Professor Name Role Phone Dayna Prieto MD Primary Care Provider [phone] Allergies Active Allergy Reactions Criticality Noted Date Comments Ciprofloxacin-Hydrocortisone Other 020 CHEST PAIN Codeine Other 08/08/2019 CHEST PAIN Dulaglutide Other 04/03/2023 Incontinence Sulfa (Sulfonamide Antibiotics) Other 05/30 CHEST PAIN Medications cholecalciferol (VITAMIN D-3) 25 mcg (1,000 unit) tablet Take 1 tablet by mouth daily. Active cyanocobalamin, vitamin B-12, (VITAMIN B-12 ORAL) Take 1 tablet by mouth every other day. Active dapagliflozin propanediol (Farxiga) 5 mg tablet 1 tablet (5 mg total) 1 (one) time each day. Last dose taken 11/14/24 3 Active ferrous sulfate 325 mg (65 mg elemental iron) tablet Take 1 tablet (325 mg total) by mouth 2 (two) times a day. Active blood sugar diagnostic (ONETOUCH ULTRA TEST MISC) 1 Strip by In Vitro route as needed. Active loratadine (CLARITIN) 10 mg tablet Take 1 tablet (10 mg total) by mouth 1 (one) time each day. Active metFORMIN XR (GLUCOPHAGE-XR) 750 mg 24 hr tablet 1 (one) time each day. Active methocarbamoL (ROBAXIN) 500 mg tablet Take 1 Tablet by mouth 2 times daily as needed. 3 Active mv-min/FA/vit K/lutein/zeaxant (PRESERVISION AREDS 2 PLUS MV ORAL) 1 tablet. Active gabapentin (NEURONTIN) 100 mg capsule Take 3 capsules (300 mg total) by mouth 3 (three) times a day. 5 Active pantoprazole (PROTONIX) 40 mg EC tablet Take 1 tablet (40 mg total) by mouth 1 (one) time each day. 5 Active pravastatin (PRAVACHOL) 40 mg tablet Take 1 tablet (40 mg total) by mouth 1 (one) time each day. 5 Active semaglutide 1 mg/0.2 mL syringe Inject 1 mg under the skin 1 (one) time per week. Active aspirin 81 mg EC tablet Take 1 tablet (81 mg total) by mouth 1 (one) time each day. 5 Active dilTIAZem XR (DILT-XR) 240 mg 24 hr capsule TAKE 1 CAPSULE BY MOUTH DAILY 90 capsule 3 5 Active flecainide (TAMBOCOR) 100 mg tablet TAKE 1 TABLET BY MOUTH TWICE DAILY 60 tablet 3 5 Active Active Problems Problem Noted Date Diagnosed Date Polyneuropathy due to type 2 diabetes mellitus ([facility] V24, [facility] V28) 11/12/2024 Acute lateral meniscus tear of right knee [...] new concerns. Thoracic aortic aneurysm without rupture ([facility] V24) 09/05/2019 Overview (06/02/2024): Last Assessment & Plan: Enlarged thoracic aorta by echocardiogram. Repeat echocardiogram in September or October. I suggest that she get a CT angiogram after that if her aortic size is greater than 5.0 cm given I will then refer to a surgeon to be followed more closely. Continue excellent blood pressure control with benazepril and diltiazem. Allergic rhinitis 08/19/2019 Atrial fibrillation ([facility] V24, [facility] V28) 0 08/19/2019 Overview (06/02/2024): First diagnosed in 2015 [...] yrs (2019 overdue) Diabetes mellitus type 2, un complicated [place] [place] [facility] V28) 08/19/2019 GERD (gastroesophageal reflux disease) 0 Hyperlipidemia 08/19/2019 Hypertension 08/19/2019 Overview (06/02/2024): Last Assessment & Plan: Well managed at this visit - continue low sodium diet, exercise and weight loss. No changes to medication regime Iron deficiency anemia 08/19/2019 Macular degeneration 08/19/2019 DAVIAN (obstructive sleep apnea) 08/19/2019 Overview (06/02/2024): moderate AHI 16 [facility] Polysomnogram 6.25.2014; BMI 44; REM 13%; AHI 16, REM AHI 70, Central apneas 0; Obstructive apneas 46; Mixed apneas 0; hypopneas 38; average oxygen saturation 93% (lowest 72%); PLMI 2. Vitamin D deficiency 08/19/2019 Morbid obesity with BMI of 4 5.0-49.9, adult [place] [place], [facility] V28) 08/19/2019 Snoring 11/25/2014 Diverticulosis of colon without diverticulitis 0 11/24/2014 Gastritis, chronic 11/24/2014 History of colonic polyps 11/24/2014 Overview (11/12/2024): This Dx was updated with the IMO Load 04/29/2017 Atrial flutter ([facility] [place], [facility] V28) 2014 Morbid obesity ([facility] [place], [facility] V28) 2014 Encounters Date Type Department Care Team Description 03/03/2025 12:40 PM EDT Office Visit [facility] [address] [place] [address] Shira Frazier, MORTGAGE LOAN INTERVIEWER Hypertension, unspecified type (Primary Dx); Aneurysm of ascending aorta without rupture ([facility] V24) 02/18/2025 12:48 PM EDT - 02/18/2025 11:59 PM EDT Hospital Encounter [facility] [address] [place] [phone] Asymptomatic menopausal state Discharge Disposition: Home or Self Care 02/11/2025 10:30 AM EDT Office Visit Orthopedic Surgery [facility] [address] [facility] 160 [place] [phone] Cyndy Mensah PA S/P arthroscopic partial lateral meniscectomy (Primary Dx); Arthritis of right knee 02/08/2025 Telephone Gastroenterology [facility] [address] [place] 175 [facility] [address] [place] [phone] Lori Rojas PA 02/05/2025 Telephone Gastroenterology [facility] [address] [facility] [address] [place] [phone] Lori Rojas PA 02/05/2025 Telephone Orthopedic Surgery [facility] [address] [facility] [address] [place] [phone] Aileen Crowell MA 02/04/2025 11:34 AM EDT - 02/04/2025 11:59 PM EDT Hospital Encounter [facility] Ultrasound [address] [place] [phone] Liver disease, chronic; Elevated LFTs; Liver fibrosis Discharge Disposition: Home or Self Care 01/21/2025 12:13 PM EDT - 01/21/2025 11:59 PM EDT Hospital Encounter [facility] [address] [place] [address] Encounter for screening mammogram for breast cancer Discharge Disposition: Home or Self Care from Last 3 Months Immunizations Name Administration Dates Next Due Influenza Quadravalent, MDCK , 0.5ml, preservative free (Flucelvax) 6mo and older 06/05/2023 Influenza Quadrivalent, 0.5m l, preservative free (Fluarix; FluLaval; Fluzone) ages 6mo and older (Afluria) 3yo and older 04/27/2022,03/18/2020 Influenza Quadrivalent, with preservative (Fluzone; Afluria) 6mo and older 03/22/2021 Influenza trivalent, 0.5mL, preservative free (Fluarix; FluLaval; Fluzone) ages 6mo and older (Afluria) 3 years and older 05/19/2024,03/22/2021,03/18/2020,07/10 Influenza trivalent, with pr eservative (Fluzone; Afluria) 6mo and older 07/10/2019 Pfizer (ages 12 & older) [place] S-CoV-2 COVID-19, mRNA, LNP-S, ethel-sucrose, preservative free 10/31/2021 Pfizer SARS-CoV-2 COVID-19, mRNA, LNP-S, preservative free 10/31/2021,05/24/2021,10/19/2020,09/28 Pneumococcal conjugate 20 va lent (Prevnar 20, PCV 20) 2mo and older 10/29/2024 Pneumococcal polysaccharide 23 valent (Pneumovax 23) 2yo and older 07/10/2019 RSV, bivalent, protein subun it RSVpreF, 0.5mL, Preservative Free (ABRYSVO) 60yo and older or 32 through 36 wks of 06/15/2023 Zoster recombinant (Shingrix ) 19yo and older 07/08/2020 Surgical History Surgery Date Site/Laterality Comments BACK SURGERY 07/30/1986 - 07/29/1987 PROCEDURE: HISTORICAL BACK SURGERY; COMMENT: L4-5 [address]ressionDr. Davis 1992 TONSILLECTOMY PROCEDURE: HISTORICAL TONSILLECTOMY CHOLECYSTECTOMY PROCEDURE: HISTORICAL CHOLECYSTECTOMY OTHER SURGICAL HISTORY PROCEDURE: SC HYSTEROSCOPY ENDOMETRIAL ABLATION OTHER SURGICAL HISTORY PROCEDURE: SC ANES CARDIAC ELECTROPHYSIOL STDY W/RF ABLATION OTHER SURGICAL HISTORY 09/14/2022 PROCEDURE: SC GARNER FACETECTOMY & FORAMOTOMY 1 VRT SGM LUMBAR; COMMENT: L3-[address] Pendleton COLONOSCOPY PROCEDURE: HISTORICAL COLONOSCOPY UPPER GASTROINTESTINAL ENDOSCOPY CARDIAC SURGERY [facility] KNEE ARTHROSCOPY 11/18/2024 Right Right knee arthroscopy; PLL - anterior horn; Plica resection Medical History Medical History Date Comments Hyperlipidemia 08/19/2019 DX:Hyperlipidemi a Vitamin D deficiency 08/19/2019 DX:Vitamin D deficiency GERD (gastroesophageal reflux disease) 0 DX:GERD (gastroesophageal reflux disease) Hypertension 08/19/2019 DX:Hypertension DAVIAN on CPAP 08/19/2019 DX:DAVIAN on CPAP Iron deficiency anemia 08/19/2019 DX:Iron d eficiency anemia Allergic rhinitis 08/19/2019 DX:Allergic rh initis Diabetes mellitus type 2, uncomplicated [place] [place], [facility] [place]) 08/19/2019 DX:Diabetes mellitus type 2, uncomplicated ([facility]) Macular degeneration 08/19/2019 DX:Macular degeneration Morbid obesity with BMI of 4 5.0-49.9, adult ([facility] [place], [facility] [place]) 08/19/2019 DX:Morbid obesity wit h BMI of 45.0-49.9, adult ([facility]) Atrial fibrillation ([facility] [place], [facility] [place]28) 08/19/2019 DX:Atrial fibrillation ([facility]) ; COMMENT: 2016, 1 episode, refuses anticoagulation, has implanted loop monitor since 2016 Anemia DX:Anemia Irregular heart beat afib Heart disease enlarged aorta Tachycardia Blindness dry mac degenera tion History of transfusion Anxiety situalional Arthritis Joint pain Colon polyp Family History Medical History Relation Name Comments [...] Orientation Straight 11/19/2024 11 :15 AM EDT Obstetrics History Last Filed Vital Signs Vital Sign Reading Time Taken Comments Blood Pressure 136/62 03/03/2025 12:30 PM EDT Pulse 61 03/03/2025 12:30 PM EDT Temperature 36.8 C (98.2 F) 02/04/2025 12:44 PM EDT Respiratory Rate 19 02/04/2025 1:45 PM EDT Oxygen Saturation 99% 03/03/2025 12:30 PM EDT Inhaled Oxygen Concentration - - Weight 114 kg (252 lb) 03/03/2025 12:30 PM EDT Height 167.6 cm (5' 6 ) 03/03/2025 12:30 PM EDT Body Mass Index 40.67 03/03/2025 12:30 PM EDT Plan of Treatment Upcoming Encounters Date Type Department Care Team (Late st Contact Info) Description 05/15/2025 10:00 AM EDT Ancillary Procedure [facility] [place] [address] [facility] [address] [place] [address] 05/20/2025 11:00 AM EDT Office Visit Orthopedic Surgery - [place] [address] [facility] 160 [place] [phone] Cyndy Mensah PA 175 [facility] [address] [place] [address] 06/05/2025 1:10 PM EST Office Visit Gastroenterology - [place] 175 [facility] 175 [facility] [address] [place] [phone] Mindy Camejo MD [address] [place] [address] 07/28/2025 11:30 AM EST Office Visit Pulmonolgy - [place] 175 [facility] 200 [place] [phone] Brittany Malik MD 175 [facility] [address] [place] [address] Health Maintenance Due Date Last Done Comments Diabetes: Annual Foot Exam 1972 Diabetes: Annual Retina Eye Exam 1972 DTaP,Tdap,and Td Vaccines (1 - Tdap) 1981 Zoster Vaccines (2 of 2) 09/02/2020 07/08/2020 Cholesterol Screening (Lipid Panel) 07/08/2022 12/01/2016 HIV Screening 07/08/2022 Hepatitis C Screening 07/08/2022 Medicare Annual Wellness Visit 07/08/2022 Diabetes: Annual Urine Albumin-Creatinine Ratio (uACR) 07/15/2022 07/25/2019 Diabetes: Blood Sugar Control Test (HGBA1C) 07/15/2022 12/01/2016 Influenza Vaccine (#1) 2025 , 06/05/2023, 04/27/2022, Additional history exists Social Influencers of Health Screening 11/10/2025 11/10/2024 Diabetes: Annual GFR (Glomerular Filtration Rate) 11/11/2025 11/11/2024, 11/26/2023, 11/26/2023 Hypertension/CHF/CAD Annual BMP Blood Test 11/11/2025 11/11/2024, 11/26/2023, 11/26/2023 Breast Cancer Screening 01/21/2027 01/22/20, 01/22/2024, 12/08/2022, Additional history exists Colorectal Cancer Screening: Colonoscopy 05/23/2028 05/23/2023 Cervical Cancer Screening: HPV 11/17/2029 11/17/2024, 06/09/2020 Osteoporosis Screening (Bone Density Screening) 02/18/2035 02/18/2025 RSV Immunization Adult Patients Completed 06/15/2023 COVID-19 Vaccine Completed 05/19/2024, 01/2023, 05/25/2022, Additional history exists Pneumococcal Vaccine: 50+ Years Completed 10/29/2024, 07/10/2019 Depression Screening Completed 11/10/2024 HIB Vaccines Aged Out No longer eligi [...] age to complete this topic Meningococcal B Vaccine Aged Out No l onger eligible based on patient's age to complete this topic RSV Immunization Patients Under 20 months Aged Out No longer eligible based on patient's age to complete this topic Varicella Vaccines Aged Out No longer eligible based on patient's age to complete this topic Medical Devices Implanted Type Area Pulley Maintainer Device Identifier Shelf Expiration Date Model / Serial / Lot Device Clsur Watchman Flx Fabiola 24mm Bsci-Prnt [id number] - [id number] Implanted:Qty: 1 on 10/11/2023 by Husam Solis MD Right: [employer] JONO 04/23/2026 [id number] / [id number] / Procedures Procedure Name Priority Date/Time Associated Diagnosis Comments ECG 12-LEAD Routine 03/03/2025 1:07 PM EDT Hypertension, unspecified type BD BONE DENSITY DXA AXIAL SKELETON Routine 02/18/2025 1:54 PM EDT Asymptomatic menopausal state US BX NDL LIVER PERC Routine 02/04/2025 1:53 PM EDT Liver disease, chronic Elevated LFTs Liver fibrosis TISSUE EXAM Routine 02/04/2025 1:45 PM EDT Liver disease, chronic Elevated LFTs Liver fibrosis PROTHROMBIN TIME WITH INR Routine 02/04/2025 1:08 PM EDT COMPLETE BLOOD COUNT Routine 02/04/2025 1:08 PM EDT MG MAMMO DIGITAL SCREENING W ROBI BILAT Routine 01/21/2025 1:14 PM EDT Encounter for screening mammogram for breast cancer HPV WITH REFLEX GENOTYPE Routine 11/17/2024 10:34 AM EDT Screening for cervical cancer COMPREHENSIVE METABOLIC PANEL Routine 11/11/2024 12:03 PM EDT Elevated liver enzymes Fatty (change of) liver, not elsewhere classified HM COLONOSCOPY Routine 05/23/2023 HM URINE ALBUMIN CREATININE RATIO Routine 07/25/2019 from Last 3 Months or Most Recently Relevant to Health Maintenance Results * ECG 12 lead (03/03/2025 1:07 PM EDT) Ventricular Rate ECG 61 BPM GEMUSE Atrial Rate 61 BPM GEMUSE P-R Interval 224 ms GEMUSE QRS Duration 106 ms GEMUSE Q-T Interval 450 ms GEMUSE QTc 453 ms GEMUSE P Wave [place] 5 degrees GEMUSE R [place] -3 degrees GEMUSE T [place] 50 degrees GEMUSE ECG Interpretation Sinus rhythm with 1st degree A-V block When compared with ECG of 02-SEP-2024 13:14, No significant change was found Confirmed by SHANAN ELIZONDO ([id number]) on 03/18/2025 5:29:38 PM GEMUSE 03/03/2025 12:3 8 PM EDT 03/18/2025 5:29 PM EDT Shiar Frazier NP ECG ORDERABLES Edited Resul t - Final GEMUSE * BD Bone Density DXA Axial Skeleton (02/18/2025 1:54 PM EDT) Anatomical Region Laterality Modality Wrist, Hip, L-spine Bone Densito metry 02/23/2025 5:22 PM EDT Impressions 02/23/2025 5:23 PM EDT Osteopenia. Telerad VONDA ([id number]) -------- FINAL REPORT -------- Dictated By: Eusebia Ewing Dictated Date: 02/23/2025 17:22 ET Assigned Physician: Eusebia Ewing Reviewed and Electronically Signed By: Eusebia Ewing Signed Date: 02/23/2025 17:23 ET Workstation ID: [id number] Transcribed By: Self Edit Transcribed Date: 02/23/2025 17:22 ET Narrative 02/23/2025 5:23 PM EDT History: Low estrogen state due to menopause. Personal history of fracture. Vitamin D deficiency. Comparison: No comparison study at this institution. Findings: Bone densitometry is performed utilizing dual energy x-ray absorptiometry (DXA) in the [employer] unit. The lumbar spine and proximal femora are evaluated in the AP projection. The FRAX questionaire was completed. The results indicate low bone mass (osteopenia), with a right femoral neck T- score of -1.8. The Z score is -1.2, indicating low bone mineral density for age. The detailed DEXA report will be mailed to the referring physician's office. DualFemur FRAX: 10-year Probability of Fracture: Major Osteoporotic 13.9 percent Hip 1.5 percent. Procedure Note Eusebia Ewing MD - 02/23/2025 History: Low estrogen state due to menopause. Personal history offracture. Vitamin D deficiency. Comparison: No comparison study at this institution. Findings: Bone densitometry is performed utilizing dual energy x-ray absorptiometry(DXA) in the [employer] unit. The lumbar spine and proximal femora areevaluated in the AP projection. The FRAX questionaire was completed. The results indicate low bone mass (osteopenia), with a right femoral neckT- score of -1.8. The Z score is -1.2, indicating low bone mineral densityfor age. The detailed DEXA report will be mailed to the referringphysician's office. DualFemur FRAX: 10-year Probability of Fracture: Major Osteoporotic 13.9percent Hip 1.5 percent. IMPRESSION: Osteopenia. Telerad VONDA ([id number]) -------- FINAL REPORT -------- Dictated By: Eusebia Ewing Dictated Date: 02/23/2025 17:22 ET Assigned Physician: Eusebia Ewing Reviewed and Electronically Signed By: Eusebia Ewing Signed Date: 02/23/2025 17:23 ET Workstation ID: [id number] Transcribed By: Self Edit Transcribed Date: 02/23/2025 17:22 ET us Dayna Prieto MD IMG DXA PROCEDURES Final Resu lt * US Bx Ndl Liver Perc (02/04/2025 1:53 PM EDT) Anatomical Region Laterality Modality Body Ultrasound 03/11/2025 9:56 AM EDT Narrative 03/11/2025 9:57 AM EDT Ultrasound-guided liver biopsy INDICATION: Abnormal LFTs, elevated ROSELIA, question of PBC CONCLUSION: Successful ultrasound guided biopsy. SPOOLING SUPERVISOR(S): Demetrius Vera MD ANESTHESIA: 2% lidocaine, Fentanyl and Versed TECHNIQUE: Informed written consent obtained. Patient brought to the ultrasound suite. The liver was assessed with ultrasound and images were saved to PACS. The overlying skin was then prepped and draped usual sterile fashion. A timeout was then performed. 2% lidocaine used for skin anesthesia. Moderate sedation: Under direct physician supervision, the patient was moderately sedated FENTANYL and VERSED IV for a total of 20 minutes. An independent interventional radiology nurse observer trained in conscious sedation provided continuous physiologic monitoring of the patient during the entirety of the procedure through recovery. Small stab incision made with a #11 blade scalpel. A 17-gauge introducer needle was advanced into the liver under continuous ultrasound guidance. Following this 18-gauge biopsy needle was utilized to obtain a biopsy specimen. This was repeated a total 3 times. Biopsy specimens were placed in formalin. A Gelfoam slurry was created and injected and the needle tract external to the liver. The introducer needle was removed and hemostasis was achieved. A sterile dressing was then applied. Subsequent ultrasound demonstrates no immediate complications. Patient discharged to the recovery unit in stable condition. PLAN: Routine post procedure monitoring. -------- FINAL REPORT -------- Dictated By: Demetrius Vera Dictated Date: 03/11/2025 09:56 ET Assigned Physician: Demetrius Vera Reviewed and Electronically Signed By: Demetrius Vera Signed Date: 03/11/2025 09:57 ET Workstation ID: [id number] Transcribed By: Self Edit Transcribed Date: 03/11/2025 09:56 ET Procedure Note Demetrius Vera MD - 03/11/2025 Ultrasound-guided liver biopsy INDICATION: Abnormal LFTs, elevated ROSELIA, question of PBC CONCLUSION: Successful ultrasound guided biopsy. SPOOLING SUPERVISOR(S): Demetrius Vera MD ANESTHESIA: 2% lidocaine, Fentanyl and Versed TECHNIQUE: Informed written consent obtained. Patient brought to theultrasound suite. The liver was assessed with ultrasound and images weresaved to PACS. The overlying skin was then prepped and draped usualsterile fashion. A timeout was then performed. 2% lidocaine used for skin anesthesia. Moderate sedation: Under direct physician supervision, the patient wasmoderately sedated FENTANYL and VERSED IV for a total of 20 minutes. Anindependent interventional radiology nurse observer trained in conscioussedation provided continuous physiologic monitoring of the patient duringthe entirety of the procedure through recovery. Small stab incision made with a #11 blade scalpel. A 17-gauge introducerneedle was advanced into the liver under continuous ultrasound guidance.Following this 18- gauge biopsy needle was utilized to obtain a biopsyspecimen. This was repeated a total 3 times. Biopsy specimens wereplaced in formalin. A Gelfoam slurry was created and injected and the needle tract external tothe liver. The introducer needle was removed and hemostasis was achieved.A sterile dressing was then applied. Subsequent ultrasound demonstrates no immediate complications. Patient discharged to the recovery unit in stable condition. PLAN: Routine post procedure monitoring. -------- FINAL REPORT -------- Dictated By: Demetrius Vera Dictated Date: 03/11/2025 09:56 ET Assigned Physician: Demetrius Vera Reviewed and Electronically Signed By: Demetrius Vera Signed Date: 03/11/2025 09:57 ET Workstation ID: [id number] Transcribed By: Self Edit Transcribed Date: 03/11/2025 09:56 ET us Lori FERRARI IMG US PROCEDURES Final Resul t * Tissue exam (02/04/2025 1:45 PM EDT) Final Diagnosis A. Liver, left cores, biopsy: - Liver with cirrhosis, mild to moderate portal chronic inflammation with admixed neutrophils, mild interface activity, focal ductular reaction, mild lymphocytic cholangitis, focal lobular chronic inflammation, and rare ballooned hepatocytes. (See note) - Minimal macrosteatosis (<5%). - Special stains: - Iron: negative. - Trichrome: shows cirrhosis (Alejandra-Waldemar stage 4). - PAS-D: negative for alpha-1, anti-trypsin globules. - Controls stain appropriately. Note: The liver biopsy is notable for cirrhosis, mild to moderate portal chronic inflammation with admixed neutrophils, mild interface activity, focal ductular reaction, mild lymphocytic cholangitis, focal lobular inflammation, and rare ballooned hepatocytes. The etiology for cirrhosis is non-specific. The presence of focal lobular inflammation, minimal macrosteatosis, and rare ballooned hepatocytes raises possibility of non-alcoholic steatohepatitis (HANCOCK) as etiology of liver cirrhosis. No florid duct lesions and portal granulomas associated with primary biliary cholangitis are identified. The patient's laboratory values are noted: AST - 45, ALT - 16, ALK. P. - 204, T. Bili - 0.5, AMA - positive (144 units). 12:30 PM EDT [facility] Gross Description A. Liver, left cores: Labeled liver, left . Received in formalin are three cylindrical samayoa-brown soft tissue cores, ranging from 1.7 x 0.1 cm to 2.2 x 0.1 cm, which are submitted in toto wrapped in paper in one cassette, three pieces, x 3. KEISHA 12:30 PM EDT [facility] Disclaimer Unless otherwise specified, all tissue is 10% NB formalin fixed and paraffin embedded. NOTE: The immunohistochemical tests and in situ hybridization tests were developed and their performance characteristics were determined by [facility]. They have not been cleared or approved by the U.S. Food and Drug Administration. The FDA has determined that such clearance or approval is not necessary. These tests are used for clinical purposes. They should not be regarded as investigational or for research. This laboratory is certified under the Clinical Laboratory Improvement Amendments of 1988 (CLIA) as qualified to perform high complexity clinical laboratory testing. (controls appropriate) 12:30 PM EDT [facility] Tissue Liver structure / Unknown 02/04/2025 1:45 PM EDT 02/04/2025 3:06 PM EDT us Demetrius Vera MD LAB PATHOLOGY ORDERABLES Final R esult [facility] [address] [place] [address], * Protime-INR (02/04/2025 1:08 PM EDT) Protime 12.6 10.6 - 13.9 sec LAB COAGULATION METHOD 02/04/2025 1:33 PM EDT [facility] INR 1.0 LAB COAGULATION METHOD 02/04/2025 1:33 PM EDT [facility] Blood Venous blood specimen / Unknown Venipuncture / Unknown 02/04/2025 1:08 PM EDT 02/04/2025 1:18 PM EDT us Demetrius Vera MD LAB BLOOD ORDERABLES Final Resul t [facility] [address] [place] [address], * (ABNORMAL) CBC (02/04/2025 1:08 PM EDT) [facility] WBC 4.3(L) 4.8 - 10.8 K/mcL LAB HEMETOLOGY METHOD 02/04/2025 1:28 PM EDT [facility] RBC 3.90 3.80 - 4.80 M/mcL LAB HEMETOLOGY METHOD 02/04/2025 1:28 PM EDT [facility] Hemoglobin 11.9 11.5 - 16.0 g/dL LAB HEMETOLOGY METHOD 02/04/2025 1:28 PM EDT [facility] Hematocrit 37.1 35.0 - 47.0 % LAB HEMETOLOGY METHOD 02/04/2025 1:28 PM EDT [facility] MCV 94.2 79.0 - 98.0 FL LAB HEMETOLOGY METHOD 02/04/2025 1:28 PM EDT [facility] MCH 30.2 27.0 - 32.0 pcg LAB HEMETOLOGY METHOD 02/04/2025 1:28 PM EDT [facility] MCHC 32.1 32.0 - 37.0 g/dL LAB HEMETOLOGY METHOD 02/04/2025 1:28 PM EDT [facility] RDW 14.9 11.0 - 15.0 % LAB HEMETOLOGY METHOD 02/04/2025 1:28 PM EDT [facility] Platelets 172 130 - 400 K/mcL LAB HEMETOLOGY METHOD 02/04/2025 1:28 PM EDT [facility] MPV 10.0 7.0 - 11.0 FL LAB HEMETOLOGY METHOD 02/04/2025 1:28 PM EDT [facility] NRBC 0.0 <1.0 % LAB HEMETOLOGY METHOD 02/04/2025 1:28 PM EDT [facility] NRBC Absolute 0.00 <0.10 K/mcL LAB HEMETOLOGY METHOD 02/04/2025 1:28 PM EDT [facility] Blood Venous blood specimen / Unknown Venipuncture / Unknown 02/04/2025 1:08 PM EDT 02/04/2025 1:18 PM EDT us Demetrius Vera MD LAB BLOOD ORDERABLES Final Resul t [facility] [address] [place] [address], [place] [phone] * MG Mammo Digital Screening w Robi bilat (01/21/2025 1:14 PM EDT) Anatomical Region Laterality Modality Breast Bilateral Mammography 01/21/2025 4:38 PM EDT Impressions 01/21/2025 4:40 PM EDT No evidence of breast malignancy. BI-RADS CATEGORY: 1 - NEGATIVE RECOMMENDATION: Screening bilateral mammogram is recommended in 1 year. Mammo Location: [facility], [address] [place] [address], [address], . -------- FINAL REPORT -------- Dictated By: Flaca Vora Dictated Date: 01/21/2025 16:38 ET Assigned Physician: Flaca Vora Reviewed and Electronically Signed By: Flaca Vora Signed Date: 01/21/2025 16:40 ET Workstation ID: [id number] Transcribed By: Self Edit Transcribed Date: 01/21/2025 16:38 ET Narrative 01/21/2025 4:40 PM EDT CLINICAL: 64 years old, Female, routine annual exam. COMPARISON: 01/22/2024, 12/08/2022, 08/04/2021, 08/09/2021 and 07/13/2020 TECHNIQUE: Bilateral MLO and CC views were obtained digitally with 3-D mammogram (digital breast tomosynthesis). Computer-aided detection was utilized in evaluation of this exam (CAD). FINDINGS: There is no evidence of suspicious mass or architectural distortion. No worrisome calcifications are evident. There has been no significant change from prior exam(s). BREAST DENSITY: A - The breasts are almost entirely fatty. Procedure Note Flaca Vora MD - 01/21/2025 CLINICAL: 64 years old, Female, routine annual exam. COMPARISON: 01/22/2024, 12/08/2022, 08/04/2021, 08/09/2021 and 07/13/2020 TECHNIQUE: Bilateral MLO and CC views were obtained digitally with 3-Dmammogram (digital breast tomosynthesis). Computer-aided detection wasutilized in evaluation of this exam (CAD). FINDINGS: There is no evidence of suspicious mass or architectural distortion. Noworrisome calcifications are evident. There has been no significantchange from prior exam(s). BREAST DENSITY: A - The breasts are almost entirely fatty. IMPRESSION: No evidence of breast malignancy. BI-RADS CATEGORY: 1 - NEGATIVE RECOMMENDATION: Screening bilateral mammogram is recommended in 1 year. Mammo Location: [facility], [address] [place] [address], [address], . -------- FINAL REPORT -------- Dictated By: Flaca Vora Dictated Date: 01/21/2025 16:38 ET Assigned Physician: Flaca Vora Reviewed and Electronically Signed By: Flaca Vora Signed Date: 01/21/2025 16:40 ET Workstation ID: [id number] Transcribed By: Self Edit Transcribed Date: 01/21/2025 16:38 ET us Self Referral Sppl IMG BI PROCEDURES Final Resul t * HPV with reflex genotype (11/17/2024 10:34 AM EDT) HPV Negative Negative LAB MICROBIOLOGY METHOD 11/18/2024 1:51 PM EDT [facility] Brushing/Spatula Cervix uteri structure / Unknown 11/17/2024 10:34 AM EDT 11/18/2024 6:08 AM EDT Kellen CASTELLANOS LAB MOLECULAR DIAGNOSTICS ORDER LEFTY Final Result [facility] [address] [place] [address], * (ABNORMAL) Comprehensive metabolic panel (11/11/2024 12:03 PM EDT) Pathologist [facility] Sodium 136 133 - 145 mmol/L LAB CHEMISTRY METHOD 11/11/2024 5:[address] [facility] Potassium 4.1 3.5 - 5.5 mmol/L LAB CHEMISTRY METHOD 11/11/2024 5:[address] [facility] Chloride 104 96 - 110 mmol/L LAB CHEMISTRY METHOD 11/11/2024 5:[address] [facility] CO2 28 21 - 32 mmol/L LAB CHEMISTRY METHOD 11/11/2024 5:[address] [facility] Anion Gap 4 3 - 11 LAB CHEMISTRY METHOD 11/11/2024 5:[address] [facility] Glucose 109(H) 70 - 100 mg/dL LAB CHEMISTRY METHOD 11/11/2024 5:[address] [facility] BUN 13 5 - 25 mg/dL LAB CHEMISTRY METHOD 11/11/2024 5:[address] [facility] Creatinine 0.90 0.50 - 1.10 mg/dL LAB CHEMISTRY METHOD 11/11/2024 5:[address] [facility] eGFR 72 >=60 mL/min/1. 73m2 LAB CHEMISTRY METHOD 11/11/2024 5:[address] [facility] Comment:Calculation based on the Chronic Kidney Disease Epidemiology Collaboration (CKD-EPI) equation refit without adjustment for race. BUN/Creatinine Ratio 14.4 LAB CHEMISTRY METHOD 11/11/2024 5:[address] [facility] Calcium 9.3 8.5 - 10.5 mg/dL LAB CHEMISTRY METHOD 11/11/2024 5:[address] [facility] AST (SGOT) 45(H) 10 - 42 unit/L LAB CHEMISTRY METHOD 11/11/2024 5:[address] [facility] ALT (SGPT) 41 10 - 60 unit/L LAB CHEMISTRY METHOD 11/11/2024 5:[address] [facility] Alkaline Phosphatase 204(H) 42 - 121 unit/L LAB CHEMISTRY METHOD 11/11/2024 5:[address] [facility] Total Protein 7.7 6.0 - 8.0 g/dL LAB CHEMISTRY METHOD 11/11/2024 5:[address] [facility] Albumin 3.4 3.2 - 5.0 g/dL LAB CHEMISTRY METHOD 11/11/2024 5:[address] [facility] Total Bilirubin 0.8 0.0 - 1.4 mg/dL LAB CHEMISTRY METHOD 11/11/2024 5:[address] [facility] Blood Venous blood specimen / Unknown Venipuncture / Unknown 11/11/2024 12:03 PM EDT 11/11/2024 12:03 PM EDT us Yoan FERRARI LAB BLOOD ORDERABLES Final Resu lt [facility] [address] [place] [address], * Colonoscopy (05/23/2023) Colonoscopy No interpretation , Abstracted Anatomical Region Laterality Modality Other us Historical Provider HEALTH MAINTENANCE Final Result * Urine Albumin Creatinine Ratio (07/25/2019) Urine Albumin Creatinine Ratio Abstracted us Historical Provider MD HEALTH MAINTENANCE Final Result from Last 3 Months or Most Recently Relevant to Health Maintenance Insurance DR SHI [address] [place] [phone] MEDICARE MEDICAID - [place] Advance Directives Documents on File Type Date Recorded Patient Home Care Attendant Expl anation Power of Patrol Man 11/18/2024 7:12 AM PROXY Health Care Decision (hx) 05/23/2020 AD WATTS [...] Care Decision (hx) 09/26/2019 AD WATTS DIRECTIVE * Full Code - Default (Latest Code Status on File) Date Activated Date Inactivated Comments 11/18/2024 7:47 AM 11/18/2024 4:11 PM This is orde r is used when code status has not been discussed with the patient, or code status is otherwise unknown/unconfirmed To update the patient's code status, place a code status order. Do not modify or discontinue any currently active code status orders. Care Teams Foreign Language Professor Relationship Specialty Start Date End Date Dayna Prieto MD [address] [place] [address] PCP - General Internal Medicine 07/14/19
--- OUTSIDE RECORDS SUMMARY | 2025-04-06 15:03 | XMS_ITS | Clinical Summary ---
Author Organization [facility] Address [address] [place] [address] Care Team Providers Care Mumps Developer Name Role Phone Unavailable Primary Care Provider [...]
--- OUTSIDE RECORDS SUMMARY | 2025-04-06 15:03 | XMS_ITS | Clinical Summary ---
Author Organization [facility] Address [address] [place] [address] Care Team Providers Care Veterinary Attendant Name Role Phone Sanjuanita Bao Primary Care Provider Allergies Active Allergy Reactions [...] Gastritis, chronic 11/24/2014 Atrial fibrillation (HC Code) 11/16/2014 Atrial flutter (HC Code) 11/16/2014 HTN (hypertension) 11/16/2014 Morbid obesity (HC Code) 11/16/2014 Hyperlipidemia 11/16/2014 Family History Medical History [...] cancer screening 1983 Breast cancer screening 2002 Pneumococcal Vaccine (50+ years) (1 of 1 - PCV) 2012 Shingles vaccine (Shingrix) (1 of 2 - Shingrix (RZV) 2 Dose Standard Series) 2012 Diabetes screening 12/02/2019 12/01/2016, 0 12/01/2016, 06/27/2016, Additional history exists Lipid disorder screening 12/01/2021 017, 06/27/2016, 01/14/2016, Additional history exists Colon cancer screening, Colonoscopy 02/26/2024 02/25/2014 Covid-19 vaccine series (1 - 2023- season) 2025 Influenza vaccine 03/30/2025 RSV Immunization (1 - 1-dose 75+ series) 2037 Meningococcal B Vaccine Aged Out No l onger eligible based on patient's age to complete this topic Meningococcal Vaccine Aged Out No renée dylon [...] - 6.4 % 12/01/2016 1:17 PM EDT [facility] Blood specimen (specimen) Venipuncture / Unknown 12/01/2016 10:23 AM EDT 12/01/2016 10:23 AM EDT Harman Burrows MD LAB BLOOD ORDERABLES Final Resul t Performing Organization Address [facility] Co de Phone Number [facility] [address] [place] [address] * Lipid panel (12/01/2016 10:23 AM EDT) Cholesterol 148 0 - 199 mg/dL 12/01/2016 12:29 PM EDT [facility] HDL 54 >=41 mg/dL 12/01/2016 12:29 PM T [facility] Triglycerides 66 0 - 150 mg/dL 12/01/2016 12:29 PM T [facility] Chol/HDL Ratio 2.7 12/01/2016 12:29 PM EDT [facility] LDL Calculated 81 0 - 100 mg/dL 12/01/2016 12:29 PM T [facility] Blood specimen (specimen) Venipuncture / Unknown 12/01/2016 10:23 AM EDT 12/01/2016 10:23 AM EDT Harman Burrows MD LAB BLOOD ORDERABLES Final Resul t Performing Organization Address [facility] Co de Phone Number [facility] [address] [place] [address] * HM COLONOSCOPY (02/25/2014) Colonoscopy Primed Conversion (Col) Historical Provider HEALTH MAINTENANCE Final Res ult from Last 3 Months or Most Recently Relevant to Health Maintenance Insurance MEDICARE Member Subscriber Plan / Payer (Ef fective 1994-Present) Name:Agustina Patel Member ID:[id number] Relation to Subscriber:Self Name:Agustina Patel Subscriber ID:[id number] Payer ID:[id number] Group ID:Not on file Type:Not on file Address: [address] [place] Care Teams Veterinary Attendant Relationship Specialty Start Date End Date Bao Gann DO [address] [facility] [[email or web address]] [address] [place] [phone] PCP - General Internal Medicine 10/09/18
[2025-04-08 14:42] VITALS: BMI 39.7
== END 2025-04-06 14:06 | disposition home or self-care (01) ==
LOC: HO.ENCR 12:53
PROVIDERS: PCP Internal Medicine; Visit Provider Dietitian, Registered
DX: E11.9 Type 2 diabetes mellitus without complications (principal)

== ENCOUNTER → 2025-04-06 12:53 | Outpatient (BNVA) | payer MEDICARE, MEDICAID, SELFPAY | PROVIDERS: PCP Internal Medicine; Visit Provider Dietitian, Registered | DX: E11.9 Type 2 diabetes mellitus without complications (principal); Z71.3 Dietary counseling and surveillance | CPT/HCPCS: 97802 ==

== ENCOUNTER 2025-04-21 12:59 | Outpatient (REF) | payer MEDICARE, MEDICAID, SELFPAY ==
--- OUTSIDE RECORDS SUMMARY | 2025-04-21 15:54 | XMS_ITS | Encounter Summary ---
Author Organization [facility] Address [address] [place] [address] Care Team Providers Care Pocket Stitcher Name Role Phone Bao Gann DO Primary Care Provider Encounter Details Date Type Department Care Team (Late st Contact Info) Description 12/23/2014 Scanned Document [facility] Sleep Center [address], [address] [place], [place] [address] Jorje Campbell MD [address] [place] [address] Social History Tobacco Use Types [...] on filedocumented in this encounter Care Teams Pocket Stitcher Relationship Specialty Start Date End Date Bao Gann DO [address] [facility] [address] [place] [phone] PCP - General Internal Medicine 10/09/18 documented as of this encounter
--- OUTSIDE RECORDS SUMMARY | 2025-04-21 15:54 | XMS_ITS | Encounter Summary ---
Author Organization [facility] Address [address] [place] [address] Care Team Providers Care Care Associate Name Role Phone Bao Gann DO Primary Care Provider Encounter Details Date Type Department Care Team (Late st Contact Info) Description 03/10/2015 Scanned Document [facility] Sleep Center [address], [address] [place], [place] [address] Jorje Campbell MD [address] [place] [address] Social History Tobacco Use Types [...] on filedocumented in this encounter Care Teams Care Associate Relationship Specialty Start Date End Date Bao Gann DO [address] [place] [phone] PCP - General Internal Medicine 10/09/18 documented as of this encounter
--- OUTSIDE RECORDS SUMMARY | 2025-04-21 15:54 | XMS_ITS | Encounter Summary ---
Author Organization [facility] [employer] and [facility] Address [address] [place] [address] Care Team Providers Care Health And Safety Representative Name Role Phone Bao Gann Primary Care Provider Encounter Details Date Type Department Care Team (Latest Contact Info) Description 10/20/2013 Transcribed Orders [facility] Draw Station [address] [facility] 2nd Floor [place] [id number] Harman Burrows MD Unspecified essential hypertension (Primary [...] EDT) TSH 1.600 0.465 - 4.680 mIU/L [facility] Blood specimen (specimen) 10/20/2013 10:49 AM EDT us Harman Burrows MD LAB BLOOD ORDERABLES Final Resul t [facility] [address] [place] [address] * T4, free (10/20/2013 10:49 AM EDT) Free T4 1.11 0.70 - 2.19 ng/dL [facility] Blood specimen (specimen) 10/20/2013 10:49 AM EDT Harman Burrows MD LAB BLOOD ORDERABLES Final Resul t Performing Organization Address [facility]/ZIP Co de Phone Number [facility] [address] [place] [address] * (ABNORMAL) Hemoglobin A1c (10/20/2013 10:49 AM EDT) Hemoglobin A1c 6.6(H) 4.4 - 6.4 % [facility] Comment: Therapeutic Goal: Less Than 7% Re-Evaluation Therapy: Greater Than 8% Blood specimen (specimen) 10/20/2013 10:49 AM EDT Harman Burrows MD LAB BLOOD ORDERABLES Final Resul t Performing Organization Address [facility] Co de Phone Number [facility] [address] [place] [address] * Lipid panel (10/20/2013 10:49 AM EDT) Cholesterol 165 0 - 199 mg/dL [facility] Triglycerides 72 0 - 150 mg/dL [facility] HDL 59 >=41 mg/dL [facility] LDL Cholesterol 92 0 - 99 [facility] CHD Risk 3 <=4 [facility] Blood specimen (specimen) 10/20/2013 10:49 AM EDT us Harman Burrows MD LAB BLOOD ORDERABLES Edited Resu lt - Final Performing Organization Address [facility] Co de Phone Number [facility] [address] [place] [address] * (ABNORMAL) Comprehensive metabolic panel (10/20/2013 10:49 AM EDT) Glucose 118(H) 70 - 100 mg/dL [facility] BUN 20(H) 7 - 17 mg/dL [facility] Creatinine 0.79 0.52 - 1.04 mg/dL [facility] Sodium 140 137 - 145 mmol/L [facility] Potassium 4.6 3.5 - 5.1 mmol/L [facility] Chloride 103 98 - 107 mmol/L [facility] CO2 28 22 - 30 mmol/L [facility] Anion Gap 10 7 - 16 mmol/L [facility] Calcium 9.8 8.4 - 10.2 mg/dL [facility] Total Protein 7.3 6.3 - 8.2 g/dL [facility] Albumin 4.2 3.5 - 5.0 g/dL [facility] Globulin 3.1 2.0 - 3.5 g/dL [facility] A/G Ratio 1.3 1.1 - 2.2 ratio [facility] Aspartate Aminotransferase (AST) 36 14 - 36 u/l [facility] Alkaline Phosphatase 85 38 - 126 u/l [facility] Total Bilirubin 0.9 0.2 - 1.3 mg/dL [facility] Alanine Aminotransferase (ALT) 43 9 - 52 u/l [facility] eGFR >60 [facility] Comment: Interpretation Stage 1 90 [...] BLOOD ORDERABLES Edited Resu lt - Final [facility] [address] [place] [address] documented in this encounter Visit Diagnoses Diagnosis 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
--- OUTSIDE RECORDS SUMMARY | 2025-04-21 15:54 | XMS_ITS | Encounter Summary ---
Author Organization [facility] Address [address] [place] [address] Care Team Providers Care Service Desk Analyst Name Role Phone Bao Gann DO Primary Care Provider Encounter Details Date Type Department Care Team (Late st Contact Info) Description 04/03/2014 Scanned Document [facility] Gastroenterology [facility] [address] [facility] [address] [place] [address] James Christina MD [address] [facility] [address] [place] [address] Social History Tobacco Use Types [...] on filedocumented in this encounter Care Teams Service Desk Analyst Relationship Specialty Start Date End Date Bao Gann DO [address] [facility] [address] [place] [phone] PCP - General Internal Medicine 10/09/18 documented as of this encounter
--- OUTSIDE RECORDS SUMMARY | 2025-04-21 15:54 | XMS_ITS | Encounter Summary ---
Author Organization [facility] [employer] and [facility] Address [address] [place] [address] Care Team Providers Care Electronic Warfare Technical Name Role Phone Bao Gann Primary Care Provider [phone] Encounter Details Date Type Department Care Team (Latest Contact Info) Description 04/06/2014 Transcribed Orders [facility] Draw Station [address] [facility] 2nd Floor [place], [place] [phone] Harman Burrows MD Unspecified essential hypertension (Primary [...] Final Resul t [facility] [address] [place] [address] * T4, free (04/06/2014 10:29 AM EDT) [facility] Free T4 1.08 0.70 - 2.19 ng/dL [facility] Blood specimen (specimen) 04/06/2014 10:29 AM EDT Harman Burrows MD LAB BLOOD ORDERABLES Final Resul t Performing Organization Address [facility]/ZIP Co de Phone Number [facility] [address] [place] [address] * (ABNORMAL) Hemoglobin A1c (04/06/2014 10:29 AM EDT) [facility] Hemoglobin A1c 7.0(H) 4.4 - 6.4 % [facility] Comment: Therapeutic Goal: Less Than 7% Re-Evaluation Therapy: Greater Than 8% Blood specimen (specimen) 04/06/2014 10:29 AM EDT Harman Burrows MD LAB BLOOD ORDERABLES Final Resul t Performing Organization Address [facility] Co de Phone Number [facility] [address] [place] [address] * Lipid panel (04/06/2014 10:29 AM EDT) [facility] Cholesterol 132 0 - 199 mg/dL [facility] Triglycerides 88 0 - 150 mg/dL [facility] HDL 46 >=41 mg/dL [facility] LDL Cholesterol 69 0 - 99 [facility] CHD Risk 3 <=4 [facility] Blood specimen (specimen) 04/06/2014 10:29 AM EDT us Harman Burrows MD LAB BLOOD ORDERABLES Edited Resu lt - Final Performing Organization Address [facility] Co de Phone Number [facility] [address] [place] [address] * (ABNORMAL) Comprehensive metabolic panel (04/06/2014 10:29 [...] lt - Final [facility] [address] [place] [address] documented in this encounter Visit Diagnoses Diagnosis 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
--- OUTSIDE RECORDS SUMMARY | 2025-04-21 15:54 | XMS_ITS | Encounter Summary ---
Author Organization [facility] Address [address] [place] [address] Phone Care Team Providers Care Production Supervisor Name Role Phone Bao Gann DO Primary Care Provider Encounter Details Date Type Department Care Team (Late st Contact Info) Description 04/24/2014 Scanned Document [facility] [address] [place] [address] External, Provider Social History Tobacco Use Types [...] on filedocumented in this encounter Care Teams Production Supervisor Relationship Specialty Start Date End Date Bao Gann DO [address] [facility] [address] [place] [phone] PCP - General Internal Medicine 10/09/18 documented as of this encounter
--- OUTSIDE RECORDS SUMMARY | 2025-04-21 15:54 | XMS_ITS | Encounter Summary ---
Author Organization [facility] Address [address] [place] [address] Care Team Providers Care Biofuels Processing Technician Name Role Phone DerejedilcialisaBao Primary Care Provider Encounter Details Date Type Department Care Team (Latest Contact Info) Description 02/22/2015 Transcribed Orders [facility] Station [address] [facility] 2nd Floor [place], [place] [id number] Harman Burrows MD Unspecified essential hypertension (Primary [...] Hemoglobin A1c 7.0(H) 4.4 - 6.4 % [facility] Comment: Therapeutic Goal: Less Than 7% Re-Evaluation Therapy: Greater Than 8% Blood specimen (specimen) 02/22/2015 10:44 AM EDT Harman Burrows MD LAB BLOOD ORDERABLES Final Resul t Performing Organization Address City/[facility]/ZIP Co de Phone Number [facility] [address] [place] [address] * Lipid panel (02/22/2015 10:44 AM EDT) Cholesterol 137 0 - 199 mg/dL [facility] Triglycerides 105 0 - 150 mg/dL [facility] HDL 45 >=41 mg/dL [facility] LDL Cholesterol 71 0 - 99 BRID [facility] CHD Risk 3 <=4 [facility] Blood specimen (specimen) 02/22/2015 10:44 AM EDT Harman Burrows MD LAB BLOOD ORDERABLES Edited Resu lt - Final Performing Organization Address [facility] Co de Phone Number [facility] [address] [place] [address] * (ABNORMAL) Comprehensive metabolic panel (02/22/2015 10:44 AM EDT) Glucose 152(H) 70 - 100 mg/dL [facility] BUN 12 7 - 17 mg/dL [facility] Creatinine 0.69 0.52 - 1.04 mg/dL [facility] Sodium 140 137 - 145 mmol/L [facility] Potassium 4.0 3.5 - 5.1 mmol/L [facility] Chloride 104 98 - 107 mmol/L [facility] CO2 28 22 - 30 mmol/L [facility] Anion Gap 7 7 - 16 mmol/L [facility] Calcium 9.2 8.4 - 10.2 mg/dL [facility] Total Protein 6.7 6.3 - 8.2 g/dL [facility] Albumin 3.7 3.5 - 5.0 g/dL [facility] Globulin 3.0 2.0 - 3.5 g/dL [facility] A/G Ratio 1.2 1.1 - 2.2 [facility] Aspartate Aminotransferase (AST) 28 14 - 36 u/l [facility] Alkaline Phosphatase 74 38 - 126 u/l [facility] Total Bilirubin 0.9 0.2 - 1.3 mg/dL [facility] Alanine Aminotransferase (ALT) 31 9 - 52 u/l [facility] [...] - Final [facility] [address] [place] [address] documented in this encounter Visit Diagnoses Diagnosis 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
--- OUTSIDE RECORDS SUMMARY | 2025-04-21 15:54 | XMS_ITS | Encounter Summary ---
Author Organization [facility] Address [address] [place] [address] Care Team Providers Care Unstacker Name Role Phone Bao Gann DO Primary Care Provider Encounter Details Date Type Department Care Team (Late st Contact Info) Description 07/16/2014 Abstract [facility] [address] [facility] [address] [place], [place] [phone] Provider, Historical . Social History Tobacco Use [...] on filedocumented in this encounter Care Teams Unstacker Relationship Specialty Start Date End Date Bao Gann DO [address] [facility] [address] [place] [phone] PCP - General Internal Medicine 10/09/18 documented as of this encounter
--- OUTSIDE RECORDS SUMMARY | 2025-04-21 15:55 | XMS_ITS | Clinical Summary ---
Author Organization [address] [facility] Address [address] [place] [address] Care Team Providers Care Sports Journalist Name Role Phone Bao Gann DO Primary [...] cancer screening, Colonoscopy 02/26/2024 02/25/2014 Influenza vaccine 02/27/2025 Covid-19 vaccine series (1 - season) 2025 RSV Immunization (1 - 1-dose 75+ series) [...] - 6.4 % 12/01/2016 1:17 PM EDT [facility] Blood specimen (specimen) Venipuncture / Unknown 12/01/2016 10:23 AM EDT 12/01/2016 10:23 AM EDT Harman Burrows MD LAB BLOOD ORDERABLES Final Resul t Performing Organization Address [facility] Co de Phone Number [facility] [address] [place] [address] * Lipid panel (12/01/2016 10:23 AM EDT) Cholesterol 148 0 - 199 mg/dL 12/01/2016 12:29 PM EDT [facility] HDL 54 >=41 mg/dL 12/01/2016 12:29 PM T [facility] Triglycerides 66 0 - 150 mg/dL 12/01/2016 12:29 PM T [facility] Chol/HDL Ratio 2.7 12/01/2016 12:29 PM EDT [facility] LDL Calculated 81 0 - 100 mg/dL 12/01/2016 12:29 PM T [facility] Blood specimen (specimen) Venipuncture / Unknown 12/01/2016 10:23 AM EDT 12/01/2016 10:23 AM EDT Harman Burrows MD LAB BLOOD ORDERABLES Final Resul t Performing Organization Address [facility] Co de Phone Number [facility] [address] [place] [address] * HM COLONOSCOPY (02/25/2014) Colonoscopy Primed Conversion (Col) Historical Provider HEALTH MAINTENANCE Final Res ult from Last 3 Months or Most Recently Relevant to Health Maintenance Insurance MEDICARE Member Subscriber Plan / Payer (Ef fective 1994-Present) Name:Agustina Patel Member ID:[id number] Relation to Subscriber:Self Name:Agustina Patel Subscriber ID:[id number] Payer ID:[id number] Group ID:Not on file Type:Not on file Address: [id number] [place] Care Teams Sports Journalist Relationship Specialty Start Date End Date Bao Gann DO [address] [facility] [address] [place] [phone] PCP - General Internal Medicine 10/09/18
--- OUTSIDE RECORDS SUMMARY | 2025-04-21 15:55 | XMS_ITS | Clinical Summary ---
Author Organization [facility] Address [address] [place] [address] Care Team Providers Care Counseling Aide Name Role Phone Unavailable Primary Care Provider [...] Vaccine (1 of 2) 2012 COVID-19 Vaccine (1 - 2023-2 5 season) 2025 RSV Vaccine 60 years and old er and Patients (1 - 1-dose 75+ series) 2037 Hepatitis B Vaccines Aged Out No long er eligible based on patient's age to complete this topic
--- OUTSIDE RECORDS SUMMARY | 2025-04-21 15:55 | XMS_ITS | Encounter Summary ---
Author Organization [facility] Address [address] [place] [address] Care Team Providers Care Line Producer Name Role Phone Bao Gann DO Primary Care Provider [phone] Encounter Details Date Type Department Care Team (Late st Contact Info) Description 10/08/2018 Scanned Document [facility] [address] [place], [place] [address] Jorje Campbell MD [address] [place] [address] Social History Tobacco Use Types [...] on filedocumented in this encounter Care Teams Line Producer Relationship Specialty Start Date End Date Bao Gann DO [address] [facility] [address] [place] [phone] PCP - General Internal Medicine 10/09/18 documented as of this encounter
--- OUTSIDE RECORDS SUMMARY | 2025-04-21 15:55 | XMS_ITS | Encounter Summary ---
Author Organization [facility] Address [address] [place] [address] Care Team Providers Care Correspondence Representative Name Role Phone Bao Gann DO Primary Care Provider [phone] Encounter Details Date Type Department Care Team (Late st Contact Info) Description 05/19/2016 Scanned Document [facility] Gastroenterology [facility] [address] [facility] [address] [place] [address] Provider, Historical . Social History Tobacco Use [...] on filedocumented in this encounter Care Teams Correspondence Representative Relationship Specialty Start Date End Date Bao Gann DO [address] [facility] [address] [place] [phone] PCP - General Internal Medicine 10/09/18 documented as of this encounter
--- OUTSIDE RECORDS SUMMARY | 2025-04-21 15:55 | XMS_ITS | Encounter Summary ---
Author Organization [facility] [employer] [facility] Address [address] [place] [address] Care Team Providers Care High Density Press Laborer Name Role Phone DerejedilcialisaBao Primary Care Provider Encounter Details Date Type Department Care Team (Latest Contact Info) Description 01/14/2016 Transcribed Orders [facility] Draw Station [address] [facility] 2nd Floor [place], [place] [phone] Harman Burrows MD Hypotension, unspecified (Primary Dx); [...] Resul t Performing Organization Address [facility]/ZIP Co de Phone Number [facility] [address] [place] [address] * Lipid panel (01/14/2016 10:57 AM EDT) Cholesterol 147 0 - 199 mg/dL [facility] Triglycerides 75 0 - 150 mg/dL [facility] HDL 51 >=41 mg/dL [facility] LDL Cholesterol 81 0 - 99 BRID [facility] CHD Risk 3 <=4 [facility] Blood specimen (specimen) 01/14/2016 10:57 AM EDT Harman Burrows MD LAB BLOOD ORDERABLES Edited Resu lt - Final Performing Organization Address [facility] Co de Phone Number [facility] [address] [place] [address] * (ABNORMAL) Comprehensive metabolic panel (01/14/2016 10:57 [...] - Final [facility] [address] [place] [address] documented in this encounter Visit Diagnoses Diagnosis Hypotension, unspecified- Primary Aortic valve disorders Essential hypertension, malignant Pure hypercholesterolemia Mixed hyperlipidemia Other and unspecified hyperlipidemia Type II or unspecified type diabetes mellitus without mention of complication, not stated as uncontrolled documented in this encounter Care Teams High Density Press Laborer Relationship Specialty Start Date End Date Bao Gann DO [address] [facility] [address] [place] [phone] PCP - General Internal Medicine 10/09/18 documented as of this encounter
--- OUTSIDE RECORDS SUMMARY | 2025-04-21 15:55 | XMS_ITS | Encounter Summary ---
Author Organization [facility] [employer] [facility] Address [address] [place] [address] Care Team Providers Care Puncher And Fastener Name Role Phone Bao Gann Primary Care Provider Encounter Details Date Type Department Care Team (Latest Contact Info) Description 06/07/2015 Transcribed Orders [facility] Draw Station [address] [facility] 2nd Floor [place], [place] [phone] Harman Burrows MD Pure hypercholesterolemia (Primary Dx); [...] EST) TSH 1.610 0.465 - 4.680 mIU/L [facility] Blood specimen (specimen) 06/07/2015 12:05 PM EST Harman Burrows MD LAB BLOOD ORDERABLES Final Resul t Performing Organization Address [facility] Phone Number [facility] [address] [place] [address] * T4, free (06/07/2015 12:05 PM EST) Free T4 1.14 0.70 - 2.19 ng/dL [facility] Blood specimen (specimen) 06/07/2015 12:05 PM EST Harman Burrows MD LAB BLOOD ORDERABLES Final Resul t Performing Organization Address [facility] [address] [place] [address] * Iron and TIBC (BH GH L YH) (06/07/2015 12:05 PM EST) Iron 81 37 - 170 mcg/dL [facility] TIBC 272 250 - 450 [facility] Iron Saturation 30 13 - 45 % BRID [facility] Blood specimen (specimen) 06/07/2015 12:05 PM EST Result [facility] Harman Burrows MD LAB BLOOD ORDERABLES Edited Resu lt - Final Performing Organization Address [facility] [address] [place] [address] * (ABNORMAL) Hemoglobin A1c (06/07/2015 12:05 PM EST) Hemoglobin A1c 7.0(H) 4.4 - 6.4 % [facility] Comment: Therapeutic Goal: Less Than 7% Re-Evaluation Therapy: Greater Than 8% Blood specimen (specimen) 06/07/2015 12:05 PM EST us Harman Burrows MD LAB BLOOD ORDERABLES Final Resul t Performing Organization Address [facility] Co de Phone Number [facility] [address] [place] [address] * Lipid panel (06/07/2015 12:05 PM EST) Cholesterol 164 0 - 199 mg/dL [facility] Triglycerides 98 0 - 150 mg/dL [facility] HDL 48 >=41 mg/dL [facility] LDL Cholesterol 97 0 - 99 BRID [facility] CHD Risk 3 <=4 [facility] Blood specimen (specimen) 06/07/2015 12:05 PM EST us Harman Burrows MD LAB BLOOD ORDERABLES Edited Resu lt - Final [facility] [address] [place] [address] * (ABNORMAL) Comprehensive metabolic panel (06/07/2015 12:05 PM EST) Glucose 131(H) 70 - 100 mg/dL [facility] BUN 14 7 - 17 mg/dL [facility] Creatinine 0.69 0.52 - 1.04 mg/dL [facility] Sodium 141 137 - 145 mmol/L [facility] Potassium 4.5 3.5 - 5.1 mmol/L [facility] Chloride 105 98 - 107 mmol/L [facility] CO2 25 22 - 30 mmol/L [facility] Anion Gap 12 7 - 16 mmol/L [facility] Calcium 9.7 8.4 - 10.2 mg/dL [facility] Total Protein 7.7 6.3 - 8.2 g/dL [facility] Albumin 4.0 3.5 - 5.0 g/dL [facility] Globulin 3.6(H) 2.0 - 3.5 g/dL [facility] A/G Ratio 1.1 1.1 - 2.2 ratio [facility] Aspartate Aminotransferase (AST) 40(H) 14 - 36 u/l [facility] Alkaline Phosphatase 95 38 - 126 u/l [facility] Total Bilirubin 1.3 0.2 - 1.3 mg/dL [facility] Alanine Aminotransferase (ALT) 39 9 - 52 u/l [facility] eGFR >60 [facility] Comment: Interpretation Stage 1 90 [...] BLOOD ORDERABLES Edited Resu lt - Final [facility] [address] [place] [address] documented in this encounter Visit Diagnoses Diagnosis [...] (pouch) documented in this encounter Care Teams Puncher And Fastener Relationship Specialty Start Date End Date Bao Gann DO [address] [facility] [address] [place] [phone] PCP - General Internal Medicine 10/09/18 documented as of this encounter
--- OUTSIDE RECORDS SUMMARY | 2025-04-21 15:55 | XMS_ITS | Encounter Summary ---
Author Organization [facility] Address [address] [place] [address] Care Team Providers Care Protective Signal Operations Supervisor Name Role Phone Bao Gann DO Primary Care Provider Encounter Details Date Type Department Care Team (Late st Contact Info) Description 06/09/2016 Scanned Document [facility] [address] [facility] [address] [place], [place] [address] Curt Miller MD [address] [facility] [address] [place] [address] Social History Tobacco Use Types [...] on filedocumented in this encounter Care Teams Protective Signal Operations Supervisor Relationship Specialty Start Date End Date Bao Gann DO [address] [place] [phone] PCP - General Internal Medicine 10/09/18 documented as of this encounter
--- OUTSIDE RECORDS SUMMARY | 2025-04-21 15:55 | XMS_ITS | Clinical Summary ---
Author Organization 175 [facility] Address [address] [place] [address] Phone Care Team Providers Care Local Coordinator Name Role Phone Dayan Prieto MD Primary Care Provider [phone] Allergies Active Allergy Reactions Criticality Noted Date [...] Polyneuropathy due to type 2 diabetes mellitus ([facility] V24, [facility] V28) 11/12/2024 Acute lateral meniscus tear [...] new concerns. Thoracic aortic aneurysm without rupture ([facility] V24) 09/05/2019 Overview (06/02/2024): Last [...] and diltiazem. Allergic rhinitis 08/19/2019 Atrial fibrillation ([facility] V24, [facility] V28) 0 08/19/2019 Overview (06/02/2024): First [...] overdue) Diabetes mellitus type 2, un complicated ([facility] V24, [facility] V28) 08/19/2019 GERD (gastroesophageal reflux disease) 0 Hyperlipidemia 08/19/2019 Hypertension 08/19/2019 Overview (06/02/2024): Last Assessment & Plan: Well managed at this visit - continue low sodium diet, exercise and weight loss. No changes to medication regime Iron deficiency anemia 08/19/2019 Macular degeneration 08/19/2019 DAVIAN (obstructive sleep apnea) 08/19/2019 Overview (06/02/2024): moderate AHI 16 [facility] Polysomnogram 6.25.2014; BMI 44; REM 13%; AHI 16, REM AHI 70, Central apneas 0; Obstructive apneas 46; Mixed apneas 0; hypopneas 38; average oxygen saturation 93% (lowest 72%); PLMI 2. Vitamin D deficiency 08/19/2019 Morbid obesity with BMI of 4 5.0-49.9, adult ([facility] V24, [facility] V28) 08/19/2019 Snoring 11/25/2014 Diverticulosis of colon without diverticulitis 0 11/24/2014 Gastritis, chronic 11/24/2014 History of colonic polyps 11/24/2014 Overview (11/12/2024): This Dx was updated with the IMO Load 04/29/2017 Atrial flutter ([facility] V24, [facility] V28) 2014 Morbid obesity ([facility] V24, [facility] V28) 2014 Encounters Date Type Department Care Team Description 03/03/2025 12:40 PM EDT Office Visit [facility] [address] [place] [address] hSira Frazier, GASTROENTEROLOGY PHYSICIAN Hypertension, unspecified type (Primary Dx); Aneurysm of ascending aorta without rupture ([facility] V24) 02/18/2025 12:48 PM EDT - 02/18/2025 11:59 PM EDT Hospital Encounter [facility] Bone Density [address] [place] [phone] Asymptomatic menopausal state Discharge Disposition: Home or Self Care 02/11/2025 10:30 AM EDT Office Visit Orthopedic Surgery [facility] 160 175 [facility] [address] [place] [phone] Cyndy Mensah PA S/P arthroscopic partial lateral meniscectomy (Primary Dx); Arthritis of right knee 02/08/2025 Telephone Gastroenterology [facility] [address] 175 [facility] [address] [place] [phone] Lori Rojas PA 02/05/2025 Telephone Gastroenterology [facility] [address] 175 [facility] [address] [place] [phone] Lori Rojas PA 02/05/2025 Telephone Orthopedic Surgery [facility] 250 175 [facility] [address] [place] [phone] Aileen [place] MA 02/04/2025 11:34 AM EDT - 02/04/2025 11:59 PM EDT Hospital Encounter [facility] Ultrasound [address] [place] [phone] Liver disease, chronic; Elevated LFTs; Liver fibrosis Discharge Disposition: Home or Self Care 01/21/2025 12:13 PM EDT - 01/21/2025 11:59 PM EDT [facility] [address] [place] [address] Encounter for screening mammogram for breast cancer [...] PROCEDURE: HISTORICAL CHOLECYSTECTOMY OTHER SURGICAL HISTORY PROCEDURE: MI HYSTEROSCOPY ENDOMETRIAL ABLATION OTHER SURGICAL HISTORY PROCEDURE: MI ANES CARDIAC ELECTROPHYSIOL STDY W/RF ABLATION OTHER SURGICAL HISTORY 09/14/2022 PROCEDURE: MI GARNER FACETECTOMY & FORAMOTOMY 1 VRT SGM [...] rh initis Diabetes mellitus type 2, uncomplicated ([facility] V24, [facility] V28) 08/19/2019 DX:Diabetes mellitus type 2, uncomplicated ([facility]) Macular degeneration 08/19/2019 DX:Macular degeneration Morbid obesity with BMI of 4 5.0-49.9, adult ([facility] V24, [facility] V28) 08/19/2019 DX:Morbid obesity wit h BMI of 45.0-49.9, adult ([facility]) Atrial fibrillation ([facility] V24, [facility] V28) 08/19/2019 DX:Atrial fibrillation ([facility]) ; COMMENT: 2016, 1 episode, refuses [...] Description 05/15/2025 10:00 AM EDT Ancillary Procedure [facility] 101 [address] [facility] 101 [place] [address] 05/20/2025 11:00 AM EDT Office Visit Orthopedic Surgery - [place] [address] 175 [facility] 160 [place] [phone] Cyndy Mensah PA 175 [facility] 160 [place] [address] 06/05/2025 1:10 PM EST Office Visit Gastroenterology - [place] [address] [place] [phone] Mindy Camejo MD 175 [facility] 200 [place] [address] 07/28/2025 11:30 AM EST Office Visit Pulmonology - [place] 175 [facility] 200 [place] [phone] Brittany Malik MD 175 [facility] [address] [place] [address] Health Maintenance Due Date Last Done Comments [...] this topic Medical Devices Implanted Type Area Staff Occupational Therapist Device Identifier Shelf Expiration Date Model / Serial / Lot Device Clsur Watchannabella Flx Fabiola 24mm Bsci-Prnt [id number] - [id number] Implanted:Qty: 1 on 10/11/2023 by Husam Solis MD Right: Faina [employer]ON[employer] 04/23/2026 [id number] / [id number] / Procedures Procedure Name Priority Date/Time Associated [...] GEMUSE QTc 453 ms GEMUSE P Wave [place] 5 degrees GEMUSE R [place] -3 degrees GEMUSE T [place] 50 degrees GEMUSE ECG Interpretation Sinus rhythm with 1st degree A-V block When compared with ECG of 02-SEP-2024 13:14, No significant change was found Confirmed by SHANNA ELIZONDO ([id number]) on 03/18/2025 5:29:38 PM GEMUSE 03/03/2025 12:3 8 PM EDT 03/18/2025 5:29 PM EDT Shira Frazier NP ECG ORDERABLES Edited Resul t - Final GEMUSE * BD Bone Density DXA Axial Skeleton (02/18/2025 1:54 PM EDT) Anatomical Region Laterality Modality Wrist, Hip, L-spine Bone Densito metry 02/23/2025 5:22 PM EDT Impressions 02/23/2025 5:23 PM EDT Osteopenia. Telerad VONDA ([id number]) -------- FINAL REPORT -------- Dictated By: Eusebia Ewing Dictated Date: 02/23/2025 17:22 ET Assigned Physician: Eusebia Ewing Reviewed and Electronically Signed By: Eusebia Ewing Signed Date: 02/23/2025 17:23 ET Workstation ID: [id number] Transcribed By: Self Edit Transcribed Date: 02/23/2025 17:22 ET Narrative 02/23/2025 5:23 PM EDT History: Low estrogen state due to menopause. Personal history of fracture. Vitamin D deficiency. Comparison: No comparison study at this institution. Findings: Bone densitometry is performed utilizing dual energy x-ray absorptiometry (DXA) in the AgentPair unit. The lumbar spine and proximal femora [...] utilizing dual energy x-ray absorptiometry(DXA) in the AgentPair unit. The lumbar spine and proximal femora [...] Hip 1.5 percent. IMPRESSION: Osteopenia. Telerad VONDA ([id number]) -------- FINAL REPORT -------- Dictated By: Eusebia Ewing Dictated Date: 02/23/2025 17:22 ET Assigned Physician: Eusebia Ewing Reviewed and Electronically Signed By: Eusebia Ewing Signed Date: 02/23/2025 17:23 ET Workstation ID: [id number] Transcribed By: Self Edit Transcribed Date: 02/23/2025 17:22 ET us Dayna Prieto MD IMG DXA PROCEDURES Final Resu lt * US Bx Ndl Liver Perc (02/04/2025 1:53 PM EDT) Anatomical Region Laterality Modality Body Ultrasound 03/11/2025 9:56 AM EDT Narrative 03/11/2025 9:57 AM EDT Ultrasound-guided liver biopsy INDICATION: Abnormal LFTs, elevated ROSELIA, question of PBC CONCLUSION: Successful ultrasound guided biopsy. TIGHT BARREL INSPECTOR(S): Demetrius Vera MD ANESTHESIA: 2% lidocaine, Fentanyl [...] Signed Date: 03/11/2025 09:57 ET Workstation ID: [id number] Transcribed By: Self Edit Transcribed Date: 03/11/2025 09:56 ET Procedure Note Demetrius Vera MD - 03/11/2025 Ultrasound-guided liver biopsy INDICATION: Abnormal LFTs, elevated ROSELIA, question of PBC CONCLUSION: Successful ultrasound guided biopsy. TIGHT BARREL INSPECTOR(S): Demetrius Vera MD ANESTHESIA: 2% lidocaine, Fentanyl [...] Signed Date: 03/11/2025 09:57 ET Workstation ID: [id number] Transcribed By: Self Edit Transcribed Date: 03/11/2025 [...] - positive (144 units). 12:30 PM EDT [facility] Gross Description A. Liver, left cores: Labeled liver, left . Received in formalin are three cylindrical samayoa-brown soft tissue cores, ranging from 1.7 x 0.1 cm to 2.2 x 0.1 cm, which are submitted in toto wrapped in paper in one cassette, three pieces, x 3. KEISHA 12:30 PM EDT [facility] Disclaimer Unless otherwise specified, all tissue is 10% NB formalin fixed and paraffin embedded. NOTE: The immunohistochemical tests and in situ hybridization tests were developed and their performance characteristics were determined by [facility]. They have not been cleared [...] laboratory testing. (controls appropriate) 12:30 PM EDT [facility] Tissue Liver structure / Unknown 02/04/2025 1:45 PM EDT 02/04/2025 3:06 PM EDT us Demetrius Vera MD LAB PATHOLOGY ORDERABLES Final R esult [facility] [address] [place] [address], * Protime-INR (02/04/2025 1:08 PM EDT) Protime 12.6 10.6 - 13.9 sec LAB COAGULATION METHOD 02/04/2025 1:33 PM EDT [facility] INR 1.0 LAB COAGULATION METHOD 02/04/2025 1:33 PM EDT [facility] Blood Venous blood specimen / Unknown Venipuncture / Unknown 02/04/2025 1:08 PM EDT 02/04/2025 1:18 PM EDT us Demetrius Vera MD LAB BLOOD ORDERABLES Final Resul t [facility] [address] [place] [address], * (ABNORMAL) CBC (02/04/2025 1:08 PM EDT) [facility] WBC 4.3(L) 4.8 - 10.8 K/mcL LAB HEMETOLOGY METHOD 02/04/2025 1:28 PM EDT [facility] RBC 3.90 3.80 - 4.80 M/mcL LAB HEMETOLOGY METHOD 02/04/2025 1:28 PM EDT [facility] Hemoglobin 11.9 11.5 - 16.0 g/dL LAB HEMETOLOGY METHOD 02/04/2025 1:28 PM EDT [facility] Hematocrit 37.1 35.0 - 47.0 % LAB HEMETOLOGY METHOD 02/04/2025 1:28 PM EDT [facility] MCV 94.2 79.0 - 98.0 FL LAB HEMETOLOGY METHOD 02/04/2025 1:28 PM EDT [facility] MCH 30.2 27.0 - 32.0 pcg LAB HEMETOLOGY METHOD 02/04/2025 1:28 PM EDT [facility] MCHC 32.1 32.0 - 37.0 g/dL LAB HEMETOLOGY METHOD 02/04/2025 1:28 PM EDT [facility] RDW 14.9 11.0 - 15.0 % LAB HEMETOLOGY METHOD 02/04/2025 1:28 PM EDT [facility] Platelets 172 130 - 400 K/mcL LAB HEMETOLOGY METHOD 02/04/2025 1:28 PM EDT [facility] MPV 10.0 7.0 - 11.0 FL LAB HEMETOLOGY METHOD 02/04/2025 1:28 PM EDT [facility] NRBC 0.0 <1.0 % LAB HEMETOLOGY METHOD 02/04/2025 1:28 PM EDT [facility] NRBC Absolute 0.00 <0.10 K/mcL LAB HEMETOLOGY METHOD 02/04/2025 1:28 PM EDT [facility] Blood Venous blood specimen / Unknown Venipuncture / Unknown 02/04/2025 1:08 PM EDT 02/04/2025 1:18 PM EDT us Demetrius Vera MD LAB BLOOD ORDERABLES Final Resul t [facility] [address] [place] [address], [place] [phone] * MG Mammo Digital Screening w Robi bilat (01/21/2025 1:14 PM EDT) Anatomical Region Laterality Modality Breast Bilateral Mammography 01/21/2025 4:38 PM EDT Impressions 01/21/2025 4:40 PM EDT No evidence of breast malignancy. BI-RADS CATEGORY: 1 - NEGATIVE RECOMMENDATION: Screening bilateral mammogram is recommended in 1 year. Mammo Location: [facility], [address] [place] [address], [address], . -------- FINAL REPORT -------- Dictated By: Flaca Vora Dictated Date: 01/21/2025 16:38 ET Assigned Physician: Flaca Vora Reviewed and Electronically Signed By: Flaca Vora Signed Date: 01/21/2025 16:40 ET Workstation ID: [id number] Transcribed By: Self Edit Transcribed Date: 01/21/2025 [...] year. Mammo Location: [facility], [address] [place] [address], [id number], . -------- FINAL REPORT -------- Dictated By: Flaca Vora Dictated Date: 01/21/2025 16:38 ET Assigned Physician: Flaca Vora Reviewed and Electronically Signed By: Diony, Flaca Signed Date: 01/21/2025 16:40 ET Workstation ID: [id number] Transcribed By: Self Edit Transcribed Date: 01/21/2025 16:38 ET us Self Referral Sppl IMG BI PROCEDURES Final Resul t * HPV with reflex genotype (11/17/2024 10:34 AM EDT) Pathologist [facility] HPV Negative Negative LAB MICROBIOLOGY METHOD 11/18/2024 1:51 PM EDT [facility] Brushing/Spatula Cervix uteri structure / Unknown 11/17/2024 10:34 AM EDT 11/18/2024 6:08 AM EDT Kellen Cardenas CNM LAB MOLECULAR DIAGNOSTICS ORDER LEFTY Final Result [facility] [address] [place] [address], * (ABNORMAL) Comprehensive metabolic panel (11/11/2024 12:03 PM EDT) Pathologist [facility] Sodium 136 133 - 145 mmol/L LAB CHEMISTRY METHOD 11/11/2024 5:02 PM [facility] Potassium 4.1 3.5 - 5.5 mmol/L LAB CHEMISTRY METHOD 11/11/2024 5:02 PM [facility] Chloride 104 96 - 110 mmol/L LAB CHEMISTRY METHOD 11/11/2024 5:02 PM [facility] CO2 28 21 - 32 mmol/L LAB CHEMISTRY METHOD 11/11/2024 5:02 PM [facility] Anion Gap 4 3 - 11 LAB CHEMISTRY METHOD 11/11/2024 5:02 PM [facility] Glucose 109(H) 70 - 100 mg/dL LAB CHEMISTRY METHOD 11/11/2024 5:02 PM [facility] BUN 13 5 - 25 mg/dL LAB CHEMISTRY METHOD 11/11/2024 5:02 PM [facility] Creatinine 0.90 0.50 - 1.10 mg/dL LAB CHEMISTRY METHOD 11/11/2024 5:02 PM [facility] eGFR 72 >=60 mL/min/1. 73m2 LAB CHEMISTRY METHOD 11/11/2024 5:02 PM [facility] Comment:Calculation based on the Chronic Kidney Disease Epidemiology Collaboration (CKD-EPI) equation refit without adjustment for race. BUN/Creatinine Ratio 14.4 LAB CHEMISTRY METHOD 11/11/2024 5:02 PM [facility] Calcium 9.3 8.5 - 10.5 mg/dL LAB CHEMISTRY METHOD 11/11/2024 5:02 PM [facility] AST (SGOT) 45(H) 10 - 42 unit/L LAB CHEMISTRY METHOD 11/11/2024 5:02 PM [facility] ALT (SGPT) 41 10 - 60 unit/L LAB CHEMISTRY METHOD 11/11/2024 5:02 PM [facility] Alkaline Phosphatase 204(H) 42 - 121 unit/L LAB CHEMISTRY METHOD 11/11/2024 5:02 PM [facility] Total Protein 7.7 6.0 - 8.0 g/dL LAB CHEMISTRY METHOD 11/11/2024 5:02 PM [facility] Albumin 3.4 3.2 - 5.0 g/dL LAB CHEMISTRY METHOD 11/11/2024 5:02 PM [facility] Total Bilirubin 0.8 0.0 - 1.4 mg/dL LAB CHEMISTRY METHOD 11/11/2024 5:02 PM [facility] Blood Venous blood specimen / Unknown Venipuncture / Unknown 11/11/2024 12:03 PM EDT 11/11/2024 12:03 PM EDT us Yoan FERRARI LAB BLOOD ORDERABLES Final Resu lt [facility] [address] [place] [address], [place] [phone] * Colonoscopy (05/23/2023) Colonoscopy No interpretation , Abstracted Anatomical Region Laterality Modality Other us Historical Provider HEALTH MAINTENANCE Final Result * Urine Albumin Creatinine Ratio (07/25/2019) Urine Albumin Creatinine Ratio Abstracted Historical Provider MD HEALTH MAINTENANCE Final Result from Last 3 Months or Most Recently Relevant to Health Maintenance Insurance [address] [place] [address] MEDICARE MEDICAID - [place] Advance Directives Documents on File Type Date Recorded Patient Corporate Responsibility Officer Expl anation Power of Utility Worker Film Processing 11/18/2024 7:12 AM PROXY Health Care Decision [...] currently active code status orders. Care Teams Local Coordinator Relationship Specialty Start Date End Date Dayna Prieto MD [address] [place] [address] PCP - General Internal Medicine 07/14/19
--- OUTSIDE RECORDS SUMMARY | 2025-04-21 15:55 | XMS_ITS | Clinical Summary ---
Author Organization [facility] Address [address] [place] [address] Care Team Providers Care Cloth Printing Back Tender Name Role Phone Dayna Prieto MD Primary Care Provider [phone] Allergies Active Allergy Reactions Criticality Noted Date [...] times a day with meals. 0 Active Jefferson-3 Fatty Acids (FISH OIL PO) Take by [...] this topic Medical Devices Implanted Type Area Geoint Analyst Device Identifier Shelf Expiration Date Model / Serial / Lot Device Clsur Watchman Flx Fabiola 24mm Bsci-Prnt [id number] - [id number] Implanted:Qty: 1 on 10/11/2023 by Husam Solis MD at [facility] [place] and [facility] Right: Faina [employer] 04/23/2026 [id number] / [id number] / Advance Directives For more information, please contact: [phone] Latest Code Status on File Code Status Date Activated Date Inactivated Comments Full Code 10/11/2023 12:31 PM 10/12/2023 8:47 PM This code status was ascertained in the following way: discussion with patient . Care Teams Cloth Printing Back Tender Relationship Specialty Start Date End Date Dayna Prieto MD [address] [facility] [place] [address] PCP - General Architecture Internship 10/05/23
--- OUTSIDE RECORDS SUMMARY | 2025-04-21 15:55 | XMS_ITS | Encounter Summary ---
Author Organization [facility] Address [address] [place] [address] Care Team Providers Care Braille And Talking Books Clerk Name Role Phone Bao Gann DO Primary Care Provider Encounter Details Date Type Department Care Team (Late st Contact Info) Description 11/10/2014 Scanned Document NE PM [facility] [address] [facility] [address] [place] [address] External, Provider Social History Tobacco Use Types [...] on filedocumented in this encounter Care Teams Braille And Talking Books Clerk Relationship Specialty Start Date End Date Bao Gann DO [address] [facility] [address] [place] [address] PCP - General Internal Medicine 10/09/18 documented as of this encounter
--- OUTSIDE RECORDS SUMMARY | 2025-04-21 15:55 | XMS_ITS | Encounter Summary ---
Author Organization [facility] Address [address] [place] [address] Care Team Providers Care Drill Grinder Name Role Phone Bao Gann DO Primary Care Provider Encounter Details Date Type Department Care Team (Late st Contact Info) Description 11/09/2014 Scanned Document NEM Cardiology [facility] [address] [facility] [address] [place] [address] Minesh Diaz MD [address] [facility] [address] [place] [address] Social History Tobacco Use Types [...] on filedocumented in this encounter Care Teams Drill Grinder Relationship Specialty Start Date End Date Bao Gann DO [address] [facility] [address] [place] [address] PCP - General Internal Medicine 10/09/18 documented as of this encounter
--- OUTSIDE RECORDS SUMMARY | 2025-04-21 15:55 | XMS_ITS | Patient Health Record ---
Author Organization [facility] Address [address] [facility] [place] [address] Care Team Providers Care Technical Asst Name Role Phone Dayna Prieot MD Primary Care Provider UnavailMeron Mcdonald Unavailable [phone] Desmond Nava Unavailable [phone] Allergies Allergen (clinical drug ingredient) Drug/Non Drug [...] Oral; Duration: 90 Days Active Vitamin D3 3338632 UNIT/GM as directed 03/21/2024 Active Flecainide Acetate [...] Polyneuropathy due to type 2 diabetes mellitus (164513117) Type 2 diabetes mellitus with diabetic polyneuropathy (E11.42) Active confirmed Vital Signs Blood pressure diastolic 59 mm Hg 04/28/2024 Height 5 ft 6 in in 04/28/2024 Blood pressure systolic 118 mm Hg 04/28/2024 Weight 262 lbs 04/28/2024 BMI 42.28 kg/m2 04/28/2024 Procedures Procedure Date Ordered Date Performed Result Body Sit e 56663-ATBT SKIN LESIONS, 2 TO 4 04/28/2024 N/A [id number] DYSTROPHIC NAILS ANY # 04/28/2024 N/A Encounters Encounter Location Date Provider Diagnosis [facility] [address] [place] [address] 04/28/2024 Desmond Nava Type 2 diabetes mellitus [...] Treatment Pending Test Test Name Order Date [id number]-[id number] SKIN LESIONS, 2 TO 4 04/28/20 24 [id number] DYSTROPHIC NAILS ANY # Next Appt Details Provider Name:Meron fritz, 05/04/2025 01:30:00 PM, [address] [place], [address], Insurance Providers Payer Name Payer Address Payer Phone Subscriber Number Group Number Insured Name Patient Relationship to Insured Coverage Start Date Coverage End Date Medicare National Govt Svcs Inc [address] [place] [address] [id number] Agustina Patel Self - patient is the insured Medical (General) History Medical History History ICD Code Anxiety Arthritis Back,Hip,and Knee pain covid-19 Diabetic Gall bladder problems Headaches/Migraines Hypertension Macular degeneration Reflux ( GERD) sinusitis Measles Mumps Chicken pox A fib Tachycardia Surgical History Surgery Date(Month/Year) back surgery Gall bladder removal spinal stenosis surgery watchmen Hospitalization History Reason Date(Month/Year) [facility] 12/29/2023
--- OUTSIDE RECORDS SUMMARY | 2025-04-21 15:55 | XMS_ITS | Encounter Summary ---
Author Organization [facility] Address [address] [place] [address] Care Team Providers Care Injection Mold Technician Name Role Phone Bao Gann DO Primary Care Provider [phone] Encounter Details Date Type Department Care Team (Late st Contact Info) Description 11/13/2014 Scanned Document NE PM [facility] [address] [place] [address] [address] [place] [address] External, Provider Social History Tobacco Use Types [...] External LAB BLOOD ORDERABLES Final Res ult [facility] [place], [facility] * Cardiac Echo Result Scan (11/09/2014) us Provider External CV CARDIAC REPORT (CVR) Final Result Performing Organization Address [facility] Co de Phone Number [facility] * Cardiac EKG Result Scan (11/09/2014) us Provider External CV CARDIAC REPORT (CVR) Final Result Performing Organization Address [facility] Co de Phone Number [facility] * Xray Result Scan (11/08/2014) us Provider External IMG SCAN REPORTS Final Result Performing Organization Address [facility] de Phone Number [facility] documented in this encounter Visit Diagnoses Not on filedocumented in this encounter Care Teams Injection Mold Technician Relationship Specialty Start Date End Date Bao Gann DO [address] [facility] [address] [place] [address] PCP - General Internal Medicine 10/09/18 documented as of this encounter
--- OUTSIDE RECORDS SUMMARY | 2025-04-21 15:55 | XMS_ITS | Encounter Summary ---
Author Organization [facility] Address [address] [place] [address] Care Team Providers Care Contact Manager Name Role Phone Bao Gann DO Primary Care Provider [phone] Encounter Details Date Type Department Care Team (Late st Contact Info) Description 05/08/2016 Scanned Document [facility] [address] [place], [place] [address] Jorje Campbell MD [address] [place] [address] Social History Tobacco Use Types [...] on filedocumented in this encounter Care Teams Contact Manager Relationship Specialty Start Date End Date Bao Gann DO [address] [place] [address] PCP - General Internal Medicine 10/09/18 documented as of this encounter
--- OUTSIDE RECORDS SUMMARY | 2025-04-21 15:55 | XMS_ITS | Encounter Summary ---
Author Organization [facility] Address [address] [place] [address] Care Team Providers Care Tail Dogger Name Role Phone Bao Gann DO Primary Care Provider [phone] Encounter Details Date Type Department Care Team (Late st Contact Info) Description 11/05/2015 Scanned Document [facility] [address] [place], [place] [address] Jorje Campbell MD [address] [place] [address] Social History Tobacco Use Types [...] on filedocumented in this encounter Care Teams Tail Dogger Relationship Specialty Start Date End Date Bao Gann DO [address] [facility] [address] [place] [phone] PCP - General Internal Medicine 10/09/18 documented as of this encounter
--- OUTSIDE RECORDS SUMMARY | 2025-04-21 15:55 | XMS_ITS | Encounter Summary ---
Author Organization [facility] Address [address] [place] [address] Care Team Providers Care Building Service Worker Name Role Phone Bao Gann DO Primary Care Provider Encounter Details Date Type Department Care Team (Late st Contact Info) Description 08/05/2015 Scanned Document [facility] [address] [place], [place] [address] Jorje Campbell MD [address] [place] [address] Social History Tobacco Use Types [...] on filedocumented in this encounter Care Teams Building Service Worker Relationship Specialty Start Date End Date Bao Gann DO [address] [facility] [address] [place] [phone] PCP - General Internal Medicine 10/09/18 documented as of this encounter
--- OUTSIDE RECORDS SUMMARY | 2025-04-21 15:55 | XMS_ITS | Encounter Summary ---
Author Organization [facility] Address [address] [place] [address] Care Team Providers Care Tube Backer Name Role Phone DerejedilcialisaBao Primary Care Provider [phone] Encounter Details Date Type Department Care Team (Latest Contact Info) Description 10/08/2015 Transcribed Orders [facility] Draw Station 1825 Counts Include [facility] 2nd Floor [place], [place] [phone] Harman Burrows MD Essential hypertension, malignant (Primary [...] Hemoglobin A1c 7.3(H) 4.4 - 6.4 % [facility] Comment: Therapeutic Goal: Less Than 7% Re-Evaluation Therapy: Greater Than 8% Blood specimen (specimen) 10/08/2015 10:30 AM EST Harman Burrows MD LAB BLOOD ORDERABLES Final Resul t Performing Organization Address City/[facility]/ZIP Co de Phone Number [facility] [address] [place] [address] * Lipid panel (10/08/2015 10:30 AM EST) Cholesterol 166 0 - 199 mg/dL [facility] Triglycerides 88 0 - 150 mg/dL [facility] HDL 59 >=41 mg/dL [facility] LDL Cholesterol 90 0 - 99 BRID [facility] CHD Risk 3 <=4 [facility] Blood specimen (specimen) 10/08/2015 10:30 AM EST Harman Burrows MD LAB BLOOD ORDERABLES Edited Resu lt - Final Performing Organization Address [facility] Co de Phone Number [facility] [address] [place] [address] * (ABNORMAL) Comprehensive metabolic panel (10/08/2015 10:30 AM EST) Glucose 131(H) 70 - 100 mg/dL [facility] BUN 16 7 - 17 mg/dL [facility] Creatinine 0.70 0.52 - 1.04 mg/dL [facility] Sodium 141 137 - 145 mmol/L [facility] Potassium 4.2 3.5 - 5.1 mmol/L [facility] Chloride 102 98 - 107 mmol/L [facility] CO2 26 22 - 30 mmol/L [facility] Anion Gap 13 7 - 16 mmol/L [facility] Calcium 9.2 8.4 - 10.2 mg/dL [facility] Total Protein 7.2 6.3 - 8.2 g/dL [facility] Albumin 4.0 3.5 - 5.0 g/dL [facility] Globulin 3.1 2.0 - 3.5 g/dL [facility] A/G Ratio 1.3 1.1 - 2.2 ratio [facility] Aspartate Aminotransferase (AST) 43(H) 14 - 36 u/l [facility] Alkaline Phosphatase 91 38 - 126 u/l [facility] Total Bilirubin 1.1 0.2 - 1.3 mg/dL [facility] Alanine Aminotransferase (ALT) 29 9 - 52 u/l [facility] eGFR >60 [facility] Comment: Interpretation Stage 1 90 ml/min [...] Final [facility] [address] [place] [address] documented in this encounter Visit Diagnoses Diagnosis Essential hypertension, malignant- Primary Hypotension, unspecified Pure hypercholesterolemia Mixed hyperlipidemia Type I (juvenile type) diabetes mellitus without mention of complication, not stated as uncontrolled documented in this encounter Care Teams Tube Backer Relationship Specialty Start Date End Date Bao Gann DO [address] [facility] [address] [place] [phone] PCP - General Internal Medicine 10/09/18 documented as of this encounter
--- OUTSIDE RECORDS SUMMARY | 2025-04-21 15:55 | XMS_ITS | Encounter Summary ---
Author Organization [facility] Address [address] [place] [address] Care Team Providers Care Supervisor Patching Name Role Phone Bao Gann DO Primary Care Provider Encounter Details Date Type Department Care Team (Late st Contact Info) Description 11/08/2014 Scanned Document NE PM [facility] [address] [facility] [address] [place] [address] External, Provider Social History Tobacco Use Types [...] on filedocumented in this encounter Care Teams Supervisor Patching Relationship Specialty Start Date End Date Bao Gann DO [address] [facility] [address] [place] [address] PCP - General Internal Medicine 10/09/18 documented as of this encounter
--- OUTSIDE RECORDS SUMMARY | 2025-04-21 15:55 | XMS_ITS | Encounter Summary ---
Author Organization [facility] Address [address] [place] [address] Care Team Providers Care Personnel Consultant Name Role Phone Bao Gann DO Primary Care Provider Encounter Details Date Type Department Care Team (Late st Contact Info) Description 06/16/2015 Scanned Document [facility] [address] [place], [place] [address] Jorje Campbell MD [address] [place] [address] Social History Tobacco Use Types [...] on filedocumented in this encounter Care Teams Personnel Consultant Relationship Specialty Start Date End Date Bao Gann DO [address] [facility] 203 [place] [phone] PCP - General Internal Medicine 10/09/18 documented as of this encounter
--- OUTSIDE RECORDS SUMMARY | 2025-04-21 15:55 | XMS_ITS | Encounter Summary ---
Author Organization [facility] Address [address] [place] [address] Care Team Providers Care Arm Rest Builder Name Role Phone Bao Gann DO Primary Care Provider Encounter Details Date Type Department Care Team (Late st Contact Info) Description 11/09/2014 Scanned Document [place] PM [facility] [address] [facility] [address] [place] [address] External, Provider Social History Tobacco Use Types [...] on filedocumented in this encounter Care Teams Arm Rest Builder Relationship Specialty Start Date End Date Bao Gann DO [address] [facility] [address] [place] [address] PCP - General Internal Medicine 10/09/18 documented as of this encounter
--- OUTSIDE RECORDS SUMMARY | 2025-04-21 15:55 | XMS_ITS | Encounter Summary ---
Author Organization [facility] [employer] [employer] [facility] Address [address] [place] [address] Care Team Providers Care Municipal Firefighter Name Role Phone EulaartisBao Primary Care Provider Encounter Details Date Type Department Care Team (Latest Contact Info) Description 10/12/2014 Transcribed Orders [facility] Draw Station [address] [facility] 2nd Floor [place], [place] [phone] Harman Burrows MD Unspecified essential hypertension (Primary [...] Hemoglobin A1c 6.7(H) 4.4 - 6.4 % [facility] Comment: Therapeutic Goal: Less Than 7% Re-Evaluation Therapy: Greater Than 8% Blood specimen (specimen) 10/12/2014 9:38 AM EDT us Harman Burrows MD LAB BLOOD ORDERABLES Final Resul t [facility] [address] [place] [address] * Lipid panel (10/12/2014 9:38 AM EDT) Cholesterol 143 0 - 199 mg/dL [facility] Triglycerides 86 0 - 150 mg/dL [facility] HDL 60 >=41 mg/dL [facility] LDL Cholesterol 66 0 - 99 BRID [facility] CHD Risk 2 <=4 [facility] Blood specimen (specimen) 10/12/2014 9:38 AM EDT Harman Burrows MD LAB BLOOD ORDERABLES Edited Resu lt - Final Performing Organization Address City/[facility]/ZIP Co de Phone Number [facility] [address] [place] [address] * (ABNORMAL) Comprehensive metabolic panel (10/12/2014 9:38 AM EDT) Glucose 122(H) 70 - 100 mg/dL [facility] BUN 14 7 - 17 mg/dL [facility] Creatinine 0.80 0.52 - 1.04 mg/dL [facility] Sodium 140 137 - 145 mmol/L [facility] Potassium 4.2 3.5 - 5.1 mmol/L [facility] Chloride 102 98 - 107 mmol/L [facility] CO2 27 22 - 30 mmol/L [facility] Anion Gap 10 7 - 16 mmol/L [facility] Calcium 9.2 8.4 - 10.2 mg/dL [facility] Total Protein 6.9 6.3 - 8.2 g/dL [facility] Albumin 3.9 3.5 - 5.0 g/dL [facility] Globulin 3.0 2.0 - 3.5 g/dL [facility] A/G Ratio 1.3 1.1 - 2.2 ratio [facility] Aspartate Aminotransferase (AST) 31 14 - 36 u/l [facility] Alkaline Phosphatase 86 38 - 126 u/l [facility] Total Bilirubin 1.0 0.2 - 1.3 mg/dL [facility] Alanine Aminotransferase (ALT) 37 9 - 52 u/l [facility] eGFR >60 [facility] Comment: Interpretation Stage 1 90 ml/min [...] lt - Final Performing Organization Address [facility]/ZIP Co de Phone Number [facility] [address] [place] [address] * (ABNORMAL) Urinalysis (BH GH L Q) (10/12/2014 9:30 AM EDT) Color, UA YELLOW YELLOW [facility] Specific [place], UA 1.002(L) 1.003 - 1.033 [facility] Leukocyte Esterase, UA NEGATIVE NEGATIVE [facility] Nitrite, UA NEGATIVE NEGATIVE [facility] pH, UA 6.5 5.0 - 8.0 [facility] Protein, UA NEGATIVE NEGATIVE mg/dL [facility] Glucose, UA NEGATIVE NEGATIVE mg/dL [facility] Ketones, UA NEGATIVE NEGATIVE mg/dL [facility] Urobilinogen, UA 0.2 0.2 - 2.0 EU/dL [facility] Bilirubin, UA NEGATIVE [facility] Comment:Positive urine bilir ubin results unable to be confirmed by Ictotest due to brand advisor backorder. Blood, UA NEGATIVE NEGATIVE [facility] Urine specimen (specimen) 10/12/2014 9:30 AM EDT us Harman Burrows MD URINE ORDERABLES Final Result Performing Organization Address [facility]/ZIP Co de Phone Number [facility] [address] [place] [address] * Microalbumin, random urine (w/creatinine) (BH Q) (10/12/2014 9:30 AM EDT) Microalbumin, Urine <0.00 mg/dL [facility] Creatinine, Urine, Random 12.3 mg/dL [facility] Microalb Creat Ratio <0.0 0.0 - 29.9 mcg/mg [facility] Comment: The ADA recommends the following guidelines: Normal <30 mcg/mg Microalbuminuria 30 - 299 mcg/mg Clinical albuminuria > 300 mcg/mg At least two of three specimens collected within a 3-6 month period should be abnormal before considering a patient to be within a diagnostic category. Urine specimen (specimen) 10/12/2014 9:30 AM EDT us Harman Burrows MD URINE ORDERABLES Edited Result - Final [facility] [address] [place] [address] documented in this encounter Visit Diagnoses Diagnosis Unspecified essential hypertension- Primary Hyperchylomicronemia Alcoholic liver damage, unspecified Type I (juvenile type) diabetes mellitus without mention of complication, not stated as uncontrolled Urinary tract infection, site not specified documented in this encounter Care Teams Municipal Firefighter Relationship Specialty Start Date End Date Bao Gann DO [address] [facility] [address] [place] [address] PCP - General Internal Medicine 10/09/18 documented as of this encounter
== END 2025-04-21 13:00 | disposition home or self-care (01) ==
LOC: HO.HMGCLDS 12:59
PROVIDERS: PCP Internal Medicine; Visit Provider Internal Medicine
DX: E55.9 Vitamin D deficiency, unspecified (principal)
CPT/HCPCS: 36415; 82306

== ENCOUNTER 2025-06-12 09:22 | Outpatient (REF) | payer MEDICARE, MEDICAID, SELFPAY ==
--- OUTSIDE RECORDS SUMMARY | 2025-04-29 06:00 | XMS_ITS ---
Author Organization [facility] Address [address] [place] [address] Care Team Providers Care Sales Representative Gas Service Name Role Phone Dayna Prieto MD Primary Care Provider Meron Peterson [phone] Grace Encounters Encounter Location Date Provider Diagnosis [address] [address] 04/29/2025 Meron Johnson Plan Of Treatment Next Appt Details Provider Name:Meron fritz, 05/05/2026 01:30:00 PM, [address] [place] [address], [phone], Progress Notes * Agustina RUANODOB:1960 ( 64 yo F)Acc No.[id number]:04/29/2025 Progress Note Patient: Agustina WONG Provider: Shala Johnson DPM :1960 A ge:64 Y S ex:Female Date:04/29/2025 Address:[address] [place] [address], [address], [place] Pcp:Dayna Prieto MD Subjective: * Chief Complaints: * [address] Grace[address] * Medical History: Objective: * Vitals: Assessment: Plan: * Treatment: * Images: * The named appointment provid er may or may not be the originator of this progress note, and it is not deemed complete until electronically signed by the appointment provider. Sign off status: Pending * Provider: Shala Johnson, VELVET Date: 1 Generated for Damion ortiz/Clarissa/Aniya on: 08/12/2024 10:12 AM EST
--- OUTSIDE RECORDS SUMMARY | 2025-06-12 10:09 | XMS_ITS | Encounter Summary ---
Author Organization [facility] Address [address] [place] [address] Care Team Providers Care Jewel Stripper Name Role Phone Bao Gann DO Primary Care Provider Encounter Details Date Type Department Care Team (Late st Contact Info) Description 07/16/2014 Abstract [facility] [address] [facility] [address] [place], [place] [phone] Provider, Historical . Social History Tobacco Use [...] on filedocumented in this encounter Care Teams Jewel Stripper Relationship Specialty Start Date End Date Bao Gann DO 18[address] [facility] [address] [place] [phone] PCP - General Internal Medicine 10/09/18 documented as of this encounter
--- OUTSIDE RECORDS SUMMARY | 2025-06-12 10:09 | XMS_ITS | Encounter Summary ---
Author Organization [facility] Address [address] [place] [address] Care Team Providers Care Sewing Trimmer Name Role Phone DerejedilcialisaBao Primary Care Provider Encounter Details Date Type Department Care Team (Latest Contact Info) Description 02/22/2015 Transcribed Orders [facility] Draw Station [address] [facility] 2nd Floor [place], [place] [phone] Harman Burrows MD Unspecified essential hypertension (Primary [...] Hemoglobin A1c 7.0(H) 4.4 - 6.4 % [facility] Comment: Therapeutic Goal: Less Than 7% Re-Evaluation Therapy: Greater Than 8% Blood specimen (specimen) 02/22/2015 10:44 AM EDT Harman Burrows MD LAB BLOOD ORDERABLES Final Resul t Performing Organization Address City/[facility]/ZIP Co de Phone Number [facility] [address] [place] [address] * Lipid panel (02/22/2015 10:44 AM EDT) Cholesterol 137 0 - 199 mg/dL [facility] Triglycerides 105 0 - 150 mg/dL [facility] HDL 45 >=41 mg/dL [facility] LDL Cholesterol 71 0 - 99 BRID [facility] CHD Risk 3 <=4 [facility] Blood specimen (specimen) 02/22/2015 10:44 AM EDT Harman Burrows MD LAB BLOOD ORDERABLES Edited Resu lt - Final Performing Organization Address [facility] Co de Phone Number [facility] [address] [place] [address] * (ABNORMAL) Comprehensive metabolic panel (02/22/2015 10:44 AM EDT) Glucose 152(H) 70 - 100 mg/dL [facility] BUN 12 7 - 17 mg/dL [facility] Creatinine 0.69 0.52 - 1.04 mg/dL [facility] Sodium 140 137 - 145 mmol/L [facility] Potassium 4.0 3.5 - 5.1 mmol/L [facility] Chloride 104 98 - 107 mmol/L [facility] CO2 28 22 - 30 mmol/L [facility] Anion Gap 7 7 - 16 mmol/L [facility] Calcium 9.2 8.4 - 10.2 mg/dL [facility] Total Protein 6.7 6.3 - 8.2 g/dL [facility] Albumin 3.7 3.5 - 5.0 g/dL [facility] Globulin 3.0 2.0 - 3.5 g/dL [facility] A/G Ratio 1.2 1.1 - 2.2 [facility] Aspartate Aminotransferase (AST) 28 14 - 36 u/l [facility] Alkaline Phosphatase 74 38 - 126 u/l [facility] Total Bilirubin 0.9 0.2 - 1.3 mg/dL [facility] Alanine Aminotransferase (ALT) 31 9 - 52 u/l [facility] eGFR >60 [facility] Comment: Interpretation Stage 1 90 [...] BLOOD ORDERABLES Edited Resu lt - Final [facility] [address] [place] [address] documented in this encounter Visit Diagnoses Diagnosis Unspecified essential hypertension- Primary Hyperchylomicronemia Avulsion of eye Type I (juvenile type) diabetes mellitus without mention of complication, not stated as uncontrolled documented in this encounter Care Teams Sewing Trimmer Relationship Specialty Start Date End Date Bao Gann DO [address] [facility] [address] [place] [phone] PCP - General Internal Medicine 10/09/18 documented as of this encounter
--- OUTSIDE RECORDS SUMMARY | 2025-06-12 10:09 | XMS_ITS | Encounter Summary ---
Author Organization [facility] Address [address] [place] [address] Phone Care Team Providers Care Track Service Person Name Role Phone Bao Gann DO Primary Care Provider Encounter Details Date Type Department Care Team (Late st Contact Info) Description 04/24/2014 Scanned Document [facility] [address] [place] [address] External, Provider Social History Tobacco Use Types [...] on filedocumented in this encounter Care Teams Track Service Person Relationship Specialty Start Date End Date Bao Gann DO [address] [facility] [address] [address] [place] [phone] PCP - General Internal Medicine 10/09/18 documented as of this encounter
--- OUTSIDE RECORDS SUMMARY | 2025-06-12 10:09 | XMS_ITS | Encounter Summary ---
Author Organization [facility] Address [address] [place] [address] Care Team Providers Care Case Packer And Sealer Name Role Phone Bao Gann DO Primary Care Provider Encounter Details Date Type Department Care Team (Late st Contact Info) Description 03/10/2015 Scanned Document [facility] Sleep [facility] [address], [address] [place], [place] [address] Jorje Campbell MD [address] [place] [address] Social History Tobacco Use Types [...] on filedocumented in this encounter Care Teams Case Packer And Sealer Relationship Specialty Start Date End Date Bao Gann DO [address] [facility] [address] [place] [phone] PCP - General Internal Medicine 10/09/18 documented as of this encounter
--- OUTSIDE RECORDS SUMMARY | 2025-06-12 10:09 | XMS_ITS | Data Portability ---
Author Organization [place] - [facility] Address [address] [place] [address] Care Team Providers Care Rug Renovator Name Role Phone RADNIADorcasMAGDIEL Primary Care Provider [...] after care of this patient according to Critical access hospital's infection prevention protocols. All the patient's medications were reviewed and updated in the patient record during today's visit. No changes were made to the patient's medication regimen today. Not available 02/21/2022 11:47:19 06/13/2023 06/13/2023 Time [...] after care of this patient according to Critical access hospital's infection prevention protocols. [email or web address] Not available 06/13/2023 10:13:18 07/04/2023 07/04/2023 Time [...] after care of this patient [facility]. [email or web address] Not available 07/04/2023 11:34:00 Plan of Treatment Reminders Order Date Submit Date Provider Last Modified By Organization Details Last Modified Time Details Appointments None recorded. Lab None recorded. Referral None recorded. Procedures None recorded. Surgeries None recorded. Imaging XR, knee, 3 view - right knee pain after fall 2022 [address] [facility] [address] [place] [address], [address], 3 02:59:39 XR, shoulder, 2 or more view - right shoulder pain after fall 2022 [address] [facility] [address] [place], [address], 3 02:59:34 Medication Orders None recorded. Patient TargetsNo targets recorded. Patient Instructions Encounter Date Encounter Id Patient Instructions Last Modified By Organization Details Last Modified Time 02/21/2022 [id number] Thank you for yo ur [facility]. We cannot always find the exact [...] condition between 8am-10pm, please call [facility] at [phone] to help navigate your care. Not available 02/21/2022 11:48:18 06/13/2023 [id number] Thank you for yo ur visit with [...] condition between 8am-10pm, please call [facility] at [phone] to help navigate your care. [email or web address] Not available 06/13/2023 10:17:03 07/04/2023 [id number] Thank you for yo ur visit with [facility] today. We cannot always find the exact [...] condition between 8am-10pm, please call [facility] at [phone] to help navigate your care. Thank you for your visit with [facility] today. You do not appear to have [...] in your condition between 8am-10pm, [facility] at [phone] to help navigate your care. [email or web address] Not available 07/04/2023 11:36:21 Reason for Referral [...] BREWSTER M.D. 2022 12:50: 10 PM EST. [email or web address] [address] [address], [place], [address], 07/02/2023 19:49:12 06/13/20 23 06/13/2023 shoul roxy [...] progre ss. Electr onical ly signed by LOIUE BREWSTER M.D. 2022 12:50: 10 PM EST. [...] BREWSTER M.D. 2022 12:50: 10 PM EST. [email or web address], [address], 06/13/2023 13:15:10 Result Notes None recorded. Procedures Surgical History Date Name Laterality Status Provider Name and Address Organization Details Recorded Time Unlisted procedure spine completed VONDA Noriega [address] [place], [address], [place] [facility] 02/21/2022 11:36:24 Cholecystectomy completed VONDA Noriega [address] [place], [address], [place] [facility] 02/21/2022 11:36:32 tonsilectomy/adenoi ds completed VONDA Noriega [address] [place], [address], [place] [facility] 02/21/2022 11:36:41 Imaging Results None recorded. Procedure Notes None recorded. Medical Equipment None Reported. Allergies Allergen ID Allergen Name Allergen Category Reaction Reaction Severity Criticality Documentation Date Start Date Code Code System Note Provider Name and Address Organization Details Recorded Time 889417 Substance with sulfonami de structure and antibacte rial mechanism of action (substanc e) medicatio n Not available Not available Not available 02/21/2022 98583 4758 SNOMED VONDA Noriega [address], [place], [address], [place] [facility] 2 11:32:35 272322 codeine medicatio n Not available Not available Not available 02/21/2022 2670 RxNorm VONDA Noriega [address], [place], [address], [place] [facility] 2 11:32:52 408047 Cipro medicatio n Not available Not available Not available 02/21/2022 95103 3 RxNorm VONDA Noriega [address], [place], [address], [place] [facility] 2 11:33:02 704616 Trulicity medicatio n Not available Not available Not available 06/13/2023 70502 96 RxNorm VONDA Cotton [address], [place], [address], [place] [facility] 3 [...] /min 98.7 [degF] 116/68 mm[Hg] Not Available [facility] 2 11:36:23 Date Recorded Oxygen saturation Oxygen saturation in Arterial blood by Pulse oximetry Body temperature Respiratory rate Heart rate Systolic And Diastolic Provider Name and Address Organization Details Last Updated DateTime 3 99 % 99 % 98.1 [degF] 20 /min 63 /min 120/64 mm[Hg] Not Available [facility] 3 09:45:31 Date Recorded Respiratory rate Body temperature Oxygen saturation Oxygen saturation in Arterial blood by Pulse oximetry Heart rate Systolic And Diastolic Provider Name and Address Organization Details Last Updated DateTime 3 18 /min 96.9 [degF] 98 % 98 % 62 /min 122/64 mm[Hg] Not Available [facility] 3 11:07:00 Social History Question Answer Notes LastModified by Transmension Details LastModified Time Tobacco Smoking Status Never Smoker VONDA Noriega [address] [place], [address], [place] [facility] 02/21/2022 11:36:02 Do You Have An Advance Directive? No [email or web address] Information not available 02/21/2022 What Is Your Code Status? Full Code Information not available 02/21/2022 Has The Patient Seen Their PCP In The Past 6 Months? Yes [email or web address] Information not available 07/04/2023 Has Tobacco Cessation Counseling Been Provided? No [email or web address] Information not available 02/21/2022 Sex: Unknown Functional Status Question Answer Note LastModified by Transmension Details LastModified Time Do you use any illicit or recreational drugs? No [email or web address] Information not available 02/21/2022 Do you or have you ever used any other forms of tobacco or nicotine? No [email or web address] Information not available 02/21/2022 What is your level of alcohol consumption? None Information not available 02/21/2022 Mental Status None recorded. Family History Relationship Description Onset Age of this Age Resolved Age Notes LastModified by Organization Details LastModified Time Mother Diabetes mellitus [email or web address] Not available 02/21 11:35:39 Medical History Condition Response Diabetes Y Coronary Artery Disease N CHF N Parkinson's Disease N Cancer N Stroke N Dementia N Hypothyroidism N COPD N Asthma N Depression N High Cholesterol Y Rheumatoid Arthritis N Pulmonary Embolism N Hypertension Y A-fib Y Osteoporosis N Kidney Disease N Gynecological HistoryNo gynecological history recorded. Obstetrics History GPAL:G 0 P 0 0 0 0 Past Encounters Encounter ID Performer Location Encounter Start Date Encounter Closed Date Diagnosis/Indication Diagnosis SNOMED-CT Code Diagnosis ICD10 Code Diagnosis IMO Codes Diagnosis Note [id number] VONDA Noriega [facility] [address] [place] [address] 02/21/2022 11:31:20 02/22/2022 11:37:21 Burn of foot 27098583 T25.229A [id number] VONDA Cotton [facility] [address] [place] [address] 06/13/2023 09:40:04 06/15/2023 02:59:34 Contusion of right knee [id number] 0716652 S80.01XA Status of condition: Acute. Testing/Re sults: [...] change. Pain of ri ght shoulder joint [id number] 0137056 M25.511 Status of condition: Acute. Testing/Re sults: [...] skin color or temp changes. Essential hypertension 37073058 I10 Status of condition: Chronic. Testing/Re sults: BP 120/64 on scene. Discussion : BP controlled on current regimen. she is asymptomat ic. Plan & Management :follow up with pcp as scheduled and cardiology tomorrow as scheduled. go to the ER with worsening symptoms cp, sob, weakness, dizziness, HAs, edema, weight gain, vision changes. [id number] VONDA Cotton [facility] [address] [facility] [place] [address] 07/04/2023 11:03:11 07/05/2023 14:30:08 Pain of right shoulder joint [id number] 2088583 M25.511 Status of condition: Acute. Testing/Re sults: [...] [place]: [employer] Agustina Patel [id number] Agustina Patel 06/15/2020 1 [place]IC[place] [employer] Agustina Patel [id number] Agustina Amanda 06/15/2020 1 *SELF PAY* Agustina Patel [id number] Agustina Patel 07/04/2023 2 [place] [facility] Agustina Patel [id number] Agustina Patel Notes Date Note Type Note [...] CONTROL. NO PROBLEMS WITH DOXYCYCLINE. VONDA Noriega, [place], [address], [place] [facility] 02/21/2022 11:48:35 06/13/2023 text/html General HPI Template - DHReported by Patient 62 y/o female known to new to provider with hx of A fib, DM, HTN, hyperlipidemia, GERD. pt reports on 06/08 she fell in her apartment, she tripped on a bag she left in the mack while she was carrying out a box of [employer]. she landed on her right knee and [...] in her right shoulder. VONDA Cotton [address], [place], [address], [place] [facility] 06/13/2023 10:18:03 07/04/2023 text/html General HPI Template - DHReported by Patient 62 y/o female known to and provider [...] and taking tylenol prn. VONDA Cotton [address], [place], [address], [place] [facility] 07/04/2023 11:36:40 OBGyn Episode No OBEpisode recorded.
--- OUTSIDE RECORDS SUMMARY | 2025-06-12 10:09 | XMS_ITS | Encounter Summary ---
Author Organization [facility] Home Health Address [address] [place] [address] Care Team Providers Care Supervisor Grading Name Role Phone Bao Gann DO Primary Care Provider Encounter Details Date Type Department Care Team (Late st Contact Info) Description 12/23/2014 Scanned Document [facility] [address], [address] [place], [place] [address] Jorje Campbell MD [address] [place] [address] Social History Tobacco Use Types [...] filedocumented in this encounter Care Teams Supervisor Grading Relationship Specialty Start Date End Date Bao Gann DO [address] [facility] [address] [place] [address] PCP - General Internal Medicine 10/09/18 documented as of this encounter
--- OUTSIDE RECORDS SUMMARY | 2025-06-12 10:10 | XMS_ITS | Encounter Summary ---
Author Organization [facility] Address [address] [place] [address] Care Team Providers Care Speech Language Therapist Name Role Phone Bao Gann Primary Care Provider [phone] Encounter Details Date Type Department Care Team (Latest Contact Info) Description 04/06/2014 Transcribed Orders [facility] [address] [facility] [address] [place], [place] [id number] Harman Burrows MD Unspecified essential hypertension (Primary [...] EDT) TSH 1.120 0.465 - 4.680 mIU/L [facility] Blood specimen (specimen) 04/06/2014 10:29 AM EDT us Harman Burrows MD LAB BLOOD ORDERABLES Final Resul t [facility] [address] [place] [address] * T4, free (04/06/2014 10:29 AM EDT) [facility] Free T4 1.08 0.70 - 2.19 ng/dL [facility] Blood specimen (specimen) 04/06/2014 10:29 AM EDT Harman Burrows MD LAB BLOOD ORDERABLES Final Resul t Performing Organization Address [facility]/ZIP Co de Phone Number [facility] [address] [place] [address] * (ABNORMAL) Hemoglobin A1c (04/06/2014 10:29 AM EDT) [facility] Hemoglobin A1c 7.0(H) 4.4 - 6.4 % [facility] Comment: Therapeutic Goal: Less Than 7% Re-Evaluation Therapy: Greater Than 8% Blood specimen (specimen) 04/06/2014 10:29 AM EDT Harman Burrows MD LAB BLOOD ORDERABLES Final Resul t Performing Organization Address [facility] Co de Phone Number [facility] [address] [place] [address] * Lipid panel (04/06/2014 10:29 AM EDT) [facility] Cholesterol 132 0 - 199 mg/dL [facility] Triglycerides 88 0 - 150 mg/dL [facility] HDL 46 >=41 mg/dL [facility] LDL Cholesterol 69 0 - 99 [facility] CHD Risk 3 <=4 [facility] Blood specimen (specimen) 04/06/2014 10:29 AM EDT us Harman Burrows MD LAB BLOOD ORDERABLES Edited Resu lt - Final Performing Organization Address [facility] Co de Phone Number [facility] [address] [place] [address] * (ABNORMAL) Comprehensive metabolic panel (04/06/2014 10:29 AM EDT) Glucose 109(H) 70 - 100 mg/dL [facility] BUN 13 7 - 17 mg/dL [facility] Creatinine 0.75 0.52 - 1.04 mg/dL [facility] Sodium 143 137 - 145 mmol/L [facility] Potassium 4.4 3.5 - 5.1 mmol/L [facility] Chloride 106 98 - 107 mmol/L [facility] CO2 26 22 - 30 mmol/L [facility] Anion Gap 10 7 - 16 mmol/L [facility] Calcium 9.2 8.4 - 10.2 mg/dL [facility] Total Protein 7.2 6.3 - 8.2 g/dL [facility] Albumin 4.0 3.5 - 5.0 g/dL [facility] Globulin 3.2 2.0 - 3.5 g/dL [facility] A/G Ratio 1.2 1.1 - 2.2 [facility] Aspartate Aminotransferase (AST) 28 14 - 36 u/l [facility] Alkaline Phosphatase 73 38 - 126 u/l [facility] Total Bilirubin 0.9 0.2 - 1.3 mg/dL [facility] Alanine Aminotransferase (ALT) 32 9 - 52 u/l [facility] eGFR >60 [facility] Comment: Interpretation Stage 1 90 [...] lt - Final [facility] [address] [place] [address] documented in this encounter Visit Diagnoses Diagnosis Unspecified essential hypertension- Primary Hyperchylomicronemia Anemia, unspecified Acute thyroiditis Type II or unspecified type diabetes mellitus without mention of complication, not stated as uncontrolled documented in this encounter Care Teams Speech Language Therapist Relationship Specialty Start Date End Date Bao Gann DO [address] [facility] [address] [place] [phone] PCP - General Internal Medicine 10/09/18 documented as of this encounter
--- OUTSIDE RECORDS SUMMARY | 2025-06-12 10:10 | XMS_ITS | Encounter Summary ---
Author Organization [facility] Health Address [address] [place] [address] Care Team Providers Care Intel Analyst Name Role Phone Bao Gann DO Primary Care Provider Encounter Details Date Type Department Care Team (Late st Contact Info) Description 04/03/[address] [facility] Gastroenterology [facility] [address] [facility] [address] [place] [address] James Christina MD [address] [facility] [address] [place] [address] Social History Tobacco Use Types [...] on filedocumented in this encounter Care Teams Intel Analyst Relationship Specialty Start Date End Date Bao Gann DO [address] [facility] [address] [place] [address] PCP - General Internal Medicine 10/09/18 documented as of this encounter
--- OUTSIDE RECORDS SUMMARY | 2025-06-12 10:11 | XMS_ITS | Encounter Summary ---
Author Organization [facility] and Home Health Address [address] [place] [address] Care Team Providers Care Boom Supervisor Name Role Phone Bao Gann DO Primary Care Provider [phone] Encounter Details Date Type Department Care Team (Late st Contact Info) Description 11/09/2014 Scanned Document [facility] [address] [facility] [address] [place] [address] Minesh Diaz MD [address] [facility] [address] [place] [address] Social History Tobacco Use Types [...] on filedocumented in this encounter Care Teams Boom Supervisor Relationship Specialty Start Date End Date Bao Gann DO [address] [facility] [address] [place] [phone] PCP - General Internal Medicine 10/09/18 documented as of this encounter
--- OUTSIDE RECORDS SUMMARY | 2025-06-12 10:11 | XMS_ITS | Encounter Summary ---
Author Organization [facility] Address [address] [place] [address] Care Team Providers Care Tuber Machine Operator Name Role Phone Bao Gann Primary Care Provider Encounter Details Date Type Department Care Team (Latest Contact Info) Description 06/07/2015 Transcribed Orders [facility] [address] [facility] [address] Floor [place], [place] [id number] Harman Burrows MD Pure hypercholesterolemia (Primary Dx); [...] EST) TSH 1.610 0.465 - 4.680 mIU/L [facility] Blood specimen (specimen) 06/07/2015 12:05 PM EST Harman Burrows MD LAB BLOOD ORDERABLES Final Resul t Performing Organization Address [facility] Phone Number [facility] [address] [place] [address] * T4, free (06/07/2015 12:05 PM EST) Free T4 1.14 0.70 - 2.19 ng/dL [facility] Blood specimen (specimen) 06/07/2015 12:05 PM EST Harman Burrows MD LAB BLOOD ORDERABLES Final Resul t Performing Organization Address [facility] [address] [place] [address] * Iron and TIBC (BH GH L YH) (06/07/2015 12:05 PM EST) Iron 81 37 - 170 mcg/dL [facility] TIBC 272 250 - 450 [facility] Iron Saturation 30 13 - 45 % [facility] Blood specimen (specimen) 06/07/2015 12:05 PM EST Result [facility] Harman Burrows MD LAB BLOOD ORDERABLES Edited Resu lt - Final Performing Organization Address [facility] [address] [place] [address] * (ABNORMAL) Hemoglobin A1c (06/07/2015 12:05 PM EST) Hemoglobin A1c 7.0(H) 4.4 - 6.4 % [facility] Comment: Therapeutic Goal: Less Than 7% Re-Evaluation Therapy: Greater Than 8% Blood specimen (specimen) 06/07/2015 12:05 PM EST us Harman Burrows MD LAB BLOOD ORDERABLES Final Resul t Performing Organization Address [facility] Co de Phone Number [facility] [address] [place] [address] * Lipid panel (06/07/2015 12:05 PM EST) Cholesterol 164 0 - 199 mg/dL [facility] Triglycerides 98 0 - 150 mg/dL [facility] HDL 48 >=41 mg/dL [facility] LDL Cholesterol 97 0 - 99 [facility] CHD Risk 3 <=4 [facility] Blood specimen (specimen) 06/07/2015 12:05 PM EST us Harman Burrows MD LAB BLOOD ORDERABLES Edited Resu lt - Final [facility] [address] [place] [address] * (ABNORMAL) Comprehensive metabolic panel (06/07/2015 12:05 PM EST) Glucose 131(H) 70 - 100 mg/dL [facility] BUN 14 7 - 17 mg/dL [facility] Creatinine 0.69 0.52 - 1.04 mg/dL [facility] Sodium 141 137 - 145 mmol/L [facility] Potassium 4.5 3.5 - 5.1 mmol/L [facility] Chloride 105 98 - 107 mmol/L [facility] CO2 25 22 - 30 mmol/L [facility] Anion Gap 12 7 - 16 mmol/L [facility] Calcium 9.7 8.4 - 10.2 mg/dL [facility] Total Protein 7.7 6.3 - 8.2 g/dL [facility] Albumin 4.0 3.5 - 5.0 g/dL [facility] Globulin 3.6(H) 2.0 - 3.5 g/dL [facility] A/G Ratio 1.1 1.1 - 2.2 ratio [facility] Aspartate Aminotransferase (AST) 40(H) 14 - 36 u/l [facility] Alkaline Phosphatase 95 38 - 126 u/l [facility] Total Bilirubin 1.3 0.2 - 1.3 mg/dL [facility] Alanine Aminotransferase (ALT) 39 9 - 52 u/l [facility] eGFR >60 [facility] Comment: Interpretation Stage 1 90 [...] lt - Final [facility] [address] [place] [address] documented in this encounter Visit Diagnoses Diagnosis Pure hypercholesterolemia- Primary 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
--- OUTSIDE RECORDS SUMMARY | 2025-06-12 10:11 | XMS_ITS | Encounter Summary ---
Author Organization [facility] oup and Home Health Address [address] [place] [address] Care Team Providers Care Biological Chemist Name Role Phone Bao Gann DO Primary Care Provider Encounter Details Date Type Department Care Team (Late st Contact Info) Description 06/09/2016 Scanned Document [facility] [address] [facility] [address] [place], [place] [address] Curt Miller MD [address] [facility] [address] [place] [address] Social History Tobacco Use Types [...] on filedocumented in this encounter Care Teams Biological Chemist Relationship Specialty Start Date End Date Bao Gann DO [address] [place] [address] PCP - General Internal Medicine 10/09/18 documented as of this encounter
--- OUTSIDE RECORDS SUMMARY | 2025-06-12 10:11 | XMS_ITS | Encounter Summary ---
Author Organization [facility] oup and Home Health Address [address] [place] [address] Care Team Providers Care Electromedical Service Engineer Name Role Phone Bao Gann DO Primary Care Provider Encounter Details Date Type Department Care Team (Late st Contact Info) Description 11/10/2014 Scanned Document [facility] [address] [facility] [address] [place] [address] External, Provider Social History Tobacco Use Types [...] on filedocumented in this encounter Care Teams Electromedical Service Engineer Relationship Specialty Start Date End Date Bao Gann DO [address] [facility] [address] [place] [address] PCP - General Internal Medicine 10/09/18 documented as of this encounter
--- OUTSIDE RECORDS SUMMARY | 2025-06-12 10:11 | XMS_ITS | Encounter Summary ---
Author Organization [facility] Address [address] [place] [address] Care Team Providers Care Division Toll Wire Chief Name Role Phone EulaartisBao Primary Care Provider [phone] Encounter Details Date Type Department Care Team (Latest Contact Info) Description 10/12/2014 Transcribed Orders [facility] Draw Station [address] [facility] 2nd Floor [place], [place] [id number] Harman Burrows MD Unspecified essential hypertension (Primary [...] Hemoglobin A1c 6.7(H) 4.4 - 6.4 % [facility] Comment: Therapeutic Goal: Less Than 7% Re-Evaluation Therapy: Greater Than 8% Blood specimen (specimen) 10/12/2014 9:38 AM EDT us Harman Burrows MD LAB BLOOD ORDERABLES Final Resul t [facility] [address] [place] [address] * Lipid panel (10/12/2014 9:38 AM EDT) Cholesterol 143 0 - 199 mg/dL [facility] Triglycerides 86 0 - 150 mg/dL [facility] HDL 60 >=41 mg/dL [facility] LDL Cholesterol 66 0 - 99 BRID [facility] CHD Risk 2 <=4 [facility] Blood specimen (specimen) 10/12/2014 9:38 AM EDT Harman Burrows MD LAB BLOOD ORDERABLES Edited Resu lt - Final Performing Organization Address City/[facility]/ZIP Co de Phone Number [facility] [address] [place] [address] * (ABNORMAL) Comprehensive metabolic panel (10/12/2014 9:38 AM EDT) Glucose 122(H) 70 - 100 mg/dL [facility] BUN 14 7 - 17 mg/dL [facility] Creatinine 0.80 0.52 - 1.04 mg/dL [facility] Sodium 140 137 - 145 mmol/L [facility] Potassium 4.2 3.5 - 5.1 mmol/L [facility] Chloride 102 98 - 107 mmol/L [facility] CO2 27 22 - 30 mmol/L [facility] Anion Gap 10 7 - 16 mmol/L [facility] Calcium 9.2 8.4 - 10.2 mg/dL [facility] Total Protein 6.9 6.3 - 8.2 g/dL [facility] Albumin 3.9 3.5 - 5.0 g/dL [facility] Globulin 3.0 2.0 - 3.5 g/dL [facility] A/G Ratio 1.3 1.1 - 2.2 ratio [facility] Aspartate Aminotransferase (AST) 31 14 - 36 u/l [facility] Alkaline Phosphatase 86 38 - 126 u/l [facility] Total Bilirubin 1.0 0.2 - 1.3 mg/dL [facility] Alanine Aminotransferase (ALT) 37 9 - 52 u/l [facility] eGFR >60 [facility] Comment: Interpretation Stage 1 90 ml/min [...] - Final Performing Organization Address [facility]/ZIP Co de Phone Number [facility] [address] [place] [address] * (ABNORMAL) Urinalysis (BH GH L Q) (10/12/2014 9:30 AM EDT) Color, UA YELLOW YELLOW [facility] Specific Mize, UA 1.002(L) 1.003 - 1.033 [facility] Leukocyte Esterase, UA NEGATIVE NEGATIVE [facility] Nitrite, UA NEGATIVE NEGATIVE [facility] pH, UA 6.5 5.0 - 8.0 [facility] Protein, UA NEGATIVE NEGATIVE mg/dL [facility] Glucose, UA NEGATIVE NEGATIVE mg/dL [facility] Ketones, UA NEGATIVE NEGATIVE mg/dL [facility] Urobilinogen, UA 0.2 0.2 - 2.0 EU/dL [facility] Bilirubin, UA NEGATIVE [facility] Comment:Positive urine bilir ubin results unable to be confirmed by Ictotest due to 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 Blood, UA NEGATIVE NEGATIVE [facility] Urine specimen (specimen) 10/12/2014 9:30 AM EDT us Harman Burrows MD URINE ORDERABLES Final Result Performing Organization Address [facility]/ZIP Co de Phone Number [facility] [address] [place] [address] * Microalbumin, random urine (w/creatinine) (BH Q) (10/12/2014 9:30 AM EDT) Microalbumin, Urine <0.00 mg/dL [facility] Creatinine, Urine, Random 12.3 mg/dL [facility] Microalb Creat Ratio <0.0 0.0 - 29.9 mcg/mg [facility] Comment: The ADA recommends the following guidelines: Normal <30 mcg/mg Microalbuminuria 30 - 299 mcg/mg Clinical albuminuria > 300 mcg/mg At least two of three specimens collected within a 3-6 month period should be abnormal before considering a patient to be within a diagnostic category. Urine specimen (specimen) 10/12/2014 9:30 AM EDT us Harman Burrows MD URINE ORDERABLES Edited Result - Final [facility] [address] [place] [address] documented in this encounter Visit Diagnoses Diagnosis Unspecified essential hypertension- Primary Hyperchylomicronemia Alcoholic liver damage, unspecified Type I (juvenile type) diabetes mellitus without mention of complication, not stated as uncontrolled Urinary tract infection, site not specified documented in this encounter Care Teams Division Toll Wire Chief Relationship Specialty Start Date End Date Bao Gann DO [address] [facility] [address] [place] [address] PCP - General Internal Medicine 10/09/18 documented as of this encounter
--- OUTSIDE RECORDS SUMMARY | 2025-06-12 10:11 | XMS_ITS | Encounter Summary ---
Author Organization [facility] Address [address] [place] [address] Care Team Providers Care Industrial Plant Custodian Name Role Phone Bao Gann DO Primary Care Provider Encounter Details Date Type Department Care Team (Late st Contact Info) Description 11/09/2014 Scanned Document NE PM [facility] Cardiac Services [address] [facility] [address] [place] [address] External, Provider Social History Tobacco Use Types [...] filedocumented in this encounter Care Teams Industrial Plant Custodian Relationship Specialty Start Date End Date Bao Gann DO [address] [facility] [address] [place] [address] PCP - General Internal Medicine 10/09/18 documented as of this encounter
--- OUTSIDE RECORDS SUMMARY | 2025-06-12 10:11 | XMS_ITS | Encounter Summary ---
Author Organization [facility] Address [address] [place] [address] Care Team Providers Care Space Physicist Name Role Phone Bao Gann DO Primary Care Provider Encounter Details Date Type Department Care Team (Late st Contact Info) Description 06/16/2015 Scanned Document [facility] [address] [place], [place] [address] Jorje Campbell MD [address] [place] [address] Social History Tobacco Use Types [...] on filedocumented in this encounter Care Teams Space Physicist Relationship Specialty Start Date End Date Bao Gann DO [address] [facility] [address] [place] [phone] PCP - General Internal Medicine 10/09/18 documented as of this encounter
--- OUTSIDE RECORDS SUMMARY | 2025-06-12 10:11 | XMS_ITS | Clinical Summary ---
Author Organization [facility] Address [address] [place] [address] Care Team Providers Care Fruit Raiser Name Role Phone Dayna Prieto MD Primary Care Provider [phone] Allergies Active Allergy Reactions Criticality Noted Date [...] times a day with meals. 0 Active Hampton-3 Fatty Acids (FISH OIL PO) Take by [...] this topic Medical Devices Implanted Type Area Cardiovascular Invasive Specialist Device Identifier Shelf Expiration Date Model / Serial / Lot Device Clsur Watchman Flx Fabiola 24mm Bsci-Prnt [id number] - [id number] Implanted:Qty: 1 on 10/11/2023 by Husam Solis MD at [facility] and [facility] Right: [employer] 04/23/2026 [id number] / [id number] / Advance Directives For more information, please contact: [phone] Latest Code Status on File Code Status Date Activated Date Inactivated Comments Full Code 10/11/2023 12:31 PM 10/12/2023 8:47 PM This code status was ascertained in the following way: discussion with patient . Care Teams Fruit Raiser Relationship Specialty Start Date End Date Dayna Prieto MD [address] [facility] [place] [address] PCP - General Threshing Operator 10/05/23
--- OUTSIDE RECORDS SUMMARY | 2025-06-12 10:11 | XMS_ITS | Encounter Summary ---
Author Organization [facility]up and Home Health Address [address] [place] [address] Care Team Providers Care Pipeline Gang Supervisor Name Role Phone Bao Gann DO Primary Care Provider Encounter Details Date Type Department Care Team (Late st Contact Info) Description 11/13/2014 Scanned Document NE PM [facility] Cardiac Services [address] [place] [address] [place] [address] External, Provider Social History Tobacco Use Types [...] External LAB BLOOD ORDERABLES Final Res ult [facility] [place], [place], [place] * Cardiac Echo Result Scan (11/09/2014) us Provider External CV CARDIAC REPORT (CVR) Final Result Performing Organization Address [facility] Co de Phone Number [facility] * Cardiac EKG Result Scan (11/09/2014) us Provider External CV CARDIAC REPORT (CVR) Final Result Performing Organization Address [facility] Co de Phone Number [facility] * Xray Result Scan (11/08/2014) us Provider External IMG SCAN REPORTS Final Result Performing Organization Address [facility] de Phone Number [facility] documented in this encounter Visit Diagnoses Not on filedocumented in this encounter Care Teams Pipeline Gang Supervisor Relationship Specialty Start Date End Date Bao Gann DO [address] [facility] [address] [place] [phone] PCP - General Internal Medicine 10/09/18 documented as of this encounter
--- OUTSIDE RECORDS SUMMARY | 2025-06-12 10:11 | XMS_ITS | Encounter Summary ---
Author Organization [facility] and Home Health Address [address] [place] [address] Care Team Providers Care Marketing Clerk Name Role Phone Bao Gann DO Primary Care Provider Encounter Details Date Type Department Care Team (Late st Contact Info) Description 11/08/2014 Scanned Document NE PM [facility] Cardiac Services [address] [facility] [address] [place] [address] External, Provider Social History Tobacco Use Types [...] on filedocumented in this encounter Care Teams Marketing Clerk Relationship Specialty Start Date End Date Bao Gann DO [address] [facility] [address] [place] [address] PCP - General Internal Medicine 10/09/18 documented as of this encounter
--- OUTSIDE RECORDS SUMMARY | 2025-06-12 10:11 | XMS_ITS | Encounter Summary ---
Author Organization [facility] and [facility] Address [address] [place] [address] Care Team Providers Care Skiver Uppers Or Linings Name Role Phone Bao Gann DO Primary Care Provider Encounter Details Date Type Department Care Team (Late st Contact Info) Description 05/19/2016 Scanned Document [facility] Gastroenterology [facility] [address] [facility] [address] [place] [address] Provider, Historical . Social History Tobacco Use [...] on filedocumented in this encounter Care Teams Skiver Uppers Or Linings Relationship Specialty Start Date End Date Bao Gann DO [address] [facility] [address] [place] [phone] PCP - General Internal Medicine 10/09/18 documented as of this encounter
--- OUTSIDE RECORDS SUMMARY | 2025-06-12 10:12 | XMS_ITS | Clinical Summary ---
Author Organization [facility] Address [address] [place] [address] Care Team Providers Care Oil Paint Shader Name Role Phone Unavailable Primary Care Provider [...] - 2023-2 5 season) 2025 RSV Vaccine 50 years and old er and Patients (1 - 1-dose 75+ series) 2037 Hepatitis B Vaccines Aged Out No long er eligible based on patient's age to complete this topic
--- OUTSIDE RECORDS SUMMARY | 2025-06-12 10:12 | XMS_ITS | Encounter Summary ---
Author Organization [facility] and [facility] Address [address] [place] [address] Care Team Providers Care Instrument Technician Helper Name Role Phone Bao Gann DO Primary Care Provider Encounter Details Date Type Department Care Team (Late st Contact Info) Description 11/05/2015 Scanned Document [facility] [address] [place], [place] [address] Jorje Campbell MD [address] [place] [address] Social History Tobacco Use Types [...] on filedocumented in this encounter Care Teams Instrument Technician Helper Relationship Specialty Start Date End Date Bao Gann DO [address] [facility] [address] [place] [phone] PCP - General Internal Medicine 10/09/18 documented as of this encounter
--- OUTSIDE RECORDS SUMMARY | 2025-06-12 10:12 | XMS_ITS | Patient Health Record ---
Author Organization [facility] Address [address] [facility] [place] [address] Care Team Providers Care Drawer In Plain Loom Name Role Phone Dayna Prieto MD Primary Care Provider Meron Peterson Unavailable [phone] Allergies Allergen (clinical drug ingredient) Drug/Non Drug Allergy documented on EMR Reaction Allergy Type Onset Date Status sulfamethoxazole / trimethoprim Bactrim Unknown Drug Allergy Active ciprofloxacin Cipro Unknown Drug Allergy Act katie Adhesive Unknown Allergy Active codeine Codeine Unknown Drug Allergy Active Results Component Value Reference Range Notes HEMOGLOBIN A1C (GLYCOHEMOGLO BIN) Reviewed date:05/04/2025 01:17:55 PM Interpretation: Performing Lab: Notes/Report: HEMOGLOBIN A1C % (HH) 5.4 Reason For Referral No Information Medications Medication SIG (Take, Route, Frequency, Duration) Notes Start Date End Date Status Vitamin C 03/21/2024 Active Aspirin 81 MG CHEW AND SWALLOW ONE TABLET EVERY DAY Oral; Duration: 30 Days Active Atorvastatin Calcium 80 MG TAKE 1 TABLET BY MOUTH DAILY Oral; Duration: 90 Days Not-Taking Ozempic (2 MG/DOSE) 8 MG/3ML ADMINISTER 2 MG UNDER THE SKIN EVERY WEEK Subcutaneous; Duration: 28 Days Active Methocarbamol 500 MG Oral; Duration: 30 Days Active PreserVision AREDS 2 03/21/2024 Active metFORMIN HCl ER 750 MG Oral; Duration: 90 Days Active Fish Oil 360 MG 1 capsule Orally Thr ee times a day; Duration: 30 day(s) 03/21/2024 Active Iron 28 MG 1 tablet Orally Thre e times a Week; Duration: 30 day(s) 03/21/2024 Active Flecainide Acetate 100 MG Oral; Duration: 30 Days Acti ve Vitamin D3 6688019 UNIT/GM as directed 03/21/2024 Active Pantoprazole Sodium 40 MG TAKE 1 TABLET BY MOUTH DAILY Oral; Duration: 90 Days Active Dilt-XR 240 MG TAKE 1 CAPSULE BY MO UTH DAILY Oral; Duration: 90 Days Active Extra Depth Orthopedic Shoes (1 Pair) with Customized Heat Molded Multidensity Innersoles (3 Pair) Dx: NIDDM/Polyneuropathy (E11.42), Hammertoe Foot Deformity (M20.41,M20.42), Preulcerative Skin Lesion(s) (L85.1); Duration: 365 days 05/04/2025 Active Allergy 03/21/2024 Active Farxiga 5 MG TAKE 1 TABLET BY FADI TH DAILY Oral; Duration: 90 Days Active Plavix 03/21/2024 Active Gabapentin 100 MG Oral; Duration: 30 Days Active Immunizations Vaccine Route Administration Date Status Comme nts Influenza Unknown 04/29/2025 Administered Social History Tobacco Use: Social History Observation [...] Are you an other tobacco user? No AUDIT-C (Standard) Question Answer Notes Did you have a drink containing alcohol in the p ast year? No Points 0 Interpretation Negative Problems Problem Type SNOMED Code ICD Code Onset Dates Problem Status W/U Status Risk Notes Problem Acquired hammer toe of right foot (7439430634385091 ) Other hammer toe(s) (acquired), right foot (M20.41) Active confirmed Problem Acquired hammer toe of left foot (7861705262001117 ) Other hammer toe(s) (acquired), left foot (M20.42) Active confirmed Problem Polyneuropathy due to type 2 diabetes mellitus (601233039) Type 2 diabetes mellitus with diabetic polyneuropathy (E11.42) Active confirmed Vital Signs Blood pressure diastolic 60 mm Hg 05/04/2025 Height 5ft6in in 05/04/2025 Blood pressure systolic 117 mm Hg 05/04/2025 Weight 253 lbs 05/04/2025 BMI 40.83 kg/m2 05/04/2025 Encounters Encounter Location Date Provider Diagnosis [facility] [place] [address] [place] [address] 05/04/2025 Meron Johnson Other hammer toe(s) (acquired), right foot M20.41 ; Other hammer toe(s) (acquired), left foot M20.42 and Type 2 diabetes mellitus with diabetic polyneuropathy E11.42 Assessments Encounter Date Diagnosis (ICD Code) Assessment Notes Treatment Notes Treatment Clinical Notes Section Notes 05/04/2025 Other hammer toe(s) (acquired), right foot (ICD-10 - M20.41) Patient Educated with: DIABETIC FOOT CARE INSTRUCTIONS. pdf (DIABETIC FOOT CARE INSTRUCTIONS. pdf) 05/04/2025 Other hammer toe(s) (acquired), left foot (ICD-10 - M20.42) 05/04/2025 Type 2 diabetes mellitus with diabetic polyneuropathy (ICD-10 - E11.42) Plan Of Treatment Pending Test Test Name Order Date [id number] SKIN LESIONS, 2 TO 4 04/28/20 24 [id number] DYSTROPHIC NAILS ANY # Next Appt Details Provider Name:Meron fritz, 05/05/2026 01:30:00 PM, [address] [place] [address], [place], [address], Insurance Providers Payer Name Payer Address Payer Phone Subscriber Number Group Number Insured Name Patient Relationship to Insured Coverage Start Date Coverage End Date Medicare National [employer] [address] [place] [address] [id number] AmandaAgustina day Self - patient is the insured QMB [address] [place] [address] Amanda, Agustina Self - patient is the insured Medical (General) History Medical History History ICD Code Anxiety Arthritis Back,Hip,and Knee pain covid-19 Diabetic Gall bladder problems Headaches/Migraines Hypertension Macular degeneration Reflux ( GERD) sinusitis Measles Mumps Chicken pox A fib Tachycardia Surgical History Surgery Date(Month/Year) back surgery Gall bladder removal spinal stenosis surgery watchmen knee surgery 12/21 Hospitalization History Reason Date(Month/Year) [facility] knee 12/29/2023
--- OUTSIDE RECORDS SUMMARY | 2025-06-12 10:12 | XMS_ITS | Encounter Summary ---
Author Organization [facility]up and Home Health Address [address] [place] [address] Care Team Providers Care Hydro Station Supervisor Name Role Phone Bao Gann DO Primary Care Provider Encounter Details Date Type Department Care Team (Late st Contact Info) Description 08/05/2015 Scanned Document [facility] [address] [place], [place] [address] Jorje Campbell MD [address] [place] [address] Social History Tobacco Use Types [...] on filedocumented in this encounter Care Teams Hydro Station Supervisor Relationship Specialty Start Date End Date Bao Gann DO [address] [facility] [address] [place] [phone] PCP - General Internal Medicine 10/09/18 documented as of this encounter
--- OUTSIDE RECORDS SUMMARY | 2025-06-12 10:12 | XMS_ITS | Encounter Summary ---
Author Organization [facility] and Home Health Address [address] [place] [address] Care Team Providers Care Bolter Helper Name Role Phone Bao Gann DO Primary Care Provider Encounter Details Date Type Department Care Team (Late st Contact Info) Description 10/08/2018 Scanned Document [facility] [address] [place], [place] [address] Jorje Campbell MD [address] [place] [address] Social History Tobacco Use Types [...] on filedocumented in this encounter Care Teams Bolter Helper Relationship Specialty Start Date End Date Bao Gann DO [address] [facility] [address] [place] [address] PCP - General Internal Medicine 10/09/18 documented as of this encounter
--- OUTSIDE RECORDS SUMMARY | 2025-06-12 10:12 | XMS_ITS | Encounter Summary ---
Author Organization [facility] and [facility] Address [address] [place] [address] Care Team Providers Care Maintenance Representative Name Role Phone DerejedilcialisaBao Primary Care Provider [phone] Encounter Details Date Type Department Care Team (Latest Contact Info) Description 01/14/2016 Transcribed Orders [facility] Draw Station [address] [facility] 2nd Floor [place], [place] [id number] Harman Burrows MD Hypotension, unspecified (Primary Dx); [...] Hemoglobin A1c 7.1(H) 4.4 - 6.4 % [facility] Comment: Therapeutic Goal: Less Than 7% Re-Evaluation Therapy: Greater Than 8% Blood specimen (specimen) 01/14/2016 10:57 AM EDT Harman Burrows MD LAB BLOOD ORDERABLES Final Resul t Performing Organization Address [facility]/ZIP Co de Phone Number [facility] [address] [place] [address] * Lipid panel (01/14/2016 10:57 AM EDT) Cholesterol 147 0 - 199 mg/dL [facility] Triglycerides 75 0 - 150 mg/dL [facility] HDL 51 >=41 mg/dL [facility] LDL Cholesterol 81 0 - 99 BRID [facility] CHD Risk 3 <=4 [facility] Blood specimen (specimen) 01/14/2016 10:57 AM EDT Harman Burrows MD LAB BLOOD ORDERABLES Edited Resu lt - Final Performing Organization Address [facility] Co de Phone Number [facility] [address] [place] [address] * (ABNORMAL) Comprehensive metabolic panel (01/14/2016 10:57 AM EDT) Glucose 137(H) 70 - 100 mg/dL [facility] BUN 19(H) 7 - 17 mg/dL [facility] Creatinine 0.75 0.52 - 1.04 mg/dL [facility] Sodium 143 137 - 145 mmol/L [facility] Potassium 4.3 3.5 - 5.1 mmol/L [facility] Chloride 102 98 - 107 mmol/L [facility] CO2 28 22 - 30 mmol/L [facility] Anion Gap 14 7 - 16 mmol/L [facility] Calcium 8.8 8.4 - 10.2 mg/dL [facility] Total Protein 7.3 6.3 - 8.2 g/dL [facility] Albumin 3.7 3.5 - 5.0 g/dL [facility] Globulin 3.6(H) 2.0 - 3.5 g/dL [facility] A/G Ratio 1.0(L) 1.1 - 2.2 [facility] Aspartate Aminotransferase (AST) 55(H) 14 - 36 u/l [facility] Alkaline Phosphatase 106 38 - 126 u/l [facility] Total Bilirubin 1.3 0.2 - 1.3 mg/dL [facility] Alanine Aminotransferase (ALT) 48 9 - 52 u/l [facility] eGFR >60 [facility] Comment: Interpretation Stage 1 90 [...] ORDERABLES Edited Resu lt - Final [facility] [address] [place] [address] documented in this encounter Visit Diagnoses Diagnosis Hypotension, unspecified- Primary Aortic valve disorders Essential hypertension, malignant Pure hypercholesterolemia Mixed hyperlipidemia Other and unspecified hyperlipidemia Type II or unspecified type diabetes mellitus without mention of complication, not stated as uncontrolled documented in this encounter Care Teams Maintenance Representative Relationship Specialty Start Date End Date Bao Gann DO [address] [facility] [address] [place] [address] PCP - General Internal Medicine 10/09/18 documented as of this encounter
--- OUTSIDE RECORDS SUMMARY | 2025-06-12 10:12 | XMS_ITS | Encounter Summary ---
Author Organization [facility] and [facility] Address [address] [place] [address] Care Team Providers Care Physician Scientist Name Role Phone DerejedilcialisaBao Primary Care Provider Encounter Details Date Type Department Care Team (Latest Contact Info) Description 10/08/2015 Transcribed Orders [facility] Draw Station [address] [facility] 2nd Floor [place], [place] [id number] Harman Burrows MD Essential hypertension, malignant (Primary [...] Hemoglobin A1c 7.3(H) 4.4 - 6.4 % [facility] Comment: Therapeutic Goal: Less Than 7% Re-Evaluation Therapy: Greater Than 8% Blood specimen (specimen) 10/08/2015 10:30 AM EST Harman Burrows MD LAB BLOOD ORDERABLES Final Resul t Performing Organization Address City/[facility]/ZIP Co de Phone Number [facility] [address] [place] [address] * Lipid panel (10/08/2015 10:30 AM EST) Cholesterol 166 0 - 199 mg/dL [facility] Triglycerides 88 0 - 150 mg/dL [facility] HDL 59 >=41 mg/dL [facility] LDL Cholesterol 90 0 - 99 BRID [facility] CHD Risk 3 <=4 [facility] Blood specimen (specimen) 10/08/2015 10:30 AM EST Harman Burrows MD LAB BLOOD ORDERABLES Edited Resu lt - Final Performing Organization Address [facility] Co de Phone Number [facility] [address] [place] [address] * (ABNORMAL) Comprehensive metabolic panel (10/08/2015 10:30 AM EST) Glucose 131(H) 70 - 100 mg/dL [facility] BUN 16 7 - 17 mg/dL [facility] Creatinine 0.70 0.52 - 1.04 mg/dL [facility] Sodium 141 137 - 145 mmol/L [facility] Potassium 4.2 3.5 - 5.1 mmol/L [facility] Chloride 102 98 - 107 mmol/L [facility] CO2 26 22 - 30 mmol/L [facility] Anion Gap 13 7 - 16 mmol/L [facility] Calcium 9.2 8.4 - 10.2 mg/dL [facility] Total Protein 7.2 6.3 - 8.2 g/dL [facility] Albumin 4.0 3.5 - 5.0 g/dL [facility] Globulin 3.1 2.0 - 3.5 g/dL [facility] A/G Ratio 1.3 1.1 - 2.2 ratio [facility] Aspartate Aminotransferase (AST) 43(H) 14 - 36 u/l [facility] Alkaline Phosphatase 91 38 - 126 u/l [facility] Total Bilirubin 1.1 0.2 - 1.3 mg/dL [facility] Alanine Aminotransferase (ALT) 29 9 - 52 u/l [facility] [...] lt - Final [facility] [address] [place] [address] documented in this encounter Visit Diagnoses Diagnosis Essential hypertension, malignant- Primary Hypotension, unspecified Pure hypercholesterolemia Mixed hyperlipidemia Type I (juvenile type) diabetes mellitus without mention of complication, not stated as uncontrolled documented in this encounter Care Teams Physician Scientist Relationship Specialty Start Date End Date Bao Gann DO [address] [facility] [address] [place] [phone] PCP - General Internal Medicine 10/09/18 documented as of this encounter
--- OUTSIDE RECORDS SUMMARY | 2025-06-12 10:12 | XMS_ITS | Clinical Summary ---
Author Organization [address] [facility] Address [address] [place] [address] Care Team Providers Care Music Sound Light Technician Name Role Phone Sanjuanita Bao Primary Care Provider [phone] Allergies Active Allergy Reactions Criticality Noted Date [...] - 6.4 % 12/01/2016 1:17 PM EDT [facility] Blood specimen (specimen) Venipuncture / Unknown 12/01/2016 10:23 AM EDT 12/01/2016 10:23 AM EDT Harman Burrows MD LAB BLOOD ORDERABLES Final Resul t Performing Organization Address [facility] Co de Phone Number [facility] [address] [place] [address] * Lipid panel (12/01/2016 10:23 AM EDT) Cholesterol 148 0 - 199 mg/dL 12/01/2016 12:29 PM EDT [facility] HDL 54 >=41 mg/dL 12/01/2016 12:29 PM T [facility] Triglycerides 66 0 - 150 mg/dL 12/01/2016 12:29 PM T [facility] Chol/HDL Ratio 2.7 12/01/2016 12:29 PM EDT [facility] LDL Calculated 81 0 - 100 mg/dL 12/01/2016 12:29 PM T [facility] Blood specimen (specimen) Venipuncture / Unknown 12/01/2016 10:23 AM EDT 12/01/2016 10:23 AM EDT Harman Burrows MD LAB BLOOD ORDERABLES Final Resul t Performing Organization Address [facility] Co de Phone Number [facility] [address] [place] [address] * HM COLONOSCOPY (02/25/2014) Colonoscopy Primed Conversion (Col) Historical Provider HEALTH MAINTENANCE Final Res ult from Last 3 Months or Most Recently Relevant to Health Maintenance Insurance MEDICARE Member Subscriber Plan / Payer (Ef fective 1994-Present) Name:Agustina Patel Member ID:[id number] Relation to Subscriber:Self Name:Agustina Patel Subscriber ID:[id number] Payer ID:[id number] Group ID:Not on file Type:Not on file Address: [address] [place] Care Teams Music Sound Light Technician Relationship Specialty Start Date End Date Bao Gann DO [address] [facility] [address] [place] [phone] PCP - General Internal Medicine 10/09/18
[2025-06-12 10:26] LABS: MANUAL DIFF FLAG NO
[2025-06-12 10:37] LABS: Hematocrit 38.5 % (37.0-47.0); Hemoglobin 12.6 g/dl (12.0-16.0); Imm Gran Abs Auto 0.01 X10*3/uL (0.00-0.03); Imm Gran Pct Auto 0.3 % (0.0-0.4); Lymphocytes Absolute Auto 1.1 X10*3/uL (1.2-4.9); Mean Corpuscular HGB Conc 32.7 g/dl (31.0-35.0); Mean Corpuscular Hemoglobin 31.0 pg (27.0-33.0); Mean Corpuscular Volume 94.6 fL (80.0-98.0); NRBC Abs Auto 0.000 X10*3/uL (0.0-0.012); NRBC Pct Auto 0.0 /100WBC (0.0-0.2); Platelet Count 163 X10*3/uL (160-400); Red Blood Count 4.07 X10*6/uL (4.20-5.50); White Blood Count 3.4 X10*3/uL (4.8-10.8)
[2025-06-12 11:21] LABS: Alanine Aminotransferase 25 U/L (0-31); Albumin Level 3.6 g/dL (3.5-5.0); Alkaline Phosphatase 134 U/L (39-117); Anion Gap 12 (12-20); Aspartate Amino Transferase 39 U/L (5-31); Blood Urea Nitrogen 17 mg/dL (9-16); Calcium 9.2 mg/dL (8.4-10.2); Carbon Dioxide 25 mmol/L (22-29); Chloride 111 mmol/L (96-108); Cholesterol 165 mg/dL (<200); Estimated Glomerular Filt Rate > 60; HDL Cholesterol 55 mg/dL (>40); Potassium 4.0 mmol/L (3.3-5.1); Sodium 144 mmol/L (135-145); Total Protein 6.9 g/dL (6.5-8.0); Triglycerides 75 mg/dL (<150)
== END 2025-06-12 09:23 | disposition home or self-care (01) ==
LOC: HO.HMGCLDS 09:22
PROVIDERS: PCP Internal Medicine; Visit Provider Internal Medicine
DX: E11.9 Type 2 diabetes mellitus without complications (principal); E78.5 Hyperlipidemia, unspecified; I10 Essential (primary) hypertension; E55.9 Vitamin D deficiency, unspecified
CPT/HCPCS: 36415; 80053; 80061; 82306; 83036; 85025

== ENCOUNTER 2025-07-03 11:09 | Outpatient (AMB) | payer MEDICARE, MEDICAID, SELFPAY ==
[2025-07-03 11:12] VITALS: BP 130/72; PULSE 63; O2SAT 97; BMI 41.3
--- NOTE | 2025-07-03 11:12 | A.OFFPC_ITS ---
Vital Signs 07/03/25 11:12 Height 5 ft 6.5 in Weight 260 lb BMI 41.3 BP 130/72 Blood Pressure Location Lt brachial Position Sitting Pulse 63 Pulse Source Pulse Oximeter Pulse Oximetry (%) 97 Intake Visit Reasons: EP-rt hand issue & discuss other health issue Allergies ciprofloxacin (From Cipro) Allergy (Unknown, Verified 07/03/25 11:12) palpations/cp codeine Allergy (Unknown, Verified 07/03/25 11:12) chest pain sulfadiazine Allergy (Unknown, Verified 07/03/25 11:12) palpatations/CP dulaglutide (From Trulicity) Allergy (Verified 07/03/25 11:12) Diarrhea apixaban (From Eliquis) Adverse Reaction (Unknown, Verified 07/03/25 11:12) memory problem Medication List - Last Reconciled 07/03/25 by Dayna Prieto MD aspirin 81 mg PO DAILY blood sugar diagnostic (FreeStyle Lite Strips) Test blood sugar 4 x a day blood-glucose meter (FreeStyle Lite Meter kit) As directed buspirone 5 mg PO BID cholecalciferol (vitamin D3) 25 mcg PO DAILY dapagliflozin propanediol (Farxiga) 5 mg PO DAILY diltiazem HCl ER 240 mg PO DAILY flecainide 100 mg PO BID gabapentin 100 mg PO TID lancets (FreeStyle Lancets) test blood sugar once a day methocarbamol 500 mg PO DAILY PRN omega 0-fwu-gen-fish oil 1,200 (144-216) mg (Fish Oil) 1,200 caps PO DAILY pantoprazole 40 mg PO DAILY pravastatin 40 mg PO DAILY semaglutide (Ozempic) 2 mg (0.75 mL) subcut QWEEK [vitamin b12 500 mcg PO DAILY] vitamins A,C,M-yaga-kdncoj 2,148 mcg-113 mg-45 mg-17.4mg (PreserVision AREDS) 2 tabs PO BID Tobacco use date assessed: 02/17/25 Dental Screening Dental Screen Date: 10/29/24 HPI EP-rt hand issue & discuss other health issue HPI Details Patient presents complaining of hearing noise coming from her neighbors in a right ear only for the last few months but she became more anxious and upset about it over the last few weeks patient reports discomfort in the right ear. She has chronic tinnitus and has been wearing hearing aids for many years. Patient has a hearing test scheduled next month. She denies fever chills sore throat hypertension paroxysmal AFib and type 2 diabetes is stable on current medications. Patient is established with counselor for chronic anxiety and has been seeing GI for compensated liver cirrhosis secondary to HANC[place]. [facility] Medical History (Updated 07/03/25 @ 12:00 by Dayna Prieto MD) Tinnitus Liver cirrhosis Annual physical exam Anxiety Degenerative lumbar spinal stenosis Obesity DAVIAN on CPAP Iron deficiency anemia Macular degeneration GERD (gastroesophageal reflux disease) Atrial fibrillation Hyperlipidemia HTN (hypertension) DM type 2 (diabetes mellitus, type 2) Surgical History Hx of knee surgery H/O colonoscopy H/O lumbosacral spine surgery No pertinent past surgical history Family History Unknown No problems noted. Mother No problems noted. Sister No problems noted. Brother Substance use disorder Social History Housing: Apartment Alcohol intake: current Alcohol intake frequency: does not drink Patient Tobacco Use Status: Never used Tobacco e-Cigarette/Vaping Use: Never Used service: No Current occupational status: unemployed and disabled Cognitive needs: No Hearing needs: Yes Vision needs: Yes Questionnaire Thrive Questionnaire Date Thrive assessed: 09/16/24 ROXANNA-7 AMB Questionnaire ROXANNA-7 Date ROXANNA - 7 assessed: 10/29/24 Source: Developed by Drs. Candido Santana, Marilia Malcolm, Alex Garcia and colleagues, with an educational garima from [employer]. Review of Systems Const All systems reviewed & are unremarkable except as noted in HPI and below Eyes Reports no additional complaints ENT Reports no additional complaints Resp Reports no additional complaints GI Reports no additional complaints Reports no additional complaints Physical exam (Primary Care) Vital Signs: Last Vital Signs Pulse 63 07/03/25 11:12 BP 130/72 07/03/25 11:12 Pulse Ox 97 07/03/25 11:12 BMI result Body Mass Index 41.3 Tobacco/Smoking Status: Tobacco use Status Tobacco use date assessed 02/17/25 07/03/25 11:15 Patient Tobacco Use Status Never used Tobacco 07/03/25 11:15 e-Cigarette/Vaping Use Never Used 07/03/25 11:15 Thrive Assessment: Date of Thrive Assessment Date Thrive assessed 09/16/24 07/03/25 11:15 Const Other: Reproducible tenderness over right TMJ General: no acute distress HENMT Head: Yes normal to inspection Ears: external ears normal and TM's normal bilaterally Face and sinus: Yes normal facial exam Throat: Yes posterior oropharynx normal Eyes General: appearance normal, both eyes and all related structures Neck Neck: Yes no lymphadenopathy and Yes supple Resp Effort & Inspection: normal respiratory effort Auscultation: clear to auscultation bilaterally Cardio Rhythm: regular rhythm Heart sounds: S1 normal heart sound present and S2 normal heart sound present GI Inspection: Yes normal to inspection Palpation (GI): Soft to palpation Coding Level of Care Code Est Pt Level 4 (12661) Diagnoses HTN (hypertension) I10 Hyperlipidemia E78.5 DM type 2 (diabetes mellitus, type 2) E11.9 Liver cirrhosis K74.60 Atrial fibrillation I48.91 Tinnitus H93.19 Assessment & Plan Assessment & Plan (1) HTN (hypertension): Code(s): I10 - Essential (primary) hypertension Category: Medical Plan: Continue current medications (2) Hyperlipidemia: Code(s): E78.5 - Hyperlipidemia, unspecified Category: Medical Plan: Continue statin (3) DM type 2 (diabetes mellitus, type 2): Comment: on GLP 1 and Farxiga Code(s): E11.9 - Type 2 diabetes mellitus without complications Category: Medical Plan: A1c is 5.2. Continue Ozempic and Farxiga ADA diet increase physical activity and weight loss discussed with the patient (4) Liver cirrhosis: Comment: on US 08/2024, f/u with [facility], UGI and colonoscopy 2021, liver biopsy consistent with cirrhosis and steatohepatitis 01/2025, started on Nini Dr. Camejo Code(s): K74.60 - Unspecified cirrhosis of liver Category: Medical Plan: Continue Nini and follow-up with GI (5) Atrial fibrillation: Comment: s/p ablation 04/2020 x2, f/u Dr. Bell, on diltiazem and flecainide, s/p Watchman procedure 10/20 Code(s): I48.91 - Unspecified atrial fibrillation Category: Medical Plan: On flecainide and diltiazem follow-up with Cardiology (6) Tinnitus: Comment: Chronic tinnitus for 30 years, patient wears hearing aids Code(s): H93.19 - Tinnitus, unspecified ear Category: Medical Plan: Follow-up for repeat hearing test and for any persistent symptoms patient will be referred to ENT Orders: Orders TSH reflex Free T4 4 Months E11.9 - Type 2 diabetes mellitus without complications, E78.5 - Hyperlipidemia, unspecified, I10 - Essential (primary) hypertension, K74.60 - Unspecified cirrhosis of liver Comprehensive [place]. Panel Fast 4 Months E11.9 - Type 2 diabetes mellitus without complications, E78.5 - Hyperlipidemia, unspecified, I10 - Essential (primary) hypertension, K74.60 - Unspecified cirrhosis of liver Complete Blood Count Auto Diff 4 Months E11.9 - Type 2 diabetes mellitus without complications, E78.5 - Hyperlipidemia, unspecified, I10 - Essential (primary) hypertension, K74.60 - Unspecified cirrhosis of liver Hemoglobin A1c 4 Months E11.9 - Type 2 diabetes mellitus without complications, E78.5 - Hyperlipidemia, unspecified, I10 - Essential (primary) hypertension, K74.60 - Unspecified cirrhosis of liver Lipid Panel 4 Months E11.9 - Type 2 diabetes mellitus without complications, E78.5 - Hyperlipidemia, unspecified, I10 - Essential (primary) hypertension, K74.60 - Unspecified cirrhosis of liver Microalbumin, Random (w Creat) 4 Months E11.9 - Type 2 diabetes mellitus without complications, E78.5 - Hyperlipidemia, unspecified, I10 - Essential (primary) hypertension, K74.60 - Unspecified cirrhosis of liver Medications: Discontinued buspirone Discontinued Reason: Doctor's Order 5 mg PO BID 60 tabs 0RF
--- OUTSIDE RECORDS SUMMARY | 2025-07-03 13:37 | XMS_ITS | Encounter Summary ---
Author Organization [facility] Address [address] [place] [address] Care Team Providers Care Box Maker Wood Name Role Phone Bao Gann DO Primary Care Provider [phone] Encounter Details Date Type Department Care Team (Late st Contact Info) Description 11/13/2014 Scanned Document NE PM [facility] Cardiac Services [address] [place] [address] [address] [place] [address] External, Provider Social History Tobacco Use Types [...] External LAB BLOOD ORDERABLES Final Res ult [facility] [place], [place], [facility] * Cardiac Echo Result Scan (11/09/2014) us Provider External CV CARDIAC REPORT (CVR) Final Result Performing Organization Address [facility] Co de Phone Number [facility] * Cardiac EKG Result Scan (11/09/2014) us Provider External CV CARDIAC REPORT (CVR) Final Result Performing Organization Address [facility] Co de Phone Number [facility] * Xray Result Scan (11/08/2014) us Provider External IMG SCAN REPORTS Final Result Performing Organization Address [facility] de Phone Number [facility] documented in this encounter Visit Diagnoses Not on filedocumented in this encounter Care Teams Box Maker Wood Relationship Specialty Start Date End Date Bao Gann DO [address] [place] [address] [facility] [address] [place] [phone] PCP - General Internal Medicine 10/09/18 documented as of this encounter
--- OUTSIDE RECORDS SUMMARY | 2025-07-03 13:37 | XMS_ITS | Encounter Summary ---
Author Organization [facility] Address [address] [place] [address] Care Team Providers Care Superintendent Drilling Name Role Phone Bao Gann DO Primary Care Provider Encounter Details Date Type Department Care Team (Late st Contact Info) Description 03/10/2015 Scanned Document [facility] Sleep Center [address], [address] [place], [place] [address] Jorje Campbell MD [address] [place] [address] Social History Tobacco Use Types [...] filedocumented in this encounter Care Teams Superintendent Drilling Relationship Specialty Start Date End Date Bao Gann DO [address] [facility] [address] [place] [phone] PCP - General Internal Medicine 10/09/18 documented as of this encounter
--- OUTSIDE RECORDS SUMMARY | 2025-07-03 13:37 | XMS_ITS | Encounter Summary ---
Author Organization [facility] Address [address] [place] [address] Care Team Providers Care Boxing Instructor Name Role Phone Bao Gann DO Primary Care Provider Encounter Details Date Type Department Care Team (Late st Contact Info) Description 12/23/2014 Scanned Document [facility] Sleep Center [address], [address] [place], [place] [address] Jorje Campbell MD [address] [place] [address] Social History Tobacco Use Types [...] on filedocumented in this encounter Care Teams Boxing Instructor Relationship Specialty Start Date End Date Bao Gann DO [address] [facility] [address] [place] [phone] PCP - General Internal Medicine 10/09/18 documented as of this encounter
--- OUTSIDE RECORDS SUMMARY | 2025-07-03 13:37 | XMS_ITS | Encounter Summary ---
Author Organization [facility] Address [address] [place] [address] Care Team Providers Care Residential Director Name Role Phone Bao Gann DO Primary Care Provider Encounter Details Date Type Department Care Team (Late st Contact Info) Description 07/16/2014 Abstract [facility] [address] [facility] [address] [place], [place] [id number] Provider, Historical . Social History Tobacco Use [...] on filedocumented in this encounter Care Teams Residential Director Relationship Specialty Start Date End Date Bao Gann DO [address] [facility] [address] [place] [phone] PCP - General Internal Medicine 10/09/18 documented as of this encounter
--- OUTSIDE RECORDS SUMMARY | 2025-07-03 13:37 | XMS_ITS | Encounter Summary ---
Author Organization [facility] Address [address] [place] [address] Care Team Providers Care Power Equipment Mechanics Instructor Name Role Phone Bao Gann Primary Care Provider Encounter Details Date Type Department Care Team (Latest Contact Info) Description 10/12/2014 Transcribed Orders [facility] Draw Station [address] [facility] 2nd Floor [place], [place] [id number] Harman Burrows MD Unspecified essential hypertension (Primary [...] Resul t [facility] [address] [place] [address] * Lipid panel (10/12/2014 9:38 AM EDT) Cholesterol 143 0 - 199 mg/dL [facility] Triglycerides 86 0 - 150 mg/dL [facility] HDL 60 >=41 mg/dL [facility] LDL Cholesterol 66 0 - 99 [facility] CHD Risk 2 <=4 [facility] Blood specimen (specimen) 10/12/2014 9:38 AM EDT Harman Burrows MD LAB BLOOD ORDERABLES Edited Resu lt - Final Performing Organization Address City/[facility]/ZIP Co de Phone Number [facility] [address] [place] [address] * (ABNORMAL) Comprehensive metabolic panel (10/12/2014 9:38 [...] specimen (specimen) 10/12/2014 9:38 AM EDT us Harmna Burrows MD LAB BLOOD ORDERABLES Edited Resu lt - Final Performing Organization Address [facility]/ZIP Co de Phone Number [facility] [address] [place] [address] * (ABNORMAL) Urinalysis (BH GH L Q) (10/12/2014 9:30 AM EDT) Color, UA YELLOW YELLOW [facility] Specific [place], UA 1.002(L) 1.003 - 1.033 [facility] Leukocyte Esterase, UA NEGATIVE NEGATIVE [facility] Nitrite, UA NEGATIVE NEGATIVE [facility] pH, UA 6.5 5.0 - 8.0 [facility] Protein, UA NEGATIVE NEGATIVE mg/dL [facility] Glucose, UA NEGATIVE NEGATIVE mg/dL [facility] Ketones, UA NEGATIVE NEGATIVE mg/dL [facility] Urobilinogen, UA 0.2 0.2 - 2.0 EU/dL [facility] Bilirubin, UA NEGATIVE [facility] Comment:Positive urine bilir ubin results unable to be confirmed by [employer] due to flatcar whacker backorder. Blood, UA NEGATIVE NEGATIVE [facility] Urine specimen (specimen) 10/12/2014 9:30 AM EDT us Harman Burrows MD URINE ORDERABLES Final Result Performing Organization Address [facility]/ZIP Co de Phone Number [facility] [address] [place] [address] * Microalbumin, random urine (w/creatinine) (BH Q) [...] Final [facility] [address] [place] [address] documented in this encounter Visit Diagnoses Diagnosis Unspecified essential hypertension- Primary Hyperchylomicronemia Alcoholic liver damage, unspecified Type I (juvenile type) diabetes mellitus without mention of complication, not stated as uncontrolled Urinary tract infection, site not specified documented in this encounter Care Teams Power Equipment Mechanics Instructor Relationship Specialty Start Date End Date Bao Gann DO [address] [facility] [address] [place] [phone] PCP - General Internal Medicine 10/09/18 documented as of this encounter
--- OUTSIDE RECORDS SUMMARY | 2025-07-03 13:37 | XMS_ITS | Encounter Summary ---
Author Organization [facility] Address [address] [place] [address] Care Team Providers Care Floor Winder Name Role Phone Bao Gann DO Primary Care Provider Encounter Details Date Type Department Care Team (Late st Contact Info) Description 04/03/2014 Scanned Document [facility] Gastroenterology [facility] [address] [facility] [address] [place] [address] James Christina MD [address] [facility] [address] [place] [address] Social History Tobacco Use Types [...] on filedocumented in this encounter Care Teams Floor Winder Relationship Specialty Start Date End Date Bao Gann DO [address] [facility] [address] [place] [phone] PCP - General Internal Medicine 10/09/18 documented as of this encounter
--- OUTSIDE RECORDS SUMMARY | 2025-07-03 13:37 | XMS_ITS | Encounter Summary ---
Author Organization [facility] Address [address] [place] [address] Phone Care Team Providers Care Financial Aid Coordinator Name Role Phone Bao Gann DO Primary Care Provider Encounter Details Date Type Department Care Team (Late st Contact Info) Description 04/24/2014 Scanned Document [facility] [address] [place] [id number] External, Provider Social History Tobacco Use Types [...] filedocumented in this encounter Care Teams Financial Aid Coordinator Relationship Specialty Start Date End Date Bao Gann DO [address] [facility] [address] [place] [phone] PCP - General Internal Medicine 10/09/18 documented as of this encounter
--- OUTSIDE RECORDS SUMMARY | 2025-07-03 13:37 | XMS_ITS | Encounter Summary ---
Author Organization [facility] and [facility] Address [address] [place] [address] Care Team Providers Care Hose Finisher Name Role Phone DerejedilcialisaBao Primary Care Provider Encounter Details Date Type Department Care Team (Latest Contact Info) Description 02/22/2015 Transcribed Orders [facility] Draw Station [address] [facility] 2nd Floor [place], [place] [phone] Harman Burrows MD Unspecified essential hypertension (Primary [...] ORDERABLES Final Resul t Performing Organization Address City/[facility]/ZIP Co de Phone Number [facility] [address] [place] [address] * Lipid panel (02/22/2015 10:44 AM EDT) Cholesterol 137 0 - 199 mg/dL [facility] Triglycerides 105 0 - 150 mg/dL [facility] HDL 45 >=41 mg/dL [facility] LDL Cholesterol 71 0 - 99 [facility] CHD Risk 3 <=4 [facility] Blood specimen (specimen) 02/22/2015 10:44 AM EDT Harman Burrows MD LAB BLOOD ORDERABLES Edited Resu lt - Final Performing Organization Address [facility] Co de Phone Number [facility] [address] [place] [address] * (ABNORMAL) Comprehensive metabolic panel (02/22/2015 10:44 AM EDT) Glucose 152(H) 70 - 100 mg/dL [facility] BUN 12 7 - 17 mg/dL [facility] Creatinine 0.69 0.52 - 1.04 mg/dL [facility] Sodium 140 137 - 145 mmol/L [facility] Potassium 4.0 3.5 - 5.1 mmol/L [facility] Chloride 104 98 - 107 mmol/L [facility] CO2 28 22 - 30 mmol/L [facility] Anion Gap 7 7 - 16 mmol/L [facility] Calcium 9.2 8.4 - 10.2 mg/dL [facility] Total Protein 6.7 6.3 - 8.2 g/dL [facility] Albumin 3.7 3.5 - 5.0 g/dL [facility] Globulin 3.0 2.0 - 3.5 g/dL [facility] A/G Ratio 1.2 1.1 - 2.2 [facility] Aspartate Aminotransferase (AST) 28 14 - 36 u/l [facility] Alkaline Phosphatase 74 38 - 126 u/l [facility] Total Bilirubin 0.9 0.2 - 1.3 mg/dL [facility] Alanine Aminotransferase (ALT) 31 9 - 52 u/l [facility] [...] - Final [facility] [address] [place] [address] documented in this encounter Visit Diagnoses Diagnosis Unspecified essential hypertension- Primary Hyperchylomicronemia Avulsion of eye Type I (juvenile type) diabetes mellitus without mention of complication, not stated as uncontrolled documented in this encounter Care Teams Hose Finisher Relationship Specialty Start Date End Date Bao Gann DO [address] [place] [phone] PCP - General Internal Medicine 10/09/18 documented as of this encounter
--- OUTSIDE RECORDS SUMMARY | 2025-07-03 13:37 | XMS_ITS | Encounter Summary ---
Author Organization [facility] Address [address] [place] [address] Care Team Providers Care Twine Winder Name Role Phone Bao Gann DO Primary Care Provider Encounter Details Date Type Department Care Team (Late st Contact Info) Description 11/08/2014 Scanned Document [place] [facility] Card[facility] Services [address] [facility] [address] [place] [address] External, Provider Social History Tobacco Use Types [...] on filedocumented in this encounter Care Teams Twine Winder Relationship Specialty Start Date End Date Bao Gann DO [address]25 [facility] [address] [place] [address] PCP - General Internal Medicine 10/09/18 documented as of this encounter
--- OUTSIDE RECORDS SUMMARY | 2025-07-03 13:37 | XMS_ITS | Encounter Summary ---
Author Organization [facility] and [facility] Address [address] [place] [address] Care Team Providers Care Ship Erector Name Role Phone Bao Gann Primary Care Provider Encounter Details Date Type Department Care Team (Latest Contact Info) Description 10/20/2013 Transcribed Orders [facility] Draw Station [address] [facility] 2nd Floor [place] [phone] Harman Burrows MD Unspecified essential hypertension (Primary [...] EDT) TSH 1.600 0.465 - 4.680 mIU/L [facility] Blood specimen (specimen) 10/20/2013 10:49 AM EDT us Harman Burrows MD LAB BLOOD ORDERABLES Final Resul t [facility] [address] [place] [address] * T4, free (10/20/2013 10:49 AM EDT) Free T4 1.11 0.70 - 2.19 ng/dL [facility] Blood specimen (specimen) 10/20/2013 10:49 AM EDT Harman Burrows MD LAB BLOOD ORDERABLES Final Resul t Performing Organization Address [facility]/ZIP Co de Phone Number [facility] [address] [place] [address] * (ABNORMAL) Hemoglobin A1c (10/20/2013 10:49 AM EDT) Hemoglobin A1c 6.6(H) 4.4 - 6.4 % [facility] Comment: Therapeutic Goal: Less Than 7% Re-Evaluation Therapy: Greater Than 8% Blood specimen (specimen) 10/20/2013 10:49 AM EDT Harman Burrows MD LAB BLOOD ORDERABLES Final Resul t Performing Organization Address [facility] Co de Phone Number [facility] [address] [place] [address] * Lipid panel (10/20/2013 10:49 AM EDT) Cholesterol 165 0 - 199 mg/dL [facility] Triglycerides 72 0 - 150 mg/dL [facility] HDL 59 >=41 mg/dL [facility] LDL Cholesterol 92 0 - 99 BRID [facility] CHD Risk 3 <=4 [facility] Blood specimen (specimen) 10/20/2013 10:49 AM EDT us Harman Burrows MD LAB BLOOD ORDERABLES Edited Resu lt - Final Performing Organization Address [facility] Co de Phone Number [facility] [address] [place] [address] * (ABNORMAL) Comprehensive metabolic panel (10/20/2013 10:49 AM EDT) Glucose 118(H) 70 - 100 mg/dL [facility] BUN 20(H) 7 - 17 mg/dL [facility] Creatinine 0.79 0.52 - 1.04 mg/dL [facility] Sodium 140 137 - 145 mmol/L [facility] Potassium 4.6 3.5 - 5.1 mmol/L [facility] Chloride 103 98 - 107 mmol/L [facility] CO2 28 22 - 30 mmol/L [facility] Anion Gap 10 7 - 16 mmol/L [facility] Calcium 9.8 8.4 - 10.2 mg/dL [facility] Total Protein 7.3 6.3 - 8.2 g/dL [facility] Albumin 4.2 3.5 - 5.0 g/dL [facility] Globulin 3.1 2.0 - 3.5 g/dL [facility] A/G Ratio 1.3 1.1 - 2.2 ratio [facility] Aspartate Aminotransferase (AST) 36 14 - 36 u/l [facility] Alkaline Phosphatase 85 38 - 126 u/l [facility] Total Bilirubin 0.9 0.2 - 1.3 mg/dL [facility] Alanine Aminotransferase (ALT) 43 9 - 52 u/l [facility] [...] - Final [facility] [address] [place] [address] documented in this encounter Visit Diagnoses Diagnosis Unspecified essential hypertension- Primary Hyperchylomicronemia Alcoholic liver damage, unspecified Acute thyroiditis documented in this encounter Care Teams Ship Erector Relationship Specialty Start Date End Date Bao Gann DO [address] [facility] [[email or web address]] [address] [place] [address] PCP - General Internal Medicine 10/09/18 documented as of this encounter
--- OUTSIDE RECORDS SUMMARY | 2025-07-03 13:37 | XMS_ITS | Encounter Summary ---
Author Organization [facility] and [facility] Address [address] [place] [address] Care Team Providers Care Zinc Miner Name Role Phone Bao Gann Primary Care Provider [phone] Encounter Details Date Type Department Care Team (Latest Contact Info) Description 04/06/2014 Transcribed Orders [facility] Draw Station [address] [facility] 2nd Floor [place], [place] [id number] Harman Burrows MD Unspecified essential hypertension (Primary [...] EDT) TSH 1.120 0.465 - 4.680 mIU/L [facility] Blood specimen (specimen) 04/06/2014 10:29 AM EDT us Harman Burrows MD LAB BLOOD ORDERABLES Final Resul t [facility] [address] [place] [address] * T4, free (04/06/2014 10:29 AM EDT) [facility] Free T4 1.08 0.70 - 2.19 ng/dL [facility] Blood specimen (specimen) 04/06/2014 10:29 AM EDT Harman Burrows MD LAB BLOOD ORDERABLES Final Resul t Performing Organization Address [facility]/ZIP Co de Phone Number [facility] [address] [place] [address] * (ABNORMAL) Hemoglobin A1c (04/06/2014 10:29 AM EDT) [facility] Hemoglobin A1c 7.0(H) 4.4 - 6.4 % [facility] Comment: Therapeutic Goal: Less Than 7% Re-Evaluation Therapy: Greater Than 8% Blood specimen (specimen) 04/06/2014 10:29 AM EDT Harman Burrows MD LAB BLOOD ORDERABLES Final Resul t Performing Organization Address [facility] Co de Phone Number [facility] [address] [place] [address] * Lipid panel (04/06/2014 10:29 AM EDT) [facility] Cholesterol 132 0 - 199 mg/dL [facility] Triglycerides 88 0 - 150 mg/dL [facility] HDL 46 >=41 mg/dL [facility] LDL Cholesterol 69 0 - 99 [facility] CHD Risk 3 <=4 [facility] Blood specimen (specimen) 04/06/2014 10:29 AM EDT us Harman Burrows MD LAB BLOOD ORDERABLES Edited Resu lt - Final Performing Organization Address [facility] Co de Phone Number [facility] [address] [place] [address] * (ABNORMAL) Comprehensive metabolic panel (04/06/2014 10:29 AM EDT) Glucose 109(H) 70 - 100 mg/dL [facility] BUN 13 7 - 17 mg/dL [facility] Creatinine 0.75 0.52 - 1.04 mg/dL [facility] Sodium 143 137 - 145 mmol/L [facility] Potassium 4.4 3.5 - 5.1 mmol/L [facility] Chloride 106 98 - 107 mmol/L [facility] CO2 26 22 - 30 mmol/L [facility] Anion Gap 10 7 - 16 mmol/L [facility] Calcium 9.2 8.4 - 10.2 mg/dL [facility] Total Protein 7.2 6.3 - 8.2 g/dL [facility] Albumin 4.0 3.5 - 5.0 g/dL [facility] Globulin 3.2 2.0 - 3.5 g/dL [facility] A/G Ratio 1.2 1.1 - 2.2 [facility] Aspartate Aminotransferase (AST) 28 14 - 36 u/l [facility] Alkaline Phosphatase 73 38 - 126 u/l [facility] Total Bilirubin 0.9 0.2 - 1.3 mg/dL [facility] Alanine Aminotransferase (ALT) 32 9 - 52 u/l [facility] eGFR >60 [facility] Comment: Interpretation Stage 1 [...] BLOOD ORDERABLES Edited Resu lt - Final [facility] [address] [place] [address] documented in this encounter Visit Diagnoses Diagnosis Unspecified essential hypertension- Primary Hyperchylomicronemia Anemia, unspecified Acute thyroiditis Type II or unspecified type diabetes mellitus without mention of complication, not stated as uncontrolled documented in this encounter Care Teams Zinc Miner Relationship Specialty Start Date End Date Bao Gann DO [address] [facility] [address] [place] [phone] PCP - General Internal Medicine 10/09/18 documented as of this encounter
--- OUTSIDE RECORDS SUMMARY | 2025-07-03 13:38 | XMS_ITS | Encounter Summary ---
Author Organization [facility] Address [address] [place] [address] Care Team Providers Care Burial Vault Deliverer And Installer Name Role Phone Bao Gann DO Primary Care Provider Encounter Details Date Type Department Care Team (Late st Contact Info) Description 06/09/2016 Scanned Document [place] [facility] [address] [facility] [address] [place], [place] [address] Curt Miller MD [address] [facility] [address] [place] [address] Social History Tobacco Use Types [...] on filedocumented in this encounter Care Teams Burial Vault Deliverer And Installer Relationship Specialty Start Date End Date Bao Gann DO [address] [place] [phone] PCP - General Internal Medicine 10/09/18 documented as of this encounter
--- OUTSIDE RECORDS SUMMARY | 2025-07-03 13:38 | XMS_ITS | Encounter Summary ---
Author Organization [facility] and [facility] Address [address] [place] [address] Care Team Providers Care Commercial Attache Name Role Phone Bao Gann Primary Care Provider Encounter Details Date Type Department Care Team (Latest Contact Info) Description 06/07/2015 Transcribed Orders [facility] Draw Station [address] [facility] 2nd Floor [place], [place] [phone] Harman Burrows MD Pure hypercholesterolemia (Primary Dx); [...] EST) TSH 1.610 0.465 - 4.680 mIU/L [facility] Blood specimen (specimen) 06/07/2015 12:05 PM EST Harman Burrows MD LAB BLOOD ORDERABLES Final Resul t Performing Organization Address [facility] Phone Number [facility] [address] [place] [address] * T4, free (06/07/2015 12:05 PM EST) Free T4 1.14 0.70 - 2.19 ng/dL [facility] Blood specimen (specimen) 06/07/2015 12:05 PM EST Harman Burrows MD LAB BLOOD ORDERABLES Final Resul t Performing Organization Address [facility] [address] [place] [address] * Iron and TIBC (BH GH L YH) (06/07/2015 12:05 PM EST) Iron 81 37 - 170 mcg/dL [facility] TIBC 272 250 - 450 [facility] Iron Saturation 30 13 - 45 % BRID [facility] Blood specimen (specimen) 06/07/2015 12:05 PM EST Result [facility] Harman Burrows MD LAB BLOOD ORDERABLES Edited Resu lt - Final Performing Organization Address [facility] [address] [place] [address] * (ABNORMAL) Hemoglobin A1c (06/07/2015 12:05 PM EST) Hemoglobin A1c 7.0(H) 4.4 - 6.4 % [facility] Comment: Therapeutic Goal: Less Than 7% Re-Evaluation Therapy: Greater Than 8% Blood specimen (specimen) 06/07/2015 12:05 PM EST us Harman Burrows MD LAB BLOOD ORDERABLES Final Resul t Performing Organization Address [facility] Co de Phone Number [facility] [address] [place] [address] * Lipid panel (06/07/2015 12:05 PM EST) Cholesterol 164 0 - 199 mg/dL [facility] Triglycerides 98 0 - 150 mg/dL [facility] HDL 48 >=41 mg/dL [facility] LDL Cholesterol 97 0 - 99 BRID [facility] CHD Risk 3 <=4 [facility] Blood specimen (specimen) 06/07/2015 12:05 PM EST us Harman Burrows MD LAB BLOOD ORDERABLES Edited Resu lt - Final [facility] [address] [place] [address] * (ABNORMAL) Comprehensive metabolic panel (06/07/2015 12:05 PM EST) Glucose 131(H) 70 - 100 mg/dL [facility] BUN 14 7 - 17 mg/dL [facility] Creatinine 0.69 0.52 - 1.04 mg/dL [facility] Sodium 141 137 - 145 mmol/L [facility] Potassium 4.5 3.5 - 5.1 mmol/L [facility] Chloride 105 98 - 107 mmol/L [facility] CO2 25 22 - 30 mmol/L [facility] Anion Gap 12 7 - 16 mmol/L [facility] Calcium 9.7 8.4 - 10.2 mg/dL [facility] Total Protein 7.7 6.3 - 8.2 g/dL [facility] Albumin 4.0 3.5 - 5.0 g/dL [facility] Globulin 3.6(H) 2.0 - 3.5 g/dL [facility] A/G Ratio 1.1 1.1 - 2.2 ratio [facility] Aspartate Aminotransferase (AST) 40(H) 14 - 36 u/l [facility] Alkaline Phosphatase 95 38 - 126 u/l [facility] Total Bilirubin 1.3 0.2 - 1.3 mg/dL [facility] Alanine Aminotransferase (ALT) 39 9 - 52 u/l [facility] eGFR >60 [facility] Comment: Interpretation Stage 1 90 [...] lt - Final [facility] [address] [place] [address] documented in this encounter Visit Diagnoses Diagnosis [...] (pouch) documented in this encounter Care Teams Commercial Attache Relationship Specialty Start Date End Date Bao Gann DO [address] [facility] [address] [place] [phone] PCP - General Internal Medicine 10/09/18 documented as of this encounter
--- OUTSIDE RECORDS SUMMARY | 2025-07-03 13:38 | XMS_ITS | Encounter Summary ---
Author Organization [facility] Address [address] [place] [address] Care Team Providers Care Panman Name Role Phone Bao Gann DO Primary Care Provider Encounter Details Date Type Department Care Team (Late st Contact Info) Description 11/09/2014 Scanned Document NE PM [facility] Cardiac Services [address] [facility] [address] [place] [address] External, Provider Social History Tobacco Use Types [...] on filedocumented in this encounter Care Teams Panman Relationship Specialty Start Date End Date Bao Gann DO [address] [facility] [address] [place] [address] PCP - General Internal Medicine 10/09/18 documented as of this encounter
--- OUTSIDE RECORDS SUMMARY | 2025-07-03 13:38 | XMS_ITS | Encounter Summary ---
Author Organization [facility] Address [address] [place] [address] Care Team Providers Care Lime Vat Tender Name Role Phone Bao Gann DO Primary Care Provider Encounter Details Date Type Department Care Team (Late st Contact Info) Description 11/05/2015 Scanned Document [facility] [address] [place], [place] [address] Jorje Campbell MD [address] [place] [address] Social History Tobacco Use Types [...] on filedocumented in this encounter Care Teams Lime Vat Tender Relationship Specialty Start Date End Date Bao Gann DO [address] [facility] [address] [place] [address] PCP - General Internal Medicine 10/09/18 documented as of this encounter
--- OUTSIDE RECORDS SUMMARY | 2025-07-03 13:38 | XMS_ITS | Encounter Summary ---
Author Organization [facility] Address [address] [place] [address] Care Team Providers Care Supervisor [employer] Name Role Phone DerejedilcialisaBao Primary Care Provider Encounter Details Date Type Department Care Team (Latest Contact Info) Description 10/08/2015 Transcribed Orders [facility] Draw Station [address] [facility] 2nd Floor [place], [place] [id number] Harman Burrows MD Essential hypertension, malignant (Primary [...] Hemoglobin A1c 7.3(H) 4.4 - 6.4 % [facility] Comment: Therapeutic Goal: Less Than 7% Re-Evaluation Therapy: Greater Than 8% Blood specimen (specimen) 10/08/2015 10:30 AM EST Harman Burrows MD LAB BLOOD ORDERABLES Final Resul t Performing Organization Address City/[facility]/ZIP Co de Phone Number [facility] [address] [place] [address] * Lipid panel (10/08/2015 10:30 AM EST) Cholesterol 166 0 - 199 mg/dL [facility] Triglycerides 88 0 - 150 mg/dL [facility] HDL 59 >=41 mg/dL [facility] LDL Cholesterol 90 0 - 99 [facility] CHD Risk 3 <=4 [facility] Blood specimen (specimen) 10/08/2015 10:30 AM EST Harman Burrows MD LAB BLOOD ORDERABLES Edited Resu lt - Final Performing Organization Address [facility] Co de Phone Number [facility] [address] [place] [address] * (ABNORMAL) Comprehensive metabolic panel (10/08/2015 10:30 AM EST) Glucose 131(H) 70 - 100 mg/dL [facility] BUN 16 7 - 17 mg/dL [facility] Creatinine 0.70 0.52 - 1.04 mg/dL [facility] Sodium 141 137 - 145 mmol/L [facility] Potassium 4.2 3.5 - 5.1 mmol/L [facility] Chloride 102 98 - 107 mmol/L [facility] CO2 26 22 - 30 mmol/L [facility] Anion Gap 13 7 - 16 mmol/L [facility] Calcium 9.2 8.4 - 10.2 mg/dL [facility] Total Protein 7.2 6.3 - 8.2 g/dL [facility] Albumin 4.0 3.5 - 5.0 g/dL [facility] Globulin 3.1 2.0 - 3.5 g/dL [facility] A/G Ratio 1.3 1.1 - 2.2 ratio [facility] Aspartate Aminotransferase (AST) 43(H) 14 - 36 u/l [facility] Alkaline Phosphatase 91 38 - 126 u/l [facility] Total Bilirubin 1.1 0.2 - 1.3 mg/dL [facility] Alanine Aminotransferase (ALT) 29 9 - 52 u/l [facility] BLOOD ORDERABLES Edited Resu lt - Final [facility] [address] [place] [address] documented in this encounter Visit Diagnoses Diagnosis Essential hypertension, malignant- Primary Hypotension, unspecified Pure hypercholesterolemia Mixed hyperlipidemia Type I (juvenile type) diabetes mellitus without mention of complication, not stated as uncontrolled documented in this encounter Care Teams Supervisor [employer] Relationship Specialty Start Date End Date Bao Gann DO 18[address] [facility] [address] [place] [phone] PCP - General Internal Medicine 10/09/18 documented as of this encounter
--- OUTSIDE RECORDS SUMMARY | 2025-07-03 13:38 | XMS_ITS | Encounter Summary ---
Author Organization [facility] Address [address] [place] [address] Care Team Providers Care Bi Data Modeler Name Role Phone Bao Gann DO Primary Care Provider Encounter Details Date Type Department Care Team (Late st Contact Info) Description 08/05/2015 Scanned Document [facility] [address] [place], [place] [address] Jorje Campbell MD [address] [place] [address] Social History Tobacco Use Types [...] on filedocumented in this encounter Care Teams Bi Data Modeler Relationship Specialty Start Date End Date Bao Gann DO [address] [facility] [address] [place] [phone] PCP - General Internal Medicine 10/09/18 documented as of this encounter
--- OUTSIDE RECORDS SUMMARY | 2025-07-03 13:38 | XMS_ITS | Encounter Summary ---
Author Organization [facility] Address [address] [place] [address] Care Team Providers Care Engraver Hand Soft Metals Name Role Phone Dayna Prieto MD Primary Care Provider [phone] Encounter Details Date Type Department Care Team (Late st Contact Info) Description 05/19/2025 Results Follow-Up [facility] [address] [facility] [address] [place] [address] Shira Frazier, DAYANNA [address] [place] [address] [address] [place] [address] Social History Tobacco Use Types Packs/Day Years [...] Date Recorded What is your living situation? Unrecognized valu e 11/10/2024 Interpersonal Safety Answer Date Record ed Physical Abuse Unrecognized value 11/18/2024 Verbal Abuse Unrecognized value 11/18/2024 Comments No Sex and Gender Information Value Date Recorded Sex Assigned at Female 11/19/2024 11:15 AM EDT Legal Sex Female 1:03 AM EST Gender Identity Female 11/19/2024 11:15 AM EDT Sexual Orientation Straight 11/19/2024 11 :15 AM EDT documented as of this encounter Plan of Treatment Upcoming Encounters Date Type Department Care Team (Late st Contact Info) Description 07/28/2025 11:30 AM EST Office Visit Pulmonology - [address] [place] [address] Brittany Malik MD [address] [place] [phone] 11/18/2025 10:30 AM EDT Office Visit Orthopedic Surgery - [place] [address] [facility] [address] [place] [phone] Emil Lara MD 175 [facility] [address] [place] [address] documented as of this encounter Visit Diagnoses Not on filedocumented in this encounter Additional Health Concerns Assessment Noted Time PHQ-9 Depression Total Score: 0 11/11/19 25 4:48 PM EDT documented as of this encounter Care Teams Engraver [employer] Metals Relationship Specialty Start Date End Date Dayna Prieto MD [address] [place] [address] PCP - General Internal Medicine 07/14/19 documented as of this encounter
--- OUTSIDE RECORDS SUMMARY | 2025-07-03 13:38 | XMS_ITS | Encounter Summary ---
Author Organization [facility] [employer] [facility] Address [address] [place] [address] Care Team Providers Care Bridge Painter Name Role Phone DerejedilcialisaBao Primary Care Provider Encounter Details Date Type Department Care Team (Latest Contact Info) Description 01/14/2016 Transcribed Orders [facility] Draw Station [address] [facility] 2nd Floor [place], [place] [id number] Harman Burrows MD Hypotension, unspecified (Primary Dx); [...] Hemoglobin A1c 7.1(H) 4.4 - 6.4 % [facility] Comment: Therapeutic Goal: Less Than 7% Re-Evaluation Therapy: Greater Than 8% Blood specimen (specimen) 01/14/2016 10:57 AM EDT Harman Burrows MD LAB BLOOD ORDERABLES Final Resul t Performing Organization Address [facility]/ZIP Co de Phone Number [facility] [address] [place] [address] * Lipid panel (01/14/2016 10:57 AM EDT) Cholesterol 147 0 - 199 mg/dL [facility] Triglycerides 75 0 - 150 mg/dL [facility] HDL 51 >=41 mg/dL [facility] LDL Cholesterol 81 0 - 99 [facility] CHD Risk 3 <=4 [facility] Blood specimen (specimen) 01/14/2016 10:57 AM EDT Harman Burrows MD LAB BLOOD ORDERABLES Edited Resu lt - Final Performing Organization Address [facility] Co de Phone Number [facility] [address] [place] [address] * (ABNORMAL) Comprehensive metabolic panel (01/14/2016 10:57 AM EDT) Glucose 137(H) 70 - 100 mg/dL [facility] BUN 19(H) 7 - 17 mg/dL [facility] Creatinine 0.75 0.52 - 1.04 mg/dL [facility] Sodium 143 137 - 145 mmol/L [facility] Potassium 4.3 3.5 - 5.1 mmol/L [facility] Chloride 102 98 - 107 mmol/L [facility] CO2 28 22 - 30 mmol/L [facility] Anion Gap 14 7 - 16 mmol/L [facility] Calcium 8.8 8.4 - 10.2 mg/dL [facility] Total Protein 7.3 6.3 - 8.2 g/dL [facility] Albumin 3.7 3.5 - 5.0 g/dL [facility] Globulin 3.6(H) 2.0 - 3.5 g/dL [facility] A/G Ratio 1.0(L) 1.1 - 2.2 [facility] Aspartate Aminotransferase (AST) 55(H) 14 - 36 u/l [facility] Alkaline Phosphatase 106 38 - 126 u/l [facility] Total Bilirubin 1.3 0.2 - 1.3 mg/dL [facility] Alanine Aminotransferase (ALT) 48 9 - 52 u/l [facility] [...] Final [facility] [address] [place] [address] documented in this encounter Visit Diagnoses Diagnosis Hypotension, unspecified- Primary Aortic valve disorders Essential hypertension, malignant Pure hypercholesterolemia Mixed hyperlipidemia Other and unspecified hyperlipidemia Type II or unspecified type diabetes mellitus without mention of complication, not stated as uncontrolled documented in this encounter Care Teams Bridge Painter Relationship Specialty Start Date End Date Bao Gann DO [address] [facility] [address] [place] [phone] PCP - General Internal Medicine 10/09/18 documented as of this encounter
--- OUTSIDE RECORDS SUMMARY | 2025-07-03 13:38 | XMS_ITS | Encounter Summary ---
Author Organization [facility] Address [address] [place] [address] Care Team Providers Care Intelligence Consultant Name Role Phone Bao Gann DO Primary Care Provider Encounter Details Date Type Department Care Team (Late st Contact Info) Description 11/09/2014 Scanned Document [facility] Cardiology [facility] [address] [facility] [address] [place] [address] Minesh Diaz MD 112 [facility] [address] [place] [address] Social History Tobacco Use Types [...] on filedocumented in this encounter Care Teams Intelligence Consultant Relationship Specialty Start Date End Date Bao Gann DO [address] [facility] [address] [place] [phone] PCP - General Internal Medicine 10/09/18 documented as of this encounter
--- OUTSIDE RECORDS SUMMARY | 2025-07-03 13:38 | XMS_ITS | Clinical Summary ---
Author Organization [facility] Address [address] [place] [address] Care Team Providers Care Account Manager Name Role Phone Sanjuanita Bao Primary Care [...] - 6.4 % 12/01/2016 1:17 PM EDT [facility] Blood specimen (specimen) Venipuncture / Unknown 12/01/2016 10:23 AM EDT 12/01/2016 10:23 AM EDT Harman Burrows MD LAB BLOOD ORDERABLES Final Resul t Performing Organization Address [facility] Co de Phone Number [facility] [address] [place] [address] * Lipid panel (12/01/2016 10:23 AM EDT) Cholesterol 148 0 - 199 mg/dL 12/01/2016 12:29 PM EDT [facility] HDL 54 >=41 mg/dL 12/01/2016 12:29 PM T [facility] Triglycerides 66 0 - 150 mg/dL 12/01/2016 12:29 PM T [facility] Chol/HDL Ratio 2.7 12/01/2016 12:29 PM EDT [facility] LDL Calculated 81 0 - 100 mg/dL 12/01/2016 12:29 PM T [facility] Blood specimen (specimen) Venipuncture / Unknown 12/01/2016 10:23 AM EDT 12/01/2016 10:23 AM EDT Harman Burrows MD LAB BLOOD ORDERABLES Final Resul t Performing Organization Address [facility] Co de Phone Number [facility] [address] [place] [address] * HM COLONOSCOPY (02/25/2014) Colonoscopy Primed Conversion (Col) Historical Provider HEALTH MAINTENANCE Final Res ult from Last 3 Months or Most Recently Relevant to Health Maintenance Insurance MEDICARE Member Subscriber Plan / Payer (Ef fective 1994-Present) Name:Agustina Patel Member ID:[id number] Relation to Subscriber:Self Name:Agustina Patel Subscriber ID:[id number] Payer ID:[id number] Group ID:Not on file Type:Not on file Address: [address] [place] Care Teams Account Manager Relationship Specialty Start Date End Date Bao Gann DO [address] [facility] [address] [place] [address] PCP - General Internal Medicine 10/09/18
--- OUTSIDE RECORDS SUMMARY | 2025-07-03 13:38 | XMS_ITS | Encounter Summary ---
Author Organization [facility] Address [address] [place] [address] Care Team Providers Care Clammer Name Role Phone Bao Gann DO Primary Care Provider Encounter Details Date Type Department Care Team (Late st Contact Info) Description 06/16/2015 Scanned Document [facility] [address] [place], [place] [address] Jorje Campbell MD [address] [place] [address] Social History Tobacco Use Types [...] on filedocumented in this encounter Care Teams Clammer Relationship Specialty Start Date End Date Bao Gann DO [address] [facility] [address] [place] [phone] PCP - General Internal Medicine 10/09/18 documented as of this encounter
--- OUTSIDE RECORDS SUMMARY | 2025-07-03 13:38 | XMS_ITS | Encounter Summary ---
Author Organization [facility] Address [address] [place] [address] Care Team Providers Care Director Of Vendor Management Name Role Phone Bao Gann DO Primary Care Provider Encounter Details Date Type Department Care Team (Late st Contact Info) Description 05/08/2016 Scanned Document [facility] [address] [place], [place] [address] Jorje Campbell MD [address] [place] [address] Social History Tobacco Use Types [...] in this encounter Care Teams Director Of Vendor Management Relationship Specialty Start Date End Date aBo Gann DO [address] [facility] [address] [place] [phone] PCP - General Internal Medicine 10/09/18 documented as of this encounter
--- OUTSIDE RECORDS SUMMARY | 2025-07-03 13:38 | XMS_ITS | Clinical Summary ---
Author Organization [facility] Prior to 12/27/[address] [place] [address] Care Team Providers Care Logistics Loss Prevention Manager Name Role Phone Dayna Prieto MD Primary Care Provider [phone] Allergies Active Allergy Reactions Criticality Noted Date [...] times a day with meals. 0 Active [place]land-3 Fatty Acids (FISH OIL PO) Take by [...] this topic Medical Devices Implanted Type Area Typewriter Mechanic Device Identifier Shelf Expiration Date Model / Serial / Lot Device Clsur Watchman Flx Fabiola 24mm Bsci-Prnt [id number] - [id number] Implanted:Qty: 1 on 10/11/2023 by Husam Solis MD at [facility] Right: Faina Pawzii 04/23/2026 [id number] / [id number] / Advance Directives For more information, please contact: [phone] Latest Code Status on File Code Status Date Activated Date Inactivated Comments Full Code 10/11/2023 12:31 PM 10/12/2023 8:47 PM This code status was ascertained in the following way: discussion with patient . Care Teams Logistics Loss Prevention Manager Relationship Specialty Start Date End Date Dayna Prieto MD [address] [place] [address] PCP - General Packaging Sales 10/05/23
--- OUTSIDE RECORDS SUMMARY | 2025-07-03 13:38 | XMS_ITS | Clinical Summary ---
Author Organization [facility] Address [address] [place] [address] Care Team Providers Care Engineering And Development Director Name Role Phone Unavailable Primary Care Provider [...] COVID-19 Vaccine ( - 2023-2 5 season) 2025 RSV Vaccine 50 years and old er and Patients (1 - 1-dose 75+ series) 2037 Hepatitis B Vaccines Aged Out No long er eligible based on patient's age to complete this topic
--- OUTSIDE RECORDS SUMMARY | 2025-07-03 13:38 | XMS_ITS | Encounter Summary ---
Author Organization [facility] and [facility] Address [address] [place] [address] Care Team Providers Care Puddler Helper Name Role Phone Bao Gann DO Primary Care Provider [phone] Encounter Details Date Type Department Care Team (Late st Contact Info) Description 11/10/2014 Scanned Document NE PM [facility] Cardiac Services [address] [facility] [address] [place] [address] External, Provider Social History Tobacco Use Types [...] on filedocumented in this encounter Care Teams Puddler Helper Relationship Specialty Start Date End Date Bao Gann DO 1825 [facility] [address] [place] [address] PCP - General Internal Medicine 10/09/18 documented as of this encounter
--- OUTSIDE RECORDS SUMMARY | 2025-07-03 13:38 | XMS_ITS | Encounter Summary ---
Author Organization [facility] Address [address] [place] [address] Care Team Providers Care Winchman/Crane Operator Name Role Phone Bao Gann DO Primary Care Provider Encounter Details Date Type Department Care Team (Late st Contact Info) Description 10/08/2018 Scanned Document [facility] [address] [place], [place] [address] Jorje Campbell MD [address] [place] [address] Social History Tobacco Use Types [...] on filedocumented in this encounter Care Teams Winchman/Crane Operator Relationship Specialty Start Date End Date Bao Gann DO [address] [facility] [address] [place] [phone] PCP - General Internal Medicine 10/09/18 documented as of this encounter
--- OUTSIDE RECORDS SUMMARY | 2025-07-03 13:38 | XMS_ITS | Encounter Summary ---
Author Organization [facility] Address [address] [place] [address] Care Team Providers Care Audio Operator Name Role Phone Bao Gann DO Primary Care Provider Encounter Details Date Type Department Care Team (Late st Contact Info) Description 05/19/2016 Scanned Document [facility] Gastroenterology [facility] [address] [facility] [address] [place] [address] Provider, Historical . Social History Tobacco Use [...] on filedocumented in this encounter Care Teams Audio Operator Relationship Specialty Start Date End Date Bao Gann DO [address] [facility] [address] [place] [phone] PCP - General Internal Medicine 10/09/18 documented as of this encounter
--- OUTSIDE RECORDS SUMMARY | 2025-07-03 13:38 | XMS_ITS | Clinical Summary ---
Author Organization [address] [facility] Address [address] [place] [address] Phone Care Team Providers Care [employer] Name Role Phone Dayna Prieto MD Primary Care Provider [phone] Allergies Active Allergy Reactions Criticality Noted Date [...] time each day. Last dose taken 11/14/24 05/31/20 23 Active ferrous sulfate 325 mg (65 mg elemental iron) tablet Take 1 tablet (325 mg total) by mouth 2 (two) times a day. Active blood sugar diagnostic (ONETOUCH ULTRA TEST MISC) 1 Strip by In Vitro route as needed. Active loratadine (CLARITIN) 10 mg tablet Take 1 tablet (10 mg total) by mouth 1 (one) time each day. Active methocarbamoL (ROBAXIN) 500 mg tablet Take 1 Tablet by mouth 2 times daily as needed. 06/12/20 23 Active mv-min/FA/vit K/lutein/zeaxan t (PRESERVISION AREDS 2 PLUS MV ORAL) 1 tablet. Active gabapentin (NEURONTIN) 100 mg capsule Take 3 capsules (300 mg total) by mouth 3 (three) times a day. 10/30/19 25 Active pantoprazole (PROTONIX) 40 mg EC tablet Take 1 tablet (40 mg total) by mouth 1 (one) time each day. 09/04/19 25 Active pravastatin (PRAVACHOL) 40 mg tablet Take 1 tablet (40 mg total) by mouth 1 (one) time each day. 11/01/19 25 Active semaglutide 1 mg/0.2 mL syringe Inject 1 mg under the skin 1 (one) time per week. Active aspirin 81 mg EC tablet Take 1 tablet (81 mg total) by mouth 1 (one) time each day. 12/10/19 25 Active dilTIAZem XR (DILT-XR) 240 mg 24 hr capsule TAKE 1 CAPSULE BY MOUTH DAILY 90 capsule 3 01/22/20 25 Active ursodioL (ACTIGALL) 300 mg capsule Take 1 capsule (300 mg total) by mouth 2 (two) times a day. 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 Thoracic aortic aneurysm without rupture ([facility]/ C V24) 09/05/2019 Overview (06/02/2024): Last Assessment [...] and diltiazem. Allergic rhinitis 08/19/2019 Atrial fibrillation ([facility] V24, [facility] V28) 0 08/19/2019 Overview (06/02/2024): First [...] type 2, un complicated ([facility] V24, [facility] V28) 08/19/2019 GERD (gastroesophageal reflux disease) 0 Hyperlipidemia 08/19/2019 Hypertension 08/19/2019 Overview (06/02/2024): Last Assessment & Plan: Well managed at this visit - continue low sodium diet, exercise and weight loss. No changes to medication regime Iron deficiency anemia 08/19/2019 Macular degeneration 08/19/2019 DAVIAN (obstructive sleep apnea) 08/19/2019 Overview (06/02/2024): moderate AHI 16 [facility] Polysomnogram 6.25.2014; BMI 44; REM 13%; AHI 16, REM AHI 70, Central apneas 0; Obstructive apneas 46; Mixed apneas 0; hypopneas 38; average oxygen saturation 93% (lowest 72%); PLMI 2. Vitamin D deficiency 08/19/2019 Morbid obesity with BMI of 4 5.0-49.9, adult ([facility] V24, [facility] V28) 08/19/2019 Snoring 11/25/2014 Diverticulosis of colon without diverticulitis 0 11/24/2014 Gastritis, chronic 11/24/2014 History of colonic polyps 11/24/2014 Overview (11/12/2024): This Dx was updated with the IMO Load 04/29/2017 Atrial flutter ([facility] V24, [place] V28) 2014 Morbid obesity ([place] V24, [facility] V28) 2014 Encounters Date Type Department Care Team Description 06/05/2025 1:10 PM EST Office Visit Gastroenterology - [address] [facility] [address] [place] [phone] Mindy Camejo MD 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 ([facility] V24, [facility] V28) (Primary Dx); 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 ([facility] V24, [facility] V28); DAVIAN (obstructive sleep apnea) 05/20/2025 11:00 AM EDT Office Visit Orthopedic Surgery - [place] [address] [facility] [address] [place] [phone] Cyndy Mensah PA S/P arthroscopic partial lateral meniscectomy (Primary Dx); Tricompartment osteoarthritis of right knee 05/19/2025 Results Follow-Up [facility] Cardiology [facility] [address] [facility] [address] [place] [phone] Shira Frazier NP 05/15/2025 10:00 AM EDT Ancillary Procedure [facility] [address] [facility] [address] [place] [phone] Aneurysm of ascending aorta without rupture ([place] V24) from Last 3 Months Immunizations Immunization Administration Dates Next Due Influenza Quadravalent, MDCK [...] subun it RSVpreF, 0.5mL, Preservative Free (ABRYSVO) 50yo and older or 32 through 36 wks of 06/15/2023 Zoster recombinant (Shingrix ) 19yo and older 07/08/2020 Surgical History Surgery Date Site/Laterality Comments BACK SURGERY 07/30/1986 - 07/29/1987 PROCEDURE: HISTORICAL BACK SURGERY; COMMENT: L4-5 decompression, Dr. Davis 1992 TONSILLECTOMY PROCEDURE: HISTORICAL TONSILLECTOMY CHOLECYSTECTOMY PROCEDURE: HISTORICAL CHOLECYSTECTOMY OTHER SURGICAL HISTORY PROCEDURE: MI HYSTEROSCOPY ENDOMETRIAL ABLATION OTHER SURGICAL HISTORY PROCEDURE: MI ANES CARDIAC ELECTROPHYSIOL STDY W/RF ABLATION OTHER SURGICAL HISTORY 09/14/2022 PROCEDURE: MI GARNER FACETECTOMY & FORAMOTOMY 1 VRT SGM LUMBAR; COMMENT: L3-[address] Pend[place] COLONOSCOPY PROCEDURE: HISTORICAL COLONOSCOPY UPPER GASTROINTESTINAL ENDOSCOPY CARDIAC SURGERY [place] KNEE ARTHROSCOPY 11/18/2024 Right Right knee arthroscopy; [...] rh initis Diabetes mellitus type 2, uncomplicated (CMS/[facility] V24, CMS/HCC V28) 08/19/2019 DX:Diabetes mellitus type 2, uncomplicated ([facility]) Macular degeneration 08/19/2019 DX:Macular degeneration Morbid obesity with BMI of 4 5.0-49.9, adult ([place] V24, [place] V28) 08/19/2019 DX:Morbid obesity wit h BMI of 45.0-49.9, adult ([facility]) Atrial fibrillation ([place] V24, [place] V28) 08/19/2019 DX:Atrial fibrillation ([facility]) ; COMMENT: 2016, 1 episode, refuses [...] Sign Reading Time Taken Comments Blood Pressure 110/72 06/05/2025 1:35 PM EST Pulse 61 03/03/2025 12:30 PM EDT Temperature 36.8 C (98.2 F) 02/04/2025 12:44 PM EDT Respiratory Rate 19 02/04/2025 1:45 PM EDT Oxygen Saturation 99% 03/03/2025 12:30 PM EDT Inhaled Oxygen Concentration - - Weight 116 kg (255 lb 12.8 oz) 06/05/2025 1:35 P M EST Height 167.6 cm (5' 6 ) 06/05/2025 1:35 PM EST Body Mass Index 41.29 06/05/2025 1:35 PM EST Plan of Treatment Upcoming Encounters Date Type Department Care Team (Late st Contact Info) Description 07/28/2025 11:30 AM EST Office Visit Pulmonology - [place] [address] [facility] [address] [place] [phone] Brittany Malik MD [address] [place] [phone] 11/18/2025 10:30 AM EDT Office Visit Orthopedic Surgery - [place] [address] [facility] [address] [place] [phone] Emil Lara MD [address] [facility] [address] [place] [address] Health Maintenance Due Date Last Done Comments [...] Blood Sugar Control Test (HGBA1C) 07/15/2022 12/01/2016 Social Influencers of Health Screening 11/10/2025 11/10/2024 Diabetes: Annual GFR (Glomerular Filtration Rate) 11/11/2025 11/11/2024, 11/26/2023, 11/26/2023 Hypertension/CHF/CAD Annual BMP Blood Test 11/11/2025 11/11/2024, 11/26/2023, 11/26/2023 Breast Cancer Screening 01/21/2027 01/22/20, 01/22/2024, 12/08/2022, Additional history exists Colorectal Cancer Screening: Colonoscopy 05/23/2028 05/23/2023 Cervical Cancer Screening: HPV 11/17/2029 11/17/2024, 06/09/2020 Osteoporosis Screening (Bone Density Screening) 02/18/2035 02/18/2025 RSV Immunization Adult Patients Completed 06/15/2023 Pneumococcal Vaccine: 50+ Years Completed 10/29/2024, 07/10/2019 Depression Screening Completed 11/10/2024 COVID-19 Vaccine Completed 05/12/2025, , 06/05/2023, Additional history exists Influenza Vaccine Completed 05/12/2025, , 05/19/2024, Additional history exists HIB Vaccines Aged Out [...] this topic Medical Devices Implanted Type Area Safety Companion Device Identifier Shelf Expiration Date Model / Serial / Lot Device Clsadam Watchman Flx Fabiola 24mm Bsci-Prnt [id number] - [id number] Implanted:Qty: 1 on 10/11/2023 by Husam Solis MD Right: Faina FAGUO 04/23/2026 [id number] / [id number] / Procedures Procedure Name Priority Date/Time Associated Diagnosis Comments EXTERNAL CLINICAL LAB 06/16/2025 TRANSTHORACIC ECHOCARDIOGRAM (TTE) COMPLETE Routine 05/15/2025 11:00 AM EDT Aneurysm of ascending aorta without rupture (CMS/HCC V24) BD BONE DENSITY DXA AXIAL SKELETON Routine 02/18/2025 1:54 PM EDT Asymptomatic menopausal state MG MAMMO DIGITAL SCREENING W ROBI BILAT [...] Recently Relevant to Health Maintenance Results * External clinical lab (06/16/2025) us Provider [facility] BLOOD ORDERABLES Fin al Result * (ABNORMAL) TRANSTHORACIC ECHOCARDIOGRAM (TTE) COMPLETE (05/15/2025 11:00 AM EDT) LV EDV (A2C) 81 mL CV PACS LV EDV (A4C) 115 mL CV PACS LV Diastolic Volume (BP) 99 46 - 106 mL CV PACS LV ESV (A2C) 33 mL CV PACS LV ESV (A4C) 43 mL CV PACS LV Systolic Volume (BP) 38 14 - 42 mL CV PACS IVSD 1.2(A) 0.6 - 0.9 cm CV PACS LVIDD 5.0 3.8 - 5.2 cm CV PACS LVIDS 3.7(A) 2.2 - 3.5 cm CV PACS LVOT Diameter 2.1 cm CV PACS LVOT Mean Jl 0.9 m/s CV PACS LVOT Mean Grad 4 mmHg CV PACS LVOT Mean Grad 4 mmHg CV PACS LVOT Mean Grad 4 mmHg CV PACS LVOT Peak VTI 34.6 cm CV PACS LVOT Peak VTI 34.6 cm CV PACS LVOT Peak Jl 1.4 m/s CV PACS LVOT Peak Gradient 8 mmHg CV PACS LVPWD 1.2(A) 0.6 - 0.9 cm CV PACS MV E' Tissue Velocity Lateral 9 cm/s CV PACS MV E' Tissue Velocity Septal 8 cm/s CV PACS Ejection Fraction (A2C) 59 % CV PACS Ejection Fraction (A4C) 63 % CV PACS Ejection Fraction (BP) 62 % CV PACS LVOT Area 3.5 cm2 CV PACS LVOT Stroke Volume 120 mL CV PACS Left Atrium Minor Yaphank 7.2 cm CV PACS Left Atrium Major Yaphank 7.4 cm CV PACS LA Area Sys (A2C) 38 cm2 CV PACS LA Area Sys (A4C) 28 cm2 CV PACS LA Volume (BP) 119 mL CV PACS RA Area 22.0 cm2 CV PACS RA 2D Volume 61 mL CV PACS AV Mean Gradient 6 mmHg CV PACS AV Mean Gradient 6 mmHg CV PACS AV Mean Gradient 6 mmHg CV PACS AV Mean Gradient 6 mmHg CV PACS Ao VTI 44.2 cm CV PACS AV Peak Jl 1.8 m/s CV PACS AV Peak Gradient 13 mmHg CV PACS AV Area Peak Velocity 2.6 cm2 CV PACS Aortic Sinus Valsalva 4.0 cm CV PACS IVC Proximal 2.1 cm CV PACS MV Deceleration Alexander 6.6 m/s2 CV PACS E Wave Deceleration Time 166 119 - 242 ms CV PACS MV PHT 49 ms CV PACS MV Peak A Jl 0.80 m/s CV PACS MV Peak E Jl 1.10 m/s CV PACS MV Mean Gradient 2 mmHg CV PACS MV VTI 35.0 cm CV PACS Mitral Valve Max Velocity 1.2 m/s CV PACS MV Peak Gradient 5 mmHg CV PACS MV Area PHT 4.5 cm2 CV PACS PV Acceleration Time 151 ms CV PACS PV Acceleration Time 151 ms CV PACS PV Mean Gradient 2 mmHg CV PACS PV VTI 26.7 cm CV PACS PV Peak Velocity 1.2 m/s CV PACS PV Peak Gradient 5 mmHg CV PACS RV Diastolic Basal Dimension 4.6(A) 2.5 - 4.1 cm CV PACS RV S' 10 cm/s CV PACS TAPSE 29 mm CV PACS TR Peak Velocity 2.09 m/s CV PACS LV ESV Index (A4C) 19 mL/m2 CV PACS LV EDV Index (A4C) 52 mL/m2 CV PACS E/E' Ratio Septal 14 CV PACS E/E' Ratio Averaged 13 CV PACS LVOT Stroke Index 54 mL/m2 CV PACS Relative Wall Thickness ratio 0.48 CV PACS FS 26 % CV PACS LV Mass 2D 234 g CV PACS LVOT flow 312 mL/s CV PACS RA 2D Volume Index 28 mL/m2 CV PACS CARL Index (Pk Jl) 1.18 cm2/m2 CV PACS LVIDD Index 2.26 cm/m2 CV PACS LVIDS Index 1.67 cm/m2 CV PACS AV Velocity Ratio 0.78 CV PACS E/A Ratio 1.4 CV PACS E/E' Ratio Lateral 12 CV PACS LV Systolic Volume Index (BP) 17 mL/m2 CV PACS LV Diastolic Volume Index (BP) 45 mL/m2 CV PACS LA Volume Index (BP) 54 mL/m2 CV PACS LV Mass Index 2D 106 g/m2 CV PACS LV EDV Index (A2C) 37 mL/m2 CV PACS LV ESV Index (A2C) 15 mL/m2 CV PACS BSA 2.32 m2 CV PACS Anatomical Region Laterality Modality Ultrasound Addenda Addendum by Sebas Rasheed MD on 05/15/2025 5:21 PM EDT Left ventricle cavity size is normal. There is mild concentric hypertrophy. Systolic function is normal with an ejection fraction of 55-60%. There are no regional LV wall motion abnormalities. Right ventricle cavity is normal. Right ventricular systolic function is normal. No hemodynamically significant valvular disease. The Sinus of Valsalva is dilated (4.0 cm). The ascending aorta is dilated but size appears underestimated. Compared to the previous study on 11/20/2023, ascending aorta is not well-visualized with the current study. Left Ventricle Left ventricle cavity size is normal. There is mild concentric hypertrophy. Systolic function is normal with an ejection fraction of 55-60%. There are no regional LV wall motion abnormalities. Indeterminate diastolic function. Right Ventricle Right ventricle cavity appears normal. Systolic function is normal. Left Atrium Left atrium cavity is dilated. Right Atrium Right atrium cavity is mildly dilated. IVC/SVC Inferior vena cava structure is normal. RA pressures is estimated to be 8 mmHg (IVC diameter <21 mm and decreases <50% during inspiration). Mitral Valve The leaflets are mildly thickened. There is mild annular calcification. There is trace regurgitation. There is no evidence of mitral valve stenosis. Tricuspid Valve Tricuspid valve structure is normal. Tricuspid regurgitation is inadequate for estimation of right ventricular systolic pressure. There is no evidence of tricuspid valve stenosis. Cannot assess RVSP. Aortic Valve The aortic valve is trileaflet. The leaflets are mildly thickened. There is no significant regurgitation. There is no evidence of aortic valve stenosis. Pulmonic Valve The pulmonic valve was not well visualized. There is trace pulmonic valve regurgitation. There is no evidence of pulmonic valve stenosis. Ascending Aorta The aorta was not well visualized. The Sinus of Valsalva is dilated (4.0 cm). The ascending aorta is dilated. Pericardium Pericardium appears normal. There is no pericardial effusion. Study Details Overall the study quality was adequate. us Shira Frazier NP CV ECHO PROCEDURES Edited Re sult - Final * BD Bone Density DXA Axial Skeleton (02/18/2025 1:54 PM EDT) Anatomical Region Laterality Modality Wrist, Hip, L-spine Bone Densito metry 02/23/2025 5:22 PM EDT Impressions 02/23/2025 5:23 PM EDT Osteopenia. Telerad VONDA ([id number]) -------- FINAL REPORT -------- Dictated By: Eusebia Ewing Dictated Date: 02/23/2025 17:22 ET Assigned Physician: Eusebia Ewing Reviewed and Electronically Signed By: Eusebia Ewing Signed Date: 02/23/2025 17:23 ET Workstation ID: [id number] Transcribed By: Self Edit Transcribed Date: 02/23/2025 17:22 ET Narrative 02/23/2025 5:23 PM EDT History: Low estrogen state due to menopause. Personal history of fracture. Vitamin D deficiency. Comparison: No comparison study at this institution. Findings: Bone densitometry is performed utilizing dual energy x-ray absorptiometry (DXA) in the [employer]ista unit. The lumbar spine and proximal femora [...] utilizing dual energy x-ray absorptiometry(DXA) in the [employer]ista unit. The lumbar spine and proximal femora [...] Hip 1.5 percent. IMPRESSION: Osteopenia. Telerad VONDA ([id number]) -------- FINAL REPORT -------- Dictated By: Eusebia Ewing Dictated Date: 02/23/2025 17:22 ET Assigned Physician: Eusebia Ewing Reviewed and Electronically Signed By: Eusebia Ewing Signed Date: 02/23/2025 17:23 ET Workstation ID: [id number] Transcribed By: Self Edit Transcribed Date: 02/23/2025 17:22 ET us Dayna Prieto MD IMG DXA PROCEDURES Final Resu lt * MG Mammo Digital Screening w Robi bilat (01/21/2025 1:14 PM EDT) Anatomical Region Laterality Modality Breast Bilateral Mammography 01/21/2025 4:38 PM EDT Impressions 01/21/2025 4:40 PM EDT No evidence of breast malignancy. BI-RADS CATEGORY: 1 - NEGATIVE RECOMMENDATION: Screening bilateral mammogram is recommended in 1 year. Mammo Location: [facility], [address] [place] [address], [id number], . -------- FINAL REPORT -------- Dictated By: Flaca Vora Dictated Date: 01/21/2025 16:38 ET Assigned Physician: Flaca Vora Reviewed and Electronically Signed By: Flaca Vora Signed Date: 01/21/2025 16:40 ET Workstation ID: [id number] Transcribed By: Self Edit Transcribed Date: 01/21/2025 [...] year. Mammo Location: [facility], [address] [place] [address], [id number], . -------- FINAL REPORT -------- Dictated By: Flaca Vora Dictated Date: 01/21/2025 16:38 ET Assigned Physician: Flaca Vora Reviewed and Electronically Signed By: Flaca Vora Signed Date: 01/21/2025 16:40 ET Workstation ID: [id number] Transcribed By: Self Edit Transcribed Date: 01/21/2025 16:38 ET us Self Referral Sppl IMG BI PROCEDURES Final Resul t * HPV with reflex genotype (11/17/2024 10:34 AM EDT) Pathologist [facility] HPV Negative Negative LAB MICROBIOLOGY METHOD 11/18/2024 1:51 PM EDT [facility] Brushing/Spatula Cervix uteri structure / Unknown 11/17/2024 10:34 AM EDT 11/18/2024 6:08 AM EDT Kellen CASTELLANOS LAB MOLECULAR DIAGNOSTICS ORDER LEFTY Final Result [facility] [address] [place] [address], * (ABNORMAL) Comprehensive metabolic panel (11/11/2024 12:03 PM EDT) Pathologist [facility] Sodium 136 133 - 145 mmol/L LAB CHEMISTRY METHOD 11/11/2024 5:02 PM EDT [facility] Potassium 4.1 3.5 - 5.5 mmol/L LAB CHEMISTRY METHOD 11/11/2024 5:02 PM EDT [facility] Chloride 104 96 - 110 mmol/L LAB CHEMISTRY METHOD 11/11/2024 5:02 PM EDT [facility] CO2 28 21 - 32 mmol/L LAB CHEMISTRY METHOD 11/11/2024 5:02 PM EDT [facility] Anion Gap 4 3 - 11 LAB CHEMISTRY METHOD 11/11/2024 5:02 PM EDT [facility] Glucose 109(H) 70 - 100 mg/dL LAB CHEMISTRY METHOD 11/11/2024 5:02 PM [facility] BUN 13 5 - 25 mg/dL LAB CHEMISTRY METHOD 11/11/2024 5:02 PM [facility] Creatinine 0.90 0.50 - 1.10 mg/dL LAB CHEMISTRY METHOD 11/11/2024 5:02 PM [facility] eGFR 72 >=60 mL/min/1. 73m2 LAB CHEMISTRY METHOD 11/11/2024 5:02 PM [facility] Comment:Calculation based on the Chronic Kidney Disease Epidemiology Collaboration (CKD-EPI) equation refit without adjustment for race. BUN/Creatinine Ratio 14.4 LAB CHEMISTRY METHOD 11/11/2024 5:02 PM [facility] Calcium 9.3 8.5 - 10.5 mg/dL LAB CHEMISTRY METHOD 11/11/2024 5:02 PM [facility] AST (SGOT) 45(H) 10 - 42 unit/L LAB CHEMISTRY METHOD 11/11/2024 5:02 PM [facility] ALT (SGPT) 41 10 - 60 unit/L LAB CHEMISTRY METHOD 11/11/2024 5:02 PM [facility] Alkaline Phosphatase 204(H) 42 - 121 unit/L LAB CHEMISTRY METHOD 11/11/2024 5:02 PM [facility] Total Protein 7.7 6.0 - 8.0 g/dL LAB CHEMISTRY METHOD 11/11/2024 5:02 PM [facility] Albumin 3.4 3.2 - 5.0 g/dL LAB CHEMISTRY METHOD 11/11/2024 5:02 PM [facility] Total Bilirubin 0.8 0.0 - 1.4 mg/dL LAB CHEMISTRY METHOD 11/11/2024 5:02 PM [facility] Blood Venous blood specimen / Unknown Venipuncture / Unknown 11/11/2024 12:03 PM EDT 11/11/2024 12:03 PM EDT Yoan FERRARI LAB BLOOD ORDERABLES Final Resu lt [facility] [address] [place] [address], [place] [phone] * Colonoscopy (05/23/2023) Colonoscopy No interpretation , Abstracted Anatomical Region Laterality Modality Other Historical Provider HEALTH MAINTENANCE Final Result * Urine Albumin Creatinine Ratio (07/25/2019) Urine Albumin Creatinine Ratio Abstracted Historical Provider HEALTH MAINTENANCE Final Result from Last 3 Months or Most Recently Relevant to Health Maintenance Insurance [address] [place] [address] MEDICARE MEDICAID [place] Advance Directives Documents on File Type Date Recorded Patient Certified Registered Nurse Anesthetist Expl anation Power of Life Underwriter 11/18/2024 7:12 AM PROXY Health Care Decision [...] currently active code status orders. Care Teams [employer] Relationship Specialty Start Date End Date Dayna Prieto MD [address] [place] [phone] PCP - General Internal Medicine 07/14/19
== END 2025-07-03 12:02 | disposition home or self-care (01) ==
LOC: HO.HMCC 11:09
PROVIDERS: PCP Internal Medicine; Visit Provider Internal Medicine
DX: E11.69 Type 2 diabetes mellitus with other specified complication (principal); K74.60 Unspecified cirrhosis of liver; I48.91 Unspecified atrial fibrillation; I10 Essential (primary) hypertension; E78.5 Hyperlipidemia, unspecified; H93.11 Tinnitus, right ear

== ENCOUNTER → 2025-07-03 11:09 | Outpatient (BNVA) | payer MEDICARE, MEDICAID, SELFPAY | PROVIDERS: PCP Internal Medicine; Visit Provider Internal Medicine | DX: E11.9 Type 2 diabetes mellitus without complications (principal); K74.60 Unspecified cirrhosis of liver; I48.91 Unspecified atrial fibrillation; H93.19 Tinnitus, unspecified ear | CPT/HCPCS: 99212 ==